=== PATIENT | female | born 1960 | race Caucasian/White ===

== ENCOUNTER → 2020-10-17 12:32 | Outpatient (BNVA) | payer OTHER, MEDICARE, SELFPAY | PROVIDERS: PCP Internal Medicine; Referring Provider Internal Medicine; Visit Provider Nurse Practitioner Family | DX: Z12.11 Encounter for screening for malignant neoplasm of colon (principal); Z79.899 Other long term (current) drug therapy | CPT/HCPCS: Q3014 ==

== ENCOUNTER 2021-01-07 11:05 | Day surgery (SDC) | payer OTHER, SELFPAY ==
[2020-12-06 10:09] VITALS: BMI 25.7
--- NOTE | 2021-01-06 08:31 | HO.ANESPROP2 ---
Documented by User: Kira Stephens 01/06/21 08:32 HPI - Anesthesia Eval Consult details Narrative: 60yo F for Colonoscopy PMFSH Active Problems Active Problems: All Active Problems (Updated 12/05/20 @ 16:08 by Karma Comer) Colon cancer screening (Acute) Past Medical History Medical History Anxiety Chronic right shoulder pain Depression GERD (gastroesophageal reflux disease) History of ETOH abuse Hypothyroidism Osteoarthritis Psoriasis Seborrheic dermatitis of scalp Skin cancer of forehead Smoker Family History Family History Father Hypercholesteremia Mother Breast cancer Surgical History Surgical History History of appendectomy Hx of arthroscopy of left knee Social History Social History (Updated 01/07/21 @ 11:43 by Veronica Elliott) Are you a primary infant childcare provider to a significant other at home: No Do you presently have visiting nurse or other home services: No Alcohol intake: former Smoking Status: Current every day smoker Tobacco Type: Cigarette Cigarettes Per Day: 6 Smoked in Last 30 Days: Yes Use of substances other than those prescribed or required for medical reasons: Yes Substance Use Type: Marijuana Substance Use Type Other:: ? h/o IVDA in the past. On suboxone Advance Directives: No Advance Directives Information Provided: No Advance Directives on File: No Meds Allergies Allergy/AdvReac Type Severity Reaction Status Date / Time No Known Allergies Allergy Verified 01/07/21 11:10 Home Medications Medication Instructions Recorded Confirmed Last Taken Type buprenorphine 8 mg-naloxone 2 mg 1.5 film SUBLINGUAL DAILY ea 10/17/20 12/05/20 Unknown History sublingual film etanercept 50 mg/mL (1 mL) 50 mg SUBCUT QWEEK 10/17/20 12/05/20 Unknown History subcutaneous syringe cholecalciferol (vitamin D3) 1 tab PO DAILY 12/05/20 12/05/20 Unknown History folic acid 1 mg PO DAILY 12/05/20 12/05/20 Unknown History vitamin B complex [B-100] 1 tab PO DAILY 12/05/20 12/05/20 Unknown History Exam Exam Date and Time: January 06, 2021 0831 Height,Weight and Vital Signs: Height 5 ft 5 in Weight 70.307 kg Assessment and Plan Assessment Anesthesia Assessment: Chart Reviewed Documented by User: Veronica Elliott 01/07/21 11:47 PMFSH Past Medical History Medical History Anxiety Chronic right shoulder pain Depression GERD (gastroesophageal reflux disease) History of ETOH abuse Hypothyroidism Osteoarthritis Psoriasis Seborrheic dermatitis of scalp Skin cancer of forehead Smoker Family History Family History Father Hypercholesteremia Mother Breast cancer Family history of problems with anesthesia: Yes (Mother has hard time waking up) Surgical History Surgical History History of appendectomy Hx of arthroscopy of left knee History of Problems with Anesthesia: No Social History Social History (Updated 01/07/21 @ 11:43 by Veronica Elliott) Are you a primary infant childcare provider to a significant other at home: No Do you presently have visiting nurse or other home services: No Alcohol intake: former Smoking Status: Current every day smoker Tobacco Type: Cigarette Cigarettes Per Day: 6 Smoked in Last 30 Days: Yes Use of substances other than those prescribed or required for medical reasons: Yes Substance Use Type: Marijuana Substance Use Type Other:: ? h/o IVDA in the past. On suboxone Advance Directives: No Advance Directives Information Provided: No Advance Directives on File: No Meds Allergies Allergy/AdvReac Type Severity Reaction Status Date / Time No Known Allergies Allergy Verified 01/07/21 11:10 Home Medications Medication Instructions Recorded Confirmed Last Taken Type buprenorphine 8 mg-naloxone 2 mg 1.5 film SUBLINGUAL DAILY ea 10/17/20 12/05/20 Unknown History sublingual film etanercept 50 mg/mL (1 mL) 50 mg SUBCUT QWEEK 10/17/20 12/05/20 Unknown History subcutaneous syringe cholecalciferol (vitamin D3) 1 tab PO DAILY 12/05/20 12/05/20 Unknown History folic acid 1 mg PO DAILY 12/05/20 12/05/20 Unknown History vitamin B complex [B-100] 1 tab PO DAILY 12/05/20 12/05/20 Unknown History Exam Height,Weight and Vital Signs: Vital Signs Temp Pulse Resp BP Pulse Ox 01/07/21 11:16 98.5 F 76 16 165/89 H 97 Airway Mallampati Class: II TM Dist: >3cm Neck ROM: Full Loose/Missing/Broken Teeth: Yes (Poor dentition-broken, ground down) Heart: RRR ? click vs split heart sound Lungs: CTAB Assessment and Plan Assessment Anesthesia Assessment: Anesthesia Plan Discussed and Chart Reviewed Final Anesthetic Review NPO: Yes ASA Class: II Final Preanesthetic Review: No Changes in Pt Med Stat, Meds/Allgs Chart Reviewed, Consent Obtained/Reviewed and Anes Risks/Benef Reviewed Patient Risk: Intermediate Procedure Risk: Low Assessment/Block/Sedation in SS: Assess/Block/Sedation-SS Anesthetic Plan Anesthetic Plan: MAC: Disposition: Standard PACU
--- NOTE | 2021-01-07 11:11 | MHC.SHP ---
Pre-Procedural Eval Section B Chief Complaint: Screening Relevant Family History (Specify if Yes): No Relevant Social History: Other (specify) Present Medications: see Short Stay Collaborative assessment Medical History: Significant History (Anxiety Chronic right shoulder pain Depression GERD (gastroesophageal reflux disease) History of ETOH abuse Hypothyroidism Osteoarthritis Psoriasis Seborrheic dermatitis of scalp Skin cancer of forehead Smoker) History of Previous Operations: Relevant previous surgery/procedure and date(s) (appendectomy) Allergies: Allergies Allergy/AdvReac Type Severity Reaction Status Date / Time No Known Allergies Allergy Verified 01/07/21 11:10 Review of Systems Sugical H&P ROS: Negative: Constitution, Cardiovascular, Respiratory, Neurological, Psychiatric, Hem-Onc, Allergic/Immunologic, Gastrointestinal, Genitourinary, Musculoskeletal, Integumentary, Endocrine and Eyes/Ears/Nose/Throat Exam Surgical H&P Exam: Normal: HEENT, Normal: Heart, Normal: Lungs, Normal: Extremities, Normal: Abdomen, Normal: Skin and Normal: Neurological Plan Diagnosis/Plan: Unchanged I have reviewed the history and physical and performed a pertinent physical examination on my patient. No changes have occurred unless specified.
[2021-01-07 11:16] VITALS: BP 165/89; PULSE 76; RESP 16; TEMP 36.9; O2SAT 97
--- NOTE | 2021-01-07 11:25 | PC.NURSE ---
PT HAS PSORIASIS ALL OVER BODY, MOST SIGNIFICANT ON LEGS AND SOME ON BUTTOCKS.
[2021-01-07] MEDS: Lactated Ringers 1,000 ML 100 ML IVCONT (11:35)
--- NOTE | 2021-01-07 12:08 | PM.OP ---
Brief Operative Note Date of Service: 01/07/21 Pre-op diagnosis: screening Post-op diagnosis: same Procedure: see op note Surgeon: Diallo Kwan MD Anesthesia: MAC Estimated blood loss (mL): 0 Condition: stable Disposition: PACU
--- NOTE | 2021-01-07 12:08 | W.PM.OPN ---
Operative Note Operative Note Date of Service: 01/07/21 Narrative: Operative Information Procedure Description: Colonoscopy COLONOSCOPY Instrument: Olympus variable stiffness pediatric scope 190L Colonoscopy Monitoring: Vital signs and clinical assessment, continuous EKG monitoring, Pulse oximetry, Carbon Dioxide monitoring and blood pressure monitoring were done throughout the procedure. Colon withdrawal time was 10 minutes. Procedure: The patient was placed in the left lateral decubitis position and pre-procedure medications were administered. After a digital rectal examination of the ano-rectum, the video colonoscope was inserted into the rectum and advanced through the colon to the cecum/TI. The colonoscope was slowly withdrawn in a retrograde panoramic fashion and the colon mucosa was carefully examined including a retroflexed view of the rectum. Findings and interventions are described below. Procedure Difficulty: easy Findings: Terminal Ileum-unable to see Cecum: unable to see due to prep Ascending Colon: normal Transverse Colon -normal Descending Colon:normal Sigmoid Colon: normal Rectum: Retroflexion with small internal hemorrhoids, grade I Anorectum - normal Colon preparation: [place] Bowel Preparation Scale Right colon; 0 Transverse colon: 1 Left colon; 1 (0 = Unprepared colon segment with mucosa not seen due to solid stool that cannot be cleared. 1 = Portion of mucosa of the colon segment seen, but other areas of the colon segment not well seen due to staining, residual stool and/or opaque liquid. 2 = Minor amount of residual staining, small fragments of stool and/or opaque liquid, but mucosa of colon segment seen well. 3 = Entire mucosa of colon segment seen well with no residual staining, small fragments of stool or opaque liquid) Impression and Post Procedure Diagnosis: internal hemorrhoids poor prep Plan: Repeat Colonoscopy in 2-3 months and review prep instructions with her to make sure prep is better next time Above findings were reviewed with the patient and relevant handouts were provided if indicated.
[2021-01-07 12:13] VITALS: BP 123/77; PULSE 73; RESP 20; TEMP 36.4; O2SAT 98
[2021-01-07 12:28] VITALS: BP 127/77; PULSE 73; RESP 20; O2SAT 98
--- NOTE | 2021-01-07 12:43 | PC.NURSE ---
1240 AWAKE ALERT ALFREDA PO DENIES DISCOMFORT MONITOR AND IVF DCD ASST OOB CH STEADY IV DCD DRESSED SELF AT BS CALL PAULINO IN REACH PLAN TO AMB TO [facility]
== END 2021-01-07 12:56 | disposition home or self-care (01) ==
PROVIDERS: PCP Internal Medicine; Visit Provider Internal Medicine Gastroenterology
PROC: 0DJD8ZZ Inspection of Lower Intestinal Tract, Via Natural or Artificial Opening Endoscopic (ICD-10-PCS; CPT 45378; principal; 2021-01-07 12:20)
DX: Z12.11 Encounter for screening for malignant neoplasm of colon (principal); K64.0 First degree hemorrhoids; K21.9 Gastro-esophageal reflux disease without esophagitis; F32.9 Major depressive disorder, single episode, unspecified; Z85.828 Personal history of other malignant neoplasm of skin; F17.210 Nicotine dependence, cigarettes, uncomplicated; F11.20 Opioid dependence, uncomplicated; Z79.899 Other long term (current) drug therapy
CPT/HCPCS: G0121

== ENCOUNTER → 2021-01-28 13:44 | Outpatient (BNVA) | payer OTHER, SELFPAY | PROVIDERS: PCP Internal Medicine; Visit Provider Nurse Practitioner Family | DX: Z13.89 Encounter for screening for other disorder (principal) | CPT/HCPCS: Q3014 ==

== ENCOUNTER 2021-02-12 10:52 | Outpatient (REF) | payer OTHER, SELFPAY ==
[2021-02-12 13:44] LABS: MANUAL DIFF FLAG NO
[2021-02-12 13:49] LABS: Basophils Percent Auto 0.5 % (0-2); Eosinophils Absolute Auto 0.2 X10*3/uL (0.0-0.4); Eosinophils Percent Auto 4.1 % (0-4); Hematocrit 40.6 % (37-47); Imm Gran Abs Auto 0.01 X10*3/uL (0.00-0.03); Imm Gran Pct Auto 0.2 % (0.0-0.4); Lymphocytes Absolute Auto 1.5 X10*3/uL (1.2-4.9); Lymphocytes Percent Auto 36.7 % (20-40); Mean Corpuscular Hemoglobin 28.7 pg (27.0-33.0); Mean Corpuscular Volume 89.6 fL (80-98); Mean Platelet Volume 8.9 fL (9.4-12.3); Monocytes Absolute Auto 0.3 X10*3/uL (0.1-1.2); Monocytes Percent Auto 7.5 % (2-11); Neutrophils Absolute Auto 2.1 X10*3/uL (2.0-8.3); Platelet Count 267 X10*3/uL (160-400); Red Blood Count 4.53 X10*6/uL (4.20-5.50); Red Cell Distribution Width 14.6 % (11.0-16.0); White Blood Count 4.1 X10*3/uL (4.8-10.8)
[2021-02-12 18:23] LABS: Ferritin 42 ng/mL (10-250); TSH reflex Free T4 1.78 uIU/mL (0.32-4.0)
[2021-02-12 18:29] LABS: Alanine Aminotransferase 49 U/L (0-31); Albumin Level 4.3 g/dL (3.5-5.0); Alkaline Phosphatase 101 U/L (39-117); Anion Gap 13 (12-20); Aspartate Amino Transferase 44 U/L (5-31); Bilirubin Total 0.5 mg/dL (0.0-1.0); Blood Urea Nitrogen 21 mg/dL (9-16); Calcium 9.3 mg/dL (8.4-10.2); Carbon Dioxide 27 mmol/L (22-29); Chloride 102 mmol/L (96-108); Estimated Glomerular Filt Rate > 60; Glucose Random 133 mg/dL (60-115); Potassium 4.8 mmol/L (3.3-5.1); Sodium 137 mmol/L (135-145); Total Protein 7.7 g/dL (6.5-8.0)
[2021-02-13 01:52] LABS: Ethylene Glycol NONE DETECTED (NONE DETECTED)
[2021-02-13 03:45] LABS: Vitamin B12 565 pg/mL (200-900)
[2021-02-15 13:06] LABS: Vitamin D 25-OH, D2 <4 ng/mL; Vitamin D 25-OH, D3 11 ng/mL; Vitamin D 25-OH, Total 11 ng/mL (30-100)
== END 2021-02-12 10:53 | disposition home or self-care (01) ==
LOC: HO.HMGCLDS 10:52
PROVIDERS: PCP Internal Medicine; Visit Provider Internal Medicine
DX: E03.9 Hypothyroidism, unspecified (principal); F10.20 Alcohol dependence, uncomplicated; F32.9 Major depressive disorder, single episode, unspecified; F41.9 Anxiety disorder, unspecified; J45.909 Unspecified asthma, uncomplicated; K59.01 Slow transit constipation; L40.9 Psoriasis, unspecified; D64.9 Anemia, unspecified
CPT/HCPCS: 36415; 80053; 82306; 82607; 82693; 82728; 84443; 85025

== ENCOUNTER 2021-04-16 09:44 | Day surgery (SDC) | payer OTHER, SELFPAY ==
--- NOTE | 2021-04-15 10:48 | P.CONAN_ITS ---
Documented by User: Kira Stephens 04/15/21 10:49 HPI - Anesthesia Eval Consult details Narrative: 60yo F for Colonoscopy Repeat colo d/t poor prep with [place] 01/2021 with [facility] PMFSH Active Problems Active Problems: All Active Problems (Updated 02/12/21 @ 10:50 by Reyna Zaman MD) Colon cancer screening (Acute) Alcoholism (Acute) Hypothyroidism (Acute) Anxiety and depression (Acute) Psoriasis (Acute) Asthma (Acute) Constipation by delayed colonic transit (Acute) Anemia (Acute) Past Medical History Medical History Anxiety Chronic right shoulder pain Depression GERD (gastroesophageal reflux disease) History of ETOH abuse Hypothyroidism Osteoarthritis Psoriasis Seborrheic dermatitis of scalp Skin cancer of forehead Smoker Family History Family History Father Hypercholesteremia Mother Breast cancer Family history of problems with anesthesia: Yes (Mother has hard time waking up) Surgical History Surgical History (Updated 04/11/21 @ 08:07 by Karma Comer) H/O colonoscopy History of appendectomy Hx of arthroscopy of left knee History of Problems with Anesthesia: No Social History Social History Household Members: None Are you a primary home care and home health aides teacher to a significant other at home: No Do you presently have visiting nurse or other home services: No Alcohol intake: former Cigarettes Per Day: 3 Substance Use Type: Marijuana Are you DNR?: No Advance Directives: No Advance Directives Information Provided: Yes Recently lost weight without trying: No Nutrition Risks: No Nutritional Risk Meds Allergies Allergy/AdvReac Type Severity Reaction Status Date / Time No Known Allergies Allergy Verified 02/12/21 10:28 Home Medications Medication Instructions Recorded Confirmed Last Taken Type buprenorphine 8 mg-naloxone 2 mg 1.5 film SUBLINGUAL DAILY ea 10/17/20 04/11/21 Unknown History sublingual film etanercept 50 mg/mL (1 mL) 50 mg SUBCUT QWEEK 10/17/20 04/11/21 Unknown History subcutaneous syringe cholecalciferol (vitamin D3) 1 tab PO DAILY 12/05/20 04/11/21 Unknown History folic acid 1 mg PO DAILY 12/05/20 04/11/21 Unknown History vitamin B complex [B-100] 1 tab PO DAILY 12/05/20 04/11/21 Unknown History Exam Exam Date and Time: April 15, 2021 1048 Assessment and Plan Assessment Anesthesia Assessment: Chart Reviewed Documented by User: Sheree Dwyer 04/16/21 11:02 PMF Past Medical History Medical History Anxiety Chronic right shoulder pain Depression GERD (gastroesophageal reflux disease) History of ETOH abuse Hypothyroidism Osteoarthritis Psoriasis Seborrheic dermatitis of scalp Skin cancer of forehead Smoker Family History Family History Father Hypercholesteremia Mother Breast cancer Surgical History Surgical History (Updated 04/11/21 @ 08:07 by Karma Comer) H/O colonoscopy History of appendectomy Hx of arthroscopy of left knee Social History Social History Household Members: None Are you a primary home care and home health aides teacher to a significant other at home: No Do you presently have visiting nurse or other home services: No Alcohol intake: former Cigarettes Per Day: 3 Substance Use Type: Marijuana Are you DNR?: No Advance Directives: No Advance Directives Information Provided: Yes Recently lost weight without trying: No Nutrition Risks: No Nutritional Risk Meds Allergies Allergy/AdvReac Type Severity Reaction Status Date / Time No Known Allergies Allergy Verified 02/12/21 10:28 Home Medications Medication Instructions Recorded Confirmed Last Taken Type buprenorphine 8 mg-naloxone 2 mg 1.5 film SUBLINGUAL DAILY ea 10/17/20 04/11/21 Unknown History sublingual film etanercept 50 mg/mL (1 mL) 50 mg SUBCUT QWEEK 10/17/20 04/11/21 Unknown History subcutaneous syringe cholecalciferol (vitamin D3) 1 tab PO DAILY 12/05/20 04/11/21 Unknown History folic acid 1 mg PO DAILY 12/05/20 04/11/21 Unknown History vitamin B complex [B-100] 1 tab PO DAILY 12/05/20 04/11/21 Unknown History Exam Airway Mallampati Class: II (Poor dentition, teeth worn down, nithing loose) TM Dist: >3cm Neck ROM: Full Heart: RrR Lungs: CtA Assessment and Plan Assessment Anesthesia Assessment: Anesthesia Plan Discussed and Chart Reviewed Final Anesthetic Review NPO: Yes (Sip water with meds) ASA Class: III Final Preanesthetic Review: No Changes in Pt Med Stat and Consent Obtained/Reviewed Patient Risk: Intermediate Procedure Risk: Intermediate Anesthetic Plan Anesthetic Plan: MAC: Disposition: Standard PACU
[2021-04-16 10:12] VITALS: BP 134/87; PULSE 82; RESP 16; TEMP 36.1; O2SAT 95; BMI 26.6
--- NOTE | 2021-04-16 10:58 | MHC.SHP ---
Pre-Procedural Eval Section B Chief Complaint: screening Relevant Family History (Specify if Yes): No Relevant Social History: Other (specify) (smokes THC) Present Medications: see Short Stay Collaborative assessment Medical History: Significant History (Anxiety Chronic right shoulder pain Depression GERD (gastroesophageal reflux disease) History of ETOH abuse Hypothyroidism Osteoarthritis Psoriasis Seborrheic dermatitis of scalp Skin cancer of forehead Smoker) History of Previous Operations: Relevant previous surgery/procedure and date(s) (H/O colonoscopy History of appendectomy Hx of arthroscopy of left knee) Allergies: Allergies Allergy/AdvReac Type Severity Reaction Status Date / Time No Known Allergies Allergy Verified 02/12/21 10:28 Review of Systems Sugical H&P ROS: Negative: Constitution, Cardiovascular, Respiratory, Neurological, Psychiatric, Hem-Onc, Allergic/Immunologic, Gastrointestinal, Genitourinary, Musculoskeletal, Integumentary, Endocrine and Eyes/Ears/Nose/Throat Exam Surgical H&P Exam: Normal: HEENT, Normal: Heart, Normal: Lungs, Normal: Abdomen, Normal: Skin and Normal: Neurological and Significant Findings: Extremities (dupuytrens contracture) Plan Diagnosis/Plan: Unchanged I have reviewed the history and physical and performed a pertinent physical examination on my patient. No changes have occurred unless specified.
[2021-04-16 11:37] VITALS: BP 98/63; PULSE 76; RESP 16; TEMP 36.4; O2SAT 98
--- NOTE | 2021-04-16 11:38 | P.BOP_ITS ---
Brief Operative Note Date of Service: 04/16/21 Pre-op diagnosis: colonoscopy screen Post-op diagnosis: same Procedure: see op note Surgeon: Diallo Kwan MD Anesthesia: MAC Was an Epidemiology Internship used for this Procedure?: No Estimated blood loss (mL): 0 Condition: stable Disposition: PACU
--- NOTE | 2021-04-16 11:39 | W.PM.OPN ---
Operative Note Operative Note Date of Service: 04/16/21 Narrative: Operative Information Procedure Description: Colonoscopy COLONOSCOPY Instrument: Olympus variable stiffness adult scope 190L Colonoscopy Monitoring: Vital signs and clinical assessment, continuous EKG monitoring, Pulse oximetry, Carbon Dioxide monitoring and blood pressure monitoring were done throughout the procedure. Colon withdrawal time was 20 minutes. Procedure: The patient was placed in the left lateral decubitis position and pre-procedure medications were administered. After a digital rectal examination of the ano-rectum, the video colonoscope was inserted into the rectum and advanced through the colon to the cecum/TI. The colonoscope was slowly withdrawn in a retrograde panoramic fashion and the colon mucosa was carefully examined including a retroflexed view of the rectum. Findings and interventions are described below. Procedure Difficulty: moderate, pressure applied to get to cecum, TI only superficially seen appeared normal Findings: Terminal Ileum-normal, not deeply intubated Cecum: erythema with scarring and atrophy, bx taken Ascending Colon: normal Transverse Colon -normal Descending Colon: one inflammed fold, bx taken Sigmoid Colon: normal Rectum: Retroflexion with small internal hemorrhoids, grade I Anorectum - normal Colon preparation: [place] Bowel Preparation Scale Right colon; 2 Transverse colon: 2 Left colon; 1 (0 = Unprepared colon segment with mucosa not seen due to solid stool that cannot be cleared. 1 = Portion of mucosa of the colon segment seen, but other areas of the colon segment not well seen due to staining, residual stool and/or opaque liquid. 2 = Minor amount of residual staining, small fragments of stool and/or opaque liquid, but mucosa of colon segment seen well. 3 = Entire mucosa of colon segment seen well with no residual staining, small fragments of stool or opaque liquid) Impression and Post Procedure Diagnosis: internal hemorrhoids non specific colitis Plan: High fiber diet leaflet Avoid straining at stool, epsom salts and sitz bath, anusol supps or cream as needed Repeat Colonoscopy in 1-2 years or earlier if clinically indicated, review prep for next time Above findings were reviewed with the patient and relevant handouts were provided if indicated.
[2021-04-16 11:53] VITALS: BP 117/79; PULSE 81; RESP 16; TEMP 36.4; O2SAT 96
== END 2021-04-16 12:22 | disposition home or self-care (01) ==
PROVIDERS: PCP Internal Medicine; Visit Provider Internal Medicine Gastroenterology
PROC: 0DJD8ZZ Inspection of Lower Intestinal Tract, Via Natural or Artificial Opening Endoscopic (ICD-10-PCS; CPT 45378; principal; 2021-04-16 11:10)
DX: Z12.11 Encounter for screening for malignant neoplasm of colon (principal); K52.9 Noninfective gastroenteritis and colitis, unspecified; K64.0 First degree hemorrhoids
CPT/HCPCS: 45380; 88305

== ENCOUNTER 2022-06-05 09:48 | Outpatient (REF) | payer OTHER, SELFPAY ==
--- NOTE | ~2022-06-05 | MM_ITS ---
EXAMINATION: MM SCREENING DIGITAL BREAST TOMOSYNTHESIS, BILATERAL CLINICAL INFORMATION: Screening. Asymptomatic. Family history breast cancer, mother age 76. The lifetime risk of breast cancer based on the Tyrer-Cuzick Model is 11%. COMPARISON: Mammography: 09/25/2019, 09/04/2017, 03/22/2014 TECHNIQUE: Digital breast tomosynthesis is performed in both the craniocaudal and mediolateral oblique views along with computer-aided detection (CAD). Synthesized 2D images are generated from the tomosynthesis. FINDINGS: There are scattered areas of fibroglandular density (ACR BI-RADS breast composition Category b). Breast tissue composition borders on predominantly fatty. Left breast shows no interval mass or architectural abnormality or developing density. Neither breast shows abnormal calcifications. The bilateral axilla and skin contours are unremarkable. Right synthesized CC view has question of some fine radiating lines posterior breast just medial to posterior nipple line. No correlate on MLO view. Patient will be recalled for additional imaging to exclude architectural changes. MM/MM tomosynthesis screening BI IMPRESSION: Right: -Question subtle architectural changes posterior breast medial to posterior nipple line limited to synthesized CC view view. Left: -No mammographic evidence of malignancy. ASSESSMENT: BI-RADS 0: Incomplete - Need Additional Imaging Evaluation RECOMMENDATION: 1. Additional views of the right breast (spot CC, rolled CC x2). 2. Targeted ultrasound if warranted after review of the additional views. 3. Radiology department staff will contact the patient for additional imaging. This patient's information was entered into a reminder system with a target due date for their next mammogram.
== END 2022-06-05 09:49 | disposition home or self-care (01) ==
LOC: HO.MAMMO 09:48
PROVIDERS: PCP Internal Medicine; Visit Provider Internal Medicine
DX: Z12.31 Encounter for screening mammogram for malignant neoplasm of breast (principal)
CPT/HCPCS: 77063; 77067

== ENCOUNTER 2022-06-11 09:21 | Outpatient (REF) | payer OTHER, SELFPAY ==
--- NOTE | ~2022-06-11 | MM_ITS ---
EXAMINATION: MM DIAGNOSTIC DIGITAL BREAST TOMOSYNTHESIS, RIGHT CLINICAL INFORMATION: Recall from screening for question of subtle architectural changes right breast on synthesized CC view. Family history breast cancer, mother. COMPARISON: Mammography: 06/05/2022, 09/25/2019, 09/04/2017. TECHNIQUE: Digital breast tomosynthesis is performed. 2D images are generated from the tomosynthesis. The following views are obtained: Rolled CC x2, spot CC. FINDINGS: There are scattered areas of fibroglandular density (ACR BI-RADS breast composition Category b). The additional views show no architectural abnormality. Background stromal markings are similar to prior studies. No developing density or interval mass. Results are discussed with the patient at time of visit. MM/MM tomosynthesis added views R IMPRESSION: Additional views show no architectural abnormality or changes from prior studies. ASSESSMENT: BI-RADS 1: Negative RECOMMENDATION: Routine annual mammography screening. This patient's information was entered into a reminder system with a target due date for their next mammogram.
== END 2022-06-11 09:22 | disposition home or self-care (01) ==
LOC: HO.MAMMO 09:21
PROVIDERS: PCP Internal Medicine; Visit Provider Internal Medicine
DX: R92.8 Other abnormal and inconclusive findings on diagnostic imaging of breast (principal)
CPT/HCPCS: 77061; 77065

== ENCOUNTER 2022-08-21 09:52 | Outpatient (REF) | payer OTHER, SELFPAY ==
[2022-08-21 11:25] LABS: MANUAL DIFF FLAG NO
[2022-08-21 11:46] LABS: Basophils Percent Auto 0.5 % (0-2); Eosinophils Absolute Auto 0.1 X10*3/uL (0.0-0.4); Eosinophils Percent Auto 2.5 % (0-4); Hematocrit 40.5 % (37.0-47.0); Hemoglobin 13.7 g/dl (12.0-16.0); Imm Gran Abs Auto 0.01 X10*3/uL (0.00-0.03); Imm Gran Pct Auto 0.2 % (0.0-0.4); Lymphocytes Absolute Auto 1.4 X10*3/uL (1.2-4.9); Lymphocytes Percent Auto 32.4 % (20-40); Mean Corpuscular HGB Conc 33.8 g/dl (31.0-35.0); Mean Corpuscular Volume 85.6 fL (80.0-98.0); Mean Platelet Volume 9.5 fL (9.4-12.3); Monocytes Absolute Auto 0.3 X10*3/uL (0.1-1.2); Monocytes Percent Auto 5.7 % (2-11); Neutrophils Absolute Auto 2.6 x10*3/uL (2.0-8.3); Neutrophils Percent Auto 58.7 % (45-73); Platelet Count 252 X10*3/uL (160-400); Red Blood Count 4.73 X10*6/uL (4.20-5.50); Red Cell Distribution Width 13.7 % (11.0-16.0); White Blood Count 4.4 X10*3/uL (4.8-10.8)
[2022-08-21 11:49] LABS: Estimated Average Glucose 303 mg/dL; Hemoglobin A1c % 12.2 %
[2022-08-21 11:52] LABS: Appearance Urine Cloudy; Color Urine Yellow; Glucose Urine UA >=1000 mg/dL (Negative); Leukocyte Esterase Urine Moderate (2+) (Negative); Nitrite Urine Negative (Negative); Specific Gravity - Urine >= 1.030 (1.005-1.025); UMIC TRIGGER UACC YES; Urine Blood Negative (Negative); Urine Ketones Negative (Negative); Urine Protein Trace mg/dL (Neg-Trace)
[2022-08-21 12:00] LABS: Bacteria Urine 1+ (None Seen); Hyaline Casts Urine 0-2 /LPF (0-2); RBC Urine 0-2 /HPF (0-2); UACC Culture Trigger YES; WBC Urine >50 /HPF (0-5)
[2022-08-21 12:25] LABS: Alanine Aminotransferase 23 U/L (0-31); Albumin Level 4.2 g/dL (3.5-5.0); Alkaline Phosphatase 89 U/L (39-117); Anion Gap 16 (12-20); Aspartate Amino Transferase 26 U/L (5-31); Bilirubin Total 0.5 mg/dL (0.0-1.0); Blood Urea Nitrogen 14 mg/dL (9-16); Calcium 9.2 mg/dL (8.4-10.2); Carbon Dioxide 23 mmol/L (22-29); Chloride 98 mmol/L (96-108); Estimated Glomerular Filt Rate > 60; Potassium 4.3 mmol/L (3.3-5.1); Sodium 133 mmol/L (135-145); Total Protein 7.4 g/dL (6.5-8.0)
[2022-08-21 13:49] LABS: Glucose Random 402 mg/dL (60-115)
== END 2022-08-21 09:53 | disposition home or self-care (01) ==
LOC: HO.HMGCLDS 09:52
PROVIDERS: PCP Internal Medicine; Visit Provider Internal Medicine
DX: F10.11 Alcohol abuse, in remission (principal); F32.9 Major depressive disorder, single episode, unspecified; F41.9 Anxiety disorder, unspecified; L40.9 Psoriasis, unspecified; N89.8 Other specified noninflammatory disorders of vagina; R35.89 Other polyuria; E03.9 Hypothyroidism, unspecified
CPT/HCPCS: 36415; 80053; 81001; 83036; 84443; 85025; 87086

== ENCOUNTER 2023-02-05 11:16 | Outpatient (REF) | payer OTHER, SELFPAY ==
[2023-02-05 14:13] LABS: Estimated Average Glucose 123 mg/dL; Hemoglobin A1c % 5.9 %
[2023-02-05 14:14] LABS: Alanine Aminotransferase 25 U/L (0-31); Albumin Level 4.5 g/dL (3.5-5.0); Alkaline Phosphatase 84 U/L (39-117); Anion Gap 12 (12-20); Aspartate Amino Transferase 25 U/L (5-31); Bilirubin Total 0.8 mg/dL (0.0-1.0); Blood Urea Nitrogen 14 mg/dL (9-16); Calcium 9.8 mg/dL (8.4-10.2); Carbon Dioxide 29 mmol/L (22-29); Chloride 101 mmol/L (96-108); Estimated Glomerular Filt Rate > 60; Glucose Random 158 mg/dL (60-115); Potassium 5.2 mmol/L (3.3-5.1); Sodium 137 mmol/L (135-145); Total Protein 7.7 g/dL (6.5-8.0)
[2023-02-05 14:33] LABS: TSH reflex Free T4 3.24 uIU/mL (0.32-4.0)
== END 2023-02-05 11:17 | disposition home or self-care (01) ==
LOC: HO.HMGCLDS 11:16
PROVIDERS: PCP Internal Medicine; Visit Provider Internal Medicine
DX: E11.9 Type 2 diabetes mellitus without complications (principal); E03.9 Hypothyroidism, unspecified; F41.9 Anxiety disorder, unspecified; F32.9 Major depressive disorder, single episode, unspecified; D64.9 Anemia, unspecified; L40.9 Psoriasis, unspecified
CPT/HCPCS: 36415; 80053; 83036; 84443

== ENCOUNTER 2023-07-09 13:49 | Outpatient (AMB) | payer OTHER, SELFPAY ==
[2023-07-09 13:52] VITALS: BP 148/90; PULSE 93; O2SAT 96; BMI 26.8
--- NOTE | 2023-07-09 13:52 | MHC.PC.OV ---
Vital Signs 07/09/23 13:52 Height 5 ft 5 in Weight 161 lb 2 oz BMI 26.8 BP 148/90 H Blood Pressure Location Rt brachial Position Sitting Pulse 93 Pulse Source Pulse Oximeter Pulse Oximetry (%) 96 Oxygen Delivery Method Room Air Intake Visit Reasons: 3M Allergies No Known Allergies Allergy (Verified 07/09/23 13:52) Medication List - Last Reconciled 07/09/23 by Reyna Zaman MD amlodipine 5 mg PO DAILY blood sugar diagnostic (FreeStyle Lite Strips) B.i.d. blood-glucose meter (FreeStyle Lite Meter kit) B.i.d. buprenorphine-naloxone 8-2 mg (Suboxone) 1.5 film sublingual DAILY cholecalciferol (vitamin D3) 50 mcg PO DAILY 90 days etanercept (Enbrel SureClick) mg subcut glipizide-metformin 5-500 mg 1 tab PO ONCE 90 days lancets (BD Ultra-Fine II Lancets) 2 times a day levothyroxine 175 mcg PO DAILY 90 days sertraline 200 mg (2 x 100 mg) PO DAILY Tobacco use date assessed: 07/09/23 Dental Screening Dental Screen Date: 07/09/23 Did you have a dental visit in the last 12 months?: No Did you have a dental problem in the last 6 months where you did not have access to dental care?: No Was dental information given to patient?: No HPI 3M HPI Details Patient is a 63-year-old female came in today for her follow-up appointment She is under stress these days as her periods 1st her father and then her mother Due to stress her Jacobs says is flaring up even though she is on Embral I have sent prednisone 10 mg 7 tablets 1 daily with food She was supposed to have labs done before this visit but patient misunderstood me last visit and did not do it, she will do it today Diabetes mellitus: She is taking glipizide-metformin 5-500 mg once a day her A1c was well controlled in February Patient is aware that with prednisone her sugars will go up she is monitoring it at home and if needed she will take extra tablet of metformin glipizide Hypertension: Blood pressure is elevated it was 138 systolic last time I am increasing amlodipine to 10 mg Depression and anxiety: These days patient is feeling more depressed because of grieving. She is on sertraline 200 mg daily I have offered her counseling appointment which she has declined at this time. Patient is also on levothyroxine 175 mcg daily. Patient is on Suboxone as well and is managed by Dr. Abel Boateng, who would like to have patient's labs, we will fax it over once the report is available Follow-up 3 months PFS Medical History Alcoholism Anxiety Asthma Chronic right shoulder pain Depression GERD (gastroesophageal reflux disease) History of ETOH abuse Hypothyroidism Osteoarthritis Psoriasis Seborrheic dermatitis of scalp Skin cancer of forehead Smoker Surgical History H/O colonoscopy History of appendectomy Hx of arthroscopy of left knee Family History Father Hypercholesteremia Mother Breast cancer Other Mental health disorder Substance use disorder Social History Household Members: None Housing: Apartment Are you a primary rn progressive care unit to a significant other at home: No Do you presently have visiting nurse or other home services: No Alcohol intake: former Patient Tobacco Use Status: Current everyday Tobacco user Tobacco use type: Cigarette Cigarettes Per Day: 2 Years Smoked: 40 years e-Cigarette/Vaping Use: Never Used Second Hand Smoke Exposure: No Substance Use Type: Marijuana service: No Current occupational status: retired Cognitive needs: No Hearing needs: No Vision needs: No Questionnaire PHQ-9 Over the last 2 weeks, how often have you been bothered by any of the following problems? 1. Little interest or pleasure in doing things: several days 2. Feeling down, depressed, or hopeless: several days 3. Trouble falling or staying asleep, or sleeping too much: more than half the days 4. Feeling tired or having little energy: more than half the days 5. Poor appetite or overeating: more than half the days 6. Feeling bad about yourself - or that you are a failure or have let yourself or your family down: more than half the days 7. Trouble concentrating on things, such as reading the newspaper or watching television: more than half the days 8. Moving or speaking so slowly that other people could have noticed. Or the opposite - being so fidgety or restless that you have been moving around a lot more than usual: more than half the days 9. Thoughts that you would be better off or of hurting yourself in some way: several days Total score: 15 Depression Screening Interpretation: Positive 58082 - PHQ-9 Billing: Yes Source: Developed by Drs. Mickey Miranda, Laury Meier, Chente Hoyos and colleagues, with an educational kasey from [employer]. Thrive Questionnaire Date Thrive assessed: 07/09/23 I am a: Patient What is your living situation today?: I have a steady place to live Within the past 12 months, did the food you bought not last and you didn't have the money to get more?: Never true Within the past 12 months, did you worry whether your food would run out before you got money to buy more?: Never true Do you have trouble paying for medicines?: No Do you have trouble getting transportation to medical appointments?: Yes Do you have trouble paying your heating and electricity bill?: No Do you have trouble taking care of your child, family member or friend?: No Do you have trouble with day-to-day activities such as bathing, preparing meals, shopping, managing finances, etc.?: Yes Are you currently unemployed and looking for a job?: No Are you interested in more education?: No Please select the resources that you would like help with: Transportation AUDIT C Alcohol Use Questionnaire (AUDIT-C) 1. How often do you have a drink containing alcohol?: Never 3. How often do you have six or more drinks on one occasion?: Never Total Score: 0 Score Reviewed/Action Taken: Yes JAMES-7 AMB Questionnaire JAMES-7 Date JAMES - 7 assessed: 07/09/23 Feeling nervous, anxious, or on edge: 1 = Several days Not being able to stop or control worryin = Several days Worrying too much about different things: 1 = Several days Trouble relaxin = Several days Being so restless that it is hard to sit still: 1 = Several days Becoming easily annoyed or irritable: 1 = Several days Feeling afraid as if something awful might happen: 1 = Several days Total JAMES-7 score (0-4 normal; 5-9 mild; 10-14 moderate; 15-21 severe): 7 Source: Developed by Drs. Mickey Miranda, Laury Meier, Chente Hoyos and colleagues, with an educational kasey from [employer]. JAMES-7 Assessment Billing JAMES-7 Assessment Tool: JAMES-7 Assessment 22430 Review of Systems Const Denies chills and Denies fever(s) ENT Denies epistaxis and Denies nasal discharge Card Denies chest pain Resp Denies chest congestion, Denies cough and Denies hemoptysis GI Denies diarrhea and Denies nausea Neuro Reports no additional complaints Psych Reports no additional complaints Endo Reports no additional complaints Physical exam (Primary Care) Vital Signs: Last Vital Signs Pulse 93 07/09/23 13:52 BP 148/90 H 07/09/23 13:52 Pulse Ox 96 07/09/23 13:52 Oxygen Delivery Method Room Air 07/09/23 13:52 BMI result Body Mass Index 26.8 Tobacco/Smoking Status: Tobacco use Status Tobacco use date assessed 07/09/23 07/09/23 13:54 Patient Tobacco Use Status Current everyday Tobacco 07/09/23 13:54 Tobacco use type Cigarette 07/09/23 13:54 e-Cigarette/Vaping Use Never Used 07/09/23 13:54 PHQ-9: PHQ-9 Score PHQ-9: Total score 15 07/09/23 14:10 Depression Screening Interpretation: Positive Thrive Assessment: Date of Thrive Assessment Date Thrive assessed 07/09/23 07/09/23 14:10 Const General: cooperative, comfortable and no acute distress Orientation/consciousness: patient oriented x3 HENMT Head: Yes normocephalic Eyes General: appearance normal, both eyes and all related structures Neck Neck: Yes supple Resp Effort & Inspection: normal respiratory effort, no cough and no stridor Cardio Rhythm: regular rhythm Heart sounds: S1 normal heart sound present and S2 normal heart sound present Skin Other: Psoriatic rash on legs flared up General skin exam: turgor normal Neuro General: patient oriented x3, tone normal and moves all extremities Extrem Right lower extremity: no edema Left lower extremity: no edema Assessment and Plan Assessment & Plan (1) Hypothyroidism: Code(s): E03.9 - Hypothyroidism, unspecified (2) Anxiety and depression: Code(s): F41.9 - Anxiety disorder, unspecified; F32.9 - Major depressive disorder, single episode, unspecified (3) Anemia: Code(s): D64.9 - Anemia, unspecified (4) Psoriasis: Code(s): L40.9 - Psoriasis, unspecified (5) Diabetes mellitus type 2, controlled: Code(s): E11.9 - Type 2 diabetes mellitus without complications Qualifiers: Diabetes mellitus complication status: without complication Diabetes mellitus assisted insulin use: without intermodal customer service use Qualified Code(s): E11.9 - Type 2 diabetes mellitus without complications (6) Vitamin D deficiency: Code(s): E55.9 - Vitamin D deficiency, unspecified (7) Constipation by delayed colonic transit: Code(s): K59.01 - Slow transit constipation (8) History of alcohol abuse: Code(s): F10.11 - Alcohol abuse, in remission (9) Uncontrolled hypertension: Code(s): I10 - Essential (primary) hypertension (10) Bereavement counseling: Code(s): Z71.89 - Other specified counseling (11) Grieving: Code(s): F43.21 - Adjustment disorder with depressed mood (12) Depression, major, recurrent, moderate: Code(s): F33.1 - Major depressive disorder, recurrent, moderate Plan Patient is a 63-year-old female came in today for her follow-up appointment She is under stress these days as her periods 1st her father and then her mother Due to stress her Jacobs says is flaring up even though she is on Embral I have sent prednisone 10 mg 7 tablets 1 daily with food She was supposed to have labs done before this visit but patient misunderstood me last visit and did not do it, she will do it today Diabetes mellitus: She is taking glipizide-metformin 5-500 mg once a day her A1c was well controlled in February Patient is aware that with prednisone her sugars will go up she is monitoring it at home and if needed she will take extra tablet of metformin glipizide Hypertension: Blood pressure is elevated it was 138 systolic last time I am increasing amlodipine to 10 mg Depression and anxiety: These days patient is feeling more depressed because of grieving. She is on sertraline 200 mg daily I have offered her counseling appointment which she has declined at this time. Patient is also on levothyroxine 175 mcg daily. Constipation is stable Patient is on Suboxone as well and is managed by Dr. Abel Boateng, who would like to have patient's labs, we will fax it over once the report is available Follow-up 3 months Orders: Orders Hemoglobin A1c 3 Months D64.9 - Anemia, unspecified, E03.9 - Hypothyroidism, unspecified, E11.9 - Type 2 diabetes mellitus without complications, F32.9 - Major depressive disorder, single episode, unspecified, F41.9 - Anxiety disorder, unspecified, I10 - Essential (primary) hypertension Complete Blood Count Auto Diff 3 Months D64.9 - Anemia, unspecified, E03.9 - Hypothyroidism, unspecified, E11.9 - Type 2 diabetes mellitus without complications, F32.9 - Major depressive disorder, single episode, unspecified, F41.9 - Anxiety disorder, unspecified, I10 - Essential (primary) hypertension Comprehensive Met. Panel Today D64.9 - Anemia, unspecified, E03.9 - Hypothyroidism, unspecified, E11.9 - Type 2 diabetes mellitus without complications, F32.9 - Major depressive disorder, single episode, unspecified, F41.9 - Anxiety disorder, unspecified, I10 - Essential (primary) hypertension Microalbumin, Random (w Creat) 3 Months D64.9 - Anemia, unspecified, E03.9 - Hypothyroidism, unspecified, E11.9 - Type 2 diabetes mellitus without complications, F32.9 - Major depressive disorder, single episode, unspecified, F41.9 - Anxiety disorder, unspecified, I10 - Essential (primary) hypertension Medications: New prednisone 10 mg PO DAILY 7 tabs 0RF 7 days Changed From amlodipine 5 mg PO DAILY To amlodipine 10 mg PO DAILY 90 tabs 0RF Coding Level of Care Code Est Pt Level 4 (32058) Diagnoses Hypothyroidism E03.9 Anxiety and depression F41.9; F32.9 Anemia D64.9 Psoriasis L40.9 Diabetes mellitus type 2, controlled E11.9 Diabetes mellitus complication status: without complication Diabetes mellitus assisted insulin use: without intermodal customer service use Vitamin D deficiency E55.9 Constipation by delayed colonic transit K59.01 History of alcohol abuse F10.11 Uncontrolled hypertension I10 Bereavement counseling Z71.89 Grieving F43.21 Depression, major, recurrent, moderate F33.1 Additional Codes JAMES-7 Assessment Billing - JAMES-7 Assessment Tool: JAMES-7 Assessment 12230 ([id number])
== END 2023-07-09 14:24 | disposition home or self-care (01) ==
PROVIDERS: Visit Provider Internal Medicine
DX: E03.9 Hypothyroidism, unspecified (principal); F41.9 Anxiety disorder, unspecified; F33.1 Major depressive disorder, recurrent, moderate; E11.9 Type 2 diabetes mellitus without complications; E55.9 Vitamin D deficiency, unspecified; D64.9 Anemia, unspecified; L40.9 Psoriasis, unspecified; K59.01 Slow transit constipation; F10.11 Alcohol abuse, in remission; I10 Essential (primary) hypertension; F43.21 Adjustment disorder with depressed mood
CPT/HCPCS: 99214

== ENCOUNTER 2023-07-09 14:11 | Outpatient (REF) | payer OTHER, SELFPAY ==
[2023-07-09 16:07] LABS: Basophils Percent Auto 0.5 % (0-2); Eosinophils Absolute Auto 0.1 X10*3/uL (0.0-0.4); Eosinophils Percent Auto 1.9 % (0-4); Hematocrit 45.3 % (37.0-47.0); Hemoglobin 15.1 g/dl (12.0-16.0); Imm Gran Abs Auto 0.01 X10*3/uL (0.00-0.03); Imm Gran Pct Auto 0.3 % (0.0-0.4); Lymphocytes Percent Auto 27.3 % (20-40); MANUAL DIFF FLAG NO; Mean Corpuscular HGB Conc 33.3 g/dl (31.0-35.0); Mean Platelet Volume 9.5 fL (9.4-12.3); Monocytes Absolute Auto 0.3 X10*3/uL (0.1-1.2); Monocytes Percent Auto 6.7 % (2-11); Neutrophils Absolute Auto 2.4 x10*3/uL (2.0-8.3); Neutrophils Percent Auto 63.3 % (45-73); Platelet Count 226 X10*3/uL (160-400); Red Blood Count 4.87 X10*6/uL (4.20-5.50); Red Cell Distribution Width 14.3 % (11.0-16.0); White Blood Count 3.7 X10*3/uL (4.8-10.8)
[2023-07-09 16:34] LABS: Estimated Average Glucose 100 mg/dL; Hemoglobin A1c % 5.1 % (<6.0)
[2023-07-09 17:01] LABS: Alanine Aminotransferase 31 U/L (0-31); Albumin Level 4.4 g/dL (3.5-5.0); Alkaline Phosphatase 82 U/L (39-117); Anion Gap 19 (12-20); Aspartate Amino Transferase 47 U/L (5-31); Bilirubin Total 0.5 mg/dL (0.0-1.0); Blood Urea Nitrogen 10 mg/dL (9-16); Calcium 10.3 mg/dL (8.4-10.2); Carbon Dioxide 20 mmol/L (22-29); Chloride 100 mmol/L (96-108); Estimated Glomerular Filt Rate > 60; Glucose Random 253 mg/dL (60-115); Potassium 4.1 mmol/L (3.3-5.1); Sodium 135 mmol/L (135-145)
[2023-07-09 17:10] LABS: TSH reflex Free T4 7.68 uIU/mL (0.32-4.0)
[2023-07-09 17:40] LABS: Free T4 (Free Thyroxine) 1.08 ng/dL (0.71-1.85)
== END 2023-07-09 14:12 | disposition home or self-care (01) ==
LOC: HO.HMGCLDS 14:11
PROVIDERS: PCP Internal Medicine; Visit Provider Internal Medicine
DX: E03.9 Hypothyroidism, unspecified (principal); E11.9 Type 2 diabetes mellitus without complications
CPT/HCPCS: 36415; 80053; 83036; 84439; 84443; 85025

== ENCOUNTER 2023-12-24 08:42 | Outpatient (AMB) | payer OTHER, SELFPAY ==
--- NOTE | 2023-12-24 08:46 | A.OFFPC_ITS ---
Vital Signs 12/24/23 08:47 Height 5 ft 5 in Weight 148 lb 6 oz BMI 24.7 BP 142/66 H Blood Pressure Location Rt brachial Position Sitting Intake Visit Reasons: [facility] 12/20 Allergies No Known Allergies Allergy (Verified 12/24/23 08:49) Medication List - Last Reconciled 12/24/23 by Reyna Zaman MD alprazolam 0.25 mg PO TID PRN 30 days apixaban (Eliquis) 5 mg PO BID atorvastatin 40 mg PO DAILY blood sugar diagnostic (FreeStyle Lite Strips) B.i.d. blood-glucose meter (FreeStyle Lite Meter kit) B.i.d. buprenorphine-naloxone 8-2 mg (Suboxone) 1.5 film sublingual DAILY cholecalciferol (vitamin D3) 50 mcg PO DAILY 90 days etanercept (Enbrel SureClick) mg subcut lancets (BD Ultra-Fine II Lancets) 2 times a day levothyroxine 175 mcg PO DAILY 90 days mirtazapine 15 mg PO BEDTIME pantoprazole 40 mg PO DAILY sertraline 200 mg (2 x 100 mg) PO DAILY Tobacco use date assessed: 12/24/23 Dental Screening Dental Screen Date: 12/24/23 Did you have a dental visit in the last 12 months?: No Did you have a dental problem in the last 6 months where you did not have access to dental care?: No Was dental information given to patient?: Patient has dentist HPI [facility] 12/20 HPI Details Patient is 63-year-old female came in today for hospital discharge follow-up from [facility] she was transferred there after being in [facility] for several days as a rehab facility Discharge date 12/20/2023 Discharge diagnosis of COPD exacerbation secondary to pneumonia, COVID-19 infection Acute hypoxic respiratory failure, NSTEMI, CVA, anxiety, opioid use disorder, tobacco abuse, hypothyroidism, GERD, constipation Patient required high flow oxygen and was placed on BiPAP and was admitted to ICU, in ICU medical staff had difficulty titrating down oxygen, she was treated with steroids and Bactrim. Patient started developing ICU delirium and briefly required Precedex drip. NSTEMI was managed with heparin drip there was a concern of thromboembolic phenomena with CT scan showing multiple small splenic and renal infarct. MRI of brain showed acute small occipital infarct Echocardiogram showed aneurysmal apex. Ejection fraction was 50-55%, no evidence of LV thrombus. Patient slowly improved and her prednisone drip was tapered She was discharged with oral prednisone and oxygen Patient need a repeat CT scan as an outpatient Cardiology felt that patient have stressed induced cardio myopathy, and that does not need any further inpatient workup however patient should see Cardiology as outpatient and have repeat echocardiogram She is to continue Eliquis, aspirin and Lipitor For CVA she was consulted by Neurology She also had hyperglycemia most likely secondary to steroid but her hemoglobin A1c was 5.5 Patient was evaluated by Psychiatry for anxiety disorder and was recommended to take mirtazapine 7.5 mg at bedtime and sertraline, in-hospital she was also given lorazepam as a short-term treatment For opioid use disorder, patient is to continue Suboxone For smoking she was placed on transdermal nicotine For her chronic back pain she was given lidocaine patches And for GERD omeprazole and Tums Patient was eventually discharged home Her discharge medications Sertraline 200 mg daily Pantoprazole 40 mg daily Mirtazapine 7.5 mg daily Lidocaine patch Levothyroxine 150 mcg daily Senokot and lactulose for constipation DuoNeb nebulizer treatments as needed Symbicort 2 puffs 2 times a day Alprazolam 0.25 mg t.i.d. for panic disorder Eliquis twice a day 5 mg Suboxone, and buprenorphine naloxone 1 mg under the tongue as indicated Atorvastatin 40 mg daily Patient is stable at this time, she is here with her daughter Have oxygen cannula in her nose She is now seeing Dr. Forbes as patient care specialist Need a referral to Cardiology, Neurology, and psychiatrist Meanwhile I have Sent alprazolam for 3 months Patient has tele nurse daily who is monitoring vital signs, She will be starting occupational therapy at home [facility] Return in 3 months [facility] Medical History Asthma Alcoholism Smoker Skin cancer of forehead Chronic right shoulder pain GERD (gastroesophageal reflux disease) Osteoarthritis Hypothyroidism Seborrheic dermatitis of scalp Psoriasis Anxiety Depression History of ETOH abuse Surgical History H/O colonoscopy Hx of arthroscopy of left knee History of appendectomy Family History Father Hypercholesteremia Mother Breast cancer Other Mental health disorder Substance use disorder Social History Household Members: None Housing: Apartment Are you a primary child care supervisor to a significant other at home: No Do you presently have visiting nurse or other home services: No Alcohol intake: former Patient Tobacco Use Status: Current everyday Tobacco user Tobacco use type: Cigarette Cigarettes Per Day: 2 Years Smoked: 40 years e-Cigarette/Vaping Use: Never Used Second Hand Smoke Exposure: No Substance Use Type: Marijuana service: No Current occupational status: retired Cognitive needs: No Hearing needs: No Vision needs: No Questionnaire Thrive Questionnaire Date Thrive assessed: 07/09/23 AUDIT C Alcohol Use Questionnaire (AUDIT-C) 1. How often do you have a drink containing alcohol?: Never 3. How often do you have six or more drinks on one occasion?: Never Total Score: 0 Score Reviewed/Action Taken: Yes JAMES-7 AMB Questionnaire JAMES-7 Date JAMES - 7 assessed: 07/09/23 Source: Developed by Drs. Mickey Miranda, Laury Meier, Chente Hoyos and colleagues, with an educational kasey from [employer]. Review of Systems Const Denies chills and Denies fever(s) ENT Denies epistaxis and Denies nasal discharge Card Denies chest pain Resp Denies chest congestion, Denies cough and Denies hemoptysis GI Denies diarrhea and Denies nausea Skin/Breast Denies rash Neuro Reports no additional complaints Psych Reports no additional complaints Endo Reports no additional complaints Physical exam (Primary Care) Vital Signs: Last Vital Signs BP 142/66 H 12/24/23 08:47 BMI result Body Mass Index 24.7 Tobacco/Smoking Status: Tobacco use Status Tobacco use date assessed 12/24/23 12/24/23 08:53 Patient Tobacco Use Status Current everyday Tobacco 12/24/23 08:53 Tobacco use type Cigarette 12/24/23 08:53 e-Cigarette/Vaping Use Never Used 12/24/23 08:53 Thrive Assessment: Date of Thrive Assessment Date Thrive assessed 07/09/23 12/24/23 08:53 Const General: cooperative, comfortable and no acute distress Orientation/consciousness: patient oriented x3 HENMT Head: Yes normocephalic Eyes General: appearance normal, both eyes and all related structures Neck Neck: Yes supple Resp Other: Nasal cannula in place Effort & Inspection: normal respiratory effort, no cough and no stridor Cardio Rhythm: regular rhythm Heart sounds: S1 normal heart sound present and S2 normal heart sound present Skin General skin exam: turgor normal Neuro General: patient oriented x3, tone normal and moves all extremities Extrem Right lower extremity: no edema Left lower extremity: no edema Assessment and Plan Assessment & Plan (1) NSTEMI (non-ST elevated myocardial infarction): Code(s): I21.4 - Non-ST elevation (NSTEMI) myocardial infarction (2) Cardiomyopathy: Code(s): I42.9 - Cardiomyopathy, unspecified Qualifiers: Cardiomyopathy type: unspecified Qualified Code(s): I42.9 - Cardiomyopathy, unspecified (3) Stroke: Code(s): I63.9 - Cerebral infarction, unspecified Qualifiers: CVA mechanism: unspecified Qualified Code(s): I63.9 - Cerebral infarction, unspecified (4) Respiratory failure: Code(s): J96.90 - Respiratory failure, unspecified, unspecified whether with hypoxia or hypercapnia (5) Oxygen dependent: Code(s): Z99.81 - Dependence on supplemental oxygen (6) COPD (chronic obstructive pulmonary disease): Code(s): J44.9 - Chronic obstructive pulmonary disease, unspecified Qualifiers: COPD type: emphysema Emphysema type: panlobular Qualified Code(s): J43.1 - Panlobular emphysema (7) Diabetes mellitus type 2, controlled: Code(s): E11.9 - Type 2 diabetes mellitus without complications Qualifiers: Diabetes mellitus correction insulin use: without correction use Diabetes mellitus complication status: without complication Qualified Code(s): E11.9 - Type 2 diabetes mellitus without complications (8) Hypothyroidism: Code(s): E03.9 - Hypothyroidism, unspecified Qualifiers: Hypothyroidism type: unspecified Qualified Code(s): E03.9 - Hypothyroidism, unspecified (9) Constipation by delayed colonic transit: Code(s): K59.01 - Slow transit constipation (10) History of opioid abuse: Code(s): F11.11 - Opioid abuse, in remission (11) Depression, major, recurrent, moderate: Code(s): F33.1 - Major depressive disorder, recurrent, moderate (12) Generalized anxiety disorder with panic attacks: Code(s): F41.1 - Generalized anxiety disorder; F41.0 - Panic disorder [episodic paroxysmal anxiety] Plan Patient is 63-year-old female came in today for hospital discharge follow-up from [facility] she was transferred there after being in [facility] for several days as a rehab facility Discharge date 12/20/2023 Discharge diagnosis of COPD exacerbation secondary to pneumonia, COVID-19 infection Acute hypoxic respiratory failure, NSTEMI, CVA, anxiety, opioid use disorder, tobacco abuse, hypothyroidism, GERD, constipation Patient required high flow oxygen and was placed on BiPAP and was admitted to ICU, in ICU medical staff had difficulty titrating down oxygen, she was treated with steroids and Bactrim. Patient started developing ICU delirium and briefly required Precedex drip. NSTEMI was managed with heparin drip there was a concern of thromboembolic pheno campuzano with CT scan showing multiple small splenic and renal infarct. MRI of brain showed acute small occipital infarct Echocardiogram showed aneurysmal apex. Ejection fraction was 50-55%, no evide nce of LV thrombus. Patient slowly improved and her prednisone drip was tapered She was discharged with oral prednisone and oxygen Patient need a repeat CT scan as an outpatient Cardiology felt that patient have stressed induced cardio myopathy, and that does not need any further inpatient workup however patient should see Cardiology as outpatient and have repeat echocardiogram She is to continue Eliquis, aspirin and Lipitor For CVA she was consulted by Neurology She also had hyperglycemia most likely secondary to steroid but her hemoglobin A1c was 5.5 Patient was evaluated by Psychiatry for anxiety disorder and was recommended to take mirtazapine 7.5 mg at bedtime and sertraline, in-hospital she was also given lorazepam as a short-term treatment For opioid use disorder, patient is to continue Suboxone For smoking she was placed on transdermal nicotine For her chronic back pain she was given lidocaine patches And for GERD omeprazole and Tums Patient was eventually discharged home Her discharge medications Sertraline 200 mg daily Pantoprazole 40 mg daily Mirtazapine 7.5 mg daily Lidocaine patch Levothyroxine 150 mcg daily Senokot and lactulose for constipation DuoNeb nebulizer treatments as needed Symbicort 2 puffs 2 times a day Alprazolam 0.25 mg t.i.d. for panic disorder Eliquis twice a day 5 mg Suboxone, and buprenorphine naloxone 1 mg under the tongue as indicated Atorvastatin 40 mg daily Patient is stable at this time, she is here with her daughter Have oxygen cannula in her nose She is now seeing Dr. Forbes as patient care specialist Need a referral to Cardiology, Neurology, and psychiatrist Meanwhile I have Sent alprazolam for 3 months Patient has tele nurse daily who is monitoring vital signs, She will be starting occupational therapy at home Through [facility] Going [facility] Return in 3 months Orders: Referrals Cardiology Referral I21.4 - Non-ST elevation (NSTEMI) myocardial infarction, I42.9 - Cardiomyopathy, unspecified Neurology Referral I63.9 - Cerebral infarction, unspecified Medications: New alprazolam 0.25 mg PO TID 30 days PRN 90 tabs 0RF anxiety Coding Level of Care Code Est Pt Level 5 (20187) Diagnoses NSTEMI (non-ST elevated myocardial infarction) I21.4 Cardiomyopathy, unspecified type I42.9 Cardiomyopathy type: unspecified Cerebrovascular accident (CVA), unspecified mechanism I63.9 CVA mechanism: unspecified Respiratory failure J96.90 Oxygen dependent Z99.81 Panlobular emphysema J43.1 COPD type: emphysema Emphysema type: panlobular Controlled type 2 diabetes mellitus without complication, without long-term current use of insulin E11.9 Diabetes mellitus terminal manager insulin use: without correction use Diabetes mellitus complication status: without complication Hypothyroidism, unspecified type E03.9 Hypothyroidism type: unspecified Constipation by delayed colonic transit K59.01 History of opioid abuse F11.11 Depression, major, recurrent, moderate F33.1 Generalized anxiety disorder with panic attacks F41.1; F41.0 Time Spent (min) 52 Comment 5 minute pre visit, 30 with patient, 10 coordination of care, 7 minute charting
[2023-12-24 08:47] VITALS: BP 142/66; BMI 24.7
== END 2023-12-24 09:43 | disposition home or self-care (01) ==
LOC: HO.HMGC 08:42
PROVIDERS: PCP Internal Medicine; Visit Provider Internal Medicine
DX: I42.9 Cardiomyopathy, unspecified (principal); J96.90 Respiratory failure, unspecified, unspecified whether with hypoxia or hypercapnia; J43.1 Panlobular emphysema; E11.9 Type 2 diabetes mellitus without complications; I21.4 Non-ST elevation (NSTEMI) myocardial infarction; F11.11 Opioid abuse, in remission; F33.1 Major depressive disorder, recurrent, moderate; Z86.73 Personal history of transient ischemic attack (TIA), and cerebral infarction without residual deficits; Z99.81 Dependence on supplemental oxygen; E03.9 Hypothyroidism, unspecified; K59.01 Slow transit constipation; F41.1 Generalized anxiety disorder
CPT/HCPCS: 99215

== ENCOUNTER 2024-01-12 12:52 | Outpatient (AMB) | payer OTHER, SELFPAY ==
--- NOTE | 2024-01-12 12:57 | A.OFFVIS_ITS ---
Intake Vital Signs 01/12/24 12:59 Height 5 ft 5 in Weight 149 lb 14.629 oz BMI 24.9 BP 108/68 Blood Pressure Location Lt brachial Position Sitting Pulse 85 Intake Visit Reasons: [employer]ECUTIVE/ [facility] disch fu/nstemi Intake Note: NPV w/ EKG Riveter Required: No Accompanied by: Self / Same As Patient Allergies No Known Allergies Allergy (Verified 01/12/24 12:59) Medication List - Last Reconciled 01/12/24 by Oj Hanson MD alprazolam 0.25 mg PO TID PRN 30 days apixaban (Eliquis) 5 mg PO BID blood sugar diagnostic (FreeStyle Lite Strips) B.i.d. blood-glucose meter (FreeStyle Lite Meter kit) B.i.d. buprenorphine-naloxone 8-2 mg (Suboxone) 1.5 film sublingual DAILY etanercept (Enbrel SureClick) mg subcut lancets (BD Ultra-Fine II Lancets) 2 times a day levothyroxine 175 mcg PO DAILY 90 days mirtazapine 15 mg PO BEDTIME sertraline 200 mg (2 x 100 mg) PO DAILY HPI HPI Comments History of Present Illness Details Antionette is here for consultation regarding non ST-elevation myocardial infarction. It appears that she was admitted in October [address] [facility]. At that time, she was having COVID as well as respiratory failure. She was admitted to the ICU and had several issues. Based on troponins as well as abnormal EKG, diagnosis of NSTEMI. Echocardiogram then had shown an aneurysmal apex and low normal LVEF. It seems she also had a quuol-ua-fgvy shunt. In that context, she also had a stroke and systemic emboli causing renal/splenic infarcts. She was started on Eliquis. Eventually, it seems she went to rehab and then discharged. Patient states she does not really have any history of cardiac issues including coronary disease myocardial infarction. She is on supplemental oxygen at this time. Denies any clear-cut chest pains. Breathing is okay as well. [facility] Medical History Splenic infarct Renal infarct Asthma Alcoholism Smoker Skin cancer of forehead Chronic right shoulder pain GERD (gastroesophageal reflux disease) Osteoarthritis Hypothyroidism Seborrheic dermatitis of scalp Psoriasis Anxiety Depression History of ETOH abuse Surgical History H/O colonoscopy Hx of arthroscopy of left knee History of appendectomy Family History Father Hypercholesteremia Mother Breast cancer Other Mental health disorder Substance use disorder Social History Household Members: None Housing: Apartment Are you a primary care support representative to a significant other at home: No Do you presently have visiting nurse or other home services: No Alcohol intake: former Patient Tobacco Use Status: Current everyday Tobacco user Tobacco use type: Cigarette Cigarettes Per Day: 2 Years Smoked: 40 years e-Cigarette/Vaping Use: Never Used Second Hand Smoke Exposure: No Substance Use Type: Marijuana service: No Current occupational status: retired Cognitive needs: No Hearing needs: No Vision needs: No Review of Systems Const Denies chills, Denies daytime sleepiness, Denies fatigue, Denies fever(s), Denies frequent falls, Denies night sweats, Denies snoring, Denies weakness, Denies weight gain and Denies weight loss Eyes Denies loss of vision ENT Denies dizziness and Denies hearing loss Card Denies chest pain, Denies chest pain with activity, Denies syncope, Denies rapid heart rate, Denies edema, Denies claudication, Denies leg edema, Denies lightheadedness, Denies palpitations, Denies dyspnea, Denies dyspnea on exertion and Denies orthopnea Resp Denies cough, Denies excessive phlegm production, Denies dyspnea, Denies dyspnea on exertion, Denies snoring and Denies wheezing GI Denies abdominal pain, Denies hematochezia, Denies change in bowel habits, Denies change in stool character, Denies heartburn, Denies nausea and Denies vomiting Denies hematuria, Denies urinary frequency and Denies dysuria Musc Denies arthralgias, Denies muscle weakness, Denies numbness and Denies tingling Skin/Breast Denies nail changes and Denies rash Neuro Denies Abnormal speech present, Denies dizziness, Denies syncope, Denies frequent falls, Denies loss of vision, Denies memory loss, Denies numbness, Denies tingling and Denies weakness Psych Denies depression and Denies memory loss Endo Denies fatigue and Denies palpitations Aller/Immun Denies wheezing Physical Exam Vital Signs: Last Vital Signs Pulse 85 01/12/24 12:59 BP 108/68 01/12/24 12:59 BMI result Body Mass Index 24.9 Const General: comfortable and no acute distress Orientation/consciousness: patient oriented x3 HEENT Other: Unremarkable Head: Yes normal to inspection Neck Neck: Yes normal visual inspection Chest Chest palpation & inspection: normal inspection of the chest Resp Auscultation: clear to auscultation bilaterally Cardio Palpation: normal PMI Heart sounds: S1 normal heart sound present, S2 normal heart sound present, no gallops, no murmurs and no rubs GI Palpation (GI): Soft to palpation Back/Spine/Pelvis Other: unremarkable Skin General skin exam: no rashes or lesions noted Neuro General: patient oriented x3 Speech: No Abnormal speech present Extrem General: Yes normal to inspection Psych Mental Status: mental status grossly normal Office Procedures EKG Details: EKG with sinus rhythm at 85/Min; no significant ST-T changes; normal NC and corrected QT; PVC. [id number], Complete Assessment & Plan Assessment & Plan (1) NSTEMI (non-ST elevated myocardial infarction): Code(s): I21.4 - Non-ST elevation (NSTEMI) myocardial infarction (2) Stroke: Code(s): I63.9 - Cerebral infarction, unspecified Qualifiers: CVA mechanism: unspecified Qualified Code(s): I63.9 - Cerebral infarction, unspecified (3) Cardiomyopathy: Code(s): I42.9 - Cardiomyopathy, unspecified Qualifiers: Cardiomyopathy type: unspecified Qualified Code(s): I42.9 - Cardiomyopathy, unspecified (4) Renal infarct: Code(s): N28.0 - Ischemia and infarction of kidney (5) Splenic infarct: Code(s): D73.5 - Infarction of spleen Plan Per discharge summary, echocardiogram had shown low normal LVEF and akinetic/aneurysmal apex. No thrombus. [id number]-[id number] shunting on bubble study. NSTEMI itself was suspected to be secondary to respiratory failure. Unclear if she has any coronary disease or not. We can start with a repeat echocardiogram and also include a bubble study. If any clear persisting wall motion abnormalities, may need diagnostic catheterization-hoping she can cooperate and lie down comfortably especially as she is on supplemental oxygen. Her meds will eventually need to be optimized. She is on Eliquis for stroke as well as systemic embolism and etjid-ht-[id number] shunting seen on the echocardiogram. Not clear if she had some venous disease that led to systemic emboli through intracardiac shunting. Any case reasonable to stay on Eliquis long-term. There is no mention of atrial fibrillation anyway. From stroke standpoint, it seems she has had a carotid ultrasound that showed no significant carotid disease. CT had shown acute infarct in the right occipital lobe. Follow-up after the echocardiogram to decide on further plan. Orders: Orders CA echo transthoracic complete Today D73.5 - Infarction of spleen, I21.4 - Non- ST elevation (NSTEMI) myocardial infarction, I42.9 - Cardiomyopathy, unspecified, I63.9 - Cerebral infarction, unspecified, N28.0 - Ischemia and infarction of kidney Coding Level of Care Code New Pt Level 4 (75670) Diagnoses NSTEMI (non-ST elevated myocardial infarction) I21.4 Cerebrovascular accident (CVA), unspecified mechanism I63.9 CVA mechanism: unspecified Cardiomyopathy, unspecified type I42.9 Cardiomyopathy type: unspecified Renal infarct N28.0 Splenic infarct D73.5 CPT Codes EKG - CPT: 43195-[id number], Complete ([id number])
[2024-01-12 12:59] VITALS: BP 108/68; PULSE 85; BMI 24.9
== END 2024-01-12 13:33 | disposition home or self-care (01) ==
PROVIDERS: PCP Internal Medicine; Visit Provider Internal Medicine
DX: I21.4 Non-ST elevation (NSTEMI) myocardial infarction (principal); I63.9 Cerebral infarction, unspecified; I42.9 Cardiomyopathy, unspecified; N28.0 Ischemia and infarction of kidney; D73.5 Infarction of spleen
CPT/HCPCS: 93010; 99204

== ENCOUNTER → 2024-01-12 12:52 | Outpatient (BNVA) | payer OTHER, SELFPAY | PROVIDERS: PCP Internal Medicine; Visit Provider Internal Medicine | DX: I25.2 Old myocardial infarction (principal); I42.9 Cardiomyopathy, unspecified; N28.0 Ischemia and infarction of kidney; D73.5 Infarction of spleen; Z86.73 Personal history of transient ischemic attack (TIA), and cerebral infarction without residual deficits | CPT/HCPCS: 93005; 99202 ==

== ENCOUNTER 2024-03-03 10:34 | Outpatient (REF) | payer OTHER, SELFPAY | END 2024-03-03 10:35 | disposition home or self-care (01) | LOC: HO.MAMMO 10:34 | PROVIDERS: PCP Internal Medicine; Visit Provider Internal Medicine | DX: Z12.31 Encounter for screening mammogram for malignant neoplasm of breast (principal) | CPT/HCPCS: 77063; 77067 ==

== ENCOUNTER → 2024-03-03 10:45 | Outpatient (BNV) | payer OTHER, SELFPAY | PROVIDERS: PCP Internal Medicine; Visit Provider Radiology Diagnostic Radiology | DX: Z12.31 Encounter for screening mammogram for malignant neoplasm of breast (principal) | CPT/HCPCS: 77063; 77067 ==

== ENCOUNTER → 2024-03-09 07:49 | Outpatient (REF) | payer OTHER, SELFPAY ==
--- NOTE | 2024-03-09 07:54 | CA_ITS ---
Transthoracic Echocardiogram Patient (Last, First, Middle): Antionette Crow, Gender: Female Date of : 1960 Age: 63 Procedure Date: 03/09/2024 Procedure Type: Transthoracic Echocardiogram Location: OP Height: 162.56 cm Weight: 68.04 kg BSA: 1.73 m2 Heart Rate: bpm BP: 130 / 78 mmHg J2Ee Application Developer: TO Referring MD: Oj Hanson MD Symptoms: I42.9 - Cardiomyopathy, unspecified Study Quality: Fair/Contrast Conclusions: - The left ventricular systolic function is normal. The calculated ejection fraction is 64% by biplane method. - No obvious valvular pathology seen on this study. - There is no evidence of interatrial shunt by agitated saline. - There is mild dilatation of the sinuses of Valsalva measuring 4.18 cm and mild dilatation of the ascending aorta measuring 3.80 cm. Findings Procedure Information Contrast agent, definity, is being given per protocol without apparent complications. Left Ventricle Normal left ventricular cavity size. There is normal left ventricular wall thickness. The left ventricular systolic function is normal. The calculated ejection fraction is 64% by biplane method. There is no evidence of regional wall motion abnormalities. Diastolic function is normal for age. Right Ventricle Normal right ventricular cavity size and systolic function. Atria The left atrium is mildly dilated. There is no evidence of interatrial shunt by agitated saline. The right atrium is normal in size. (rest and valsalva). Aortic Valve There is a normal trileaflet aortic valve. There is no aortic valve stenosis. There is no aortic valve regurgitation. Mitral Valve The mitral valve appears normal. There is trace mitral valve regurgitation. There is no mitral valve stenosis. Pulmonic Valve The pulmonic valve is likely normal. Tricuspid Valve There is trace tricuspid valve regurgitation. There is no evidence of pulmonary hypertension. Great Vessels There is mild dilatation of the sinuses of Valsalva measuring 4.18 cm and mild dilatation of the ascending aorta measuring 3.80 cm. Venous The inferior vena cava is normal in size and collapses greater than 50% with inspiration. Pericardium/Pleural There is no evidence of pericardial effusion. Prior Study Comparison No prior study available for comparison. Recommendations, Care & Conclusions No obvious valvular pathology seen on this study. Measurements 2D Linear Measurements IVSd: 1.00 0.6-0.9/0.6-1.0 cm LVIDd: 4.61 3.9-5.3/4.2-5.9 cm LVIDd Index: 2.66 2.4-3.2/2.2-3.1 cm/m2 LVIDs: 3.05 2.0-3.6 cm LVPWd: 0.78 0.7-1.1 cm LA Diam: 3.60 2.7-3.8/3.0-4.0 cm LAIDs Index: 2.08 1.5-2.3 cm/m2 LV Mass: 169.59 67-162/88-224 g LV Mass Index: 98.03 43-95/49-115 g/m2 LVOT Diam: 2.00 3.0+(-)1.3 cm 2D Systolic Function EF 4C: 62.90 >55% EF 2C: 66.10 >55% EF BiP: 63.90 >55% Mitral Valve MV Pk E: 0.90 MV PK A: 0.70 MV Decel Time: 151.00 E/A: 1.30 E'Lateral: 9.68 E'Medial: 7.07 E/E' Med: 12.70 E/E' Lat: 9.20 PHT: 44.00 MVA PHT: 5.00 Decel [place]: 5.95 Aortic Valve AoV Pk Bert: 1.29 AoV Mn Bert: 0.88 AoV VTI: 0.27 AoV Pk Grad: 7.00 Aov Mn Grad: 4.00 JOAQUIM Cont.VTI: 2.47 LVOT LVOT Pk Bert: 0.93 LVOT Mn Bert: 0.70 LVOT VTI: 0.21 LVOT Pk Grad: 3.00 LVOT Mn Grad: 2.00 LVOT Diam: 2.00 LVOT Area: 3.14 Diastolic Function MV Pk E: 0.90 MV Pk A: 0.70 E/A: 1.30 E'Medial: 7.07 E/E' Med: 12.70 E' Laterial: 9.68 E/E' Lat: 9.20 Right Ventricle TAPSE (mm): 21.40 TVS' Bert: 10.00 Tricuspid Valve TR Pk Bert: 2.24 TR Pk Grad: 20.00 RA Press: 3.00 RVSP: 23.00 Great Vessels Aorta Sinus of Valsalva: 4.18 2.0-3.5 cm Ao Asc: 3.80 2.1-3.4 cm Updated in Other Vendor System with Status of Final Oj Hanson MD electronically signed on 03/11/2024 12:01:10 PM with status of Final
== END ==
LOC: HO.CARD 07:49
PROVIDERS: PCP Internal Medicine; Visit Provider Internal Medicine
DX: I42.9 Cardiomyopathy, unspecified (principal); I21.4 Non-ST elevation (NSTEMI) myocardial infarction; N28.0 Ischemia and infarction of kidney
CPT/HCPCS: 93306; Q9957

== ENCOUNTER → 2024-03-09 07:54 | Outpatient (BNV) | payer OTHER, SELFPAY | PROVIDERS: PCP Internal Medicine; Visit Provider Internal Medicine | DX: I71.21 Aneurysm of the ascending aorta, without rupture (principal) | CPT/HCPCS: 93306 ==

== ENCOUNTER 2024-03-29 13:42 | Outpatient (AMB) | payer OTHER, SELFPAY ==
[2024-03-29 14:15] VITALS: BP 120/62; PULSE 75; BMI 25.4
--- NOTE | 2024-03-29 14:15 | A.OFFVIS_ITS ---
Vital Signs 03/29/24 14:15 Height 5 ft 5 in Weight 152 lb 8.958 oz BMI 25.4 BP 120/62 Blood Pressure Location Lt brachial Position Sitting Pulse 75 Pulse Source Pulse Oximeter Intake Visit Reasons: fu Consulting Psychologist Required: No Accompanied by: Self / Same As Patient Allergies No Known Allergies Allergy (Verified 01/12/24 12:59) Medication List - Last Reconciled 03/29/24 by Oj Hanson MD alprazolam 0.25 mg PO TID PRN 30 days amlodipine 10 mg PO DAILY apixaban (Eliquis) 5 mg PO BID 30 days blood sugar diagnostic (FreeStyle Lite Strips) B.i.d. blood-glucose meter (FreeStyle Lite Meter kit) B.i.d. buprenorphine-naloxone 8-2 mg (Suboxone) 1.5 film sublingual DAILY etanercept (Enbrel SureClick) mg subcut glipizide-metformin 5-500 mg 1 tab PO ONCE 90 days lancets (BD Ultra-Fine II Lancets) 2 times a day levothyroxine 175 mcg PO DAILY 90 days mirtazapine 15 mg PO BEDTIME sertraline 200 mg (2 x 100 mg) PO DAILY HPI Comments Details: Antionette returns for follow-up. Recently seen in consultation regarding NSTEMI. It appears that she was admitted in October 2023 to [facility]. At that time, she was having COVID as well as respiratory failure. She was admitted to the ICU and had several issues. Based on troponins as well as abnormal EKG, diagnosis of NSTEMI. Echocardiogram then had shown an aneurysmal apex and low normal LVEF. It seems she also had a [id number] shunt. In that context, she also had a stroke and systemic emboli causing renal/splenic infarcts. She was started on Eliquis. Eventually, it seems she went to rehab and then discharged. Patient states she does not really have any history of cardiac issues including coronary disease or myocardial infarction. Denies any clear-cut chest pains. Breathing is okay as well. No new concerns otherwise. [facility] Medical History Splenic infarct Renal infarct Asthma Alcoholism Smoker Skin cancer of forehead Chronic right shoulder pain GERD (gastroesophageal reflux disease) Osteoarthritis Hypothyroidism Seborrheic dermatitis of scalp Psoriasis Anxiety Depression History of ETOH abuse Surgical History H/O colonoscopy Hx of arthroscopy of left knee History of appendectomy Family History Father Hypercholesteremia Mother Breast cancer Other Mental health disorder Substance use disorder Social History Household Members: None Housing: Apartment Are you a primary rn complex care to a significant other at home: No Do you presently have visiting nurse or other home services: No Alcohol intake: former Patient Tobacco Use Status: Current everyday Tobacco user Tobacco use type: Cigarette Cigarettes Per Day: 2 Years Smoked: 40 years e-Cigarette/Vaping Use: Never Used Second Hand Smoke Exposure: No Substance Use Type: Marijuana service: No Current occupational status: retired Cognitive needs: No Hearing needs: No Vision needs: No Review of Systems Const Denies chills, Denies fatigue, Denies fever(s), Denies frequent falls, Denies weakness, Denies weight gain and Denies weight loss ENT Denies dizziness Card Denies chest pain, Denies leg edema, Denies lightheadedness, Denies palpitations, Denies dyspnea and Denies dyspnea on exertion Resp Denies cough, Denies dyspnea and Denies dyspnea on exertion GI Denies hematochezia Musc Denies abnormal gait, Denies muscle weakness, Denies numbness, Denies radiating pain into limb and Denies tingling Neuro Denies abnormal gait, Denies dizziness, Denies frequent falls, Denies numbness, Denies tingling and Denies weakness Endo Denies fatigue and Denies palpitations Physical Exam Vital Signs: Last Vital Signs Pulse 75 03/29/24 14:15 BP 120/62 03/29/24 14:15 BMI result Body Mass Index 25.4 Const General: comfortable and no acute distress Orientation/consciousness: patient oriented x3 HEENT Other: Unremarkable Head: Yes normal to inspection Neck Neck: Yes normal visual inspection Chest Chest palpation & inspection: normal inspection of the chest Resp Auscultation: clear to auscultation bilaterally Cardio Palpation: normal PMI Heart sounds: S1 normal heart sound present, S2 normal heart sound present, no gallops, no murmurs and no rubs GI Palpation (GI): Soft to palpation Back/Spine/Pelvis Other: unremarkable Skin General skin exam: no rashes or lesions noted Neuro General: patient oriented x3 Extrem General: Yes normal to inspection Psych Mental Status: mental status grossly normal Assessment & Plan Assessment & Plan (1) NSTEMI (non-ST elevated myocardial infarction): Code(s): I21.4 - Non-ST elevation (NSTEMI) myocardial infarction Category: Medical (2) Stroke: Code(s): I63.9 - Cerebral infarction, unspecified Category: Medical Qualifiers: CVA mechanism: unspecified Qualified Code(s): I63.9 - Cerebral infarction, unspecified (3) Cardiomyopathy: Code(s): I42.9 - Cardiomyopathy, unspecified Category: Medical Qualifiers: Cardiomyopathy type: unspecified Qualified Code(s): I42.9 - Cardiomyopathy, unspecified (4) Renal infarct: Code(s): N28.0 - Ischemia and infarction of kidney Category: Medical (5) Splenic infarct: Code(s): D73.5 - Infarction of spleen Category: Medical Plan Per discharge summary, echocardiogram had shown low normal LVEF and akinetic/aneurysmal apex. No thrombus. [id number] shunting on bubble study. NSTEMI itself was suspected to be secondary to respiratory failure. Unclear if she has any coronary disease or not. However, in the repeat echocardiogram, LVEF has normalized at 64%. No wall motion abnormalities. Hence could could just all be stress-induced cardiomyopathy as LV function is fully recovered. With regard to the systemic embolic phenomenon, reasonable to just continue Eliquis long-term. There is no mention of atrial fibrillation during the time of hospitalization. From stroke standpoint, it seems she has had a carotid ultr asound that showed no significant carotid disease. CT had shown acute infarct in the right occipital lobe. We will plan on seeing her back in about 6 months' time. Potentially ischemic workup with stress testing in the future, but she has got no anginal symptoms and her LVEF is also completely normalized. Hence may also be reasonable to just continue optimal medical therapy. Coding Level of Care Code Est Pt Level 4 (10807) Diagnoses NSTEMI (non-ST elevated myocardial infarction) I21.4 Cerebrovascular accident (CVA), unspecified mechanism I63.9 CVA mechanism: unspecified Cardiomyopathy, unspecified type I42.9 Cardiomyopathy type: unspecified Renal infarct N28.0 Splenic infarct D73.5
== END 2024-03-29 14:53 | disposition home or self-care (01) ==
LOC: HO.HCS 13:42
PROVIDERS: PCP Internal Medicine; Visit Provider Internal Medicine
DX: I21.4 Non-ST elevation (NSTEMI) myocardial infarction (principal); I63.9 Cerebral infarction, unspecified; I42.9 Cardiomyopathy, unspecified; N28.0 Ischemia and infarction of kidney; D73.5 Infarction of spleen
CPT/HCPCS: 99214

== ENCOUNTER → 2024-03-29 13:42 | Outpatient (BNVA) | payer OTHER, SELFPAY | PROVIDERS: PCP Internal Medicine; Visit Provider Internal Medicine | DX: I21.4 Non-ST elevation (NSTEMI) myocardial infarction (principal); I63.9 Cerebral infarction, unspecified; I42.9 Cardiomyopathy, unspecified; N28.0 Ischemia and infarction of kidney; D73.5 Infarction of spleen | CPT/HCPCS: 99212 ==

== ENCOUNTER 2024-04-10 07:53 | Outpatient (AMB) | payer OTHER, SELFPAY ==
--- NOTE | 2024-04-10 08:06 | A.OFFVIS_ITS ---
Vital Signs 04/10/24 08:07 Height 5 ft 5 in BP 132/60 Blood Pressure Location Rt brachial Position Sitting Respiration 16 Pulse 88 Pulse Source Palpation Intake Visit Reasons: INP: Cerebral Infarction - LVM w/add Intake Note: Pt presents to the office for new pt evaluation s/p cerebral infarction. Vp Project Required: No Allergies No Known Allergies Allergy (Verified 04/10/24 08:06) Medication List - Last Reconciled 04/10/24 by Kendal German MD alprazolam 0.25 mg PO TID PRN 30 days amlodipine 10 mg PO DAILY apixaban (Eliquis) 5 mg PO BID 30 days blood sugar diagnostic (FreeStyle Lite Strips) B.i.d. blood-glucose meter (FreeStyle Lite Meter kit) B.i.d. buprenorphine-naloxone 8-2 mg (Suboxone) 1.5 film sublingual DAILY buspirone 5 mg PO TID etanercept (Enbrel SureClick) mg subcut glipizide-metformin 5-500 mg 1 tab PO ONCE 90 days lancets (BD Ultra-Fine II Lancets) 2 times a day levothyroxine 175 mcg PO DAILY 90 days sertraline 200 mg (2 x 100 mg) PO DAILY HPI Comments Details: 63y/o Right Handed female with h/o HTN ,diabetes, hypothyroidism, depression , recovering alcoholic comes for neurological evaluation. 6 mths ago ( Sep 2023) she had COVID and 3 weeks later went into respiratory failure and was admitted in ICU , also had NSTEMI and thromoboembolic complications which included SPlenic infarction, Pneumonia and Right occipital stroke during hospitalization . SHe also had ICU delirium. she is unable to describe her symptoms but says she could not move. SHe was in [facility] for 1month and currently at home on Eliquis. Currently she reports some residual vision issues she has left visual field defect , blurry vision and feels like she has an aura. she denies blurry vision. [facility] Medical History (Updated 04/10/24 @ 08:41 by Kendal German MD) Dupuytren's contracture of both hands Cerebrovascular accident (CVA) Splenic infarct Renal infarct Asthma Alcoholism Smoker Skin cancer of forehead Chronic right shoulder pain GERD (gastroesophageal reflux disease) Osteoarthritis Hypothyroidism Seborrheic dermatitis of scalp Psoriasis Anxiety Depression History of ETOH abuse Surgical History H/O colonoscopy Hx of arthroscopy of left knee History of appendectomy Family History (Updated 04/10/24 @ 08:35 by Kendal German MD) Father Hypercholesteremia Mother Breast cancer Brother No problems noted. Other Mental health disorder Substance use disorder Social History Household Members: None Housing: Apartment Are you a primary family day care worker to a significant other at home: No Do you presently have visiting nurse or other home services: No Alcohol intake: former Patient Tobacco Use Status: Current everyday Tobacco user Tobacco use type: Cigarette Cigarettes Per Day: 2 Years Smoked: 40 years e-Cigarette/Vaping Use: Never Used Second Hand Smoke Exposure: No Substance Use Type: Marijuana service: No Current occupational status: retired Cognitive needs: No Hearing needs: No Vision needs: No Physical Exam Vital Signs: Last Vital Signs Pulse 88 04/10/24 08:07 Resp 16 04/10/24 08:07 BP 132/60 04/10/24 08:07 Const General: cooperative, healthy appearing and comfortable Nutritional Appearance: average body habitus Orientation/consciousness: patient oriented x3 Eyes Pupils: Equal, round and reactive pupils present Neuro Other: Fei Dupytrens contracture R>L Visual field testing - left homonymous hemianopia General: patient oriented x3, gait normal, tone normal, moves all extremities and no focal motor deficits Cranial nerves: Yes Facial sensation intact/muscles of mastication intact, Yes Equal, round and reactive pupils present, Yes Bilaterally intact EOM present, Yes Nystagmus not present, Yes Normal facial strength present, Yes Midline tongue present and Yes Symmetric palate elevation present Cognition (Neuro): normal cognition Gait exam (Neuro): Antalgic gait present Motor exam (neuro): 5/5 motor strength present throughout Deep tendon reflexes (DTR's): Right triceps reflex intensity grade: 2+, Left triceps reflex intensity grade: 2+, Rt Biceps (C5, C6): 2+, Left biceps reflex intensity grade: 2+, Right brachioradialis reflex intensity grade: 2+, Left brachioradialis reflex intensity grade: 2+, Right patellar reflex intensity grade: 1+ and Left patellar reflex intensity grade: 0 Coordination: [id number] test normal Assessment & Plan Assessment & Plan (1) Cerebrovascular accident (CVA): Comment: Right occipital Stroke Code(s): I63.9 - Cerebral infarction, unspecified Category: Medical (2) Dupuytren's contracture of both hands: Code(s): M72.0 - Palmar fascial fibromatosis [Dupuytren] Category: Medical Plan REviewed CT SHe has some residual visual field defects I will refer her to Ophthalmology for visual field testing Refer to Hand surgery for fei Dupytrens contracture. 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
[2024-04-10 08:07] VITALS: BP 132/60; PULSE 88; RESP 16
== END 2024-04-10 09:28 | disposition home or self-care (01) ==
PROVIDERS: PCP Internal Medicine; Visit Provider Psychiatry & Neurology Neurology
DX: I69.398 Other sequelae of cerebral infarction (principal); M72.0 Palmar fascial fibromatosis [Dupuytren]
CPT/HCPCS: 99204

== ENCOUNTER → 2024-04-10 07:53 | Outpatient (BNVA) | payer OTHER, SELFPAY | PROVIDERS: PCP Internal Medicine; Visit Provider Psychiatry & Neurology Neurology | DX: I69.398 Other sequelae of cerebral infarction (principal); M72.0 Palmar fascial fibromatosis [Dupuytren] | CPT/HCPCS: 99202 ==

== ENCOUNTER 2024-07-07 09:27 | Outpatient (AMB) | payer OTHER, SELFPAY ==
--- NOTE | 2024-07-07 09:29 | A.OFFPC_ITS ---
Vital Signs 07/07/24 09:30 Height 5 ft 5 in Weight 164 lb 4 oz BMI 27.3 BP 124/82 Blood Pressure Location Rt brachial Position Sitting Pulse 97 Pulse Source Pulse Oximeter Pulse Oximetry (%) 96 Oxygen Delivery Method Room Air Intake Visit Reasons: 6M f/u Allergies No Known Allergies Allergy (Verified 04/10/24 08:06) Medication List - Last Reconciled 07/07/24 by Reyna Zaman MD alprazolam 0.25 mg PO TID PRN 30 days amlodipine 10 mg PO DAILY apixaban (Eliquis) 5 mg PO BID 30 days blood sugar diagnostic (FreeStyle Lite Strips) B.i.d. blood-glucose meter (FreeStyle Lite Meter kit) B.i.d. buprenorphine-naloxone 8-2 mg (Suboxone) 1.5 film sublingual DAILY buspirone 5 mg PO TID etanercept (Enbrel SureClick) mg subcut glipizide-metformin 5-500 mg 1 tab PO ONCE 90 days lancets (BD Ultra-Fine II Lancets) 2 times a day levothyroxine 175 mcg PO DAILY 90 days sertraline 200 mg (2 x 100 mg) PO DAILY Tobacco use date assessed: 12/24/23 Dental Screening Dental Screen Date: 12/24/23 HPI 6M f/u HPI Details Patient is 64-year-old female came in today for her follow-up appointment Last time seen was December of this year Due for labs Patient is diabetic Other providers patient is seeing is Cardiology Last visit was March this year Dr. Hanson Patient have cardiomyopathy, and history of NSTEMI Her last echo showed normal LV ejection fraction and aneurysmal apex without any thrombus Right to left shunting on bubble study Patient was diagnosed with stress-induced cardiomyopathy with intact LV function Due to systemic embolic phenomena she is to continue Eliquis longterm. Carotid ultrasound showed no significant carotid disease CT head 1 patient had stroke showed infarction in the right occipital lobe. Eye exam was May this year She has already seen Dr. German for Neurology consultation after having stroke Blood pressure is stable with amlodipine 10 mg Patient is Suboxone dependent due to history of opioid abuse in the past Anxiety is stable with buspirone 5 mg up to 3 times a day and sertraline 200 mg daily She is on glipizide metformin combo 5 500 mg once a day for diabetes and is due for hemoglobin A1c Continue levothyroxine 175 mg Psoriasis : need new ref to derm, placed for [place] derm She gained 6 lb over last 10 days and her ankles are slightly swollen Patient have long history of alcohol use but has stopped a while ago She does not have any fluid shift or pain on abdominal exam I am sending Lasix 20 mg tablets to be taken once a day for a week Patient is to continue monitoring her weight Follow-up 3 months [facility] Medical History Dupuytren's contracture of both hands Cerebrovascular accident (CVA) Splenic infarct Renal infarct Asthma Alcoholism Smoker Skin cancer of forehead Chronic right shoulder pain GERD (gastroesophageal reflux disease) Osteoarthritis Hypothyroidism Seborrheic dermatitis of scalp Psoriasis Anxiety Depression History of ETOH abuse Surgical History H/O colonoscopy Hx of arthroscopy of left knee History of appendectomy Family History Father Hypercholesteremia Mother Breast cancer Brother No problems noted. Other Mental health disorder Substance use disorder Social History Household Members: None Housing: Apartment Are you a primary career technical education instructor to a significant other at home: No Do you presently have visiting nurse or other home services: No Alcohol intake: former Patient Tobacco Use Status: Current everyday Tobacco user Tobacco use type: Cigarette Cigarettes Per Day: 2 Years Smoked: 40 years e-Cigarette/Vaping Use: Never Used Second Hand Smoke Exposure: No Substance Use Type: Marijuana service: No Current occupational status: retired Cognitive needs: No Hearing needs: No Vision needs: No Questionnaire Thrive Questionnaire Date Thrive assessed: 07/07/24 I am a: Patient What is your living situation today?: I have a steady place to live Within the past 12 months, did the food you bought not last and you didn't have the money to get more?: Never true Within the past 12 months, did you worry whether your food would run out before you got money to buy more?: Never true Do you have trouble paying for medicines?: No Do you have trouble getting transportation to medical appointments?: No Do you have trouble paying your heating and electricity bill?: No Do you have trouble taking care of your child, family member or friend?: No Do you have trouble with day-to-day activities such as bathing, preparing meals, shopping, managing finances, etc.?: No Are you currently unemployed and looking for a job?: No Are you interested in more education?: No Please select the resources that you would like help with: None Currently or been in a relationship where the following occur: No concerns reported THRIVE Score: 0 AUDIT C Alcohol Use Questionnaire (AUDIT-C) 1. How often do you have a drink containing alcohol?: Never 3. How often do you have six or more drinks on one occasion?: Never Total Score: 0 Score Reviewed/Action Taken: Yes JAMES-7 AMB Questionnaire JAMES-7 Date JAMES - 7 assessed: 07/07/24 Feeling nervous, anxious, or on edge: 0 = Not at all Not being able to stop or control worryin = Not at all Worrying too much about different things: 0 = Not at all Trouble relaxin = Not at all Being so restless that it is hard to sit still: 0 = Not at all Becoming easily annoyed or irritable: 0 = Not at all Feeling afraid as if something awful might happen: 0 = Not at all Total JAMES-7 score (0-4 normal; 5-9 mild; 10-14 moderate; 15-21 severe): 0 Source: Developed by Drs. Mickey Miranda, Laury Meier, Chente Hoyos and colleagues, with an educational kasey from [employer]. JAMES-7 Assessment Billing JAMES-7 Assessment Tool: JAMES-7 Assessment 42966 Review of Systems Const Denies chills and Denies fever(s) ENT Denies epistaxis and Denies nasal discharge Card Denies chest pain Resp Denies chest congestion, Denies cough and Denies hemoptysis GI Denies diarrhea and Denies nausea Neuro Reports no additional complaints Psych Reports no additional complaints Endo Reports no additional complaints Physical exam (Primary Care) Vital Signs: Last Vital Signs Pulse 97 07/07/24 09:30 BP 124/82 07/07/24 09:30 Pulse Ox 96 07/07/24 09:30 Oxygen Delivery Method Room Air 07/07/24 09:30 BMI result Body Mass Index 27.3 Tobacco/Smoking Status: Tobacco use Status Tobacco use date assessed 12/24/23 07/07/24 09:32 Patient Tobacco Use Status Current everyday Tobacco 07/07/24 09:32 Tobacco use type Cigarette 07/07/24 09:32 e-Cigarette/Vaping Use Never Used 07/07/24 09:32 Thrive Assessment: Date of Thrive Assessment Date Thrive assessed 07/07/24 07/07/24 09:32 Currently or been in a relationship where the following occur: No concerns reported Const General: cooperative, comfortable and no acute distress Orientation/consciousness: patient oriented x3 HENMT Head: Yes normocephalic Eyes General: appearance normal, both eyes and all related structures Neck Neck: Yes supple Resp Effort & Inspection: normal respiratory effort, no cough and no stridor Cardio Rhythm: regular rhythm Heart sounds: S1 normal heart sound present and S2 normal heart sound present GI Other: Soft nontender no fluid shift Skin General skin exam: turgor normal Neuro General: patient oriented x3, tone normal and moves all extremities Assessment and Plan Assessment & Plan (1) Diabetes mellitus type 2 with complications: Code(s): E11.8 - Type 2 diabetes mellitus with unspecified complications (2) Generalized anxiety disorder with panic attacks: Code(s): F41.1 - Generalized anxiety disorder; F41.0 - Panic disorder [episodic p aroxysmal anxiety] (3) COPD (chronic obstructive pulmonary disease): Code(s): J44.9 - Chronic obstructive pulmonary disease, unspecified Qualifiers: COPD type: emphysema Emphysema type: panlobular Qualified Code(s): J4 3.1 - Panlobular emphysema (4) Oxygen dependent: Code(s): Z99.81 - Dependence on supplemental oxygen (5) Cardiomyopathy: Code(s): I42.9 - Cardiomyopathy, unspecified Qualifiers: Cardiomyopathy type: unspecified Qualified Code(s): I42.9 - Cardiomyopathy, unspecified (6) Depression, major, recurrent, moderate: Code(s): F33.1 - Major depressive disorder, recurrent, moderate (7) Hypothyroidism: Code(s): E03.9 - Hypothyroidism, unspecified Qualifiers: Hypothyroidism type: unspecified Qualified Code(s): E03.9 - Hypothyroidism, unspecified (8) History of opioid abuse: Code(s): F11.11 - Opioid abuse, in remission (9) Psoriasis: Code(s): L40.9 - Psoriasis, unspecified (10) History of stroke: Comment: Left occipital Code(s): Z86.73 - Personal history of transient ischemic attack (TIA), and cerebral infarction without residual deficits Plan Patient is 64-year-old female came in today for her follow-up appointment Last time seen was December of this year Due for labs Patient is diabetic Other providers patient is seeing is Cardiology Last visit was March year Dr. 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 Carotid ultrasound showed no significant carotid disease CT head 1 patient had stroke showed infarction in the right occipital lobe. Eye exam was May this year She has already seen Dr. German for Neurology consultation after having stroke Blood pressure is stable with amlodipine 10 mg Patient is Suboxone dependent due to history of opioid abuse in the past Anxiety and depression managed by psych med prescriber, and is stable with buspirone 5 mg up to 3 times a day and sertraline 200 mg daily She is on glipizide metformin combo 5 500 mg once a day for diabetes and is due for hemoglobin A1c Continue levothyroxine 175 mg Psoriasis : need new ref to derm, placed for [place] derm She gained 6 lb over last 10 days and her ankles are slightly swollen Patient have long history of alcohol use but has stopped a while ago She does not have any fluid shift or pain on abdominal exam I am sending Lasix 20 mg tablets to be taken once a day for a week Patient is to continue monitoring her weight Follow-up 3 months 45 minute spent in care of this patient Orders: Orders Hemoglobin A1c Today D64.9 - Anemia, unspecified, E03.9 - Hypothyroidism, unspecified, E11.8 - Type 2 diabetes mellitus with unspecified complications, F11.11 - Opioid abuse, in remission, F33.1 - Major depressive disorder, recurrent, moderate, F41.0 - Panic disorder [episodic paroxysmal anxiety], F41.1 - Generalized anxiety disorder, I42.9 - Cardiomyopathy, unspecified, I63.9 - Cerebral infarction, unspecified, J43.1 - Panlobular emphysema, Z99.81 - Dependence on supplemental oxygen LDL Cholesterol Direct Today D64.9 - Anemia, unspecified, E03.9 - Hypothyroidism, unspecified, E11.8 - Type 2 diabetes mellitus with unspecified complications, F11.11 - Opioid abuse, in remission, F33.1 - Major depressive disorder, recurrent, moderate, F41.0 - Panic disorder [episodic paroxysmal anxiety], F41.1 - Generalized anxiety disorder, I42.9 - Cardiomyopathy, unspecified, I63.9 - Cerebral infarction, unspecified, J43.1 - Panlobular e mphysema, Z99.81 - Dependence on supplemental oxygen TSH reflex Free T4 Today D64.9 - Anemia, unspecified, E03.9 - Hypothyroidism, unspecified, E11.8 - Type 2 diabetes mellitus with unspecified complications, F11.11 - Opioid abuse, in remission, F33.1 - Major depressive disorder, recurrent, moderate, F41.0 - Panic disorder [episodic paroxysmal anxiety], F41.1 - Generalized anxiety disorder, I42.9 - Cardiomyopathy, unspecified, I63.9 - Cerebral infarction, unspecified, J43.1 - Panlobular emphysema, Z99.81 - Dependence on supplemental oxygen Vitamin B12 Today D64.9 - Anemia, unspecified, E03.9 - Hypothyroidism, unspecified, E11.8 - Type 2 diabetes mellitus with unspecified complications, F11.11 - Opioid abuse, in remission, F33.1 - Major depressive disorder, recurrent, moderate, F41.0 - Panic disorder [episodic paroxysmal anxiety], F41.1 - Generalized anxiety disorder, I42.9 - Cardiomyopathy, unspecified, I63.9 - Cerebral infarction, unspecified, J43.1 - Panlobular emphysema, Z99.81 - Dependence on supplemental oxygen Complete Blood Count Auto Diff Today D64.9 - Anemia, unspecified, E03.9 - Hypothyroidism, unspecified, E11.8 - Type 2 diabetes mellitus with unspecified complications, F11.11 - Opioid abuse, in remission, F33.1 - Major depressive disorder, recurrent, moderate, F41.0 - Panic disorder [episodic paroxysmal anxiety], F41.1 - Generalized anxiety disorder, I42.9 - Cardiomyopathy, unspecified, I63.9 - Cerebral infarction, unspecified, J43.1 - Panlobular emphysema, Z99.81 - Dependence on supplemental oxygen Comprehensive Met. Panel Today D64.9 - Anemia, unspecified, E03.9 - Hypothyroidism, unspecified, E11.8 - Type 2 diabetes mellitus with unspecified complications, F11.11 - Opioid abuse, in remission, F33.1 - Major depressive disorder, recurrent, moderate, F41.0 - Panic disorder [episodic paroxysmal anxiety], F41.1 - Generalized anxiety disorder, I42.9 - Cardiomyopathy, unspecified, I63.9 - Cerebral infarction, unspecified, J43.1 - Panlobular emphysema, Z99.81 - Dependence on supplemental oxygen Vitamin D 25-OH (D2 and D3) Today D64.9 - Anemia, unspecified, E03.9 - Hypothyroidism, unspecified, E11.8 - Type 2 diabetes mellitus with unspecified complications, F11.11 - Opioid abuse, in remission, F33.1 - Major depressive di sorder, recurrent, moderate, F41.0 - Panic disorder [episodic paroxysmal anxiety], F41.1 - Generalized anxiety disorder, I42.9 - Cardiomyopathy, unspecified, I63.9 - Cerebral infarction, unspecified, J43.1 - Panlobular emphysema, Z99.81 - Dependence on supplemental oxygen Referrals Dermatology Referral L40.9 - Psoriasis, unspecified Medications: New furosemide (Lasix) 20 mg PO DAILY 7 tabs 0RF Ankle swelling Refilled levothyroxine 175 mcg PO DAILY 90 days 90 tabs 1RF Coding Level of Care Code Est Pt Level 5 (39167) Complex EM visit Add On G2211 Diagnoses Diabetes mellitus type 2 with complications E11.8 Generalized anxiety disorder with panic attacks F41.1; F41.0 Panlobular emphysema J43.1 COPD type: emphysema Emphysema type: panlobular Oxygen dependent Z99.81 Cardiomyopathy, unspecified type I42.9 Cardiomyopathy type: unspecified Depression, major, recurrent, moderate F33.1 Hypothyroidism, unspecified type E03.9 Hypothyroidism type: unspecified History of opioid abuse F11.11 Psoriasis L40.9 History of stroke Z86.73 Additional Codes JAMES-7 Assessment Billing - JAMES-7 Assessment Tool: JAMES-7 Assessment [id number] ([id number])
[2024-07-07 09:30] VITALS: BP 124/82; PULSE 97; O2SAT 96; BMI 27.3
== END 2024-07-07 09:52 | disposition home or self-care (01) ==
PROVIDERS: PCP Internal Medicine; Visit Provider Internal Medicine
DX: E11.8 Type 2 diabetes mellitus with unspecified complications (principal); J43.1 Panlobular emphysema; I42.9 Cardiomyopathy, unspecified; F33.1 Major depressive disorder, recurrent, moderate; F11.11 Opioid abuse, in remission; F41.1 Generalized anxiety disorder; F41.0 Panic disorder [episodic paroxysmal anxiety]; Z99.81 Dependence on supplemental oxygen; E03.9 Hypothyroidism, unspecified; L40.9 Psoriasis, unspecified; Z86.73 Personal history of transient ischemic attack (TIA), and cerebral infarction without residual deficits
CPT/HCPCS: 99215; G2211

== ENCOUNTER 2024-07-07 09:55 | Outpatient (REF) | payer OTHER, SELFPAY ==
[2024-07-07 13:31] LABS: MANUAL DIFF FLAG NO
[2024-07-07 13:34] LABS: Basophils Percent Auto 0.7 % (0-2); Eosinophils Absolute Auto 0.1 X10*3/uL (0.0-0.4); Eosinophils Percent Auto 2.2 % (0-4); Hematocrit 42.5 % (37.0-47.0); Lymphocytes Absolute Auto 1.1 X10*3/uL (1.2-4.9); Lymphocytes Percent Auto 23.9 % (20-40); Mean Corpuscular HGB Conc 32.9 g/dl (31.0-35.0); Mean Corpuscular Hemoglobin 29.4 pg (27.0-33.0); Mean Corpuscular Volume 89.3 fL (80.0-98.0); Monocytes Absolute Auto 0.5 X10*3/uL (0.1-1.2); Monocytes Percent Auto 10.4 % (2-11); Neutrophils Absolute Auto 2.9 x10*3/uL (2.0-8.3); Neutrophils Percent Auto 62.8 % (45-73); Platelet Count 274 X10*3/uL (160-400); Red Blood Count 4.76 X10*6/uL (4.20-5.50); Red Cell Distribution Width 14.3 % (11.0-16.0); White Blood Count 4.6 X10*3/uL (4.8-10.8)
[2024-07-07 14:02] LABS: Estimated Average Glucose 114 mg/dL; Hemoglobin A1c % 5.6 % (<6.0)
[2024-07-07 14:24] LABS: Vitamin B12 833 pg/mL (200-900)
[2024-07-07 14:30] LABS: Alanine Aminotransferase 41 U/L (0-31); Albumin Level 4.2 g/dL (3.5-5.0); Alkaline Phosphatase 93 U/L (39-117); Anion Gap 10 (12-20); Aspartate Amino Transferase 44 U/L (5-31); Bilirubin Total 0.4 mg/dL (0.0-1.0); Blood Urea Nitrogen 12 mg/dL (9-16); Calcium 10.1 mg/dL (8.4-10.2); Carbon Dioxide 26 mmol/L (22-29); Chloride 104 mmol/L (96-108); Estimated Glomerular Filt Rate > 60; Glucose Random 161 mg/dL (60-115); Potassium 4.2 mmol/L (3.3-5.1); Sodium 136 mmol/L (135-145); Total Protein 7.8 g/dL (6.5-8.0)
[2024-07-07 14:47] LABS: TSH reflex Free T4 2.74 uIU/mL (0.32-4.0)
[2024-07-09 13:33] LABS: LDL Cholesterol Direct 168 mg/dL (<100)
[2024-07-14 14:58] LABS: Vitamin D 25-OH, D2 <4 ng/mL; Vitamin D 25-OH, D3 31 ng/mL; Vitamin D 25-OH, Total 31 ng/mL (30-100)
== END 2024-07-07 09:56 | disposition home or self-care (01) ==
LOC: HO.HMGCLDS 09:55
PROVIDERS: PCP Internal Medicine; Visit Provider Internal Medicine
DX: E11.8 Type 2 diabetes mellitus with unspecified complications (principal); I63.9 Cerebral infarction, unspecified; F41.1 Generalized anxiety disorder; F41.0 Panic disorder [episodic paroxysmal anxiety]; J43.1 Panlobular emphysema; Z99.81 Dependence on supplemental oxygen; I42.9 Cardiomyopathy, unspecified; F33.1 Major depressive disorder, recurrent, moderate; E03.9 Hypothyroidism, unspecified; D64.9 Anemia, unspecified; F11.11 Opioid abuse, in remission
CPT/HCPCS: 36415; 80053; 82306; 82607; 83036; 83721; 84443; 85025

== ENCOUNTER 2024-07-11 09:58 | Outpatient (AMB) | payer OTHER, SELFPAY ==
[2024-07-11 10:07] VITALS: BMI 27.3
--- NOTE | 2024-07-11 10:07 | A.OFFVIS_ITS ---
Vital Signs 07/11/24 10:07 Height 5 ft 5 in Weight 164 lb 4 oz BMI 27.3 Intake Visit Reasons: N/P bilateral dupuytrens contracture Intake Note: Antionette is a 64 yo right hand dominant female who presents today as a new patient to evaluate bilateral dupuytrens contracture that began approximately 2 ago. Patient denies numbness and tingling. Reports RIGHT 2nd, 3rd, 4th, and 5th fingers are locking as well as LEFT 3rd, 4th, and 5th fingers. Patient denies pain. Patient has done PT/OT as well as a hand brace for the RIGHT. She has not tried steroid injections. Denies any prior injuries or surgeries to the hands. Allergies No Known Allergies Allergy (Verified 07/11/24 10:07) HPI HPI N/P bilateral dupuytrens contracture: Details: Antionette is a 64 year old right hand dominant woman who presents with complaints of bilateral hand contractures, R>L. She is seen today with her daughter. She complains of bilateral hand contractures, R>L. She says this is present in all her fingers bilaterally, but not her thumbs. She says this has been present for ~2 years now. She says she has been told this is either her RA or Dupuytrens contractures, so she is unsure what this may be. She denies any pain. She denies any numbness, tingling, falls, or known injury. She reports a Hx of OT & bracing for her right hand, with some relief. She denies any prior treatment for her left hand. She has severe RA and is on Embrel. She sees a Fashion Coordinator at an outside clinic. She has several comorbidities including: DM, COPD, Oxygen dependance, Cardiomyopathy, depression, Hx of CVA, opioid abuse, & ETOH abuse. She is on Eliquis. [facility] Medical History Dupuytren's contracture of both hands Cerebrovascular accident (CVA) Splenic infarct Renal infarct Asthma Alcoholism Smoker Skin cancer of forehead Chronic right shoulder pain GERD (gastroesophageal reflux disease) Osteoarthritis Hypothyroidism Seborrheic dermatitis of scalp Psoriasis Anxiety Depression History of ETOH abuse Surgical History H/O colonoscopy Hx of arthroscopy of left knee History of appendectomy Family History Father Hypercholesteremia Mother Breast cancer Brother No problems noted. Other Mental health disorder Substance use disorder Social History (Updated 07/11/24 @ 10:10 by RADHA Santiago) Household Members: None Housing: Apartment Are you a primary vp care management to a significant other at home: No Do you presently have visiting nurse or other home services: No Alcohol intake: former Patient Tobacco Use Status: Current everyday Tobacco user Tobacco use type: Cigarette Cigarettes Per Day: 2 Years Smoked: 40 years e-Cigarette/Vaping Use: Never Used Second Hand Smoke Exposure: No Substance Use Type: Marijuana service: No Current occupational status: retired Current occupation: rt handed Cognitive needs: No Hearing needs: No Vision needs: No Review of Systems Const All systems reviewed & are unremarkable except as noted in HPI and below Physical Exam Vital Signs: BMI result Body Mass Index 27.3 Const General: cooperative, healthy appearing and no acute distress Orientation/consciousness: patient oriented x3 HEENT Head: Yes normocephalic and Yes atraumatic Eyes EOM: EOMs intact bilaterally Resp Effort & Inspection: normal respiratory effort and able to speak in complete sentences Cardio Jugular venous distension: no JVD Skin General skin exam: turgor normal Rashes: no rashes Neuro General: patient oriented x3 Extrem Other: Evaluation of Right Upper Extremity: The patient is alert, oriented, and in no acute distress Neuro: Median, Ulnar, Radial nerves motor and sensory intact and sensation is normal to the tips of all digits bilaterally Vascular: Cap refill brisk ROM: She can bring her fingers closed to a fist, bilaterally She has flexion contractures in her right hand: Index: 45 degrees PIP Middle: 45 degrees PIP, 30 degrees DIP Rin degrees PIP, 20 degrees DIP Small: 85 degrees PIP, 0 degrees DIP There is a possible slight Dupuytrens cord extending from the palm towards the small and ring fingers. However, I do not appreciate any flexion contractures at the MCP joints from these early cord-like structures. I Do not think that they extend to the PIP joints, and it does not appear that Dupuytren's is causing these PIP joint flexion contractures. Also of importance is the ulnar subluxation of the extensor tendons over the dorsal aspect of the 4th and 5th MCP joints. This is limiting the active extension of the small and ring fingers at the MCP joints to perhaps 45 degrees. The ring finger can then be passively brought out to about only 10 degrees from full extension with visible correction of the EDC tendon partially, though it is not fully centralized. She is then able to hold it in this extended position against resistance. The small finger EDC tendon is subluxated ulnarly and does not appear to come more dorsally even with passive extension. This all appears to be due to incompetence of the radial sagittal bands for both the small and ring fingers on the right. Skin: No lacerations or abrasions. General: No swelling or Ecchymosis. No Erythema or evidence of infection. Psych Appearance: grossly normal Affect: normal affect Attitude: cooperative Assessment & Plan Assessment & Plan (1) Flexion contracture of joint of right hand: Comment: IF, MF, RF, SF Code(s): M24.541 - Contracture, right hand Category: Medical (2) Nontraumatic rupture of sagittal band of extensor tendon of right upper extremity: Code(s): M66.241 - Spontaneous rupture of extensor tendons, right hand Category: Medical (3) Diabetes mellitus type 2, controlled: Code(s): E11.9 - Type 2 diabetes mellitus without complications Category: Medical Qualifiers: Diabetes mellitus complication status: without complication Diabetes mellitus prison insulin use: without long term acute care registered nurse use Qualified Code(s): E11.9 - Type 2 diabetes mellitus without complications (4) Dupuytren's disease of palm of right hand: Code(s): M72.0 - Palmar fascial fibromatosis [Dupuytren] Category: Medical Plan Assessment & Plan: 1. Right hand PIP joint flexion contractures Index finger: ~45 degrees PIP Middle finger: ~45 degrees PIP/~30 degrees DIP Ring finger: ~45 degrees PIP/~20 degrees DIP Small finger: ~85 degrees PIP This could be secondary to her RA . It sounds like she also had some prolonged illnesses where she was bed ridden. 2. Right ring and small finger radial sagittal band ruptures Causing ulnar subluxation of the extensor tendons. Unable to centralized even passively. 3. Mild Dupuytrens disease in the palm With a cord extending from the palm towards the ring & small fingers No evidence of MCP joint contractures, and the cord does not extend past the palm. I Do not think that Dupuytren's disease is causing these PIP flexion contractures. I educated her and her daughter about these conditions I discussed operative and non-operative treatment options I am not recommending surgery at this time, particularly with her extensive comorbidities We might consider extensor tendon realignment with reconstruction of the radial sagittal bands, however in addition to her significant medical comorbidities this would likely result in additional stiffness to the hand due to immobilization needed to heal the reconstructions. It is all something to consider. I recommend activity modification, and she is in agreement I discussed activity modification, she is to work on ROM exercises at home 20x daily, with a focus on finger extension She should limit or avoid any heavy gripping activities, such as opening jars. I encouraged the use of assistive devices She will follow up in 3 months to see how she is doing, with X-rays of bilateral hands Please note that greater than 30 minutes was spent with this patient going over the history, evaluating the patient and radiographs, formulating possible treatment options, discussing them with the patient, and documenting the visit. Scribed for Deanna Em MD by Temo Florentino, medical voucher clerk, on 07/11/24 at 10:30 AM, EST. Coding Level of Care Code New Pt Level 4 (04332) Diagnoses Flexion contracture of joint of right hand M24.541 Nontraumatic rupture of sagittal band of extensor tendon of right upper extremity M66.241 Controlled type 2 diabetes mellitus without complication, without long-term current use of insulin E11.9 Diabetes mellitus complication status: without complication Diabetes mellitus long term acute care registered nurse insulin use: without long term acute care registered nurse use Dupuytren's disease of palm of right hand M72.0
== END 2024-07-11 10:56 | disposition home or self-care (01) ==
PROVIDERS: PCP Internal Medicine; Visit Provider Orthopaedic Surgery
DX: M24.541 Contracture, right hand (principal); M66.241 Spontaneous rupture of extensor tendons, right hand; E11.9 Type 2 diabetes mellitus without complications
CPT/HCPCS: 99204

== ENCOUNTER → 2024-07-11 09:58 | Outpatient (BNVA) | payer OTHER, SELFPAY | PROVIDERS: PCP Internal Medicine; Visit Provider Orthopaedic Surgery | DX: M72.0 Palmar fascial fibromatosis [Dupuytren] (principal); M66.241 Spontaneous rupture of extensor tendons, right hand; E11.9 Type 2 diabetes mellitus without complications | CPT/HCPCS: 99202 ==

== ENCOUNTER 2024-10-10 09:46 | Outpatient (AMB) | payer OTHER, SELFPAY ==
[2024-10-10 09:48] VITALS: BP 128/78; PULSE 91; O2SAT 97; BMI 27.3
--- NOTE | 2024-10-10 09:48 | A.OFFPC_ITS ---
Vital Signs 10/10/24 09:48 Height 5 ft 5 in Weight 164 lb 2 oz BMI 27.3 BP 128/78 Blood Pressure Location Rt brachial Position Sitting Pulse 91 Pulse Source Pulse Oximeter Pulse Oximetry (%) 97 Oxygen Delivery Method Room Air Intake Visit Reasons: 3 month Allergies No Known Allergies Allergy (Verified 10/10/24 09:49) Medication List - Last Reconciled 10/10/24 by Reyna Zaman MD alprazolam 0.25 mg PO TID PRN 30 days amlodipine 10 mg PO DAILY apixaban (Eliquis) 5 mg PO BID blood sugar diagnostic (FreeStyle Lite Strips) B.i.d. blood-glucose meter (FreeStyle Lite Meter kit) B.i.d. buprenorphine-naloxone 8-2 mg (Suboxone) 1.5 film sublingual DAILY buspirone 5 mg PO TID etanercept (Enbrel SureClick) mg subcut furosemide (Lasix) 20 mg PO DAILY glipizide-metformin 5-500 mg 1 tab PO ONCE 90 days lancets (BD Ultra-Fine II Lancets) 2 times a day levothyroxine 175 mcg PO DAILY 90 days sertraline 200 mg (2 x 100 mg) PO DAILY Tobacco use date assessed: 10/10/24 Dental Screening Dental Screen Date: 10/10/24 Did you have a dental visit in the last 12 months?: Yes Did you have a dental problem in the last 6 months where you did not have access to dental care?: No Was dental information given to patient?: Patient has dentist HPI 3 month HPI Details Chief Complaint Patient reports poor control of blood glucose levels. Assessment and Plan 64-year-old female with a history of Typ e 2 Diabetes Mellitus, hypertension, psoriatic arthritis, and prior right occipital stroke, presenting with poor glycemic control. Her most recent fasting blood glucose was recorded at 146 mg/dL, a marked increase from her previous Hemoglobin A1c of 5.6%. The patient is stable on her current antihypertensive regimen. She confirms an active prescription only for metformin despite persisting elevated blood glucose readings. She reports a yeast infection and states leg swelling that previously required diuretic therapy. The patient's visual disturbances are attributable to residual deficits from her prior stroke. No acute pulmonary issues or symptoms of respiratory distress have been noted, though she reports difficulty with a rescue inhaler prescription. Additionally, patient denies current alcohol and tobacco use, though acknowledges significant past usage. 2. Psoriatic Arthritis The current management with medication for psoriatic arthritis was discussed. 3. Yeast Infection Antifungal medication will be prescribed to address the yeast infection. The patient was advised on the importance of completing the medication course and monitoring symptom resolution. 6. Right Occipital Stroke With Visual Pr ocessing Deficits Patient continues to experience visual disturbances at night. No new interventions are warranted currently, but monitoring and follow-up with ophthalmology and neurology are recommended for any changes in symptoms. Problem List - Type 2 Diabetes Mellitus with Poor Gly cemic Control compared to before, hemoglobin A1c is 6.8% today - Hypertension - Psoriatic Arthritis - Right Occipital Stroke with Visual Pro cessing Deficits - Yeast Infection - Obesity - Anxiety Disorder Patient is to continue medications Follow-up 3 months PFS Medical History Dupuytren's contracture of both hands Cerebrovascular accident (CVA) Splenic infarct Renal infarct Asthma Alcoholism Smoker Skin cancer of forehead Chronic right shoulder pain GERD (gastroesophageal reflux disease) Osteoarthritis Hypothyroidism Seborrheic dermatitis of scalp Psoriasis Anxiety Depression History of ETOH abuse Surgical History H/O colonoscopy Hx of arthroscopy of left knee History of appendectomy Family History Father Hypercholesteremia Mother Breast cancer Brother No problems noted. Other Mental health disorder Substance use disorder Social History Household Members: None Housing: Apartment Are you a primary home care giver to a significant other at home: No Do you presently have visiting nurse or other home services: No Alcohol intake: former Patient Tobacco Use Status: Current everyday Tobacco user Tobacco use type: Cigarette Cigarettes Per Day: 2 Years Smoked: 40 years e-Cigarette/Vaping Use: Never Used Second Hand Smoke Exposure: No Substance Use Type: Marijuana service: No Current occupational status: retired Current occupation: rt handed Cognitive needs: No Hearing needs: No Vision needs: No Questionnaire Thrive Questionnaire Date Thrive assessed: 10/10/24 I am a: Patient What is your living situation today?: I have a steady place to live Within the past 12 months, did the food you bought not last and you didn't have the money to get more?: I choose not to answer this question Within the past 12 months, did you worry whether your food would run out before you got money to buy more?: I choose not to answer this question Do you have trouble paying for medicines?: No Do you have trouble getting transportation to medical appointments?: No Do you have trouble paying your heating and electricity bill?: No Do you have trouble taking care of your child, family member or friend?: No Do you have trouble with day-to-day activities such as bathing, preparing meals, shopping, managing finances, etc.?: No Are you currently unemployed and looking for a job?: No Are you interested in more education?: No Please select the resources that you would like help with: None Currently or been in a relationship where the following occur: No concerns reported THRIVE Score: 0 AUDIT C Alcohol Use Questionnaire (AUDIT-C) 1. How often do you have a drink containing alcohol?: Never 3. How often do you have six or more drinks on one occasion?: Never Total Score: 0 Score Reviewed/Action Taken: Yes JAMES-7 AMB Questionnaire JAMES-7 Date JAMES - 7 assessed: 07/07/24 Source: Developed by Drs. Mickey Miranda, Laury Meier, Chente Hoyos and colleagues, with an educational kasey from [employer]. Review of Systems Const Denies chills and Denies fever(s) ENT Denies epistaxis and Denies nasal discharge Card Denies chest pain Resp Denies chest congestion, Denies cough and Denies hemoptysis GI Denies diarrhea and Denies nausea Skin/Breast Denies rash Neuro Reports no additional complaints Psych Reports no additional complaints Endo Reports no additional complaints Physical exam (Primary Care) Vital Signs: Last Vital Signs Pulse 91 10/10/24 09:48 BP 128/78 10/10/24 09:48 Pulse Ox 97 10/10/24 09:48 Oxygen Delivery Method Room Air 10/10/24 09:48 BMI result Body Mass Index 27.3 Tobacco/Smoking Status: Tobacco use Status Tobacco use date assessed 10/10/24 10/10/24 09:53 Patient Tobacco Use Status Current everyday Tobacco 10/10/24 09:53 Tobacco use type Cigarette 10/10/24 09:53 e-Cigarette/Vaping Use Never Used 10/10/24 09:53 Thrive Assessment: Date of Thrive Assessment Date Thrive assessed 10/10/24 10/10/24 09:53 Currently or been in a relationship where the following occur: No concerns reported Const General: cooperative, comfortable and no acute distress Orientation/consciousness: patient oriented x3 HENMT Head: Yes normocephalic Eyes General: appearance normal, both eyes and all related structures Neck Neck: Yes supple Resp Effort & Inspection: normal respiratory effort, no cough and no stridor Cardio Rhythm: regular rhythm Heart sounds: S1 normal heart sound present and S2 normal heart sound present Skin General skin exam: turgor normal Neuro General: patient oriented x3, tone normal and moves all extremities Extrem Right lower extremity: no edema Left lower extremity: no edema Results AMB Hemoglobin A1c AMB Hemoglobin A1c 6.8 % Last Edit by Jorge Bejarano CMA on 10/10/24 10: 28 Results Reviewed Results Reviewed: Laboratory Last Values Hgb A1c (Clinic) 6.8 % (4.0-6.0) H 10/10/24 10:27 Coding Level of Care Code Est Pt Level 4 (59477) Complex EM visit Add On G2211 Diagnoses Controlled type 2 diabetes mellitus without complication, without long-term current use of insulin E11.9 Diabetes mellitus complication status: without complication Diabetes mellitus predatory animal exterminator insulin use: without predatory animal exterminator use Hypothyroidism, unspecified type E03.9 Hypothyroidism type: unspecified Psoriasis L40.9 Depression, major, recurrent, moderate F33.1 Panlobular emphysema J43.1 COPD type: emphysema Emphysema type: panlobular Generalized anxiety disorder with panic attacks F41.1; F41.0 History of stroke Z86.73 Assessment & Plan Assessment & Plan (1) Diabetes mellitus type 2, controlled: Code(s): E11.9 - Type 2 diabetes mellitus without complications Category: Medical Qualifiers: Diabetes mellitus complication status: without complication Diabetes mellitus predatory animal exterminator insulin use: without predatory animal exterminator use Qualified Code(s): E11.9 - Type 2 diabetes mellitus without complications (2) Hypothyroidism: Code(s): E03.9 - Hypothyroidism, unspecified Category: Medical Qualifiers: Hypothyroidism type: unspecified Qualified Code(s): E03.9 - Hypothyroidism, unspecified (3) Psoriasis: Code(s): L40.9 - Psoriasis, unspecified Category: Medical (4) Depression, major, recurrent, moderate: Code(s): F33.1 - Major depressive disorder, recurrent, moderate Category: Medical (5) COPD (chronic obstructive pulmonary disease): Code(s): J44.9 - Chronic obstructive pulmonary disease, unspecified Category: Medical Qualifiers: COPD type: emphysema Emphysema type: panlobular Qualified Code(s): J43.1 - Panlobular emphysema (6) Generalized anxiety disorder with panic attacks: Code(s): F41.1 - Generalized anxiety disorder; F41.0 - Panic disorder [episodic paroxysmal anxiety] Category: Medical (7) History of stroke: Comment: Left occipital Code(s): Z86.73 - Personal history of transient ischemic attack (TIA), and cerebral infarction without residual deficits Category: Medical Plan Chief Complaint Patient reports poor control of blood glucose levels. Assessment and Plan 64-year-old female with a history of Type 2 Diabetes Mellitus, hypertension, psoriatic arthritis, and prior right occipital stroke, presenting with poor glycemic control. Her most recent fasting blood glucose was recorded at 146 mg/dL, a marked increase from her previous Hemoglobin A1c of 5.6%. The patient is stable on her current antihypertensive regimen. She confirms an active prescription only for metformin despite persisting elevated blood glucose readings. She reports a yeast infection and states leg swelling that previously required diuretic therapy. The patient's visual disturbances are attributable to residual deficits from her prior stroke. No acute pulmonary issues or symptoms of respiratory distress have been noted, though she reports difficulty with a rescue inhaler prescription. Additionally, patient denies current alcohol and tobacco use, though acknowledges significant past usage. 2. Psoriatic Arthritis The current management with medication for psoriatic arthritis was discussed. 3. Yeast Infection Antifungal medication will be prescribed to address the yeast infection. The patient was advised on the importance of completing the medication course and monitoring symptom resolution. 6. Right Occipital Stroke With Visual Processing Deficits Patient continues to experience visual disturbances at night. No new interventions are warranted currently, but monitoring and follow-up with ophthalmology and neurology are recommended for any changes in symptoms. Problem List - Type 2 Diabetes Mellitus with Poor Glycemic Control compared to before, hemoglobin A1c is 6.8% today - Hypertension - Psoriatic Arthritis - Right Occipital Stroke with Visual Processing Deficits - Yeast Infection - Obesity - Anxiety Disorder Patient is to continue medications Follow-up 3 months Orders: Orders Hemoglobin A1c Today E03.9 - Hypothyroidism, unspecified, E11.9 - Type 2 diabetes mellitus without complications, F33.1 - Major depressive disorder, recurrent, moderate, F41.0 - Panic disorder [episodic paroxysmal anxiety], F41.1 - Generalized anxiety disorder, I42.9 - Cardiomyopathy, unspecified, J43.1 - Panlobular emphysema, L40.9 - Psoriasis, unspecified, Z86.73 - Personal history of transient ischemic attack (TIA), and cerebral infarction without residual deficits, Z99.81 - Dependence on supplemental oxygen AMB Hemoglobin A1c Today Z13.9 - Encounter for screening, unspecified Complete Blood Count Auto Diff Today E03.9 - Hypothyroidism, unspecified, E11.9 - Type 2 diabetes mellitus without complications, F33.1 - Major depressive disorder, recurrent, moderate, F41.0 - Panic disorder [episodic paroxysmal anxiety], F41.1 - Generalized anxiety disorder, I42.9 - Cardiomyopathy, unspecified, J43.1 - Panlobular emphysema, L40.9 - Psoriasis, unspecified, Z86.73 - Personal history of transient ischemic attack (TIA), and cerebral infarction without residual deficits, Z99.81 - Dependence on supplemental oxygen Comprehensive Met. Panel Today E03.9 - Hypothyroidism, unspecified, E11.9 - Type 2 diabetes mellitus without complications, F33.1 - Major depressive disorder, recurrent, moderate, F41.0 - Panic disorder [episodic paroxysmal anxiety], F41.1 - Generalized anxiety disorder, I42.9 - Cardiomyopathy, unspecified, J43.1 - Panlobular emphysema, L40.9 - Psoriasis, unspecified, Z86.73 - Personal history of transient ischemic attack (TIA), and cerebral infarction without residual deficits, Z99.81 - Dependence on supplemental oxygen LDL Cholesterol Direct Today E03.9 - Hypothyroidism, unspecified, E11.9 - Type 2 diabetes mellitus without complications, F33.1 - Major depressive disorder, recurrent, moderate, F41.0 - Panic disorder [episodic paroxysmal anxiety], F41.1 - Generalized anxiety disorder, I42.9 - Cardiomyopathy, unspecified, J43.1 - Panlobular emphysema, L40.9 - Psoriasis, unspecified, Z86.73 - Personal history of transient ischemic attack (TIA), and cerebral infarction without residual deficits, Z99.81 - Dependence on supplemental oxygen TSH reflex Free T4 Today E03.9 - Hypothyroidism, unspecified, E11.9 - Type 2 diabetes mellitus without complications, F33.1 - Major depressive disorder, recurrent, moderate, F41.0 - Panic disorder [episodic paroxysmal anxiety], F41.1 - Generalized anxiety disorder, I42.9 - Cardiomyopathy, unspecified, J43.1 - Panlobular emphysema, L40.9 - Psoriasis, unspecified, Z86.73 - Personal history of transient ischemic attack (TIA), and cerebral infarction without residual deficits, Z99.81 - Dependence on supplemental oxygen Microalbumin, Random (w Creat) Today E03.9 - Hypothyroidism, unspecified, E11.9 - Type 2 diabetes mellitus without complications, F33.1 - Major depressive disorder, recurrent, moderate, F41.0 - Panic disorder [episodic paroxysmal anxiety], F41.1 - Generalized anxiety disorder, I42.9 - Cardiomyopathy, unspecified, J43.1 - Panlobular emphysema, L40.9 - Psoriasis, unspecified, Z86.73 - Personal history of transient ischemic attack (TIA), and cerebral infarction without residual deficits, Z99.81 - Dependence on supplemental oxygen Medications: New albuterol sulfate 90 mcg/actuation 1 inh inhalation QID PRN 8.5 grams 2RF shortness of breath or wheezing nystatin 1 appl topical DAILY 30 grams 1RF 30 days
== END 2024-10-10 10:10 | disposition home or self-care (01) ==
PROVIDERS: PCP Internal Medicine; Visit Provider Internal Medicine
DX: E11.9 Type 2 diabetes mellitus without complications (principal); F33.1 Major depressive disorder, recurrent, moderate; J43.1 Panlobular emphysema; E03.9 Hypothyroidism, unspecified; L40.9 Psoriasis, unspecified; F41.1 Generalized anxiety disorder; F41.0 Panic disorder [episodic paroxysmal anxiety]; Z86.73 Personal history of transient ischemic attack (TIA), and cerebral infarction without residual deficits

== ENCOUNTER → 2024-10-10 09:46 | Outpatient (BNVA) | payer OTHER, SELFPAY | PROVIDERS: PCP Internal Medicine; Visit Provider Internal Medicine | DX: E11.9 Type 2 diabetes mellitus without complications (principal); E03.9 Hypothyroidism, unspecified; L40.9 Psoriasis, unspecified; F33.1 Major depressive disorder, recurrent, moderate; J43.1 Panlobular emphysema | CPT/HCPCS: 83036; 99212 ==

== ENCOUNTER 2024-12-28 10:06 | Outpatient (AMB) | payer OTHER, SELFPAY ==
[2024-12-28 10:14] VITALS: BP 114/72; PULSE 76; BMI 27.7
--- NOTE | 2024-12-28 10:14 | MHC.OFFVIS ---
Vital Signs 12/28/24 10:14 Height 5 ft 5 in Weight 166 lb 10.711 oz BMI 27.7 BP 114/72 Blood Pressure Location Lt brachial Position Sitting Pulse 76 Pulse Source Pulse Oximeter Intake Visit Reasons: f/u Pantograph Setter Required: No Allergies No Known Allergies Allergy (Verified 12/28/24 10:17) Medication List - Last Reconciled 12/28/24 by Yasmine Smith, DOCUMENT MANAGEMENT CONSULTANT-C albuterol sulfate 90 mcg/actuation 1 inh inhalation QID PRN alprazolam 0.25 mg PO TID PRN 30 days amlodipine 10 mg PO DAILY apixaban (Eliquis) 5 mg PO BID blood sugar diagnostic (FreeStyle Lite Strips) B.i.d. blood-glucose meter (FreeStyle Lite Meter kit) B.i.d. buprenorphine-naloxone 8-2 mg (Suboxone) 1.5 film sublingual DAILY buspirone 10 mg PO TID etanercept (Enbrel SureClick) mg subcut glipizide-metformin 5-500 mg 1 tab PO ONCE 90 days lancets (BD Ultra-Fine II Lancets) 2 times a day levothyroxine 175 mcg PO DAILY 90 days nystatin 1 appl topical DAILY 30 days sertraline 200 mg (2 x 100 mg) PO DAILY HPI HPI f/u: Details: Antionette is a 64-year-old male with past medical history diabetes, hypertension, hyperlipidemia, CVA, secondary NSTEMI, who presents for follow-up. Her last prior visit was 03/29/2024 Today she reports she has been doing well since her last visit in March. She denies having any chest discomfort at rest or with activity. No shortness of breath, PND, orthopnea or edema. No palpitations, lightheadedness, presyncope, syncope. She tries to remain physically active but does no routine exercise. She reports compliance with her meds. [facility] Medical History Dupuytren's contracture of both hands Cerebrovascular accident (CVA) Splenic infarct Renal infarct Asthma Alcoholism Smoker Skin cancer of forehead Chronic right shoulder pain GERD (gastroesophageal reflux disease) Osteoarthritis Hypothyroidism Seborrheic dermatitis of scalp Psoriasis Anxiety Depression History of ETOH abuse Surgical History H/O colonoscopy Hx of arthroscopy of left knee History of appendectomy Family History Father Hypercholesteremia Mother Breast cancer Brother No problems noted. Other Mental health disorder Substance use disorder Social History Household Members: None Housing: Apartment Are you a primary critical care technician to a significant other at home: No Do you presently have visiting nurse or other home services: No Alcohol intake: former Patient Tobacco Use Status: Current everyday Tobacco user Tobacco use type: Cigarette Cigarettes Per Day: 2 Years Smoked: 40 years e-Cigarette/Vaping Use: Never Used Second Hand Smoke Exposure: No Substance Use Type: Marijuana service: No Current occupational status: retired Current occupation: rt handed Cognitive needs: No Hearing needs: No Vision needs: No Review of Systems Const All systems reviewed & are unremarkable except as noted in HPI and below ENT Denies dizziness Card Denies chest pain, Denies chest pain at rest, Denies chest pain with activity, Denies rapid heart rate, Denies pedal edema, Denies edema, Denies leg edema, Denies lightheadedness, Denies palpitations, Denies dyspnea, Denies dyspnea on exertion and Denies orthopnea Resp Denies cough, Denies dyspnea and Denies dyspnea on exertion GI Denies hematochezia and Denies change in stool character Musc Denies abnormal gait, Denies limited range of motion, Denies muscle cramps, Denies muscle weakness, Denies numbness, Denies radiating pain into limb, Denies stiffness and Denies tingling Neuro Denies abnormal gait, Denies dizziness, Denies numbness and Denies tingling Endo Denies palpitations Physical Exam Vital Signs: Last Vital Signs Pulse 76 12/28/24 10:14 BP 114/72 12/28/24 10:14 BMI result Body Mass Index 27.7 Const General: cooperative, healthy appearing, comfortable and no acute distress Orientation/consciousness: patient oriented x3 Neck Neck: Yes normal visual inspection and Yes no JVD Resp Effort & Inspection: normal respiratory effort Auscultation: clear to auscultation bilaterally, no crackles, no rales, no rhonchi and no wheezes Cardio Rate: regular rate Rhythm: regular rhythm Heart sounds: S1 normal heart sound present, S2 normal heart sound present, no murmurs and no rubs Skin Other: psoriasis patches on lower legs Neuro General: patient oriented x3 Extrem General: Yes normal to inspection Psych Appearance: grossly normal Mental Status: mental status grossly normal Speech and movement: Normal speech and movement present Assessment & Plan Assessment & Plan (1) NSTEMI (non-ST elevated myocardial infarction): Code(s): I21.4 - Non-ST elevation (NSTEMI) myocardial infarction Category: Medical Plan: History of NSTEMI 10/2023 in the setting of COVID, respiratory failure. At that time echocardiogram had shown aneurysmal apex and low normal EF. She also had stroke and systemic emboli causing renal and splenic infarcts and was put on Eliquis. No finding of AFib. An echocardiogram done 03/09/2024 showed EF 64%, no regional wall motion abnormalities, no valve issues, no evidence of intra-atrial shunt. On last visit she had no anginal symptoms and stress testing was not performed. Today she reports no concerning symptoms. She admits to being mostly sedentary. She is able to climb stairs without concerning symptoms. Signs and symptoms of angina reviewed with her. Continue with risk factor modification. Blood pressure is well controlled at 114/72. Continue amlodipine. She is not on aspirin as she is on Eliquis. Labs from 07/07/2024 showed LDL 168. Recommend use of statin therapy. [place] LDL goal less than 130, ideally less than 100. She tells me she has upcoming labs do and PCP visit in 2 weeks. Will hold off on ordering statin at this time. This can be done by PCP. Cardiology follow-up 1 year, sooner if needed. (2) COPD (chronic obstructive pulmonary disease): Code(s): J44.9 - Chronic obstructive pulmonary disease, unspecified Category: Medical Qualifiers: COPD type: emphysema Emphysema type: panlobular Qualified Code(s): J43.1 - Panlobular emphysema Plan: Stable. Says she quit smoking at the time of the [place] and CVA. (3) History of stroke: Comment: Left occipital Code(s): Z86.73 - Personal history of transient ischemic attack (TIA), and cerebral infarction without residual deficits Category: Medical Plan: As above. (4) Hyperlipidemia: Code(s): E78.5 - Hyperlipidemia, unspecified Category: Medical Plan: As above Plan Time spent on chart review, documentation, interview and assessment Coding Level of Care Code Est Pt Level 4 (29728) Complex EM visit Add On G2211 Diagnoses NSTEMI (non-ST elevated myocardial infarction) I21.4 Panlobular emphysema J43.1 COPD type: emphysema Emphysema type: panlobular History of stroke Z86.73 Hyperlipidemia E78.5 Time Spent (min) 30
--- OUTSIDE RECORDS SUMMARY | 2024-12-28 11:01 | XMS_ITS ---
Author Organization [facility] Address [address] [place] [address] [address] [place] [address] Care Team Providers Care Writing Manager Name Role Phone AustynReyna Primary Care Provider FAVIOLA Silva Unavailable [phone] Allergies No Known Allergies REASON FOR VISIT 1 month follow up UTOX Medications Medication SIG (Take, Route, Frequency, Duration) Notes Start Date End Date Status glipiZIDE-metFORMIN HCl 5-500 MG 1 tablet with a meal Orally Once a day Active Multivitamin - 1 tablet Orally Once a day Active Eliquis 5 MG 1 tablet Orally Twic e a day Active Symbicort 80-4.5 MCG/ACT 1 puff as neede d Inhalation every 4 hrs Active ALPRAZolam 0.25 MG 1 tablet Orally Twic e a day Active Suboxone 8-2 MG 1 film under the ton garcia QAM AND 1/2 FILM QPM and allow to dissolve Dispense when due [id number] Sublingual daily for 28 days 10/23/2024 Active Zoloft 100 MG 1 tablet Orally twic e a day Active Levothyroxine Sodium 175 MCG 1 tablet in the morning on an empty stomach Orally Once a day Active busPIRone HCl 5 MG 1 tablet Orally Thre e times a day Active amLODIPine Besylate 10 MG TAKE 1 TABLET BY MOUTH EVERY DAY for 30 Active Vitamin D3 50 MCG (1999 UT) 1 capsule Or ally Once a day Active Enbrel 50 MG/ML 1 ml Subcutaneous Weekly Active Social History Tobacco Use: Social History Observation Description Date Details (start date - stop date) Current Smoker NA - NA Tobacco Use/Smoking Question Answer Notes Are you a current smoker Vital Signs Temperature 97.6 degrees Fahrenheit 10/23/20 24 Oximetry 90 % 10/23/2024 Heart Rate 82 /min 10/23/2024 Blood pressure systolic 126 mm Hg 10/23/20 Blood pressure diastolic 74 mm Hg 024 Weight 165.5 lbs 10/23/2024 BMI 28.4 kg/m2 10/23/2024 Height 64 in 10/23/2024 Encounters Encounter Location Date Provider Diagnosis [facility] [address] [facility] [address] [place] [address] 10/23/2024 FAVIOLA ZULUAGA Opioid dependence, uncomplicated F11.20 and Drug abuse counseling and surveillance of drug abuser Z71.51 Assessments Encounter Date Diagnosis (ICD Code) Assessment Notes Treatment Notes Treatment Clinical Notes Section Notes 10/23/2024 Opioid dependence, uncomplicated (ICD-10 - F11.20) Patient is here today for follow-up on opioid use disorder. Plan is as follows Patient requests for ongoing treatment with Suboxone for opioid dependence and med compliance requirement today satisfying the federation of state Board recommendation and guidelines for judicious, supervised Suboxone dispensing. Patient agrees to a personal interview for renewal or further treatment As planned at next scheduled visit or sooner if conditions change. Medication contract agreement and compliance reinforced. All risks and benefits associated with Suboxone utilization, safe use and storage was discussed in detail and patient voluntarily accepts all obligations. Toxicology and prescription monitoring program is followed. As such controlled substance use required judicious monitoring to excess patient's compliance with the mutually agreed upon controlled substance use agreement which has been signed by the patient at the initiation of the controlled substance prescribing. Therefore following state, Federal, CMS guidelines for controlled substance testing policies. Patient has been assessed based on psychometric risks to, prescription monitoring program, toxicology tests results monitoring and compliance and this patient therefore will be tested on site guidelines. Urine toxicology screen reviewed and it is positive for buprenorphine, benzo which is prescription and marijuanna. Abstinence advised. Liver function tests were reviewed and were within normal limits ORT for narcotic abuse done and she is moderate risk Wrappers were counted and are appropriate. Prescription monitoring program reviewed Controlled substance contract signed No signs of diversion or aberrant behavior Continue current regimen Counseling. Patient goes for counseling Hypertension. Blood pressure well controlled on current regimen. 10/23/2024 Drug abuse counseling and surveillance of drug abuser (ICD-10 - Z71.51) Patient is here today for follow-up on opioid use disorder. Plan is as follows Patient requests for ongoing treatment with Suboxone for opioid dependence and med compliance requirement today satisfying the federation of state Board recommendation and guidelines for judicious, supervised Suboxone dispensing. Patient agrees to a personal interview for renewal or further treatment As planned at next scheduled visit or sooner if conditions change. Medication contract agreement and compliance reinforced. All risks and benefits associated with Suboxone utilization, safe use and storage was discussed in detail and patient voluntarily accepts all obligations. Toxicology and prescription monitoring program is followed. As such controlled substance use required judicious monitoring to excess patient's compliance with the mutually agreed upon controlled substance use agreement which has been signed by the patient at the initiation of the controlled substance prescribing. Therefore following state, Federal, CMS guidelines for controlled substance testing policies. Patient has been assessed based on psychometric risks to, prescription monitoring program, toxicology tests results monitoring and compliance and this patient therefore will be tested on site guidelines. Urine toxicology screen reviewed and it is positive for buprenorphine, benzo which is prescription and marijuanna. Abstinence advised. Liver function tests were reviewed and were within normal limits ORT for narcotic abuse done and she is moderate risk Wrappers were counted and are appropriate. Prescription monitoring program reviewed Controlled substance contract signed No signs of diversion or aberrant behavior Continue current regimen Counseling. Patient goes for counseling Hypertension. Blood pressure well controlled on current regimen. Plan Of Treatment Medication Medication Name Sig Start Date Stop Date Notes Suboxone 8-2 MG 1 film under the ton garcia QAM AND 1/2 FILM QPM and allow to dissolve Dispense when due [id number] Sublingual daily for 28 days 10/23/2024 Next Appt Details Follow Up: 4 Weeks, Reason: Provider Name:FAVIOLA ZULUAGA , 01/18/2025 10:45:00 AM, [address], [address], Procedure Notes * Category Sub-Category Detail Notes Urine Toxicology Urine Toxicology Cocaine: Negative Morphine: Negative Marijuanna: Positive Benzodiazepines: Positive Oxycodone: Negative Amphetamine: Negative Barbiturates: Negative Buprenorphine: Positive Methadone: Negative MDMA: Negative Proproxyphene: Negative Phencyclidine: Negative Tricyclic Antidepressant: Negative Fentanyl: Negative Alcohol: Negative MET: Negative Progress Notes * SHAKEEL CHONG:1960 (64 yo F)Acc No.[id number]:10/23/2024 Patient:ANTIONETTE ALEXANDER Provider:?FAVIOLA ZULUAGA MD :1960???Age:64 Y???Sex:Female D ate:10/23/2024 Address:[address] [place], [place] [id number] Pcp:Reyna Zaman Subjective: * Chief Complaints: * ???1 month follow up UTOX* * * HPI: ???Addiction/Drug Abuse:? Antionette is a 64-year-old lady with history of rheumatoid arthritis, psoriasis, depression, pancreatitis, AUD here today for her monthly suboxone MAT. She consumes edibles. She is still currently on Suboxone 8/2 mg 1.5 films daily. She has stopped smoking at this point. She denies any other active issues or concerns. * ROS:?General/Constitutional:?Overall health?Good.?Change in appetite?denies.?Chills?denies.?Fever?denies.?Night sweats?denies.?Sleep disturbance?denies.?Weight gain?denies.?Weight loss?denies.?Neurologic:?Difficulty speaking?denies.?Dizziness?denies.?Gait abnormality?denies.?Headache?denies.?Loss of strength?denies.?Memory loss?denies.?Seizures?denies.?Tingling/Numbness?denies .?Ophthalmologic:?Blurred vision?denies.?Discharge?denies.?Dry eye?denies.?Red eye?denies.?ENT:?Change in Voice?Denies.?Cold Symptoms?Denies.?Cough?Denies.?Dizziness?Denies.?Nasal Congestion?Denies.?Otalgia?Denies.?postnasal drip?Denies.?Blocked ear?denies.?Nosebleed?denies.?Snoring?denies.?Cardiovascular:?Diaphoresis?Denies.?Pedal Edema?Denies.?PND (Paroxsymal nocturnal dyspnea)?Denies.?Chest pain?denies.?Difficulty laying flat?denies.?Dyspnea on exertion?denies.?Heart murmur?denies.?Orthopnea?denies.?Respiratory:?Snoring?denies.?Asthma?denies.?Cough?denies.?Shortness of breath with exertion?denies.?Sputum production?denies.?Wheezing?denies.?Gastrointestinal:?Change in bowel habits?denies.?Constipation?denies.?Decreased appetite?denies.?Diarrhea?denies.?Heartburn?denies.?Nausea?denies.?Vomiting?scott es.?Musculoskeletal:?tingling/numbness?Denies.?myalgias?Denies.?Joint Swelling?Denies.?extremeties?normal.?Arthritis?denies.?Back problems?denies.?Carpal tunnel?denies.?Joint stiffness?denies.?Muscle aches?denies.?Endocrine:?Bowel Changes?Denies.?Breast Discharge?Denies.?poor libido?Denies.?Cold intolerance?denies.?Excessive sweating?denies.?Excessive thirst?denies.?Frequent urination?denies.?Thyroid problems?denies.?Skin:?Bruising?Denies.?Eczema?denies.?Hair changes?denies.?Rash?denies.?Skin lesion(s)?denies.?Psychiatric:?Anxiety?denies.?Depressed mood?denies.?Difficulty sleeping?denies.?Nervous breakdown?denies.?Substance abuse?denies.?Urology:?abnormal menstrual bleeding?denies.?blood in urine?denies.?burning on urination?denies.?difficulty urinating?denies.?discharge?denies.?dysuria?denies.? * Medical History:? * Surgical History:? * Hospitalization/Major Diagno stic Procedure:? * Family History:?Father: dece ased 94 yrs, diagnosed with Heart Disease.?Mother: 89 yrs, diagnosed with Cancer.? Brother was alcoholic and committed suicide. * Social History:?Tobacco Use:?Tobacco Use/Smoking?Are you a?current smoker ???Drugs/Alcohol:?Caffeine?Intake:?1-2 cups per day ?Do you smoke marijuana?: Admits. ?Do you drink alcohol?: no?.?Miscellaneous:?Marital status: . 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 * Medications:?TakingbusPIRone HCl 5 MG Tablet 1 tablet Orally Three times a day Symbicort 80-4.5 MCG/ACT Aerosol 1 puff as needed Inhalation every 4 hrs ALPRAZolam 0.25 MG Tablet 1 tablet Orally Twice a day Eliquis 5 MG Tablet 1 tablet Orally Twice a day glipiZIDE-metFORMIN HCl 5-500 MG Tablet 1 tablet with a meal Orally Once a day Multivitamin - Tablet 1 tablet Orally Once a day Vitamin D3 50 MCG (2000 UT) Capsule 1 capsule Orally Once a day Enbrel 50 MG/ML Solution Prefilled Syringe 1 ml Subcutaneous Weekly Zoloft 100 MG Tablet 1 tablet Orally twice a day Levothyroxine Sodium 175 MCG Tablet 1 tablet in the morning on an empty stomach Orally Once a day Suboxone 8-2 MG Film 1 film under the tongue QAM AND 1/2 FILM QPM and allow to dissolve Dispense when due [id number] Sublingual daily amLODIPine Besylate 10 MG Tablet TAKE 1 TABLET BY MOUTH EVERY DAY Medication List reviewed and reconciled with the patientTaking busPIRone HCl 5 MG Tablet 1 tablet Orally Three times a day Taking Symbicort 80-4.5 MCG/ACT Aerosol 1 puff as needed Inhalation every 4 hrs Taking ALPRAZolam 0.25 MG Tablet 1 tablet Orally Twice a day Taking Eliquis 5 MG Tablet 1 tablet Orally Twice a day Taking glipiZIDE-metFORMIN HCl 5-500 MG Tablet 1 tablet with a meal Orally Once a day Taking Multivitamin - Tablet 1 tablet Orally Once a day Taking Vitamin D3 50 MCG (1999 UT) Capsule 1 capsule Orally Once a day Taking Enbrel 50 MG/ML Solution Prefilled Syringe 1 ml Subcutaneous Weekly Taking Zoloft 100 MG Tablet 1 tablet Orally twice a day Taking Levothyroxine Sodium 175 MCG Tablet 1 tablet in the morning on an empty stomach Orally Once a day Taking Suboxone 8-2 MG Film 1 film under the tongue QAM AND 1/2 FILM QPM and allow to dissolve Dispense when due [id number] Sublingual daily Taking amLODIPine Besylate 10 MG Tablet TAKE 1 TABLET BY MOUTH EVERY DAY Medication List reviewed and reconciled with the patient * Allergies:?N.K.D.A.no[Allerg ies Verified] Objective: * Vitals:?Temp:97.6F, Oxygen s at %:90%, HR:82/min, BP:126/74mm Hg, Wt:165.5lbs, BMI:28.4Index, Ht: 64 in. * Examination: ???General Examination: ?Psychiatry?Normal.?GENERAL APPEARANCE:?Well developed, well nourished, in no acute distress.?MUSCULOSKELETAL:?Normal.?HEAD:?Normocephalic, atraumatic.?EYES:?Pupils equal, round, reactive to light and accommodation, sclera non-icteric.?EARS:?Normal.?ORAL CAVITY:?Normal.?THROAT:?Clear.?OROPHARYNX?Normal.?SINUSES?Normal.?NECK/THYROID:?Neck supple, full range of motion, no cervical lymphadenopathy.?SKIN:?Warm and dry, no suspicious lesions.?HEART:?S1, S2 normal regular rate and rhythm no murmurs, rubs, gallops .?LUNGS:?clear anteriorly and posteriorly no wheezes, rales, rhonchi good air movement .?BREASTS:?__.?ABDOMEN:?Soft, nontender, nondistended, bowel sounds present, normal.?EXTREMITIES:?Normal.?PERIPHERAL PULSES:?Normal.?NEUROLOGIC:?Nonfocal,? 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 .? Assessment: * Assessment: 1.?Opioid dependence, uncomp licated - F11.20 (Primary)???2.?Drug abuse counseling and surveillance of drug abuser - Z71.51??? Patient is here today for fo llow-up on opioid use disorder. Plan is as follows Patient requests for ongoing treatment with Suboxone for opioid dependence and med compliance requirement today satisfying the federation of state Board recommendation and guidelines for judicious, supervised Suboxone dispensing. Patient agrees to a personal interview for renewal or further treatment As planned at next scheduled visit or sooner if conditions change. Medication contract agreement and compliance reinforced. All risks and benefits associated with Suboxone utilization, safe use and storage was discussed in detail and patient voluntarily accepts all obligations. Toxicology and prescription monitoring program is followed. As such controlled substance use required judicious monitoring to excess patient's compliance with the mutually agreed upon controlled substance use agreement which has been signed by the patient at the initiation of the controlled substance prescribing. Therefore following state, Federal, [facility] guidelines for controlled substance testing policies. Patient has been assessed based on psychometric risks to, prescription monitoring program, toxicology tests results monitoring and compliance and this patient therefore will be tested on site guidelines. Urine toxicology screen reviewed and it is positive for buprenorphine, benzo which is prescription and marijuanna. Abstinence advised.? Liver function tests were reviewed and were within normal limits ORT for narcotic abuse done and she is moderate risk Wrappers were counted and are appropriate. Prescription monitoring program reviewed Controlled substance contract signed No signs of diversion or aberrant behavior Continue current regimen Counseling. Patient goes for counseling Hypertension. Blood pressure well controlled on current regimen. Plan: * Treatment: * Procedures:?Urine Toxicology:?Urine Toxicology ?Cocaine?Negative ?Morphine?Negative ?Marijuanna?Positive ?Benzodiazepines?Positive ?Oxycodone?Negative ?Amphetamine?Negative ?Barbiturates?Negative ?Buprenorphine?Positive ?Methadone?Negative ?MDMA?Negative ?Proproxyphene?Negative ?Phencyclidine?Negative ?Tricyclic Antidepressant?Negative ?Fentanyl?Negative ?Alcohol?Negative ?MET?Negative? * Procedure Codes:?75348 DRUG TEST PRSMV DIR OPT OBS, Modifiers: QW 3074F SYST BP LT 130 MM [id number] DIAST BP < 80 MM HG * Follow Up:?4 Weeks * * Sign off status: Completed true * Provider:?FAVIOLA ZULUAGA MD Date:?10/23 Generated for Leslee spear/Roberto/eTransmitting on:?12/28/2024 11:01 AM EST History and Physical Notes * HPI (History of Present Illness) Category Sub-Category Detail Notes Category Not es Addiction/Drug Abuse Antionette velasco s a 64-year-old lady with history of rheumatoid arthritis, psoriasis, depression, pancreatitis, AUD here today for her monthly suboxone MAT. She consumes edibles. She is still currently on Suboxone 8/2 mg 1.5 films daily. She has stopped smoking at this point. She denies any other active issues or concerns. Examination Category Sub-Category Detail Notes Category Not es General Examination GENERAL APPEARANCE: Well dev eloped, well nourished, in no acute distress HEAD: Normocephalic, atrau matic EYES: Pupils equal, round, reactive to light and accommodation, sclera non-icteric EARS: Normal THROAT: Clear NECK/THYROID: Neck supple, full ra nge of motion, no cervical lymphadenopathy HEART: S1, S2 normal regula r rate and rhythm no murmurs, rubs, gallops LUNGS: clear anteriorly and posteriorly no wheezes, rales, rhonchi good air movement ABDOMEN: Soft, nontender, non distended, bowel sounds present, normal NEUROLOGIC: Nonfocal, appropriat e motor strength normal upper and lower extremities, sensory exam intact SKIN: Warm and dry, no jensen picious lesions EXTREMITIES: Normal PERIPHERAL PULSES: Normal BREASTS: __ MUSCULOSKELETAL: Normal MALE GENITOURINARY: __ FEMALE GENITOURINARY: __ ORAL CAVITY: Normal PODIATRIC: Normal Psychiatry Normal OROPHARYNX Normal SINUSES Normal 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
--- OUTSIDE RECORDS SUMMARY | 2024-12-28 11:01 | XMS_ITS | Clinical Summary ---
Author Organization [facility] Address [address] [place] [address] Care Team Providers Care Dope And Fabric Worker Name Role Phone Reyna Zaman MD Primary Care Provider [phone] Surgical History Surgery Date Site/Laterality Comments TUBAL LIGATION PROCEDURE: HISTORICAL TUBAL LIGATION APPENDECTOMY PROCEDURE: HISTORICAL APPENDECTOMY KNEE SURGERY 2011 Left PROCEDURE: HISTORICAL KNEE SURGERY; COMMENT: torn meniscus, Dr. Mast Medical History Medical History Date Comments Depression 02/24/2019 DX:Depression Anxiety 02/24/2019 DX:Anxiety Respiratory failure ([facility]) 06/24/2009 DX :Respiratory failure ([facility]); COMMENT: 01/2019 Oxygen dependent 06/24/2009 DX:Oxygen depen dent Alcohol abuse 06/24/2009 DX:Alcohol abuse Chronic pancreatitis ([facility]) 06/24/2009 D X:Chronic pancreatitis ([facility]) Psoriasis 02/24/2019 DX:Psoriasis Hypothyroidism 02/24/2019 DX:Hypothyroidis m Prediabetes 02/24/2019 DX:Prediabetes Rheumatoid arthritis, adult ([facility]) 02/24/2019 DX:Rheumatoid arthritis, adult ([facility]) Vitamin D deficiency 02/24/2019 DX:Vitamin D deficiency GERD (gastroesophageal reflux disease) 02/24/2019 DX:GERD (gastroesophageal reflux disease) Thoracic aortic aneurysm ([facility]) 02/24/2019 DX:Thoracic aortic aneurysm ([facility]); COMMENT: 01/2019 4 cm History of substance abuse (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) 02/24/2019 DX:COPD (chronic obstructive pulmonary disease) ([facility]) History of pneumonia 02/24/2019 DX:History of pneumonia; COMMENT: Bilateral; resolved 01/2019 History of skin cancer of unknown type 02/24/2019 DX:History of skin cancer of unknown type; COMMENT: Dermatology follows yearly Family History Medical History Relation Name Comments Breast cancer Mother Relation Name Status Comments Father Alive Mother Alive Social History Tobacco Use Types Packs/Day Years Used Date Smoking Tobacco: Former Cigarettes 0.5 35.2 0 11/08/1983 - 01/06/2019 Smokeless Tobacco: Never Quit: 01/06/2019 Alcohol Use Standard Drinks/Week Comments Not Currently 0 (1 standard drink = 0.6 oz pur e alcohol) Comments Unknown Sex and Gender Information Value Date Recorded Sex Assigned at Not on file Legal Sex Female 3:28 AM EST Gender Identity Not on file Sexual Orientation Not on file Obstetrics History Last Filed Vital Signs Vital Sign Reading Time Taken Comments Blood Pressure 104/58 02/16/2024 4:06 PM EDT Sit ting L Arm Pulse 89 02/16/2024 4:06 PM EDT Temperature - - Respiratory Rate - - Oxygen Saturation - - Inhaled Oxygen Concentration - - Weight 68 kg (150 lb) 02/16/2024 4:06 PM EDT Height 160 cm (5' 3 ) 02/16/2024 4:06 PM EDT Body Mass Index 26.57 02/16/2024 4:06 PM EDT Plan of Treatment Health Maintenance Due Date Last Done Comments Breast Cancer Screening 1960 Hepatitis A Vaccines (1 of 2 - Risk 2-dose series) 1980 Pneumococcal Vaccine: 50+ Ye ars (1 of 2 - PCV) 1980 Pneumococcal Vaccine: Pediat rics (0 to 5 Years) and At-Risk Patients (6 to 64 Years) (1 of 2 - PCV) 1980 Cervical Cancer Screening: P ap Smear 1982 Zoster Vaccines (1 of 2) 2011 DTaP,Tdap,and Td Vaccines (2 - Td or Tdap) 11/08/2019 11/08/2009 RSV Immunization Patients 60 + Years Old (1 - Risk 60-74 years 1-dose series) 2021 Colorectal Cancer Screening: Colonoscopy 12/07/2023 Depression Screening 12/07/2023 HIV Screening 12/07/2023 Hepatitis C Screening 12/07/2023 Social Influencers of Health Screening 12/07/2023 COVID-19 Vaccine (1 - 2023-2 5 season) 2024 Influenza Vaccine (#1) 2024 HIB Vaccines Aged Out No longer eligi ble based on patient's age to complete this topic HPV Vaccines Aged Out No longer eligi ble based on patient's age to complete this topic Hepatitis B Vaccines Aged Out No long er eligible based on patient's age to complete this topic IPV Vaccines Aged Out No longer eligi ble based on patient's age to complete this topic MMR Vaccines Aged Out No longer eligi ble based on patient's age to complete this topic Meningococcal ACWY Vaccine Aged Out N o longer eligible based on patient's age to complete this topic Meningococcal B Vacine Aged Out No lo nger eligible based on patient's age to complete this topic RSV Immunization Patients Un dedrick 20 months Aged Out No longer eligible b ased on patient's age to complete this topic Varicella Vaccines Aged Out No longer eligible based on patient's age to complete this topic Advance Directives Documents on File Type Date Recorded Patient Assistant Paralegal Expl anation Health Care Decision (hx) 10/29/2023 JOEY DIEHL DIRECTIVE Care Teams D[employer] And [employer] Worker Relationship Specialty Start Date End Date Reyna Zaman MD [address] [place] [id number] PCP - General Internal Medicine 02/10/19
--- OUTSIDE RECORDS SUMMARY | 2024-12-28 11:01 | XMS_ITS ---
Author Organization [facility] Address [address] [place] [address] [address] [place] [address] Care Team Providers Care Wrecking Car Driver Name Role Phone AustynReyna Primary Care Provider FAVIOLA Silva Unavailable [phone] Allergies No Known Allergies REASON FOR VISIT 1 month follow up UTOX Medications Medication SIG (Take, Route, Frequency, Duration) Notes Start Date End Date Status Multivitamin - 1 tablet Orally Once a day Active Vitamin D3 50 MCG (1999) 1 capsule Or ally Once a day Active Enbrel 50 MG/ML 1 ml Subcutaneous Weekly Active Eliquis 5 MG 1 tablet Orally Twic e a day Active glipiZIDE-metFORMIN HCl 5-500 MG 1 tablet with a meal Orally Once a day Active Suboxone 8-2 MG 1 film under the ton garcia QAM AND 1/2 FILM QPM and allow to dissolve Dispense when due [id number] Sublingual daily for 28 days 11/24/2024 Active amLODIPine Besylate 10 MG TAKE 1 TABLET BY MOUTH EVERY DAY for 30 Active busPIRone HCl 5 MG 1 tablet Orally Thre e times a day Active Symbicort 80-4.5 MCG/ACT 1 puff as neede d Inhalation every 4 hrs Active ALPRAZolam 0.25 MG 1 tablet Orally Twic e a day Active Levothyroxine Sodium 175 MCG 1 tablet in the morning on an empty stomach Orally Once a day Active Zoloft 100 MG 1 tablet Orally twic e a day Active Social History Tobacco Use: Social History Observation Description Date Details (start date - stop date) Current Smoker NA - NA Tobacco Use/Smoking Question Answer Notes Are you a current smoker Vital Signs Temperature 97.2 degrees Fahrenheit 11/24/19 25 Oximetry 97 % 11/24/2024 Heart Rate 74 /min 11/24/2024 Blood pressure systolic 130 mm Hg 11/24/19 25 Blood pressure diastolic 86 mm Hg 025 Weight 165.2 lbs 11/24/2024 BMI 28.35 kg/m2 11/24/2024 Height 64 in 11/24/2024 Encounters Encounter Location Date Provider Diagnosis [facility] [address] [facility] [address] [place] [address] 11/24/2024 FAVIOLA ZULUAGA Opioid dependence, uncomplicated F11.20 and Drug abuse counseling and surveillance of drug abuser Z71.51 Assessments Encounter Date Diagnosis (ICD Code) Assessment Notes Treatment Notes Treatment Clinical Notes Section Notes 11/24/2024 Opioid dependence, uncomplicated (ICD-10 - F11.20) Patient [...] Blood pressure well controlled on current regimen. 11/24/2024 Drug abuse counseling and surveillance of drug [...] and allow to dissolve Dispense when due [id number] Sublingual daily for 28 days 11/24/2024 Next Appt Details Follow Up: 4 Weeks, Reason: Provider Name:FAVIOLA ZULUAGA , 01/18/2025 10:45:00 AM, [address], [address], Procedure Notes * Category Sub-Category Detail Notes Urine Toxicology Urine Toxicology Cocaine: Negative Morphine: Negative Marijuanna: Negative Benzodiazepines: Positive Oxycodone: Negative Amphetamine: Negative Barbiturates: Negative Buprenorphine: Positive Methadone: Negative MDMA: Negative Proproxyphene: Negative Phencyclidine: Negative Tricyclic Antidepressant: Negative Fentanyl: Negative Alcohol: Negative MET: Negative Progress Notes * SHAKEEL CHONG:1960 (64 yo F)Acc No.[id number]:11/24/2024 Patient:ANTIONETTE ALEXANDER Provider:?FAVIOLA ZULUAGA MD :1960???Age:64 Y???Sex:Female D ate:11/24/2024 Address:[address] [place], [place] [id number] Pcp:Reyna Zaman Subjective: * Chief Complaints: * [...] alcohol?: no?.?Miscellaneous:?Marital status: . 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 * Medications:?TakingbusPIRone HCl 5 MG Tablet 1 [...] an empty stomach Orally Once a day amLODIPine Besylate 10 MG Tablet TAKE 1 TABLET BY MOUTH EVERY DAY Suboxone 8-2 MG Film 1 film under the tongue QAM AND 1/2 FILM QPM and allow to dissolve Dispense when due [id number] Sublingual daily Medication List reviewed and reconciled with the [...] empty stomach Orally Once a day Taking amLODIPine Besylate 10 MG Tablet TAKE 1 TABLET BY MOUTH EVERY DAY Taking Suboxone 8-2 MG Film 1 film under the tongue QAM AND 1/2 FILM QPM and allow to dissolve Dispense when due [id number] Sublingual daily Medication List reviewed and reconciled with the patient * Allergies:?N.K.D.A.no[Allerg ies Verified] Objective: * Vitals:?Temp:97.2F, Oxygen s at %:97%, HR:74/min, BP:130/86mm Hg, Wt:165.2lbs, BMI:28.35Index, Ht: 64 in. 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 .? Assessment: * Assessment: 1.?Opioid dependence, uncomp [...] controlled substance prescribing. Therefore following state, Federal, [facility] guidelines for controlled substance testing policies. Patient [...] Treatment: * Procedures:?Urine Toxicology:?Urine Toxicology ?Cocaine?Negative ?Morphine?Negative ?Marijuanna?Negative ?Benzodiazepines?Positive ?Oxycodone?Negative ?Amphetamine?Negative ?Barbiturates?Negative ?Buprenorphine?Positive ?Methadone?Negative ?MDMA?Negative ?Proproxyphene?Negative ?Phencyclidine?Negative ?Tricyclic Antidepressant?Negative ?Fentanyl?Negative ?Alcohol?Negative ?MET?Negative? * Procedure Codes:?3079F DIAST BP 80-89 MM [id number] SYST BP GE 130 - 139MM [id number] DRUG TEST PRSMV DIR OPT OBS, Modifiers: QW * Follow Up:?4 Weeks * * Sign off status: Completed true * Provider:?FAVIOLA ZULUAGA MD Date:?11/24 Generated for Leslee spear/Roberto/eTransmitting on:?12/28/2024 11:00 AM EST History and Physical Notes * [...] Normal Psychiatry Normal OROPHARYNX Normal SINUSES Normal Web Designer Developer
--- OUTSIDE RECORDS SUMMARY | 2024-12-28 11:01 | XMS_ITS ---
Author Organization [facility] Address [address] [place] [address] [address] [place] [address] Care Team Providers Care Table Hand Name Role Phone AustynReyna Primary Care Provider FAVIOLA Silva Unavailable [phone] Allergies No Known Allergies REASON FOR VISIT 1 month follow up UTOX Medications Medication SIG (Take, Route, Frequency, Duration) Notes Start Date End Date Status Enbrel 50 MG/ML 1 ml Subcutaneous Weekly Active Levothyroxine Sodium 175 MCG 1 tablet in the morning on an empty stomach Orally Once a day Active Zoloft 100 MG 1 tablet Orally twic e a day Active amLODIPine Besylate 10 MG TAKE 1 TABLET BY MOUTH EVERY DAY for 30 Active Suboxone 8-2 MG 1 film under the ton garcia QAM AND 1/2 FILM QPM and allow to dissolve Dispense when due [id number] Sublingual daily for 28 days 12/22/2024 Active Multivitamin - 1 tablet Orally Once a day Active Vitamin D3 50 MCG (1999 UT) 1 capsule Or ally Once a day Active ALPRAZolam 0.25 MG 1 tablet Orally Twic e a day Active glipiZIDE-metFORMIN HCl 5-500 MG 1 tablet with a meal Orally Once a day Active Eliquis 5 MG 1 tablet Orally Twic e a day Active busPIRone HCl 5 MG 1 tablet Orally Thre e times a day Active Symbicort 80-4.5 MCG/ACT 1 puff as neede d Inhalation every 4 hrs Active Social History Tobacco Use: Social History Observation Description Date Details (start date - stop date) Current Smoker NA - NA Tobacco Use/Smoking Question Answer Notes Are you a current smoker Vital Signs Temperature 97.3 degrees Fahrenheit 12/22/19 25 Oximetry 94 % 12/22/2024 Heart Rate 90 /min 12/22/2024 Blood pressure systolic 120 mm Hg 12/22/19 25 Blood pressure diastolic 78 mm Hg 025 Weight 167.0 lbs 12/22/2024 BMI 28.66 kg/m2 12/22/2024 Height 64 in 12/22/2024 Encounters Encounter Location Date Provider Diagnosis [facility] [address] [facility] [address] [place] [address] 12/22/2024 FAVIOLA ZULUAGA Opioid dependence, uncomplicated F11.20 and Drug abuse counseling and surveillance of drug abuser Z71.51 Assessments Encounter Date Diagnosis (ICD Code) Assessment Notes Treatment Notes Treatment Clinical Notes Section Notes 12/22/2024 Opioid dependence, uncomplicated (ICD-10 - F11.20) Patient [...] Blood pressure well controlled on current regimen. 12/22/2024 Drug abuse counseling and surveillance of drug [...] and allow to dissolve Dispense when due [id number] Sublingual daily for 28 days 12/22/2024 Next Appt Details Follow Up: 4 Weeks, Reason: Provider Name:FAVIOLA ZULUAGA , 01/18/2025 10:45:00 AM, [address], [address], Procedure Notes * Category Sub-Category Detail Notes Urine Toxicology Urine Toxicology Cocaine: Negative Morphine: Negative Marijuanna: Positive Benzodiazepines: Positive Oxycodone: Negative Amphetamine: Negative Barbiturates: Negative Buprenorphine: Positive Methadone: Negative MDMA: Negative Proproxyphene: Negative Phencyclidine: Negative Tricyclic Antidepressant: Negative Fentanyl: Negative Alcohol: Negative MET: Negative Progress Notes * SHAKEEL CHONG:1960 (64 yo F)Acc No.[id number]:12/22/2024 Patient:ANTIONETTE ALEXANDER Provider:?FAVIOLA ZULUAGA MD :1960???Age:64 Y???Sex:Female D ate:12/22/2024 Address:[address] [place], [place] [id number] Pcp:Reyna Zaman Subjective: * Chief Complaints: * [...] alcohol?: no?.?Miscellaneous:?Marital status: . 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 * Medications:?TakingSuboxone 8-2 MG Film 1 film under the tongue QAM AND 1/2 FILM QPM and allow to dissolve Dispense when due [id number] Sublingual daily busPIRone HCl 5 MG Tablet 1 tablet [...] List reviewed and reconciled with the patientTaking Suboxone 8-2 MG Film 1 film under the tongue QAM AND 1/2 FILM QPM and allow to dissolve Dispense when due [id number] Sublingual daily Taking busPIRone HCl 5 MG Tablet 1 tablet [...] a day Taking Vitamin D3 50 MCG (2000 UT) Capsule [...] patient * Allergies:?N.K.D.A.no[Allerg ies Verified] Objective: * Vitals:?Temp:97.3F, Oxygen s at %:94%, HR:90/min, BP:120/78mm Hg, Wt:167.0lbs, BMI:28.66Index, Ht: 64 in. 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 .? Assessment: * Assessment: 1.?Opioid dependence, uncomp [...] ?Tricyclic Antidepressant?Negative ?Fentanyl?Negative ?Alcohol?Negative ?MET?Negative? * Procedure Codes:?3078F DIAST BP < 80 MM [id number] SYST BP LT 130 MM [id number] DRUG TEST PRSMV DIR OPT OBS, Modifiers: QW * Follow Up:?4 Weeks * * Sign off status: Completed true * Provider:?FAVIOLA ZULUAGA MD Date:?12/22 Generated for Leslee spear/Roberto/eTransmceci on:?12/28/2024 11:01 AM EST History and Physical [...] Normal Psychiatry Normal OROPHARYNX Normal SINUSES Normal Truck Driver Salesperson
--- OUTSIDE RECORDS SUMMARY | 2024-12-28 11:01 | XMS_ITS | Clinical Summary ---
Author Organization [facility] Address [address] [place] [place] [address] Care Team Providers Care Quality Assurance Supervisor Chassis Name Role Phone Reyna Zaman MD Primary Care Provider [phone] Allergies No known active allergies Medications Medication Sig Dispensed Refills Start Date End Date Status acamprosate (CAMPRAL) 333 MG tablet Take 666 mg by mouth. 0 Active budesonide-formoterol (SYMBICORT) 160-4.5 MCG/ACT inhaler Inhale 2 puffs into the lungs. 0 Active folic acid (FOLVITE) tablet 1 mg Take 1 mg by mouth. 0 Active Levothyroxine Sodium 150 MCG CAPS Take by mouth. 0 Active sertraline (ZOLOFT) 50 MG tablet Take by mouth. 0 06/24/2009 Active Thiamine HCl (B-1) 100 MG TABS Take by mouth. 0 Active SUBOXONE sublingual film take 1 and 1/2 FILM under the tongue once daily 0 06/06/2019 Active D 1000 1000 units capsule 0 06/02/2019 Active levothyroxine (SYNTHROID, LEVOXYL) tablet 150 mcg Take 150 mcg by mouth every morning. on empty stomach 0 04/06/2019 Active sertraline (ZOLOFT) 100 MG tablet Take 200 mg by mouth daily. 0 05/15/2019 Active Active Problems Problem Noted Date Diagnosed Date Arthritis of knee, left 06/14/2019 History of narcotic addiction 06/14/2019 Family History Medical History Relation Name Comments Hypertension Father Cancer Mother Clotting disorder Mother Rheumatologic disease Mother Relation Name Status Comments Father Mother Social History Tobacco Use Types Packs/Day Years Used Date Smoking Tobacco: Never Assessed Sex and Gender Information Value Date Recorded Sex Assigned at Not on file Gender Identity Not on file Sexual Orientation Not on file Last Filed Vital Signs Vital Sign Reading Time Taken Comments Blood Pressure - - Pulse - - Temperature - - Respiratory Rate - - Oxygen Saturation - - Inhaled Oxygen Concentration - - Weight 68 kg (150 lb) 06/14/2019 2:48 PM EDT Height 165.1 cm (5' 5 ) 06/14/2019 2:48 PM EDT Body Mass Index 24.96 06/14/2019 2:48 PM EDT Plan of Treatment Health Maintenance Due Date Last Done Comments Hepatitis C Screening 1960 COVID-19 Vaccine (#1) 1960 Pneumococcal Vaccine (1 of 2 - PCV) 1967 Depression Screening 1973 Preventative Health Evaluation 1979 Cervical Cancer Screening (P ap Smear) 1982 Colon Cancer Screening (Colonoscopy) 2006 Breast Cancer Screening (Mammogram) 2011 Shingrix-Zoster Vaccine (1 of 2) 2011 DTap / Tdap / Td (2 - Td or Tdap) 11/08/2019 010 Influenza Vaccine (#1) 2024 RSV Adult > 60+ Yrs or Pregn ant (1 - 1-dose 75+ series) 2036 Hepatitis B Vaccines Aged Out No long er eligible based on patient's age to complete this topic RSV Ped < 20 months Aged Out No longe r eligible based on patient's age to complete this topic Care Teams Quality Assurance Supervisor Chassis Relationship Specialty Start Date End Date Reyna Zaman MD [address] [place] [address] PCP - General Internal Medicine 06/01/19
--- OUTSIDE RECORDS SUMMARY | 2024-12-28 11:02 | XMS_ITS | Patient Health Record ---
Author Organization [facility] Address [address] [place] [address] [address] [place] [address] Care Team Providers Care Audit Spec Name Role Phone Reyna Zaman Primary Care Provider FAVIOLA Silva Unavailable [phone] Allergies No Known Allergies Results Component Value Reference Range Notes Fentanyl, Urine-[id number] Reviewed date:07/04/2024 09:37:21 AM Interpretation: Performing Lab:[facility], [address] [place] [address], [place], Phone - [phone], Director - Demi Notes/Report: Clinical Information:CCU:[id number] RA Fentanyl, Urine Negative Cutoff=2.0 ng/mL Test includes Fentanyl and Norfentanyl . This test was developed and its performance characteristics determined by [facility]. It has not been cleared or approved by the Food and Drug Administration. Reason For Referral No Information Medications Medication SIG (Take, Route, Frequency, Duration) Notes Start Date End Date Status Multivitamin - 1 tablet Orally Once a day Active Enbrel 50 MG/ML 1 ml Subcutaneous Weekly Active Vitamin D3 50 MCG (1999) 1 capsule Or ally Once a day Active Levothyroxine Sodium 175 MCG 1 tablet in the morning on an empty stomach Orally Once a day Active Zoloft 100 MG 1 tablet Orally twic e a day Active busPIRone HCl 5 MG 1 tablet Orally Thre e times a day Active amLODIPine Besylate 10 MG TAKE 1 TABLET BY MOUTH EVERY DAY for 30 Active Suboxone 8-2 MG 1 film under the ton garcia QAM AND 1/2 FILM QPM and allow to dissolve Dispense when due [id number] Sublingual daily for 28 days 12/22/2024 Active ALPRAZolam 0.25 MG 1 tablet Orally Twic e a day Active Symbicort 80-4.5 MCG/ACT 1 puff as neede d Inhalation every 4 hrs Active glipiZIDE-metFORMIN HCl 5-500 MG 1 tablet with a meal Orally Once a day Active Eliquis 5 MG 1 tablet Orally Twic e a day Active Immunizations Vaccine Route Administration Date Status Comme nts Tdap Unknown 11/08/2009 Administered Social History Tobacco Use: Social History Observation Description Date Details (start date - stop date) Current Smoker NA - NA Tobacco Use/Smoking Question Answer Notes Are you a current smoker Problems Problem Type SNOMED Code ICD Code Onset Dates Problem Status W/U Status Risk Notes Problem Hypothyroidism (81672639) Hypothyroidism, unspecified (E03.9) Active confirmed Problem Disorder due to type 2 diabetes mellitus (560572626) Type 2 diabetes mellitus with unspecified complications (E11.8) Active confirmed Problem Chronic alcoholism in remission (745677195) Alcohol dependence, in remission (F10.21) Active confirmed Problem Opioid dependence (88113129) Opioid dependence, uncomplicated (F11.20) Active confirmed Problem Moderate recurrent major depression (45618114) Major depressive disorder, recurrent, moderate (F33.1) Active confirmed Problem Acute non-ST segment elevation myocardial infarction (885868824) Non-ST elevation (NSTEMI) myocardial infarction (I21.4) Active confirmed Problem Cerebral infarction (034121471) Cerebral infarction, unspecified (I63.9) Active confirmed Problem Uncomplicated mild persistent asthma (979331395) Mild persistent asthma, uncomplicated (J45.30) Active confirmed Problem Myopathy due to rheumatoid arthritis (057905163) 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) Active confirmed Problem Drug addiction counseling (02426502) Drug abuse counseling and surveillance of drug abuser (Z71.51) Active confirmed Problem Nicotine dependence (52320424) Personal history of nicotine dependence (Z87.891) Active confirmed Problem Essential hypertension (08084772) Essential (primary) hypertension (I10) Active confirmed Vital Signs Heart Rate 90 /min 12/22/2024 Temperature 97.3 degrees Fahrenheit 12/22/2024 Blood pressure diastolic 78 mm Hg 12/22/2024 Oximetry 94 % 12/22/2024 Height 64 in 12/22/2024 Blood pressure systolic 120 mm Hg 12/22/2024 Weight 167.0 lbs 12/22/2024 BMI 28.66 kg/m2 12/22/2024 Encounters Encounter Location Date Provider Diagnosis [address] [place] [address] 06/29/2024 SALMERON GUL Opioid dependence, uncomplicated F11.20 and Drug abuse counseling and surveillance of drug abuser Z71.[address] [place] [address] 01/20/2024 SALMERON GUL Opioid dependence, uncomplicated F11.20 ; Drug abuse counseling and surveillance of drug abuser Z71.51 ; Cerebral infarction, unspecified I63.9 ; Non-ST elevation (NSTEMI) myocardial infarction I21.4 ; Personal history of COVID-19 Z86.16 and Personal history of nicotine dependence Z87.[address] [place] [address] 02/17/2024 SALMERON GUL Opioid dependence, uncomplicated F11.20 and Drug abuse counseling and surveillance of drug abuser Z71.[address] [place] [address] 03/15/2024 SALMERON GUL Opioid dependence, uncomplicated F11.20 ; Drug abuse counseling and surveillance of drug abuser Z71.51 and Essential (primary) hypertension I10 [address] [address] 04/12/2024 SALMERON GUL Opioid dependence, uncomplicated F11.20 and Drug abuse counseling and surveillance of drug abuser Z71.[address] [address] 05/10/2024 SALMERON GUL Opioid dependence, uncomplicated F11.20 and Drug abuse counseling and surveillance of drug abuser Z71.[address] [address] 06/07/2024 SALMERON GUL Opioid dependence, uncomplicated F11.20 and Drug abuse counseling and surveillance of drug abuser Z71.[address] [address] 07/27/2024 SALMERON GUL Opioid dependence, uncomplicated F11.20 and Drug abuse counseling and surveillance of drug abuser Z71.[address] [place] [address] 08/23/2024 SALMERON GUL Opioid dependence, uncomplicated F11.20 and Drug abuse counseling and surveillance of drug abuser Z71.[address] [place] [address] 09/20/2024 SALMERON GUL Opioid dependence, uncomplicated F11.20 and Drug abuse counseling and surveillance of drug abuser Z71.[address] [place] [address] 10/23/2024 SALMERON GUL Opioid dependence, uncomplicated F11.20 and Drug abuse counseling and surveillance of drug abuser Z71.[address] [place] [address] 11/24/2024 SALMERON GUL Opioid dependence, uncomplicated F11.20 and Drug abuse counseling and surveillance of drug abuser Z71.[address] [place] [address] 12/22/2024 SALMERON GUL Opioid dependence, uncomplicated F11.20 and Drug abuse counseling and surveillance of drug abuser Z71.[address] [place] [address] 01/13/2024 SALMERON GUL [address] [place] [address] 01/19/2024 SALMERON GUL Opioid dependence, uncomplicated F11.[address] [place] [address] 01/26/2024 SALMERON GUL Opioid dependence, uncomplicated F11.20 Assessments Encounter Date Diagnosis (ICD Code) Assessment Notes Treatment Notes Treatment Clinical Notes Section Notes 01/19/2024 Opioid dependence, uncomplicated (ICD-10 - F11.20) 01/26/2024 Opioid dependence, uncomplicated (ICD-10 - F11.20) 02/17/2024 Opioid dependence, uncomplicated (ICD-10 - F11.20) Patient [...] controlled substance prescribing. Therefore following state, Federal, [facility] guidelines for controlled substance testing policies. Patient [...] current regimen Counseling. Patient goes for counseling [employer]ribe services used to formulate this note under HIPAA compliance and under [place] law mandated for scribe services. Patient aware of service. Verbal consent and written consent taken from the patient. Patient understands and verbalizes understanding of the scribes services and all questions answered regarding scribes services. Patient agrees to use of scribes services. 02/17/2024 Drug abuse counseling and surveillance of drug [...] controlled substance prescribing. Therefore following state, Federal, [facility] guidelines for controlled substance testing policies. Patient [...] current regimen Counseling. Patient goes for counseling [employer] services used to formulate this note under HIPAA compliance and under [place] law mandated for scribe services. Patient aware of service. Verbal consent and written consent taken from the patient. Patient understands and verbalizes understanding of the scribes services and all questions answered regarding scribes services. Patient agrees to use of scribes services. 04/12/2024 Opioid dependence, uncomplicated (ICD-10 - F11.20) Patient [...] Blood pressure well controlled on current regimen. [employer]ribe services used to formulate this note under HIPAA compliance and under [place] law mandated for scribe services. Patient aware of service. Verbal consent and written consent taken from the patient. Patient understands and verbalizes understanding of the scribes services and all questions answered regarding scribes services. Patient agrees to use of scribes services. 04/12/2024 Drug abuse counseling and surveillance of drug [...] controlled substance prescribing. Therefore following state, Federal, [facility] guidelines for controlled substance testing policies. Patient [...] Blood pressure well controlled on current regimen. Scribe services used to formulate this note under HIPAA compliance and under [place] law mandated for scribe services. Patient aware of service. Verbal consent and written consent taken from the patient. Patient understands and verbalizes understanding of the scribes services and all questions answered regarding scribes services. Patient agrees to use of scribes services. 05/10/2024 Opioid dependence, uncomplicated (ICD-10 - F11.20) Patient [...] controlled substance prescribing. Therefore following state, Federal, [facility] guidelines for controlled substance testing policies. Patient [...] Blood pressure well controlled on current regimen. [employer]ribe services used to formulate this note under HIPAA compliance and under [place] law mandated for scribe services. Patient aware of service. Verbal consent and written consent taken from the patient. Patient understands and verbalizes understanding of the scribes services and all questions answered regarding scribes services. Patient agrees to use of scribes services. 05/10/2024 Drug abuse counseling and surveillance of drug [...] Blood pressure well controlled on current regimen. Scribe services used to formulate this note under HIPAA compliance and under [place] law mandated for scribe services. Patient aware of service. Verbal consent and written consent taken from the patient. Patient understands and verbalizes understanding of the scribes services and all questions answered regarding scribes services. Patient agrees to use of scribes services. 06/07/2024 Opioid dependence, uncomplicated (ICD-10 - F11.20) Patient [...] controlled substance prescribing. Therefore following state, Federal, [facility] guidelines for controlled substance testing policies. Patient [...] Blood pressure well controlled on current regimen. Scribe services used to formulate this note under HIPAA compliance and under [place] law mandated for scribe services. Patient aware of service. Verbal consent and written consent taken from the patient. Patient understands and verbalizes understanding of the scribes services and all questions answered regarding scribes services. Patient agrees to use of scribes services. 06/07/2024 Drug abuse counseling and surveillance of drug [...] controlled substance prescribing. Therefore following state, Federal, [facility] guidelines for controlled substance testing policies. Patient [...] Blood pressure well controlled on current regimen. Scribe services used to formulate this note under HIPAA compliance and under [place] law mandated for scribe services. Patient aware of service. Verbal consent and written consent taken from the patient. Patient understands and verbalizes understanding of the scribes services and all questions answered regarding scribes services. Patient agrees to use of scribes services. 06/29/2024 Opioid dependence, uncomplicated (ICD-10 - F11.20) Patient [...] controlled substance prescribing. Therefore following state, Federal, [facility] guidelines for controlled substance testing policies. Patient has been assessed based on psychometric risks to, prescription monitoring program, toxicology tests results monitoring and compliance and this patient therefore will be tested on site guidelines. Urine toxicology screen reviewed and it is positive for buprenorphine, benzo which is prescription and marijuanna. Abstinence advised. It is also positive for fentanyl which may be false positive. Liver function tests were reviewed and were within normal limits ORT for narcotic abuse done and she is moderate risk Wrappers were counted and are appropriate. Prescription monitoring program reviewed Controlled substance contract signed No signs of diversion or aberrant behavior Continue current regimen Counseling. Patient goes for counseling Hypertension. Blood pressure well controlled on current regimen. Scribe services used to formulate this note under HIPAA compliance and under [place] law mandated for scribe services. Patient aware of service. Verbal consent and written consent taken from the patient. Patient understands and verbalizes understanding of the scribes services and all questions answered regarding scribes services. Patient agrees to use of scribes services. 06/29/2024 Drug abuse counseling and surveillance of drug [...] which is prescription and marijuanna. Abstinence advised. It is also positive for fentanyl which may be false positive. Liver function tests were reviewed and were within normal limits ORT for narcotic abuse done and she is moderate risk Wrappers were counted and are appropriate. Prescription monitoring program reviewed Controlled substance contract signed No signs of diversion or aberrant behavior Continue current regimen Counseling. Patient goes for counseling Hypertension. Blood pressure well controlled on current regimen. Scribe services used to formulate this note under HIPAA compliance and under [place] law mandated for scribe services. Patient aware of service. Verbal consent and written consent taken from the patient. Patient understands and verbalizes understanding of the scribes services and all questions answered regarding scribes services. Patient agrees to use of scribes services. 07/27/2024 Opioid dependence, uncomplicated (ICD-10 - F11.20) Patient [...] which is prescription and marijuanna. Abstinence advised. It is also positive for fentanyl which may be false positive. Liver function tests were reviewed and were within normal limits ORT for narcotic abuse done and she is moderate risk Wrappers were counted and are appropriate. Prescription monitoring program reviewed Controlled substance contract signed No signs of diversion or aberrant behavior Continue current regimen Counseling. Patient goes for counseling Hypertension. Blood pressure well controlled on current regimen. Scribe services used to formulate this note under HIPAA compliance and under [place] law mandated for scribe services. Patient aware of service. Verbal consent and written consent taken from the patient. Patient understands and verbalizes understanding of the scribes services and all questions answered regarding scribes services. Patient agrees to use of scribes services. 07/27/2024 Drug abuse counseling and surveillance of drug [...] controlled substance prescribing. Therefore following state, Federal, [facility] guidelines for controlled substance testing policies. Patient has been assessed based on psychometric risks to, prescription monitoring program, toxicology tests results monitoring and compliance and this patient therefore will be tested on site guidelines. Urine toxicology screen reviewed and it is positive for buprenorphine, benzo which is prescription and marijuanna. Abstinence advised. It is also positive for fentanyl which may be false positive. Liver function tests were reviewed and were within normal limits ORT for narcotic abuse done and she is moderate risk Wrappers were counted and are appropriate. Prescription monitoring program reviewed Controlled substance contract signed No signs of diversion or aberrant behavior Continue current regimen Counseling. Patient goes for counseling Hypertension. Blood pressure well controlled on current regimen. Scribe services used to formulate this note under HIPAA compliance and under [place] law mandated for scribe services. Patient aware of service. Verbal consent and written consent taken from the patient. Patient understands and verbalizes understanding of the scribes services and all questions answered regarding scribes services. Patient agrees to use of scribes services. 08/23/2024 Opioid dependence, uncomplicated (ICD-10 - F11.20) Patient [...] controlled substance prescribing. Therefore following state, Federal, [facility] guidelines for controlled substance testing policies. Patient has been assessed based on psychometric risks to, prescription monitoring program, toxicology tests results monitoring and compliance and this patient therefore will be tested on site guidelines. Urine toxicology screen reviewed and it is positive for buprenorphine, benzo which is prescription and marijuanna. Abstinence advised. It is also positive for fentanyl which may be false positive. Liver function tests were reviewed and were within normal limits ORT for narcotic abuse done and she is moderate risk Wrappers were counted and are appropriate. Prescription monitoring program reviewed Controlled substance contract signed No signs of diversion or aberrant behavior Continue current regimen Counseling. Patient goes for counseling Hypertension. Blood pressure well controlled on current regimen. Scribe services used to formulate this note under HIPAA compliance and under [place] law mandated for scribe services. Patient aware of service. Verbal consent and written consent taken from the patient. Patient understands and verbalizes understanding of the scribes services and all questions answered regarding scribes services. Patient agrees to use of scribes services. 08/23/2024 Drug abuse counseling and surveillance of drug [...] controlled substance prescribing. Therefore following state, Federal, [facility] guidelines for controlled substance testing policies. Patient has been assessed based on psychometric risks to, prescription monitoring program, toxicology tests results monitoring and compliance and this patient therefore will be tested on site guidelines. Urine toxicology screen reviewed and it is positive for buprenorphine, benzo which is prescription and marijuanna. Abstinence advised. It is also positive for fentanyl which may be false positive. Liver function tests were reviewed and were within normal limits ORT for narcotic abuse done and she is moderate risk Wrappers were counted and are appropriate. Prescription monitoring program reviewed Controlled substance contract signed No signs of diversion or aberrant behavior Continue current regimen Counseling. Patient goes for counseling Hypertension. Blood pressure well controlled on current regimen. Scribe services used to formulate this note under HIPAA compliance and under [place] law mandated for scribe services. Patient aware of service. Verbal consent and written consent taken from the patient. Patient understands and verbalizes understanding of the scribes services and all questions answered regarding scribes services. Patient agrees to use of scribes services. 09/20/2024 Opioid dependence, uncomplicated (ICD-10 - F11.20) Patient [...] controlled substance prescribing. Therefore following state, Federal, [facility] guidelines for controlled substance testing policies. Patient has been assessed based on psychometric risks to, prescription monitoring program, toxicology tests results monitoring and compliance and this patient therefore will be tested on site guidelines. Urine toxicology screen reviewed and it is positive for buprenorphine, benzo which is prescription and marijuanna. Abstinence advised. It is also positive for fentanyl which may be false positive. Liver function tests were reviewed and were within normal limits ORT for narcotic abuse done and she is moderate risk Wrappers were counted and are appropriate. Prescription monitoring program reviewed Controlled substance contract signed No signs of diversion or aberrant behavior Continue current regimen Counseling. Patient goes for counseling Hypertension. Blood pressure well controlled on current regimen. Scribe services used to formulate this note under HIPAA compliance and under [place] law mandated for scribe services. Patient aware of service. Verbal consent and written consent taken from the patient. Patient understands and verbalizes understanding of the scribes services and all questions answered regarding scribes services. Patient agrees to use of scribes services. 09/20/2024 Drug abuse counseling and surveillance of drug [...] controlled substance prescribing. Therefore following state, Federal, [facility] guidelines for controlled substance testing policies. Patient has been assessed based on psychometric risks to, prescription monitoring program, toxicology tests results monitoring and compliance and this patient therefore will be tested on site guidelines. Urine toxicology screen reviewed and it is positive for buprenorphine, benzo which is prescription and marijuanna. Abstinence advised. It is also positive for fentanyl which may be false positive. Liver function tests were reviewed and were within normal limits ORT for narcotic abuse done and she is moderate risk Wrappers were counted and are appropriate. Prescription monitoring program reviewed Controlled substance contract signed No signs of diversion or aberrant behavior Continue current regimen Counseling. Patient goes for counseling Hypertension. Blood pressure well controlled on current regimen. Scribe services used to formulate this note under HIPAA compliance and under [place] law mandated for scribe services. Patient aware of service. Verbal consent and written consent taken from the patient. Patient understands and verbalizes understanding of the scribes services and all questions answered regarding scribes services. Patient agrees to use of scribes services. 10/23/2024 Opioid dependence, uncomplicated (ICD-10 - F11.20) [...] controlled substance prescribing. Therefore following state, Federal, [facility] guidelines for controlled substance testing policies. Patient [...] pressure well controlled on current regimen. 12/22/2024 Opioid dependence, uncomplicated (ICD-10 - F11.20) [...] controlled substance prescribing. Therefore following state, Federal, [facility] guidelines for controlled substance testing policies. Patient [...] controlled substance prescribing. Therefore following state, Federal, [facility] guidelines for controlled substance testing policies. Patient [...] pressure well controlled on current regimen. 11/24/2024 Opioid dependence, uncomplicated (ICD-10 - F11.20) [...] controlled substance prescribing. Therefore following state, Federal, [facility] guidelines for controlled substance testing policies. Patient [...] Blood pressure well controlled on current regimen. 01/20/2024 Opioid dependence, uncomplicated (ICD-10 - F11.20) Patient [...] controlled substance prescribing. Therefore following state, Federal, [facility] guidelines for controlled substance testing policies. Patient has been assessed based on psychometric risks to, prescription monitoring program, toxicology tests results monitoring and compliance and this patient therefore will be tested on site guidelines. Urine toxicology screen reviewed and it is positive for buprenorphine and marijuanna. Abstinence advised. Liver function tests were reviewed and were within normal limits ORT for narcotic abuse done and she is moderate risk Wrappers were counted and are appropriate. Prescription monitoring program reviewed Controlled substance contract signed No signs of diversion or aberrant behavior Continue current regimen Counseling. Patient goes for counseling Nicotine dependence. She is still smoking at this point. Smoking cessation advised. Cerebral Infarction. Transthoracic echocardiogram with bubblestudy showed right to left shunting. Advised to continue Eliquis , Lipitor and ASA. Advised to touchbase with Neurology. NSTEMI. Probably secondary to the acute respiratory failure antibiotics. She was placed on heparin V infusion Per ACS protocol. Cardiology felt likely secondary to stress-induced cardiomyopathy and echocardiogram showed improved EF. Advised to continue Eliquis , ASA and Lipitor. She will follow up with Cardiology. COPD. She is on oxygen 2 L via nasal cannula continuous. She has appointment with pulmonology in the next few days to evaluate. Nicotine dependence. She has stopped smoking Scribe services used to formulate this note under HIPAA compliance and under [place] law mandated for scribe services. Patient aware of service. Verbal consent and written consent taken from the patient. Patient understands and verbalizes understanding of the scribes services and all questions answered regarding scribes services. Patient agrees to use of scribes services. 01/20/2024 Drug abuse counseling and surveillance of drug [...] controlled substance prescribing. Therefore following state, Federal, [facility] guidelines for controlled substance testing policies. Patient has been assessed based on psychometric risks to, prescription monitoring program, toxicology tests results monitoring and compliance and this patient therefore will be tested on site guidelines. Urine toxicology screen reviewed and it is positive for buprenorphine and marijuanna. Abstinence advised. Liver function tests were reviewed and were within normal limits ORT for narcotic abuse done and she is moderate risk Wrappers were counted and are appropriate. Prescription monitoring program reviewed Controlled substance contract signed No signs of diversion or aberrant behavior Continue current regimen Counseling. Patient goes for counseling Nicotine dependence. She is still smoking at this point. Smoking cessation advised. Cerebral Infarction. Transthoracic echocardiogram with bubblestudy showed right to left shunting. Advised to continue Eliquis , Lipitor and ASA. Advised to touchbase with Neurology. NSTEMI. Probably secondary to the acute respiratory failure antibiotics. She was placed on heparin V infusion Per ACS protocol. Cardiology felt likely secondary to stress-induced cardiomyopathy and echocardiogram showed improved EF. Advised to continue Eliquis , ASA and Lipitor. She will follow up with Cardiology. COPD. She is on oxygen 2 L via nasal cannula continuous. She has appointment with pulmonology in the next few days to evaluate. Nicotine dependence. She has stopped smoking Scribe services used to formulate this note under HIPAA compliance and under [place] law mandated for scribe services. Patient aware of service. Verbal consent and written consent taken from the patient. Patient understands and verbalizes understanding of the scribes services and all questions answered regarding scribes services. Patient agrees to use of scribes services. 03/15/2024 Opioid dependence, uncomplicated (ICD-10 - F11.20) Patient [...] controlled substance prescribing. Therefore following state, Federal, [facility] guidelines for controlled substance testing policies. Patient [...] regimen Counseling. Patient goes for counseling Hypertension. Her blood pressure is running high in the office today. Cut back on sodium intake. Advised appropriate hydration, cardio exercises and weight loss. Continue current regimen. She is an appropriate candidate for IRENE/ARB because of history of diabetes/coronary artery disease. She was advised to talk to her primary care physician. She understands and agrees to the plan Scribe services used to formulate this note under HIPAA compliance and under [place] law mandated for scribe services. Patient aware of service. Verbal consent and written consent taken from the patient. Patient understands and verbalizes understanding of the scribes services and all questions answered regarding scribes services. Patient agrees to use of scribes services. 03/15/2024 Drug abuse counseling and surveillance of drug [...] controlled substance prescribing. Therefore following state, Federal, [facility] guidelines for controlled substance testing policies. Patient [...] regimen Counseling. Patient goes for counseling Hypertension. Her blood pressure is running high in the office today. Cut back on sodium intake. Advised appropriate hydration, cardio exercises and weight loss. Continue current regimen. She is an appropriate candidate for IRENE/ARB because of history of diabetes/coronary artery disease. She was advised to talk to her primary care physician. She understands and agrees to the plan Scribe services used to formulate this note under HIPAA compliance and under [place] law mandated for scribe services. Patient aware of service. Verbal consent and written consent taken from the patient. Patient understands and verbalizes understanding of the scribes services and all questions answered regarding scribes services. Patient agrees to use of scribes services. 03/15/2024 Essential (primary) hypertension (ICD-10 - I10) Patient is here today for follow-up on [...] controlled substance prescribing. Therefore following state, Federal, [facility] guidelines for controlled substance testing policies. Patient [...] regimen Counseling. Patient goes for counseling Hypertension. Her blood pressure is running high in the office today. Cut back on sodium intake. Advised appropriate hydration, cardio exercises and weight loss. Continue current regimen. She is an appropriate candidate for IRENE/ARB because of history of diabetes/coronary artery disease. She was advised to talk to her primary care physician. She understands and agrees to the plan Scribe services used to formulate this note under HIPAA compliance and under [place] law mandated for scribe services. Patient aware of service. Verbal consent and written consent taken from the patient. Patient understands and verbalizes understanding of the scribes services and all questions answered regarding scribes services. Patient agrees to use of scribes services. 01/20/2024 Cerebral infarction, unspecified (ICD-10 - I63.9) Patient is here today for follow-up on [...] controlled substance prescribing. Therefore following state, Federal, [facility] guidelines for controlled substance testing policies. Patient has been assessed based on psychometric risks to, prescription monitoring program, toxicology tests results monitoring and compliance and this patient therefore will be tested on site guidelines. Urine toxicology screen reviewed and it is positive for buprenorphine and marijuanna. Abstinence advised. Liver function tests were reviewed and were within normal limits ORT for narcotic abuse done and she is moderate risk Wrappers were counted and are appropriate. Prescription monitoring program reviewed Controlled substance contract signed No signs of diversion or aberrant behavior Continue current regimen Counseling. Patient goes for counseling Nicotine dependence. She is still smoking at this point. Smoking cessation advised. Cerebral Infarction. Transthoracic echocardiogram with bubblestudy showed right to left shunting. Advised to continue Eliquis , Lipitor and ASA. Advised to touchbase with Neurology. NSTEMI. Probably secondary to the acute respiratory failure antibiotics. She was placed on heparin V infusion Per ACS protocol. Cardiology felt likely secondary to stress-induced cardiomyopathy and echocardiogram showed improved EF. Advised to continue Eliquis , ASA and Lipitor. She will follow up with Cardiology. COPD. She is on oxygen 2 L via nasal cannula continuous. She has appointment with pulmonology in the next few days to evaluate. Nicotine dependence. She has stopped smoking Scribe services used to formulate this note under HIPAA compliance and under [place] law mandated for scribe services. Patient aware of service. Verbal consent and written consent taken from the patient. Patient understands and verbalizes understanding of the scribes services and all questions answered regarding scribes services. Patient agrees to use of scribes services. 01/20/2024 Non-ST elevation (NSTEMI) myocardial infarction (ICD-10 - I21.4) Patient is here today for follow-up on [...] controlled substance prescribing. Therefore following state, Federal, [facility] guidelines for controlled substance testing policies. Patient has been assessed based on psychometric risks to, prescription monitoring program, toxicology tests results monitoring and compliance and this patient therefore will be tested on site guidelines. Urine toxicology screen reviewed and it is positive for buprenorphine and marijuanna. Abstinence advised. Liver function tests were reviewed and were within normal limits ORT for narcotic abuse done and she is moderate risk Wrappers were counted and are appropriate. Prescription monitoring program reviewed Controlled substance contract signed No signs of diversion or aberrant behavior Continue current regimen Counseling. Patient goes for counseling Nicotine dependence. She is still smoking at this point. Smoking cessation advised. Cerebral Infarction. Transthoracic echocardiogram with bubblestudy showed right to left shunting. Advised to continue Eliquis , Lipitor and ASA. Advised to touchbase with Neurology. NSTEMI. Probably secondary to the acute respiratory failure antibiotics. She was placed on heparin V infusion Per ACS protocol. Cardiology felt likely secondary to stress-induced cardiomyopathy and echocardiogram showed improved EF. Advised to continue Eliquis , ASA and Lipitor. She will follow up with Cardiology. COPD. She is on oxygen 2 L via nasal cannula continuous. She has appointment with pulmonology in the next few days to evaluate. Nicotine dependence. She has stopped smoking Scribe services used to formulate this note under HIPAA compliance and under [place] law mandated for scribe services. Patient aware of service. Verbal consent and written consent taken from the patient. Patient understands and verbalizes understanding of the scribes services and all questions answered regarding scribes services. Patient agrees to use of scribes services. 01/20/2024 Personal history of COVID-19 (ICD-10 - Z86.16) Patient is here today for follow-up on [...] controlled substance prescribing. Therefore following state, Federal, [facility] guidelines for controlled substance testing policies. Patient has been assessed based on psychometric risks to, prescription monitoring program, toxicology tests results monitoring and compliance and this patient therefore will be tested on site guidelines. Urine toxicology screen reviewed and it is positive for buprenorphine and marijuanna. Abstinence advised. Liver function tests were reviewed and were within normal limits ORT for narcotic abuse done and she is moderate risk Wrappers were counted and are appropriate. Prescription monitoring program reviewed Controlled substance contract signed No signs of diversion or aberrant behavior Continue current regimen Counseling. Patient goes for counseling Nicotine dependence. She is still smoking at this point. Smoking cessation advised. Cerebral Infarction. Transthoracic echocardiogram with bubblestudy showed right to left shunting. Advised to continue Eliquis , Lipitor and ASA. Advised to touchbase with Neurology. NSTEMI. Probably secondary to the acute respiratory failure antibiotics. She was placed on heparin V infusion Per ACS protocol. Cardiology felt likely secondary to stress-induced cardiomyopathy and echocardiogram showed improved EF. Advised to continue Eliquis , ASA and Lipitor. She will follow up with Cardiology. COPD. She is on oxygen 2 L via nasal cannula continuous. She has appointment with pulmonology in the next few days to evaluate. Nicotine dependence. She has stopped smoking Scribe services used to formulate this note under HIPAA compliance and under [place] law mandated for scribe services. Patient aware of service. Verbal consent and written consent taken from the patient. Patient understands and verbalizes understanding of the scribes services and all questions answered regarding scribes services. Patient agrees to use of scribes services. 01/20/2024 Personal history of nicotine dependence (ICD-10 - Z87.891) Patient is here today for follow-up on [...] controlled substance prescribing. Therefore following state, Federal, [facility] guidelines for controlled substance testing policies. Patient has been assessed based on psychometric risks to, prescription monitoring program, toxicology tests results monitoring and compliance and this patient therefore will be tested on site guidelines. Urine toxicology screen reviewed and it is positive for buprenorphine and marijuanna. Abstinence advised. Liver function tests were reviewed and were within normal limits ORT for narcotic abuse done and she is moderate risk Wrappers were counted and are appropriate. Prescription monitoring program reviewed Controlled substance contract signed No signs of diversion or aberrant behavior Continue current regimen Counseling. Patient goes for counseling Nicotine dependence. She is still smoking at this point. Smoking cessation advised. Cerebral Infarction. Transthoracic echocardiogram with bubblestudy showed right to left shunting. Advised to continue Eliquis , Lipitor and ASA. Advised to touchbase with Neurology. NSTEMI. Probably secondary to the acute respiratory failure antibiotics. She was placed on heparin V infusion Per ACS protocol. Cardiology felt likely secondary to stress-induced cardiomyopathy and echocardiogram showed improved EF. Advised to continue Eliquis , ASA and Lipitor. She will follow up with Cardiology. COPD. She is on oxygen 2 L via nasal cannula continuous. She has appointment with pulmonology in the next few days to evaluate. Nicotine dependence. She has stopped smoking Scribe services used to formulate this note under HIPAA compliance and under [place] law mandated for scribe services. Patient aware of service. Verbal consent and written consent taken from the patient. Patient understands and verbalizes understanding of the scribes services and all questions answered regarding scribes services. Patient agrees to use of scribes services. Plan Of Treatment Pending Test Test Name Order Date ALT (SGPT) 07/23/2022 AST (SGOT) 07/23/2022 METHADONE, URINE, SCREEN WITH CONFIRM Future Test Test Name Order Date ALT (SGPT) 07/03/2023 AST (SGOT) 07/03/2023 Next Appt Details Provider Name:FAVIOLA ZULUAGA , 01/18/2025 10:45:00 AM, [address] [place] [address], [id number], Insurance Providers Payer Name Payer Address Payer Phone Subscriber Number Group Number Insured Name Patient Relationship to Insured Coverage Start Date Coverage End Date [facility] [address] [place] [id number] [place] Self - patient is the insured 2 Medical (General) History Medical History History ICD Code Rheumatoid arthritis and she sees Dr. Amadou wilson Depression Acute pancreatitis Alcohol dependence in the past and relap sed June 2023 Prescription drug use and was on OxyCont in. On Suboxone for 7 years Personal history of COVID-19 11/2021 new onset type II diabetes mellitus NSTEMI Oct 2023 was at [facility] secondary to hypoxic failure and demand ischemia CVA with right side weakness with no res idual symptoms COPD Status post Covid 19 with respiratory sy mptoms
== END 2024-12-28 11:00 | disposition home or self-care (01) ==
PROVIDERS: PCP Internal Medicine; Visit Provider Nurse Practitioner Family
DX: I21.4 Non-ST elevation (NSTEMI) myocardial infarction (principal); J43.1 Panlobular emphysema; Z86.73 Personal history of transient ischemic attack (TIA), and cerebral infarction without residual deficits; E78.5 Hyperlipidemia, unspecified
CPT/HCPCS: 99214; G2211

== ENCOUNTER → 2024-12-28 10:06 | Outpatient (BNVA) | payer OTHER, SELFPAY | PROVIDERS: PCP Internal Medicine; Visit Provider Nurse Practitioner Family | DX: I25.2 Old myocardial infarction (principal); J43.1 Panlobular emphysema; E78.5 Hyperlipidemia, unspecified; Z86.73 Personal history of transient ischemic attack (TIA), and cerebral infarction without residual deficits | CPT/HCPCS: 99212 ==

== ENCOUNTER 2025-01-15 13:52 | Outpatient (REF) | payer OTHER, SELFPAY ==
--- OUTSIDE RECORDS SUMMARY | 2025-01-15 15:44 | XMS_ITS | Clinical Summary ---
Author Organization [facility] Address [address] [place] [address] Care Team Providers Care Campus Director Name Role Phone Reyna Zaman MD Primary Care Provider [phone] Surgical History Surgery Date Site/Laterality Comments TUBAL LIGATION PROCEDURE: HISTORICAL TUBAL LIGATION APPENDECTOMY PROCEDURE: HISTORICAL APPENDECTOMY KNEE SURGERY 2011 Left PROCEDURE: HISTORICAL KNEE SURGERY; COMMENT: torn meniscus, Dr. Mast Medical History Medical History Date Comments Depression 02/24/2019 DX:Depression Anxiety 02/24/2019 DX:Anxiety Respiratory failure ([facility]) 06/24/2009 DX :Respiratory failure ([facility]); COMMENT: 01/2019 Oxygen dependent 06/24/2009 DX:Oxygen depen dent Alcohol abuse 06/24/2009 DX:Alcohol abuse Chronic pancreatitis ([facility]) 06/24/2009 D X:Chronic pancreatitis ([facility]) Psoriasis 02/24/2019 DX:Psoriasis Hypothyroidism 02/24/2019 DX:Hypothyroidis m Prediabetes 02/24/2019 DX:Prediabetes Rheumatoid arthritis, adult ([facility]) 02/24/2019 DX:Rheumatoid arthritis, adult ([facility]) Vitamin D deficiency 02/24/2019 DX:Vitamin D deficiency GERD (gastroesophageal reflux disease) 02/24/2019 DX:GERD (gastroesophageal reflux disease) Thoracic aortic aneurysm ([facility]) 02/24/2019 DX:Thoracic aortic aneurysm ([facility]); COMMENT: 01/2019 4 cm History of substance abuse ([facility]) 02/24/2019 DX:History of substance abuse ([facility]); COMMENT: Narcotic addiction 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
--- OUTSIDE RECORDS SUMMARY | 2025-01-15 15:44 | XMS_ITS ---
Author Organization [employer] Address [address] [place] [address] [address] [place] [address] Care Team Providers Care Program/Music Director Name Role Phone AustynReyna Primary Care Provider FAVIOLA Silva Unavailable [phone] Allergies No Known Allergies REASON FOR VISIT [...] and allow to dissolve Dispense when due [id number] Sublingual daily for 28 days 11/24/2024 Active [...] 11/24/2024 Encounters Encounter Location Date Provider Diagnosis [facility] [address] [facility] [address] [place] [address] 11/24/2024 FAVIOLA ZULUAGA Opioid dependence, uncomplicated F11.20 [...] and allow to dissolve Dispense when due [id number] Sublingual daily for 28 days 11/24/2024 Next Appt Details Follow Up: 4 Weeks, Reason: Provider Name:FAVIOLA ZULUAGA , 01/18/2025 10:45:00 AM, [address], [address], Procedure Notes * Category Sub-Category Detail Notes Urine Toxicology Urine Toxicology Cocaine: Negative Morphine: Negative Marijuanna: Negative Benzodiazepines: Positive Oxycodone: Negative Amphetamine: Negative Barbiturates: Negative Buprenorphine: Positive Methadone: Negative MDMA: Negative Proproxyphene: Negative Phencyclidine: Negative Tricyclic Antidepressant: Negative Fentanyl: Negative Alcohol: Negative MET: Negative Progress Notes * SHAKEEL CHONG:1960 (64 yo F)Acc No.[id number]:11/24/2024 Patient:ANTIONETTE ALEXANDER Provider:?FAVIOLA ZULUAGA MD :1960???Age:64 Y???Sex:Female D ate:11/24/2024 Address:[address] [place], [place] [id number] Pcp:Reyna Zaman Subjective: * Chief Complaints: * [...] alcohol?: no?.?Miscellaneous:?Marital status: . 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 * Medications:?TakingbusPIRone HCl 5 MG Tablet [...] and allow to dissolve Dispense when due [id number] Sublingual daily Medication List reviewed and reconciled [...] and allow to dissolve Dispense when due [id number] Sublingual daily Medication List reviewed and reconciled [...] and lower extremities, sensory exam intact.?FEMALE GENITOURINARY:?__.?MALE GENITOURINARY:?__.?PODIATRIC:?Normal.?Super[employer]? .? Assessment: * Assessment: 1.?Opioid dependence, uncomp [...] controlled substance prescribing. Therefore following state, Federal, [facility] guidelines for controlled substance testing policies. Patient [...] * Procedure Codes:?3079F DIAST BP 80-89 MM [id number] SYST BP GE 130 - 139MM [id number] DRUG TEST PRSMV DIR OPT OBS, Modifiers: QW * Follow Up:?4 Weeks * * Sign off status: Completed true * Provider:?FAVIOLA ZULUAGA MD Date:?11/24 Generated for Leslee spear/Roberto/eTransmitting on:?01/15/2025 03:43 PM EDT History and Physical Notes * HPI (History [...] Normal Psychiatry Normal OROPHARYNX Normal SINUSES Normal [employer]
--- OUTSIDE RECORDS SUMMARY | 2025-01-15 15:44 | XMS_ITS ---
Author Organization [facility] Address [address] [place] [address] [address] [place] [address] Care Team Providers Care Panel Installer Name Role Phone AustynReyna Primary Care Provider FAVIOLA Silva Unavailable [phone] Allergies No Known Allergies REASON FOR VISIT [...] and allow to dissolve Dispense when due [id number] Sublingual daily for 28 days 10/23/2024 Active [...] 10/23/2024 Encounters Encounter Location Date Provider Diagnosis [facility] [address] [facility] [address] [place] [address] 10/23/2024 FAVIOLA ZULUAGA Opioid dependence, uncomplicated F11.20 [...] and allow to dissolve Dispense when due [id number] Sublingual daily for 28 days 10/23/2024 Next Appt Details Follow Up: 4 Weeks, Reason: Provider Name:FAVIOLA ZULUAGA , 01/18/2025 10:45:00 AM, [address], [address], Procedure Notes * Category Sub-Category Detail Notes Urine Toxicology Urine Toxicology Cocaine: Negative Morphine: Negative Marijuanna: Positive Benzodiazepines: Positive Oxycodone: Negative Amphetamine: Negative Barbiturates: Negative Buprenorphine: Positive Methadone: Negative MDMA: Negative Proproxyphene: Negative Phencyclidine: Negative Tricyclic Antidepressant: Negative Fentanyl: Negative Alcohol: Negative MET: Negative Progress Notes * SHAKEEL CHONG:1960 (64 yo F)Acc No.[id number]:10/23/2024 Patient:ANTIONETTE ALEXANDER Provider:?FAVIOLA ZULUAGA MD :1960???Age:64 Y???Sex:Female D ate:10/23/2024 Address:[address] [place], [place] [address] Pcp:Reyna Zaman Subjective: * Chief Complaints: * [...] alcohol?: no?.?Miscellaneous:?Marital status: . 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 .? Assessment: * Assessment: 1.?Opioid dependence, uncomp [...] controlled substance prescribing. Therefore following state, Federal, [facility] guidelines for controlled substance testing policies. Patient [...] ?Tricyclic Antidepressant?Negative ?Fentanyl?Negative ?Alcohol?Negative ?MET?Negative? * Procedure Codes:?10190 DRUG TEST PRSMV DIR OPT OBS, Modifiers: QW 3074F SYST BP LT 130 MM [id number] DIAST BP < 80 MM HG * Follow Up:?4 Weeks * * Sign off status: Completed true * Provider:?FAVIOLA ZULUAGA MD Date:?10/23 Generated for Leslee spear/Roberto/eTransmitting on:?01/15/2025 03:44 PM EDT History and Physical Notes * [...] Normal Psychiatry Normal OROPHARYNX Normal SINUSES Normal Sales Team Manager
--- OUTSIDE RECORDS SUMMARY | 2025-01-15 15:44 | XMS_ITS | Patient Health Record ---
Author Organization [employer] [facility] Address [address] [facility] [address] [place] [address] Care Team Providers Care [place] Name Role Phone Reyna Zaman Primary Care Provider FAVIOLA Silva Unavailable [phone] Allergies No Known Allergies Results Component Value Reference Range Notes Fentanyl, [id number] Reviewed date:07/04/2024 09:37:21 AM Interpretation: Performing Lab:[facility], [address] [place] [address], [place], Phone - [phone], Director - Demi Notes/Report: Clinical Information:CCU:[id number] RA Fentanyl, Urine Negative Cutoff=2.0 ng/mL Test includes Fentanyl and Norfentanyl . This test was developed and its performance characteristics determined by [employer]. It has not been cleared or approved [...] and allow to dissolve Dispense when due [id number] Sublingual daily for 28 days 12/22/2024 Active [...] Status W/U Status Risk Notes Problem Hypothyroidism (10085087) Hypothyroidism, unspecified (E03.9) Active confirmed Problem Disorder due to type 2 diabetes mellitus (354991765) Type 2 diabetes mellitus with unspecified complications (E11.8) Active confirmed Problem Chronic alcoholism in remission (521490596) Alcohol dependence, in remission (F10.21) Active confirmed Problem Opioid dependence (40827956) Opioid dependence, uncomplicated (F11.20) Active confirmed Problem Moderate recurrent major depression (74695049) Major depressive disorder, recurrent, moderate (F33.1) Active confirmed Problem Acute non-ST segment elevation myocardial infarction (630116055) Non-ST elevation (NSTEMI) myocardial infarction (I21.4) Active confirmed Problem Cerebral infarction (890247162) Cerebral infarction, unspecified (I63.9) Active confirmed Problem Uncomplicated mild persistent asthma (457392025) Mild persistent asthma, uncomplicated (J45.30) Active confirmed Problem Myopathy due to rheumatoid arthritis (477948135) 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) Active confirmed Problem Drug addiction counseling (16749914) Drug abuse counseling and surveillance of drug abuser (Z71.51) Active confirmed Problem Nicotine dependence (57815768) Personal history of nicotine dependence (Z87.891) Active confirmed Problem Essential hypertension (43539329) Essential (primary) hypertension (I10) Active confirmed Vital Signs Heart Rate 90 /min 12/22/2024 Temperature 97.3 degrees Fahrenheit 12/22/2024 Blood pressure diastolic 78 mm Hg 12/22/2024 Oximetry 94 % 12/22/2024 Height 64 in 12/22/2024 Blood pressure systolic 120 mm Hg 12/22/2024 Weight 167.0 lbs 12/22/2024 BMI 28.66 kg/m2 12/22/2024 Encounters Encounter Location Date Provider Diagnosis [address] [place] [address] 06/29/2024 SALMERON GUL Opioid dependence, uncomplicated F11.20 and Drug abuse counseling and surveillance of drug abuser Z71.[address] [place] [address] 01/20/2024 SALMERON GUL Opioid dependence, uncomplicated F11.20 ; Drug abuse counseling and surveillance of drug abuser Z71.51 ; Cerebral infarction, unspecified I63.9 ; Non-ST elevation (NSTEMI) myocardial infarction I21.4 ; Personal history of COVID-19 Z86.16 and Personal history of nicotine dependence Z87.891 [address] [place] [address] 02/17/2024 SALMERON GUL Opioid dependence, uncomplicated F11.20 and Drug abuse counseling and surveillance of drug abuser Z71.[address] [place] [address] 03/15/2024 SALMERON GUL Opioid dependence, uncomplicated F11.20 ; Drug abuse counseling and surveillance of drug abuser Z71.51 and Essential (primary) hypertension I10 [address] [address] 04/12/2024 SALMERON GUL Opioid dependence, uncomplicated F11.20 and Drug abuse counseling and surveillance of drug abuser Z71.[address] [address] 05/10/2024 SALMERON GUL Opioid dependence, uncomplicated F11.20 and Drug abuse counseling and surveillance of drug abuser Z71.[address] [address] 06/07/2024 SALMERON GUL Opioid dependence, uncomplicated F11.20 and Drug abuse counseling and surveillance of drug abuser Z71.[address] [address] 07/27/2024 SALMERON GUL Opioid dependence, uncomplicated F11.20 and Drug abuse counseling and surveillance of drug abuser Z71.[address] [address] 08/23/2024 SLAMERON GUL Opioid dependence, uncomplicated F11.20 and Drug abuse counseling and surveillance of drug abuser Z71.[address] [address] 09/20/2024 SALMERON GUL Opioid dependence, uncomplicated F11.20 and Drug abuse counseling and surveillance of drug abuser Z71.[address] [address] 10/23/2024 SALMERON GUL Opioid dependence, uncomplicated F11.20 and Drug abuse counseling and surveillance of drug abuser Z71.[address] [address] 11/24/2024 SALMERON GUL Opioid dependence, uncomplicated F11.20 and Drug abuse counseling and surveillance of drug abuser Z71.[address] [address] 12/22/2024 SALMERON GUL Opioid dependence, uncomplicated F11.20 and Drug abuse counseling and surveillance of drug abuser Z71.[address] [address] 01/19/2024 SALMERON GUL Opioid dependence, uncomplicated F11.[address] [address] 01/26/2024 SALMERON GUL Opioid dependence, uncomplicated F11.20 Assessments Encounter Date Diagnosis (ICD Code) Assessment Notes Treatment Notes Treatment Clinical Notes Section Notes 01/19/2024 Opioid dependence, uncomplicated (ICD-10 - F11.20) 01/20/2024 Opioid dependence, uncomplicated (ICD-10 - F11.20) [...] this note under HIPAA compliance and under [place] law mandated for scribe services. Patient aware [...] this note under HIPAA compliance and under [place] law mandated for scribe services. Patient aware [...] this note under HIPAA compliance and under [place] law mandated for scribe services. Patient aware [...] this note under HIPAA compliance and under [place] law mandated for scribe services. Patient aware [...] this note under HIPAA compliance and under [place] law mandated for scribe services. Patient aware [...] this note under HIPAA compliance and under [place] law mandated for scribe services. Patient aware [...] this note under HIPAA compliance and under [place] law mandated for scribe services. Patient aware [...] this note under HIPAA compliance and under [place] law mandated for scribe services. Patient aware [...] this note under HIPAA compliance and under [place] law mandated for scribe services. Patient aware [...] this note under HIPAA compliance and under [place] law mandated for scribe services. Patient aware [...] this note under HIPAA compliance and under [place] law mandated for scribe services. Patient aware [...] this note under HIPAA compliance and under [place] law mandated for scribe services. Patient aware [...] this note under HIPAA compliance and under [place] law mandated for scribe services. Patient aware [...] this note under HIPAA compliance and under [place] law mandated for scribe services. Patient aware [...] this note under HIPAA compliance and under [place] law mandated for scribe services. Patient aware [...] pressure well controlled on current regimen. 01/20/2024 Drug abuse counseling and surveillance of [...] this note under HIPAA compliance and under [place] law mandated for scribe services. Patient aware of service. Verbal consent and written consent taken from the patient. Patient understands and verbalizes understanding of the scribes services and all questions answered regarding scribes services. Patient agrees to use of scribes services. 01/26/2024 Opioid dependence, uncomplicated (ICD-10 - F11.20) [...] this note under HIPAA compliance and under [place] law mandated for scribe services. Patient aware [...] this note under HIPAA compliance and under [place] law mandated for scribe services. Patient aware [...] this note under HIPAA compliance and under [place] law mandated for scribe services. Patient aware [...] this note under HIPAA compliance and under [place] law mandated for scribe services. Patient aware [...] this note under HIPAA compliance and under [place] law mandated for scribe services. Patient aware [...] this note under HIPAA compliance and under [place] law mandated for scribe services. Patient aware [...] this note under HIPAA compliance and under [place] law mandated for scribe services. Patient aware [...] this note under HIPAA compliance and under [place] law mandated for scribe services. Patient aware [...] this note under HIPAA compliance and under [place] law mandated for scribe services. Patient aware [...] Provider Name:FAVIOLA ZULUAGA , 01/18/2025 10:45:00 AM, [address] [place] [address], [address], Insurance Providers Payer Name Payer Address Payer Phone Subscriber Number Group Number Insured Name Patient Relationship to Insured Coverage Start Date Coverage End Date [facility] [address] [id number] [phone] [id number] CAMILLE CHONG Self - patient is the insured 2 [...] diabetes mellitus NSTEMI Oct 2023 was at [facility] secondary to hypoxic failure and demand ischemia CVA with right side weakness with no res idual symptoms COPD Status post Covid 19 with respiratory sy mptoms
--- OUTSIDE RECORDS SUMMARY | 2025-01-15 15:44 | XMS_ITS | Clinical Summary ---
Author Organization [facility] Address [address] [place] [address] Care Team Providers Care Dispensing Audiologist Name Role Phone Reyna Zaman MD Primary Care Provider [phone] Allergies No known active allergies Medications Medication [...] age to complete this topic Care Teams Dispensing Audiologist Relationship Specialty Start Date End Date Reyna Zaman MD [address] [place] [address] PCP - General Internal Medicine 06/01/19
--- OUTSIDE RECORDS SUMMARY | 2025-01-15 15:44 | XMS_ITS ---
Author Organization [facility] Address [address] [place] [address] [address] [place] [address] Care Team Providers Care Computed Tomography Technologist Name Role Phone AustynReyna Primary Care Provider FAVIOLA Silva Unavailable [phone] Allergies No Known Allergies REASON FOR VISIT [...] and allow to dissolve Dispense when due [id number] Sublingual daily for 28 days 12/22/2024 Active [...] 12/22/2024 Encounters Encounter Location Date Provider Diagnosis [facility] [address] [facility] [address] [place] [address] 12/22/2024 FAVIOLA ZULUAGA Opioid dependence, uncomplicated F11.20 [...] 8-2 MG 1 film under the ton gracia QAM AND 1/2 FILM QPM and allow to dissolve Dispense when due [id number] Sublingual daily for 28 days 12/22/2024 Next Appt Details Follow Up: 4 Weeks, Reason: Provider Name:FAVIOLA ZULUAGA , 01/18/2025 10:45:00 AM, [address], [address], Procedure Notes * Category Sub-Category Detail Notes Urine Toxicology Urine Toxicology Cocaine: Negative Morphine: Negative Marijuanna: Positive Benzodiazepines: Positive Oxycodone: Negative Amphetamine: Negative Barbiturates: Negative Buprenorphine: Positive Methadone: Negative MDMA: Negative Proproxyphene: Negative Phencyclidine: Negative Tricyclic Antidepressant: Negative Fentanyl: Negative Alcohol: Negative MET: Negative Progress Notes * SHAKEEL CHONG:1960 (64 yo F)Acc No.[id number]:12/22/2024 Patient:ANTIONETTE ALEXANDER Provider:?FAVIOLA ZULUAGA MD :1960???Age:64 Y???Sex:Female D ate:12/22/2024 Address:[address] [place], [place] [address] Pcp:Reyna Zaman Subjective: * Chief Complaints: * [...] alcohol?: no?.?Miscellaneous:?Marital status: . 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 .? 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
[2025-01-15 16:13] LABS: MANUAL DIFF FLAG NO
[2025-01-15 16:22] LABS: Basophils Percent Auto 0.1 % (0-2); Eosinophils Absolute Auto 0.2 X10*3/uL (0.0-0.4); Eosinophils Percent Auto 2.9 % (0-4); Hematocrit 38.5 % (37.0-47.0); Hemoglobin 12.9 g/dl (12.0-16.0); Imm Gran Abs Auto 0.03 X10*3/uL (0.00-0.03); Imm Gran Pct Auto 0.4 % (0.0-0.4); Lymphocytes Absolute Auto 1.9 X10*3/uL (1.2-4.9); Lymphocytes Percent Auto 26.6 % (20-40); Mean Corpuscular HGB Conc 33.5 g/dl (31.0-35.0); Mean Corpuscular Hemoglobin 28.5 pg (27.0-33.0); Mean Platelet Volume 9.5 fL (9.4-12.3); Monocytes Absolute Auto 0.3 X10*3/uL (0.1-1.2); Monocytes Percent Auto 4.7 % (2-11); Neutrophils Absolute Auto 4.7 x10*3/uL (2.0-8.3); Neutrophils Percent Auto 65.3 % (45-73); Platelet Count 280 X10*3/uL (160-400); Red Blood Count 4.53 X10*6/uL (4.20-5.50); Red Cell Distribution Width 13.6 % (11.0-16.0); White Blood Count 7.2 X10*3/uL (4.8-10.8)
[2025-01-15 16:34] LABS: Creatinine Urine 108.82 mg/dL; Estimated Average Glucose 151 mg/dL; Hemoglobin A1c % 6.9 % (<6.0); Microalbum/Creatinine Ratio Ur 7.3 ug/mg cr (<30)
[2025-01-15 17:19] LABS: Alanine Aminotransferase 29 U/L (0-31); Albumin Level 4.2 g/dL (3.5-5.0); Alkaline Phosphatase 90 U/L (39-117); Anion Gap 15 (12-20); Aspartate Amino Transferase 25 U/L (5-31); Bilirubin Total 0.3 mg/dL (0.0-1.0); Blood Urea Nitrogen 15 mg/dL (9-16); Calcium 9.4 mg/dL (8.4-10.2); Carbon Dioxide 22 mmol/L (22-29); Chloride 104 mmol/L (96-108); Estimated Glomerular Filt Rate > 60; Glucose Random 147 mg/dL (60-115); Potassium 4.2 mmol/L (3.3-5.1); Sodium 137 mmol/L (135-145); Total Protein 8.2 g/dL (6.5-8.0)
[2025-01-15 17:20] LABS: TSH reflex Free T4 3.93 uIU/mL (0.32-4.0)
[2025-01-16 06:44] LABS: LDL Cholesterol Direct 160 mg/dL (<100)
== END 2025-01-15 13:53 | disposition home or self-care (01) ==
LOC: HO.HMGCLDS 13:52
PROVIDERS: PCP Internal Medicine; Visit Provider Internal Medicine
DX: E11.9 Type 2 diabetes mellitus without complications (principal); E03.9 Hypothyroidism, unspecified; L40.9 Psoriasis, unspecified; F33.1 Major depressive disorder, recurrent, moderate; I42.9 Cardiomyopathy, unspecified; Z99.81 Dependence on supplemental oxygen; J43.1 Panlobular emphysema; F41.1 Generalized anxiety disorder; F41.0 Panic disorder [episodic paroxysmal anxiety]; Z86.73 Personal history of transient ischemic attack (TIA), and cerebral infarction without residual deficits
CPT/HCPCS: 36415; 80053; 82043; 82570; 83036; 83721; 84443; 85025

== ENCOUNTER 2025-01-17 12:39 | Outpatient (AMB) | payer OTHER, SELFPAY ==
[2025-01-17 12:45] VITALS: BP 118/76; PULSE 92; O2SAT 97; BMI 27.3
--- NOTE | 2025-01-17 12:45 | A.OFFPC_ITS ---
Vital Signs 3 01/17/25 12:45 Height 5 ft 5 in Weight 164 lb 2 oz BMI 27.3 BP 118/76 Blood Pressure Location Lt brachial Position Sitting Pulse 92 Pulse Source Pulse Oximeter Pulse Oximetry (%) 97 Intake Visit Reasons: 3 months f/up Allergies No Known Allergies Allergy (Verified 01/17/25 12:49) Medication List - Last Reconciled 01/17/25 by Reyna Zaman MD albuterol sulfate 90 mcg/actuation 1 inh inhalation QID PRN alprazolam 0.25 mg PO TID PRN 30 days amlodipine 10 mg PO DAILY apixaban (Eliquis) 5 mg PO BID blood sugar diagnostic (FreeStyle Lite Strips) B.i.d. blood-glucose meter (FreeStyle Lite Meter kit) B.i.d. buprenorphine-naloxone 8-2 mg (Suboxone) 1.5 film sublingual DAILY buspirone 10 mg PO TID etanercept (Enbrel SureClick) mg subcut glipizide-metformin 5-500 mg 1 tab PO ONCE 90 days lancets (BD Ultra-Fine II Lancets) 2 times a day levothyroxine 175 mcg PO DAILY 90 days nystatin 1 appl topical DAILY 30 days sertraline 200 mg (2 x 100 mg) PO DAILY Tobacco use date assessed: 01/17/25 Dental Screening Dental Screen Date: 01/17/25 Did you have a dental visit in the last 12 months?: Yes Did you have a dental problem in the last 6 months where you did not have access to dental care?: No Was dental information given to patient?: Patient has dentist HPI 3 months f/up 2 HPI0 Details History The patient is a 64-year-old female presenting with concerns related to psoriasis management and evaluation of her diabetes and cholesterol status, alongside the evaluation of breast lump left side - Psoriasis: She has managed psoriasis f or 50 years; current treatments with creams are ineffective, indicating severe condition potentially requiring injectables. Patient is established with Dermatology Dr. Hickman - Type 2 Diabetes Mellitus: HbA1c is 6.9 . The patient understands the connection between lifestyle factors and her blood sugar levels. She shows willingness to make lifestyle changes. - Hypercholesterolemia: New information on high cholesterol noted; waiting for medication initiation. - Breast lump: Patient reports a tender mass on the left breast; her mother?s history of breast cancer amplifies her concern. mammogram and ultrasound. Ordered stat - blood pressure is stable patient is on amlodipine 10 mg - anxiety stable with buspirone - continue thyroid medication Medications - Alprazolam - Amlodipine - Eliquis - Naloxone for opioid management, not Burroughs boxone - Buspirone - Glipizide for diabetes - Metformin for diabetes - Levothyroxine - Sertraline Diagnostic results - Labs: Normal CBC with no anemia. - Kidney function: Normal - Electrolytes: Normal - HbA1c: 6.9 Patient Instructions - Start taking prescribed cholesterol me dication at bedtime. - Have a diagnostic mammogram and ultras ound of the left breast - Maintain lifestyle modifications to jesenia trevino blood sugar and cholesterol; engage in regular exercise and dietary improvements. - Engage in follow-up blood tests for ch olesterol management. Review of Systems General: No fever no chills neurological: No headaches no dizziness ear nose throat: No sore throat no hearing difficulty no ear pain cardiovascular: No syncope, no chest pain, no palpitations gastrointestinal: No nausea vomiting or diarrhea endocrine: No polyuria polydipsia no heat intolerance genitourinary: No dysuria skin: No new complaints, extensive psoriatic rash left lower leg Physical Exam general: No acute distress HEENT: No acute findings neck: Supple, tender lymph nodes present respiratory system: Able to talk in full sentences, no audible wheeze no stridor cardiovascular: S1-S2 Breast exam, lump noted upper outer quadrant irregular with enlarged lymph node axillary gastrointestinal: No pain extremities: No new findings ENROLLMENT MANAGEMENT COORDINATOR: Alert awake oriented x3 motor sensory intact skin: Normal turgor, psoriasis noted PFSH Medical History Dupuytren's contracture of both hands Cerebrovascular accident (CVA) Splenic infarct Renal infarct Asthma Alcoholism Smoker Skin cancer of forehead Chronic right shoulder pain GERD (gastroesophageal reflux disease) Osteoarthritis Hypothyroidism Seborrheic dermatitis of scalp Psoriasis Anxiety Depression History of ETOH abuse Surgical History H/O colonoscopy Hx of arthroscopy of left knee History of appendectomy Family History Father Hypercholesteremia Mother Breast cancer Brother No problems noted. Other Mental health disorder Substance use disorder Social History Household Members: None Housing: Apartment Are you a primary ostomy care nurse to a significant other at home: No Do you presently have visiting nurse or other home services: No Alcohol intake: former Patient Tobacco Use Status: Current everyday Tobacco user Tobacco use type: Cigarette Cigarettes Per Day: 2 Years Smoked: 40 years e-Cigarette/Vaping Use: Never Used Second Hand Smoke Exposure: No Substance Use Type: Marijuana service: No Current occupational status: retired Current occupation: rt handed Cognitive needs: No Hearing needs: No Vision needs: No Questionnaire Thrive Questionnaire Date Thrive assessed: 01/17/25 I am a: Patient What is your living situation today?: I have a steady place to live Within the past 12 months, did the food you bought not last and you didn't have the money to get more?: Sometimes True Within the past 12 months, did you worry whether your food would run out before you got money to buy more?: Sometimes True Do you have trouble paying for medicines?: No Do you have trouble getting transportation to medical appointments?: No Do you have trouble paying your heating and electricity bill?: No Do you have trouble taking care of your child, family member or friend?: No Do you have trouble with day-to-day activities such as bathing, preparing meals, shopping, managing finances, etc.?: No Are you currently unemployed and looking for a job?: No Are you interested in more education?: No Please select the resources that you would like help with: Food Currently or been in a relationship where the following occur: No concerns reported THRIVE Score: 2 AUDIT C Alcohol Use Questionnaire (AUDIT-C) 1. How often do you have a drink containing alcohol?: Never 3. How often do you have six or more drinks on one occasion?: Never Total Score: 0 Score Reviewed/Action Taken: Yes JAMES-7 AMB Questionnaire JAMES-7 Date JAMES - 7 assessed: 01/17/25 Feeling nervous, anxious, or on edge: 1 = Several days Not being able to stop or control worryin = Not at all Worrying too much about different things: 1 = Several days Trouble relaxin = Several days Being so restless that it is hard to sit still: 1 = Several days Becoming easily annoyed or irritable: 1 = Several days Feeling afraid as if something awful might happen: 0 = Not at all Total JAMES-7 score (0-4 normal; 5-9 mild; 10-14 moderate; 15-21 severe): 5 Source: Developed by Drs. Mickey Miranda, Laury Meier, Chente Hoyos and colleagues, with an educational kasey from [employer]. JAMES-7 Assessment Billing JAMES-7 Assessment Tool: JAMES-7 Assessment 75511 Physical exam (Primary Care) Vital Signs: Last Vital Signs Pulse 92 01/17/25 12:45 BP 118/76 01/17/25 12:45 Pulse Ox 97 01/17/25 12:45 BMI result Body Mass Index 27.3 Tobacco/Smoking Status: Tobacco use Status Tobacco use date assessed 01/17/25 01/17/25 12:50 Patient Tobacco Use Status Current everyday Tobacco 01/17/25 12:47 Tobacco use type Cigarette 01/17/25 12:47 e-Cigarette/Vaping Use Never Used 01/17/25 12:47 Thrive Assessment: Date of Thrive Assessment Date Thrive assessed 01/17/25 01/17/25 12:50 Currently or been in a relationship where the following occur: No concerns reported Chest Chest/axillae images: 2 1. Site of lump Coding Level of Care Code Est Pt Level 5 (10175) Diagnoses Lump in upper outer quadrant of left breast N63.21 Controlled type 2 diabetes mellitus without complication, without long-term current use of insulin E11.9 Diabetes mellitus complication status: without complication Diabetes mellitus prison insulin use: without prison use Hypothyroidism, unspecified type E03.9 Hypothyroidism type: unspecified Psoriasis L40.9 Depression, major, recurrent, moderate F33.1 Panlobular emphysema J43.1 COPD type: emphysema Emphysema type: panlobular Generalized anxiety disorder with panic attacks F41.1; F41.0 History of stroke Z86.73 Cardiomyopathy, unspecified type I42.9 Cardiomyopathy type: unspecified History of opioid abuse F11.11 Additional Codes JAMES-7 Assessment Billing - JAMES-7 Assessment Tool: JAMES-7 Assessment 71927 ([id number]) Assessment & Plan Assessment & Plan (1) Lump in upper outer quadrant of left breast: Code(s): N63.21 - Unspecified lump in the left breast, upper outer quadrant Category: Medical (2) Diabetes mellitus type 2, controlled: Code(s): E11.9 - Type 2 diabetes mellitus without complications Category: Medical Qualifiers: Diabetes mellitus complication status: without complication Diabetes mellitus prison insulin use: without long term care pharmacist use Qualified Code(s): E11.9 - Type 2 diabetes mellitus without complications (3) Hypothyroidism: Code(s): E03.9 - Hypothyroidism, unspecified Category: Medical Qualifiers: Hypothyroidism type: unspecified Qualified Code(s): E03.9 - Hypothyroidism, unspecified (4) Psoriasis: Code(s): L40.9 - Psoriasis, unspecified Category: Medical (5) Depression, major, recurrent, moderate: Code(s): F33.1 - Major depressive disorder, recurrent, moderate Category: Medical (6) COPD (chronic obstructive pulmonary disease): Code(s): J44.9 - Chronic obstructive pulmonary disease, unspecified Category: Medical Qualifiers: COPD type: emphysema Emphysema type: panlobular Qualified Code(s): J 43.1 - Panlobular emphysema (7) Generalized anxiety disorder with panic attacks: Code(s): F41.1 - Generalized anxiety disorder; F41.0 - Panic disorder [episodic paroxysmal anxiety] Category: Medical (8) History of stroke: Comment: Left occipital Code(s): Z86.73 - Personal history of transient ischemic attack (TIA), and cerebral infarction without residual deficits Category: Medical (9) Cardiomyopathy: Code(s): I42.9 - Cardiomyopathy, unspecified Category: Medical Qualifiers: Cardiomyopathy type: unspecified Qualified Code(s): I42.9 - Cardiomyopathy, unspecified (10) History of opioid abuse: Code(s): F11.11 - Opioid abuse, in remission Category: Medical Plan History The patient is a 64-year-old female presenting with concerns related to psoriasis management and evaluation of her diabetes and cholesterol status, alongside the evaluation of breast lump left side - Psoriasis: She has managed psoriasis for 50 years; current treatments with creams are ineffective, indicating severe condition potentially requiring injectables. Patient is established with Dermatology Dr. Hickman - Type 2 Diabetes Mellitus: HbA1c is 6.9. The patient understands the connection between lifestyle factors and her blood sugar levels. She shows willingness to make lifestyle changes. - Hypercholesterolemia: New information on high cholesterol noted; waiting for medication initiation. - Breast lump: Patient reports a tender mass on the left breast; her mother?s history of breast cancer amplifies her concern. mammogram and ultrasound. Ordered stat - blood pressure is stable patient is on amlodipine 10 mg - anxiety stable with buspirone - continue thyroid medication - psoriatic arthritis Medications - Alprazolam - Amlodipine - Eliquis - Naloxone for opioid management, not Suboxone - Buspirone - Glipizide for diabetes - Metformin for diabetes - Levothyroxine - Sertraline Diagnostic results - Labs: Normal CBC with no anemia. - Kidney function: Normal - Electrolytes: Normal - HbA1c: 6.9 Patient Instructions - Start taking prescribed cholesterol medication at bedtime. - Have a diagnostic mammogram and ultrasound of the left breast - Maintain lifestyle modifications to manage blood sugar and cholesterol; engage in regular exercise and dietary improvements. - Engage in follow-up blood tests for cholesterol management. 41 minutes spent in care of this patient Orders: Orders 2 MM tomosynthesis diagnostic LT Today N63.21 - Unspecified lump in the left breast, upper outer quadrant, Z12.31 - Encounter for screening mammogram for malignant neoplasm of breast MM tomosynthesis screening BI Today N63.21 - Unspecified lump in the left breast, upper outer quadrant, Z12.31 - Encounter for screening mammogram for malignant neoplasm of breast Comprehensive [place]. Panel Fast 3 Months E03.9 - Hypothyroidism, unspecified, E11.9 - Type 2 diabetes mellitus without complications, F11.11 - Opioid abuse, in remission, F33.1 - Major depressive disorder, recurrent, moderate, F41.0 - Panic disorder [episodic paroxysmal anxiety], F41.1 - Generalized anxiety disorder, I42.9 - Cardiomyopathy, unspecified, J43.1 - Panlobular emphysema, L40.9 - Psoriasis, unspecified, Z86.73 - Personal history of transient ischemic attack (TIA), and cerebral infarction without residual deficits Microalbumin, Random (w Creat) 3 Months E03.9 - Hypothyroidism, unspecified, E11.9 - Type 2 diabetes mellitus without complications, F11.11 - Opioid abuse, in remission, F33.1 - Major depressive disorder, recurrent, moderate, F41.0 - Panic disorder [episodic paroxysmal anxiety], F41.1 - Generalized anxiety disorder, I42.9 - Cardiomyopathy, unspecified, J43.1 - Panlobular emphysema, L40.9 - Psoriasis, unspecified, Z86.73 - Personal history of transient ischemic attack (TIA), and cerebral infarction without residual deficits US breast LT complete Today N63.21 - Unspecified lump in the left breast, upper outer quadrant, Z12.31 - Encounter for screening mammogram for malignant neoplasm of breast Hemoglobin A1c 3 Months E03.9 - Hypothyroidism, unspecified, E11.9 - Type 2 diabetes mellitus without complications, F11.11 - Opioid abuse, in remission, F33.1 - Major depressive disorder, recurrent, moderate, F41.0 - Panic disorder [episodic paroxysmal anxiety], F41.1 - Generalized anxiety disorder, I42.9 - Cardiomyopathy, unspecified, J43.1 - Panlobular emphysema, L40.9 - Psoriasis, unspecified, Z86.73 - Personal history of transient ischemic attack (TIA), and cerebral infarction without residual deficits Complete Blood Count Auto Diff 3 Months E03.9 - Hypothyroidism, unspecified, E11.9 - Type 2 diabetes mellitus without complications, F11.11 - Opioid abuse, in remission, F33.1 - Major depressive disorder, recurrent, moderate, F41.0 - Panic disorder [episodic paroxysmal anxiety], F41.1 - Generalized anxiety disorder, I42.9 - Cardiomyopathy, unspecified, J43.1 - Panlobular emphysema, L40.9 - Psoriasis, unspecified, Z86.73 - Personal history of transient ischemic attack (TIA), and cerebral infarction without residual deficits Lipid Panel 3 Months E03.9 - Hypothyroidism, unspecified, E11.9 - Type 2 diabetes mellitus without complications, F11.11 - Opioid abuse, in remission, F33.1 - Major depressive disorder, recurrent, moderate, F41.0 - Panic disorder [episodic paroxysmal anxiety], F41.1 - Generalized anxiety disorder, I42.9 - Cardiomyopathy, unspecified, J43.1 - Panlobular emphysema, L40.9 - Psoriasis, unspecified, Z86.73 - Personal history of transient ischemic attack (TIA), and cerebral infarction without residual deficits TSH reflex Free T4 3 Months E03.9 - Hypothyroidism, unspecified, E11.9 - Type 2 diabetes mellitus without complications, F11.11 - Opioid abuse, in remission, F33.1 - Major depressive disorder, recurrent, moderate, F41.0 - Panic disorder [episodic paroxysmal anxiety], F41.1 - Generalized anxiety disorder, I42.9 - Cardiomyopathy, unspecified, J43.1 - Panlobular emphysema, L40.9 - Psoriasis, unspecified, Z86.73 - Personal history of transient ischemic attack (TIA), and cerebral infarction without residual deficits Medications: New 2 atorvastatin 40 mg PO BEDTIME 90 tabs 0RF cholesterol
--- OUTSIDE RECORDS SUMMARY | 2025-01-17 14:43 | XMS_ITS ---
Author Organization [facility] Address [address] [place] [address] [address] [place] [address] Care Team Providers Care Road Packer Operator Name Role Phone AustynReyna Primary Care Provider FAVIOLA Silva Unavailable [phone] Allergies No Known Allergies REASON FOR VISIT [...] and allow to dissolve Dispense when due [id number] Sublingual daily for 28 days 11/24/2024 Active [...] 11/24/2024 Encounters Encounter Location Date Provider Diagnosis [facility] [address] [facility] [address] [place] [address] 11/24/2024 FAVIOLA ZULUAGA Opioid dependence, uncomplicated F11.20 [...] and allow to dissolve Dispense when due [id number] Sublingual daily for 28 days 11/24/2024 Next Appt Details Follow Up: 4 Weeks, Reason: Provider Name:FAVIOLA ZULUAGA , 01/18/2025 10:45:00 AM, [address], [address], Procedure Notes * Category Sub-Category Detail Notes Urine Toxicology Urine Toxicology Cocaine: Negative Morphine: Negative Marijuanna: Negative Benzodiazepines: Positive Oxycodone: Negative Amphetamine: Negative Barbiturates: Negative Buprenorphine: Positive Methadone: Negative MDMA: Negative Proproxyphene: Negative Phencyclidine: Negative Tricyclic Antidepressant: Negative Fentanyl: Negative Alcohol: Negative MET: Negative Progress Notes * SHAKEEL CHONG:1960 (64 yo F)Acc No.[id number]:11/24/2024 Patient:ANTIONETTE ALEXANDER Provider:?FAVIOLA ZULUAGA MD :1960???Age:64 Y???Sex:Female D ate:11/24/2024 Address:[address] [place], [place] [id number] Pcp:Reyna Zaman Subjective: * Chief Complaints: * [...] alcohol?: no?.?Miscellaneous:?Marital status: . 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 * Medications:?TakingbusPIRone HCl 5 MG Tablet [...] and allow to dissolve Dispense when due [id number] Sublingual daily Medication List reviewed and reconciled [...] and allow to dissolve Dispense when due [id number] Sublingual daily Medication List reviewed and reconciled [...] and lower extremities, sensory exam intact.?FEMALE GENITOURINARY:?__.?MALE GENITOURINARY:?__.?PODIATRIC:?Normal.?Certified Professional Controller? .? Assessment: * Assessment: 1.?Opioid dependence, uncomp [...] controlled substance prescribing. Therefore following state, Federal, [facility] guidelines for controlled substance testing policies. [...] * Procedure Codes:?3079F DIAST BP 80-89 MM [id number] SYST BP GE 130 - 139MM [id number] DRUG TEST PRSMV DIR OPT OBS, Modifiers: QW * Follow Up:?4 Weeks * * Sign off status: Completed true * Provider:?FAVIOLA ZULUAGA MD Date:?11/24 Generated for Leslee spear/Roberto/eTransmitting on:?01/17/2025 02:42 PM EDT History and Physical Notes * [...] Normal Psychiatry Normal OROPHARYNX Normal SINUSES Normal Certified Professional Controller
--- OUTSIDE RECORDS SUMMARY | 2025-01-17 14:43 | XMS_ITS ---
Author Organization [facility] Address [address] [place] [address] [address] [place] [address] Care Team Providers Care Reel Stripper Name Role Phone AustynReyna Primary Care Provider FAVIOLA Silva Unavailable [phone] Allergies No Known Allergies REASON FOR VISIT [...] and allow to dissolve Dispense when due [id number] Sublingual daily for 28 days 10/23/2024 Active [...] 10/23/2024 Encounters Encounter Location Date Provider Diagnosis [facility] [address] [facility] [address] [place] [address] 10/23/2024 FAVIOLA ZULUAGA Opioid dependence, uncomplicated F11.20 [...] and allow to dissolve Dispense when due [id number] Sublingual daily for 28 days 10/23/2024 Next Appt Details Follow Up: 4 Weeks, Reason: Provider Name:FAVIOLA ZULUAGA , 01/18/2025 10:45:00 AM, [address], [address], Procedure Notes * Category Sub-Category Detail Notes Urine Toxicology Urine Toxicology Cocaine: Negative Morphine: Negative Marijuanna: Positive Benzodiazepines: Positive Oxycodone: Negative Amphetamine: Negative Barbiturates: Negative Buprenorphine: Positive Methadone: Negative MDMA: Negative Proproxyphene: Negative Phencyclidine: Negative Tricyclic Antidepressant: Negative Fentanyl: Negative Alcohol: Negative MET: Negative Progress Notes * SHAKEEL CHONG:1960 (64 yo F)Acc No.[id number]:10/23/2024 Patient:ANTIONETTE ALEXANDER Provider:?FAVIOLA ZULUAGA MD :1960???Age:64 Y???Sex:Female D ate:10/23/2024 Address:[address] [place], [place] [id number] Pcp:Reyna Zaman Subjective: * Chief Complaints: * [...] alcohol?: no?.?Miscellaneous:?Marital status: . 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 * Medications:?TakingbusPIRone HCl 5 MG Tablet 1 [...] and allow to dissolve Dispense when due [id number] Sublingual daily amLODIPine Besylate 10 MG Tablet [...] and allow to dissolve Dispense when due [id number] Sublingual daily Taking amLODIPine Besylate 10 MG [...] and lower extremities, sensory exam intact.?FEMALE GENITOURINARY:?__.?MALE GENITOURINARY:?__.?PODIATRIC:?Normal.?Hydro Excavation Operator? .? Assessment: * Assessment: 1.?Opioid dependence, uncomp [...] controlled substance prescribing. Therefore following state, Federal, [facility] guidelines for controlled substance testing policies. [...] ?Tricyclic Antidepressant?Negative ?Fentanyl?Negative ?Alcohol?Negative ?MET?Negative? * Procedure Codes:?19687 DRUG TEST PRSMV DIR OPT OBS, Modifiers: QW 3074F SYST BP LT 130 MM [id number] DIAST BP < 80 MM HG * Follow Up:?4 Weeks * * Sign off status: Completed true * Provider:?FAVIOLA ZULUAGA MD Date:?10/23 Generated for Leslee spear/Roberto/eTransmitting on:?01/17/2025 02:42 PM [...] Normal Psychiatry Normal OROPHARYNX Normal SINUSES Normal Hydro Excavation Operator
--- OUTSIDE RECORDS SUMMARY | 2025-01-17 14:43 | XMS_ITS | Clinical Summary ---
Author Organization [facility] Address [address] [place] [address] Care Team Providers Care Fiberglass Boat Finisher Name Role Phone Reyna Zaman MD Primary Care Provider Allergies No known active allergies Medications Medication [...] age to complete this topic Care Teams Fiberglass Boat Finisher Relationship Specialty Start Date End Date Reyna Zaman MD [address] [place] [address] PCP - General Internal Medicine 06/01/19
--- OUTSIDE RECORDS SUMMARY | 2025-01-17 14:43 | XMS_ITS ---
Author Organization [facility] Address [address] [place] [address] [address] [place] [address] Care Team Providers Care Automatic Driller And Reamer Name Role Phone AustynReyna Primary Care Provider FAVIOLA Silva Unavailable [phone] Allergies No Known Allergies REASON FOR VISIT [...] and allow to dissolve Dispense when due [id number] Sublingual daily for 28 days 12/22/2024 Active [...] 12/22/2024 Encounters Encounter Location Date Provider Diagnosis [facility] [address] [facility] [employer] [address] [place] [address] 12/22/2024 FAVIOLA ZULUAGA Opioid dependence, uncomplicated F11.20 [...] and allow to dissolve Dispense when due [id number] Sublingual daily for 28 days 12/22/2024 Next Appt Details Follow Up: 4 Weeks, Reason: Provider Name:FAVIOLA ZULUAGA , 01/18/2025 10:45:00 AM, [address], [address], Procedure Notes * Category Sub-Category Detail Notes Urine Toxicology Urine Toxicology Cocaine: Negative Morphine: Negative Marijuanna: Positive Benzodiazepines: Positive Oxycodone: Negative Amphetamine: Negative Barbiturates: Negative Buprenorphine: Positive Methadone: Negative MDMA: Negative Proproxyphene: Negative Phencyclidine: Negative Tricyclic Antidepressant: Negative Fentanyl: Negative Alcohol: Negative MET: Negative Progress Notes * SHAKEEL CHONG:1960 (64 yo F)Acc No.[id number]:12/22/2024 Patient:ANTIONETTE ALEXANDER Provider:?FAVIOLA ZULUAGA MD :1960???Age:64 Y???Sex:Female D ate:12/22/2024 Address:[address] [place], [place] [id number] Pcp:Reyna Zaman Subjective: * Chief Complaints: * [...] alcohol?: no?.?Miscellaneous:?Marital status: . 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 * Medications:?TakingSuboxone 8-2 MG Film 1 film under the tongue QAM AND 1/2 FILM QPM and allow to dissolve Dispense when due [id number] Sublingual daily busPIRone HCl 5 MG Tablet [...] and allow to dissolve Dispense when due [id number] Sublingual daily Taking busPIRone HCl 5 MG [...] and lower extremities, sensory exam intact.?FEMALE GENITOURINARY:?__.?MALE GENITOURINARY:?__.?PODIATRIC:?Normal.?It Communications Specialist? .? Assessment: * Assessment: 1.?Opioid dependence, uncomp [...] Procedure Codes:?3078F DIAST BP < 80 MM [id number] SYST BP LT 130 MM [id number] DRUG TEST PRSMV DIR OPT OBS, Modifiers: QW * Follow Up:?4 Weeks * * Sign off status: Completed true * Provider:?FAVIOLA ZULUAGA MD Date:?12/22 Generated for Leslee spear/Roberto/eTrajeevsmceci on:?01/17/2025 02:43 PM EDT History and Physical Notes * [...] Normal Psychiatry Normal OROPHARYNX Normal SINUSES Normal It Communications Specialist
--- OUTSIDE RECORDS SUMMARY | 2025-01-17 14:43 | XMS_ITS | Clinical Summary ---
Author Organization [facility] Address [address] [place] [address] Care Team Providers Care Precision Lens Grinder Name Role Phone Reyna Zaman MD Primary Care Provider [phone] Surgical History Surgery Date Site/Laterality Comments TUBAL LIGATION PROCEDURE: HISTORICAL TUBAL LIGATION APPENDECTOMY PROCEDURE: HISTORICAL APPENDECTOMY KNEE SURGERY 2011 Left PROCEDURE: HISTORICAL KNEE SURGERY; COMMENT: torn meniscus, Dr. Mast Medical History Medical History Date Comments Depression 02/24/2019 DX:Depression Anxiety 02/24/2019 DX:Anxiety Respiratory failure ([facility]) 06/24/2009 DX :Respiratory failure ([facility]); COMMENT: 01/2019 Oxygen dependent 06/24/2009 DX:Oxygen depen dent Alcohol abuse 06/24/2009 DX:Alcohol abuse Chronic pancreatitis ([facility]) 06/24/2009 D X:Chronic pancreatitis ([facility]) Psoriasis 02/24/2019 DX:Psoriasis Hypothyroidism 02/24/2019 DX:Hypothyroidis m Prediabetes 02/24/2019 DX:Prediabetes Rheumatoid arthritis, adult ([facility]) 02/24/2019 DX:Rheumatoid arthritis, adult ([facility]) Vitamin D deficiency 02/24/2019 DX:Vitamin D deficiency GERD (gastroesophageal reflux disease) 02/24/2019 DX:GERD (gastroesophageal reflux disease) Thoracic aortic aneurysm ([facility]) 02/24/2019 DX:Thoracic aortic aneurysm ([facility]); COMMENT: 01/2019 4 cm History of substance abuse ([facility]) 02/24/2019 DX:History of substance abuse ([facility]); COMMENT: Narcotic addiction 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:Left knee DJD COPD (chronic obstructive pu lmonary disease) ([facility]) 02/24/2019 DX:COPD (chronic obstructive pulmonary disease) ([facility]) History of pneumonia 02/24/2019 DX:History of pneumonia; [...] Documents on File Type Date Recorded Patient Acupressurist Expl anation Health Care Decision (hx) 10/29/2023 JOEY DIEHL DIRECTIVE Care Teams Precision Lens Grinder Relationship Specialty Start Date End Date Reyna Zaman MD [address] [place] [id number] PCP - General Internal Medicine 02/10/19
== END 2025-01-17 13:07 | disposition home or self-care (01) ==
LOC: HO.HMCC 12:40
PROVIDERS: PCP Internal Medicine; Visit Provider Internal Medicine
DX: E11.9 Type 2 diabetes mellitus without complications (principal); F33.1 Major depressive disorder, recurrent, moderate; J43.1 Panlobular emphysema; I42.9 Cardiomyopathy, unspecified; F11.11 Opioid abuse, in remission; N63.21 Unspecified lump in the left breast, upper outer quadrant; E03.9 Hypothyroidism, unspecified; L40.9 Psoriasis, unspecified; F41.1 Generalized anxiety disorder; F41.0 Panic disorder [episodic paroxysmal anxiety]; Z86.73 Personal history of transient ischemic attack (TIA), and cerebral infarction without residual deficits

== ENCOUNTER → 2025-01-17 12:39 | Outpatient (BNVA) | payer OTHER, SELFPAY | PROVIDERS: PCP Internal Medicine; Visit Provider Internal Medicine | DX: N63.21 Unspecified lump in the left breast, upper outer quadrant (principal); E11.9 Type 2 diabetes mellitus without complications; E03.9 Hypothyroidism, unspecified; L40.9 Psoriasis, unspecified; F33.1 Major depressive disorder, recurrent, moderate; J43.1 Panlobular emphysema; F41.1 Generalized anxiety disorder; F41.0 Panic disorder [episodic paroxysmal anxiety]; I42.9 Cardiomyopathy, unspecified; F11.11 Opioid abuse, in remission; Z86.73 Personal history of transient ischemic attack (TIA), and cerebral infarction without residual deficits | CPT/HCPCS: 96127; 99212 ==

== ENCOUNTER 2025-02-07 10:14 | Outpatient (REF) | payer OTHER, SELFPAY ==
--- NOTE | ~2025-02-07 | US_ITS ---
EXAMINATION: MM DIAGNOSTIC DIGITAL BREAST TOMOSYNTHESIS, BILATERAL Limited left breast ultrasound. CLINICAL INFORMATION: Left breast palpable lump upper outer quadrant. Family history of breast cancer including patient's mother. COMPARISON: Mammography: Comparison is made with relevant prior exams. TECHNIQUE: Digital breast mammography with tomosynthesis is performed in both the craniocaudal and mediolateral oblique views along with computer-aided detection (CAD). FINDINGS: There are scattered areas of fibroglandular density (ACR BI-RADS breast composition Category b). BB marker in the upper outer quadrant without underlying abnormality. There are no significant masses, abnormal calcifications, or other abnormalities. Targeted color Doppler ultrasound scanning in the area the patient's palpable lump at 1:00 10 cm from nipple demonstrates a hypoechoic oval circumscribed parallel solid mass measuring 32 x 42 x 14 mm which correlates with the palpable lump. Otherwise scanning from 12- 4:00 and in the area the patient's pain demonstrates normal fibroglandular breast tissue. Results are provided to the patient at time of visit by the technologist. US/US breast LT limited mamm only IMPRESSION: Isoechoic oval solid mass measuring up to 42 mm at 1:00 10 cm from the nipple in the area of the palpable lump. Recommend ultrasound-guided core needle biopsy for confirmation at this time. The findings and recommendations were discussed with the patient the procedure will be scheduled. No mammographic or sonographic abnormality to account for the patient's left breast pain. Recommend clinical evaluation and follow-up. ASSESSMENT: BI-RADS BI-RADS 4 - Suspicious finding RECOMMENDATION: Biopsy recommended This patient's information was entered into a reminder system with a target due date for their next mammogram. Electronically signed by: Jeimy Bradford DO 02/07/2025 12:38 PM EDT
--- OUTSIDE RECORDS SUMMARY | 2025-02-07 11:56 | XMS_ITS ---
Author Organization [email or web address] Address [address] [place] [address] [address] [place] [address] Care Team Providers Care Sr. Manager Name Role Phone AustynReyna Primary Care Provider FAVIOLA Silva Unavailable [phone] Allergies No Known Allergies REASON FOR VISIT [...] and allow to dissolve Dispense when due [id number] Sublingual daily for 28 days 11/24/2024 Active [...] 11/24/2024 Encounters Encounter Location Date Provider Diagnosis [facility] [address] [facility] [address] [place] [address] 11/24/2024 FAVIOLA ZULUAGA Opioid dependence, uncomplicated F11.20 [...] and allow to dissolve Dispense when due [id number] Sublingual daily for 28 days 11/24/2024 Next Appt Details Follow Up: 4 Weeks, Reason: Provider Name:Kayleen whitley, 02/15/2025 11:00:00 AM, [address], [address], Procedure Notes * Category Sub-Category Detail Notes Urine Toxicology Urine Toxicology Cocaine: Negative Morphine: Negative Marijuanna: Negative Benzodiazepines: Positive Oxycodone: Negative Amphetamine: Negative Barbiturates: Negative Buprenorphine: Positive Methadone: Negative MDMA: Negative Proproxyphene: Negative Phencyclidine: Negative Tricyclic Antidepressant: Negative Fentanyl: Negative Alcohol: Negative MET: Negative Progress Notes * SHAKEEL CHONG:1960 (64 yo F)Acc No.[id number]:11/24/2024 Patient:ANTIONETTE ALEXANDER Provider:?FAVIOLA ZULUAGA MD :1960???Age:64 Y???Sex:Female D ate:11/24/2024 Address:[address] [place], [place] [address] Pcp:Reyna Zaman Subjective: * Chief Complaints: * [...] alcohol?: no?.?Miscellaneous:?Marital status: . 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 * Medications:?TakingbusPIRone HCl 5 MG Tablet [...] and allow to dissolve Dispense when due [id number] Sublingual daily Medication List reviewed and reconciled [...] and allow to dissolve Dispense when due [id number] Sublingual daily Medication List reviewed and reconciled [...] and lower extremities, sensory exam intact.?FEMALE GENITOURINARY:?__.?MALE GENITOURINARY:?__.?PODIATRIC:?Normal.?Customer Service Sales Consultant? .? Assessment: * Assessment: 1.?Opioid dependence, uncomp [...] controlled substance prescribing. Therefore following state, Federal, [facility] guidelines for controlled substance testing policies. Patient [...] * Procedure Codes:?3079F DIAST BP 80-89 MM [id number] SYST BP GE 130 - 139MM [id number] DRUG TEST PRSMV DIR OPT OBS, Modifiers: QW * Follow Up:?4 Weeks * * Sign off status: Completed true * Provider:?FAVIOLA ZULUAGA MD Date:?11/24 Generated for Leslee spear/Roberto/eTransmitting on:?02/07/2025 11:55 AM EDT History and Physical Notes * HPI [...] Normal Psychiatry Normal OROPHARYNX Normal SINUSES Normal Customer Service Sales Consultant
--- OUTSIDE RECORDS SUMMARY | 2025-02-07 11:56 | XMS_ITS | Clinical Summary ---
Author Organization [facility] Address [address] [place] [address] Care Team Providers Care Precast Concrete Products Installer Name Role Phone Reyna Zaman MD Primary Care Provider [phone] Allergies No known active allergies Medications Medication [...] age to complete this topic Care Teams Precast Concrete Products Installer Relationship Specialty Start Date End Date Reyna Zaman MD [address] [place] [address] PCP - General Internal Medicine 06/01/19
--- OUTSIDE RECORDS SUMMARY | 2025-02-07 11:56 | XMS_ITS | Patient Health Record ---
Author Organization [facility] Address [address] [facility] [address] [place] [address] Care Team Providers Care Psychiatric Social Worker Supervisor Name Role Phone Reyna Zaman Primary Care Provider FAVIOLA Silva Unavailable [phone] Allergies No Known Allergies Results Component Value Reference Range Notes Fentanyl, Urine-[id number] Reviewed date:07/04/2024 09:37:21 AM Interpretation: Performing Lab:[facility], [address] [place] [address], [place], Phone - [phone], Director - Demi Notes/Report: Clinical Information:CCU:[id number] RA Fentanyl, Urine Negative Cutoff=2.0 ng/mL Test includes Fentanyl and Norfentanyl . This test was developed and its performance characteristics determined by [employer]. It has not been cleared or approved by the Food and Drug Administration. Reason For Referral No Information Medications Medication SIG (Take, Route, Frequency, Duration) Notes Start Date End Date Status Eliquis 5 MG 1 tablet Orally Twic e a day Active ALPRAZolam 0.25 MG 1 tablet Orally Twic e a day Active Symbicort 80-4.5 MCG/ACT 1 puff as neede d Inhalation every 4 hrs Active busPIRone HCl 5 MG 1 tablet Orally Thre e times a day Active amLODIPine Besylate 10 MG TAKE 1 TABLET BY MOUTH EVERY DAY for 30 Active Levothyroxine Sodium 175 MCG 1 tablet in the morning on an empty stomach Orally Once a day Active Zoloft 100 MG 1 tablet Orally twic e a day Active Enbrel 50 MG/ML 1 ml Subcutaneous Weekly Active Suboxone 8-2 MG 1 film under the ton garcia QAM AND 1/2 FILM QPM and allow to dissolve Dispense when due [id number] Sublingual daily for 28 days 01/18/2025 Active Vitamin D3 50 MCG (2000 UT) 1 capsule Or ally Once a day Active Multivitamin - 1 tablet Orally Once a day Active glipiZIDE-metFORMIN HCl 5-500 MG 1 tablet with a meal Orally Once a day Active Immunizations Vaccine Route Administration Date Status Comme nts Tdap Unknown 11/08/2009 Administered Social History Tobacco Use: Social History Observation Description Date Details (start date - stop date) Current Smoker NA - NA Tobacco Use/Smoking Question Answer Notes Are you a current smoker Problems Problem Type SNOMED Code ICD Code Onset Dates Problem Status W/U Status Risk Notes Problem Hypothyroidism (51609521) Hypothyroidism, unspecified (E03.9) Active confirmed Problem Disorder due to type 2 diabetes mellitus (543975287) Type 2 diabetes mellitus with unspecified complications (E11.8) Active confirmed Problem Chronic alcoholism in remission (761210851) Alcohol dependence, in remission (F10.21) Active confirmed Problem Opioid dependence (95707887) Opioid dependence, uncomplicated (F11.20) Active confirmed Problem Moderate recurrent major depression (99229382) Major depressive disorder, recurrent, moderate (F33.1) Active confirmed Problem Acute non-ST segment elevation myocardial infarction (080678205) Non-ST elevation (NSTEMI) myocardial infarction (I21.4) Active confirmed Problem Cerebral infarction (477561414) Cerebral infarction, unspecified (I63.9) Active confirmed Problem Uncomplicated mild persistent asthma (821614277) Mild persistent asthma, uncomplicated (J45.30) Active confirmed Problem Myopathy due to rheumatoid arthritis (816915496) 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) Active confirmed Problem Drug addiction counseling (23539015) Drug abuse counseling and surveillance of drug abuser (Z71.51) Active confirmed Problem Nicotine dependence (33410309) Personal history of nicotine dependence (Z87.891) Active confirmed Problem Essential hypertension (46536611) Essential (primary) hypertension (I10) Active confirmed Vital Signs Heart Rate 114 /min 01/18/2025 Temperature 96.8 degrees Fahrenheit 01/18/2025 Blood pressure diastolic 82 mm Hg 01/18/2025 Oximetry 98 % 01/18/2025 Height 64 in 01/18/2025 Blood pressure systolic 140 mm Hg 01/18/2025 Weight 165.2 lbs 01/18/2025 BMI 28.35 kg/m2 01/18/2025 Encounters Encounter Location Date Provider Diagnosis [address] [place] [address] 06/29/2024 SALMERON GUL Opioid dependence, uncomplicated F11.20 and Drug abuse counseling and surveillance of drug abuser Z71.[address] [place] [address] 02/17/2024 SALMERON GUL Opioid dependence, uncomplicated F11.20 and Drug abuse counseling and surveillance of drug abuser Z71.[address] [place] [address] 03/15/2024 SALMERON GUL Opioid dependence, uncomplicated F11.20 ; Drug abuse counseling and surveillance of drug abuser Z71.51 and Essential (primary) hypertension I10 [address] [place] [address] 04/12/2024 SALMERON GUL Opioid dependence, uncomplicated F11.20 and Drug abuse counseling and surveillance of drug abuser Z71.[address] [place] [address] 05/10/2024 SALMERON GUL Opioid dependence, uncomplicated F11.20 and Drug abuse counseling and surveillance of drug abuser Z71.[address] [place] [address] 06/07/2024 SALMERON GUL Opioid dependence, uncomplicated F11.20 and Drug abuse counseling and surveillance of drug abuser Z71.[address] [place] [address] 07/27/2024 SALMERON GUL Opioid dependence, uncomplicated F11.20 and Drug abuse counseling and surveillance of drug abuser Z71.[address] [place] [address] 08/23/2024 SALMERON GUL Opioid dependence, uncomplicated F11.20 and Drug abuse counseling and surveillance of drug abuser Z71.[address] [place] [address] 09/20/2024 SALMERON GUL Opioid dependence, uncomplicated F11.20 and Drug abuse counseling and surveillance of drug abuser Z71.[address] [place] [address] 10/23/2024 SALMERON GUL Opioid dependence, uncomplicated F11.20 and Drug abuse counseling and surveillance of drug abuser Z71.[address] [place] [address] 11/24/2024 SALMERON GUL Opioid dependence, uncomplicated F11.20 and Drug abuse counseling and surveillance of drug abuser Z71.[address] [place] [address] 12/22/2024 SALMERON GUL Opioid dependence, uncomplicated F11.20 and Drug abuse counseling and surveillance of drug abuser Z71.[address] [place] [address] 01/18/2025 SALMERON GUL Opioid dependence, uncomplicated F11.20 and Drug abuse counseling and surveillance of drug abuser Z71.51 Assessments Encounter Date Diagnosis (ICD Code) Assessment Notes Treatment Notes Treatment Clinical Notes Section Notes 04/12/2024 Opioid dependence, uncomplicated (ICD-10 - F11.20) [...] this note under HIPAA compliance and under [place] law mandated for scribe services. Patient aware [...] this note under HIPAA compliance and under [place] law mandated for scribe services. Patient aware [...] controlled substance prescribing. Therefore following state, Federal, [facility] guidelines for controlled substance testing policies. Patient [...] this note under HIPAA compliance and under [place] law mandated for scribe services. Patient aware [...] this note under HIPAA compliance and under [place] law mandated for scribe services. Patient aware [...] this note under HIPAA compliance and under [place] law mandated for scribe services. Patient aware [...] this note under HIPAA compliance and under [place] law mandated for scribe services. Patient aware [...] this note under HIPAA compliance and under [place] law mandated for scribe services. Patient aware [...] controlled substance prescribing. Therefore following state, Federal, [facility] guidelines for controlled substance testing policies. Patient [...] this note under HIPAA compliance and under [place] law mandated for scribe services. Patient aware [...] this note under HIPAA compliance and under [place] law mandated for scribe services. Patient aware [...] controlled substance prescribing. Therefore following state, Federal, [facility] guidelines for controlled substance testing policies. Patient [...] this note under HIPAA compliance and under [place] law mandated for scribe services. Patient aware [...] this note under HIPAA compliance and under [place] law mandated for scribe services. Patient aware [...] controlled substance prescribing. Therefore following state, Federal, [facility] guidelines for controlled substance testing policies. Patient [...] this note under HIPAA compliance and under [place] law mandated for scribe services. Patient aware [...] controlled substance prescribing. Therefore following state, Federal, [facility] guidelines for controlled substance testing policies. Patient [...] this note under HIPAA compliance and under [place] law mandated for scribe services. Patient aware [...] controlled substance prescribing. Therefore following state, Federal, [facility] guidelines for controlled substance testing policies. Patient [...] this note under HIPAA compliance and under [place] law mandated for scribe services. Patient aware [...] controlled substance prescribing. Therefore following state, Federal, [facility] guidelines for controlled substance testing policies. Patient [...] Blood pressure well controlled on current regimen. 01/18/2025 Opioid dependence, uncomplicated (ICD-10 - F11.20) Patient [...] Blood pressure well controlled on current regimen. 01/18/2025 Drug abuse counseling and surveillance of drug [...] Blood pressure well controlled on current regimen. 02/17/2024 Opioid dependence, uncomplicated (ICD-10 - F11.20) [...] this note under HIPAA compliance and under [place] law mandated for scribe services. Patient aware [...] this note under HIPAA compliance and under [place] law mandated for scribe services. Patient aware [...] controlled substance prescribing. Therefore following state, Federal, [facility] guidelines for controlled substance testing policies. Patient [...] this note under HIPAA compliance and under [place] law mandated for scribe services. Patient aware [...] controlled substance prescribing. Therefore following state, Federal, [facility] guidelines for controlled substance testing policies. Patient [...] this note under HIPAA compliance and under [place] law mandated for scribe services. Patient aware [...] this note under HIPAA compliance and under [place] law mandated for scribe services. Patient aware [...] AST (SGOT) 07/03/2023 Next Appt Details Provider Name:Kayleen whitley, 02/15/2025 11:00:00 AM, [address] [place] [address] [place], [address], Insurance Providers Payer Name Payer Address Payer Phone Subscriber Number Group Number Insured Name Patient Relationship to Insured Coverage Start Date Coverage End Date [facility] [address] [place] [id number] CAMILLE CHONG Self - patient is the [...] diabetes mellitus NSTEMI Oct 2023 was at [facility] secondary to hypoxic failure and demand ischemia CVA with right side weakness with no res idual symptoms COPD Status post Covid 19 with respiratory sy mptoms
--- OUTSIDE RECORDS SUMMARY | 2025-02-07 11:56 | XMS_ITS | Clinical Summary ---
Author Organization [facility] Address [address] [place] [address] Care Team Providers Care Extrusion Press Supervisor Name Role Phone Reyna Zaman MD Primary Care Provider Surgical History Surgery Date Site/Laterality Comments TUBAL LIGATION PROCEDURE: HISTORICAL TUBAL LIGATION APPENDECTOMY PROCEDURE: HISTORICAL APPENDECTOMY KNEE SURGERY 2011 Left PROCEDURE: HISTORICAL KNEE SURGERY; COMMENT: torn meniscus, Dr. Mast Medical History Medical History Date Comments Depression 02/24/2019 DX:Depression Anxiety 02/24/2019 DX:Anxiety Respiratory failure 06/24/2009 DX:Respirato ry failure ([facility]); COMMENT: 01/2019 Oxygen dependent 06/24/2009 DX:Oxygen depen dent Alcohol abuse 06/24/2009 DX:Alcohol abuse Chronic pancreatitis ([facility]) 06/24/2009 D X:Chronic pancreatitis ([facility]) Psoriasis 02/24/2019 DX:Psoriasis Hypothyroidism 02/24/2019 DX:Hypothyroidis m Prediabetes 02/24/2019 DX:Prediabetes Rheumatoid arthritis, adult ([facility]) 02/24/2019 DX:Rheumatoid arthritis, adult ([facility]) Vitamin D deficiency 02/24/2019 DX:Vitamin D deficiency GERD (gastroesophageal reflux disease) 02/24/2019 DX:GERD (gastroesophageal reflux disease) Thoracic aortic aneurysm ([facility]) 02/24/2019 DX:Thoracic aortic aneurysm ([facility]); COMMENT: 01/2019 4 cm History of substance abuse 02/24/2019 DX:Hi story of substance abuse ([facility]); COMMENT: Narcotic addiction 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:Left knee DJD COPD (chronic obstructive pu lmonary disease) ([facility]) 02/24/2019 DX:COPD (chronic obstructive pulmonary disease) ([facility]) History of pneumonia 02/24/2019 DX:History of [...] Last Done Comments Breast Cancer Screening 1960 Pneumococcal Vaccine: 50+ Ye ars (1 of 2 - PCV) 1980 Pneumococcal Vaccine: Pediat rics (0 to 5 Years) and At-Risk Patients (6 to 64 Years) (1 of 2 - PCV) 1980 Cervical Cancer Screening: P ap Smear 1982 Zoster Vaccines (1 of 2) 2011 DTaP,Tdap,and Td Vaccines (2 - Td or Tdap) 11/08/2019 11/08/2009 RSV Immunization Adult Patie nts (1 - Risk 60-74 years 1-dose series) 2021 Colorectal Cancer Screening: Colonoscopy 12/07/2023 Depression Screening 12/07/2023 HIV Screening 12/07/2023 Hepatitis C Screening 12/07/2023 Social Influencers of Health Screening 12/07/2023 COVID-19 Vaccine (2023-2 5 season) 2024 Influenza Vaccine (#1) 2024 HIB Vaccines Aged Out No longer eligi ble based on patient's age to complete this topic HPV Vaccines Aged Out No longer eligi ble based on patient's age to complete this topic Hepatitis A Vaccines Aged Out No long er eligible [...] Documents on File Type Date Recorded Patient Link Trainer Teacher Expl anation Health Care Decision (hx) 10/29/2023 JOEY DIEHL DIRECTIVE Care Teams Extrusion Press Supervisor Relationship Specialty Start Date End Date Reyna Zaman MD [address] [place] [id number] PCP - General Internal Medicine 02/10/19
--- OUTSIDE RECORDS SUMMARY | 2025-02-07 11:56 | XMS_ITS ---
Author Organization [facility] Address [address] [place] [address] [address] [place] [address] Care Team Providers Care Workers Compensation Claims Specialist Name Role Phone AustynReyna Primary Care Provider FAVIOLA Silva Unavailable [phone] Allergies No Known Allergies REASON FOR VISIT [...] and allow to dissolve Dispense when due [id number] Sublingual daily for 28 days 12/22/2024 Active [...] 12/22/2024 Encounters Encounter Location Date Provider Diagnosis [facility] 294 [facility] [address] [place] [address] 12/22/2024 FAVIOLA ZULUAGA Opioid dependence, uncomplicated F11.20 [...] and allow to dissolve Dispense when due [id number] Sublingual daily for 28 days 12/22/2024 Next Appt Details Follow Up: 4 Weeks, Reason: Provider Name:Kayleen whitley, 02/15/2025 11:00:00 AM, [address], [address], Procedure Notes * Category Sub-Category Detail Notes Urine Toxicology Urine Toxicology Cocaine: Negative Morphine: Negative Marijuanna: Positive Benzodiazepines: Positive Oxycodone: Negative Amphetamine: Negative Barbiturates: Negative Buprenorphine: Positive Methadone: Negative MDMA: Negative Proproxyphene: Negative Phencyclidine: Negative Tricyclic Antidepressant: Negative Fentanyl: Negative Alcohol: Negative MET: Negative Progress Notes * SHAKEEL CHONG:1960 (64 yo F)Acc No.[id number]:12/22/2024 Patient:ANTIONETTE ALEXANDER Provider:?FAVIOLA ZULUAGA MD :1960???Age:64 Y???Sex:Female D ate:12/22/2024 Address:[address] [place], [place] [id number] Pcp:Reyna Zaman Subjective: * Chief Complaints: * [...] alcohol?: no?.?Miscellaneous:?Marital status: . 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 * Medications:?TakingSuboxone 8-2 MG Film 1 film under the tongue QAM AND 1/2 FILM QPM and allow to dissolve Dispense when due [id number] Sublingual daily busPIRone HCl 5 MG Tablet [...] and allow to dissolve Dispense when due [id number] Sublingual daily Taking busPIRone HCl 5 MG [...] lower extremities, sensory exam intact.?FEMALE GENITOURINARY:?__.?MALE GENITOURINARY:?__.?PODIATRIC:?Normal.?Sales And Production Manager? .? Assessment: * Assessment: 1.?Opioid dependence, [...] Procedure Codes:?3078F DIAST BP < 80 MM [id number] SYST BP LT 130 MM [id number] DRUG TEST PRSMV DIR OPT OBS, Modifiers: QW * Follow Up:?4 Weeks * * Sign off status: Completed true * Provider:?FAVIOLA ZULUAGA MD Date:?12/22 Generated for Leslee spear/Roebrto/eTrajeevsmceci on:?02/07/2025 11:55 AM EDT History and Physical [...] Psychiatry Normal OROPHARYNX Normal SINUSES Normal Sales And Production Manager
--- OUTSIDE RECORDS SUMMARY | 2025-02-07 11:56 | XMS_ITS ---
Author Organization [facility] Address [address] [place] [address] [address] [place] [address] Care Team Providers Care Esl Instructor Name Role Phone AustynReyna Primary Care Provider FAVIOLA Silva Unavailable [phone] Allergies No Known Allergies REASON FOR VISIT 1 month follow up UTOX Medications Medication SIG (Take, Route, Frequency, Duration) Notes Start Date End Date Status ALPRAZolam 0.25 MG 1 tablet Orally Twic [...] and allow to dissolve Dispense when due [id number] Sublingual daily for 28 days 01/18/2025 Active Levothyroxine Sodium 175 MCG 1 tablet in the morning on an empty stomach Orally Once a day Active Zoloft 100 MG 1 tablet Orally twic e a day Active Enbrel 50 MG/ML 1 ml Subcutaneous Weekly Active Vitamin D3 50 MCG (1999 UT) 1 capsule Or ally Once a day Active Multivitamin - 1 tablet Orally Once a day Active Eliquis 5 MG 1 tablet Orally Twic e a day Active glipiZIDE-metFORMIN HCl 5-500 MG 1 tablet with a meal Orally Once a day Active Social History Tobacco Use: Social History Observation Description Date Details (start date - stop date) Current Smoker NA - NA Tobacco Use/Smoking Question Answer Notes Are you a current smoker Vital Signs Temperature 96.8 degrees Fahrenheit 01/19/20 25 Oximetry 98 % 01/18/2025 Heart Rate 114 /min 01/18/2025 Blood pressure systolic 140 mm Hg 01/19/20 25 Blood pressure diastolic 82 mm Hg 025 Weight 165.2 lbs 01/18/2025 BMI 28.35 kg/m2 01/18/2025 Height 64 in 01/18/2025 Encounters Encounter Location Date Provider Diagnosis [facility] 294 [facility] [address] [place] [address] 01/18/2025 FAVIOLA ZULUAGA Opioid dependence, uncomplicated F11.20 and Drug abuse counseling and surveillance of drug abuser Z71.51 Assessments Encounter Date Diagnosis (ICD Code) Assessment Notes Treatment Notes Treatment Clinical Notes Section Notes 01/18/2025 Opioid dependence, uncomplicated (ICD-10 - F11.20) [...] and allow to dissolve Dispense when due [id number] Sublingual daily for 28 days 01/18/2025 Next Appt Details Follow Up: 4 Weeks, Reason: Provider Name:Kayleen whitley, 02/15/2025 11:00:00 AM, [address], [address], Procedure Notes * Category Sub-Category Detail Notes Urine Toxicology Urine Toxicology Cocaine: Negative Morphine: Negative Marijuanna: Positive Benzodiazepines: Positive Oxycodone: Negative Amphetamine: Negative Barbiturates: Negative Buprenorphine: Positive Methadone: Negative MDMA: Negative Proproxyphene: Negative Phencyclidine: Negative Tricyclic Antidepressant: Negative Fentanyl: Negative Alcohol: Negative MET: Negative Progress Notes * SHAKEEL CHONG:1960 (64 yo F)Acc No.[id number]:01/18/2025 Patient:ANTIONETTE ALEXANDER Provider:?FAVIOLA ZULUAGA MD :1960???Age:64 Y???Sex:Female D ate:01/18/2025 Address:[address] [place], [place] [id number] Pcp:Reyna Zaman Subjective: * Chief Complaints: * [...] alcohol?: no?.?Miscellaneous:?Marital status: . 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 * Medications:?TakingbusPIRone HCl 5 MG Tablet [...] and allow to dissolve Dispense when due [id number] Sublingual daily Medication List reviewed and reconciled [...] and allow to dissolve Dispense when due [id number] Sublingual daily Medication List reviewed and reconciled with the patient * Allergies:?N.K.D.A.no[Allerg ies Verified] Objective: * Vitals:?Temp:96.8F, Oxygen s at %:98%, HR:114/min, BP:140/82mm Hg, Wt:165.2lbs, BMI:28.35Index, Ht: 64 in. * [...] and lower extremities, sensory exam intact.?FEMALE GENITOURINARY:?__.?MALE GENITOURINARY:?__.?PODIATRIC:?Normal.?Journeyman Pressman? .? Assessment: * Assessment: 1.?Opioid dependence, uncomp [...] controlled substance prescribing. Therefore following state, Federal, [facility] guidelines for controlled substance testing policies. [...] ?Tricyclic Antidepressant?Negative ?Fentanyl?Negative ?Alcohol?Negative ?MET?Negative? * Procedure Codes:?02326 DRUG TEST PRSMV DIR OPT OBS, Modifiers: QW * Follow Up:?4 Weeks * * Sign off status: Completed true * Provider:?FAVIOLA ZULUAGA MD Date:?01/18 Generated for Leslee spear/Roberto/eTransmitting on:?02/07/2025 11:56 AM EDT History and Physical Notes * [...] Normal Psychiatry Normal OROPHARYNX Normal SINUSES Normal Journeyman Pressman
== END 2025-02-07 10:15 | disposition home or self-care (01) ==
LOC: HO.MAMMO 10:14
PROVIDERS: PCP Internal Medicine; Visit Provider Internal Medicine
DX: N63.21 Unspecified lump in the left breast, upper outer quadrant (principal)
CPT/HCPCS: 76642; 77062; 77066

== ENCOUNTER → 2025-02-07 10:30 | Outpatient (BNV) | payer OTHER, SELFPAY | PROVIDERS: PCP Internal Medicine; Visit Provider Internal Medicine | DX: N63.21 Unspecified lump in the left breast, upper outer quadrant (principal); Z80.3 Family history of malignant neoplasm of breast | CPT/HCPCS: 76642; 77066; G0279 ==

== ENCOUNTER 2025-02-16 08:48 | Outpatient (AMB) | payer OTHER, SELFPAY ==
--- NOTE | 2025-02-16 08:59 | A.OFFVIS_ITS ---
Vital Signs 02/16/25 09:08 Height 5 ft 5 in Weight 167 lb 2 oz BMI 27.8 BP 140/78 H Blood Pressure Location Lt brachial Position Sitting Pulse 86 Intake Visit Reasons: (L) US BX 2:00 mass Intake Note: Patient is seen in office for ultrasound biopsy CONSULT for left breast 2 o'clock mass. Pt c/o: feels a lump on the left breast near the axilla for about 4 months, painful, shooting pain, denies discoloration, redness, denies prior breast breast surgeries or concerns,admits fm hx of breast cancer mother and paternal grandmother Bx sched:02/21/25 Contract Recruiter Required: No Career Portals Teacher: Career Portals Teacher Present Accompanied by: Self / Same As Patient Allergies No Known Allergies Allergy (Verified 02/16/25 09:05) HPI HPI (L) US BX 2:00 mass: Details: 64 year female here for a left breast mass. She says she had felt a lump on the left breast about 3-4 months ago. She mentioned this to her primary care physician. She had undergone diagnostic mammogram and ultrasound and this showed an isoechoic oval solid mass measuring up to 42 mm at the 1 o'clock position. An ultrasound-guided biopsy was recommended by the radiologist. Her menarche was at age of 12. Her 1st was age of 23. She had to pregnancies. She had menopause at age of 51. She says that her mother was diagnosed with breast cancer at the age of 75. A paternal grandmother had breast cancer at an advanced age as well. [facility] Medical History Left breast mass Dupuytren's contracture of both hands Cerebrovascular accident (CVA) Splenic infarct Renal infarct Asthma Alcoholism Smoker Skin cancer of forehead Chronic right shoulder pain GERD (gastroesophageal reflux disease) Osteoarthritis Hypothyroidism Seborrheic dermatitis of scalp Psoriasis Anxiety Depression History of ETOH abuse Surgical History H/O colonoscopy Hx of arthroscopy of left knee History of appendectomy Family History Father Hypercholesteremia Mother Breast cancer Brother No problems noted. Other Mental health disorder Substance use disorder Social History Household Members: None Housing: Apartment Are you a primary home care coordinator to a significant other at home: No Do you presently have visiting nurse or other home services: No Alcohol intake: former Patient Tobacco Use Status: Current everyday Tobacco user Tobacco use type: Cigarette Cigarettes Per Day: 2 Years Smoked: 40 years e-Cigarette/Vaping Use: Never Used Second Hand Smoke Exposure: No Substance Use Type: Marijuana service: No Current occupational status: retired Current occupation: rt handed Cognitive needs: No Hearing needs: No Vision needs: No Female Reproductive History Menstrual Age of Menarche: 12 Age of menopause: 53 Total pregnancies: 2 Number of Living Children: 2 Review of Systems Const Denies chills and Denies fever(s) Card Denies chest pain, Denies dyspnea and Denies dyspnea on exertion Resp Denies cough, Denies dyspnea and Denies dyspnea on exertion GI Denies hematochezia and Denies change in bowel habits Denies hematuria Musc Denies back pain and Denies limited range of motion Neuro Denies focal weakness and Denies convulsions Psych Denies depression and Denies mood swings Physical Exam Vital Signs: Last Vital Signs Pulse 86 02/16/25 09:08 BP 140/78 H 02/16/25 09:08 BMI result Body Mass Index 27.8 Const General: comfortable and no acute distress Orientation/consciousness: patient oriented x3 Neck Neck: Yes no lymphadenopathy Chest Other: Vague mass on the left breast at the tail on the upper outer quadrant, no obvious axillary lymphadenopathy, no masses on the right breast Resp Auscultation: clear to auscultation bilaterally Cardio Rhythm: regular rhythm GI Palpation (GI): Soft to palpation, nontender and no guarding Neuro General: patient oriented x3 Assessment & Plan Assessment & Plan (1) Left breast mass: Code(s): N63.20 - Unspecified lump in the left breast, unspecified quadrant Category: Medical Plan: She has this palpable left breast mass which is also seen on imaging studies as described above. I explained to her the technique of ultrasound-guided biopsy of the left breast mass. I will see her again in the office next week to discuss the path report She seems to understand the plan well. Orders: Orders US breast ndl core biopsy LT 02/21/25 N63.20 - Unspecified lump in the left breast, unspecified quadrant Coding Level of Care Code New Pt Level 3 (11826) Diagnoses Left breast mass N63.20
--- OUTSIDE RECORDS SUMMARY | 2025-02-16 08:59 | XMS_ITS | Clinical Summary ---
Author Organization [facility] Address [address] [place] [address] Care Team Providers Care Residential Case Manager Name Role Phone Reyna Zaman MD Primary Care Provider [phone] Surgical History Surgery Date Site/Laterality Comments TUBAL LIGATION PROCEDURE: HISTORICAL TUBAL LIGATION APPENDECTOMY PROCEDURE: HISTORICAL APPENDECTOMY KNEE SURGERY 2011 Left PROCEDURE: HISTORICAL KNEE SURGERY; COMMENT: torn meniscus, Dr. Mast Medical History Medical History Date Comments Depression 02/24/2019 DX:Depression Anxiety 02/24/2019 DX:Anxiety Respiratory failure ([facility] V24, [facility] V28) 06/24/2009 DX:Respiratory failure ([facility]) ; COMMENT: 01/2019 Oxygen dependent 06/24/2009 DX:Oxygen depen dent Alcohol abuse 06/24/2009 DX:Alcohol abuse Chronic pancreatitis ([facility] V24, [facility] V28) 06/24/2009 DX:Chronic pancreatitis ([facility] ) Psoriasis 02/24/2019 DX:Psoriasis Hypothyroidism 02/24/2019 DX:Hypothyroidis m Prediabetes 02/24/2019 DX:Prediabetes Rheumatoid arthritis, adult ([facility] V24, [facility] V28) 02/24/2019 DX:Rheumatoid arthritis, melodie lt ([facility]) Vitamin D deficiency 02/24/2019 DX:Vitamin D deficiency GERD (gastroesophageal reflux disease) 02/24/2019 DX:GERD (gastroesophageal reflux disease) Thoracic aortic aneurysm ([facility] V24) 9 DX:Thoracic aortic aneurysm ([facility]); COMMENT: 01/2019 4 cm History of substance abuse ( [facility] V24, [facility] V28) 02/24/2019 DX:History of substance abus e ([facility]); COMMENT: Narcotic addiction 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:Left knee DJD COPD (chronic obstructive pu lmonary disease) ([facility] V24, [facility] V28) 02/24/2019 DX:COPD (chronic o bstructive pulmonary disease) ([facility]) History of pneumonia 02/24/2019 DX:History [...] Vaccine (2023-2 5 season) 2024 Influenza Vaccine (Season Ended) 2025 HIB Vaccines Aged Out No longer eligi [...] age to complete this topic Meningococcal B Vaccine Aged Out No l onger eligible based on patient's age to complete this topic RSV Immunization Patients Un dedrick 20 months Aged Out No longer eligible b ased on patient's age to complete this topic Varicella Vaccines Aged Out No longer eligible based on patient's age to complete this topic Advance Directives Documents on File Type Date Recorded Patient Butcher Assistant Expl anation Health Care Decision (hx) 10/29/2023 JOEY DIEHL DIRECTIVE Care Teams Residential Case Manager Relationship Specialty Start Date End Date Reyna Zaman MD [address] [place] [id number] PCP - General Internal Medicine 02/10/19
--- OUTSIDE RECORDS SUMMARY | 2025-02-16 08:59 | XMS_ITS ---
Author Organization [facility] Address [address] [place] [address] [address] [place] [address] Care Team Providers Care Hr Shared Services Consultant Name Role Phone AustynReyna Primary Care Provider FAVIOLA Silva Unavailable [phone] Allergies No Known Allergies REASON FOR VISIT [...] and allow to dissolve Dispense when due [id number] Sublingual daily for 28 days 12/22/2024 Active [...] 12/22/2024 Encounters Encounter Location Date Provider Diagnosis [facility] 294 [facility] [address] [place] [address] 12/22/2024 FAVIOLA ZULUAGA Opioid dependence, uncomplicated F11.20 [...] and allow to dissolve Dispense when due [id number] Sublingual daily for 28 days 12/22/2024 Next Appt Details Follow Up: 4 Weeks, Reason: Provider Name:FAVIOLA ZULUAGA , 03/16/2025 11:00:00 AM, [address], [address], Procedure Notes * Category Sub-Category Detail Notes Urine Toxicology Urine Toxicology Cocaine: Negative Morphine: Negative Marijuanna: Positive Benzodiazepines: Positive Oxycodone: Negative Amphetamine: Negative Barbiturates: Negative Buprenorphine: Positive Methadone: Negative MDMA: Negative Proproxyphene: Negative Phencyclidine: Negative Tricyclic Antidepressant: Negative Fentanyl: Negative Alcohol: Negative MET: Negative Progress Notes * SHAKEEL CHONG:1960 (64 yo F)Acc No.[id number]:12/22/2024 Patient:ANTIONETTE ALEXANDER Provider:?FAVIOLA ZULUAGA MD :1960???Age:64 Y???Sex:Female D ate:12/22/2024 Address:[address] [place], [place] [id number] Pcp:Reyna Zaman Subjective: * Chief Complaints: * [...] alcohol?: no?.?Miscellaneous:?Marital status: . 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 * Medications:?TakingSuboxone 8-2 MG Film 1 film under the tongue QAM AND 1/2 FILM QPM and allow to dissolve Dispense when due [id number] Sublingual daily busPIRone HCl 5 MG Tablet [...] and allow to dissolve Dispense when due [id number] Sublingual daily Taking busPIRone HCl 5 MG [...] and lower extremities, sensory exam intact.?FEMALE GENITOURINARY:?__.?MALE GENITOURINARY:?__.?PODIATRIC:?Normal.?Testing Manager? .? Assessment: * Assessment: 1.?Opioid dependence, [...] Procedure Codes:?3078F DIAST BP < 80 MM [id number] SYST BP LT 130 MM [id number] DRUG TEST PRSMV DIR OPT OBS, Modifiers: QW * Follow Up:?4 Weeks * * Sign off status: Completed true * Provider:?FAVIOLA ZULUAGA MD Date:?12/22 Generated for Leslee spear/Roberto/eTrajeevsmceci on:?02/16/2025 08:59 AM EDT History and Physical Notes * [...] Normal Psychiatry Normal OROPHARYNX Normal SINUSES Normal Testing Manager
--- OUTSIDE RECORDS SUMMARY | 2025-02-16 08:59 | XMS_ITS | Clinical Summary ---
Author Organization [facility] Address [address] [place] [address] Care Team Providers Care Staff Submarine Warfare Officer Name Role Phone Reyna Zaman MD Primary Care Provider [phone] Allergies No known active allergies Medications Medication [...] age to complete this topic Care Teams Staff Submarine Warfare Officer Relationship Specialty Start Date End Date Reyna Zaman MD [address] [place] [address] PCP - General Internal Medicine 06/01/19
--- OUTSIDE RECORDS SUMMARY | 2025-02-16 08:59 | XMS_ITS | Patient Health Record ---
Author Organization [employer] [facility] Address [address] [facility] [address] [place] [address] Care Team Providers Care Cloth Trimmer Hand Name Role Phone Reyna Zaman Primary Care Provider FAVIOLA Silva Unavailable [phone] Kayleen Castillo Unavailable [phone] Allergies No Known Allergies Results Component Value Reference Range Notes Fentanyl, Urine-[id number] Reviewed date:07/04/2024 09:37:21 AM Interpretation: Performing Lab:[facility], [address] [place] [address], [place], Phone - [phone], Director - Demi Notes/Report: Clinical Information:CCU:[id number] RA Fentanyl, Urine Negative Cutoff=2.0 ng/mL Test includes Fentanyl and Norfentanyl . This test was developed and its performance characteristics determined by [employer]. It has not been cleared or approved by the Food and Drug Administration. Reason For Referral No Information Medications Medication SIG (Take, Route, Frequency, Duration) Notes Start Date End Date Status busPIRone HCl 5 MG 1 tablet Orally Thre e times a day Active amLODIPine Besylate 10 MG TAKE 1 TABLET BY MOUTH EVERY DAY for 30 Active Levothyroxine Sodium 175 MCG 1 tablet in the morning on an empty stomach Orally Once a day Active glipiZIDE-metFORMIN HCl 5-500 MG 1 tablet with a meal Orally Once a day Active Suboxone 8-2 MG 1 film under the ton garcia QAM AND 1/2 FILM QPM and allow to dissolve Dispense when due [id number] Sublingual daily for 28 days 02/15/2025 Active Eliquis 5 MG 1 tablet Orally Twic e a day Active ALPRAZolam 0.25 MG 1 tablet Orally Twic e a day Active Symbicort 80-4.5 MCG/ACT 1 puff as neede d Inhalation every 4 hrs Active Zoloft 100 MG 1 tablet Orally twic e a day Active Enbrel 50 MG/ML 1 ml Subcutaneous Weekly Active Vitamin D3 50 MCG (1999) 1 capsule Or ally Once a day Active Multivitamin - 1 tablet Orally Once a day Active Immunizations Vaccine [...] Status W/U Status Risk Notes Problem Hypothyroidism (93669404) Hypothyroidism, unspecified (E03.9) Active confirmed Problem Disorder due to type 2 diabetes mellitus (850254715) Type 2 diabetes mellitus with unspecified complications (E11.8) Active confirmed Problem Chronic alcoholism in remission (076918903) Alcohol dependence, in remission (F10.21) Active confirmed Problem Opioid dependence (32447079) Opioid dependence, uncomplicated (F11.20) Active confirmed Problem Moderate recurrent major depression (66231032) Major depressive disorder, recurrent, moderate (F33.1) Active confirmed Problem Acute non-ST segment elevation myocardial infarction (384064857) Non-ST elevation (NSTEMI) myocardial infarction (I21.4) Active confirmed Problem Cerebral infarction (803393566) Cerebral infarction, unspecified (I63.9) Active confirmed Problem Uncomplicated mild persistent asthma (946936946) Mild persistent asthma, uncomplicated (J45.30) Active confirmed Problem Myopathy due to rheumatoid arthritis (373195593) 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) Active confirmed Problem Drug addiction counseling (37995153) Drug abuse counseling and surveillance of drug abuser (Z71.51) Active confirmed Problem Nicotine dependence (91582631) Personal history of nicotine dependence (Z87.891) Active confirmed Problem Essential hypertension (63024014) Essential (primary) hypertension (I10) Active confirmed Vital Signs Heart Rate 84 /min 02/15/2025 Temperature 98.1 degrees Fahrenheit 02/15/2025 Oximetry 96 % 02/15/2025 Blood pressure diastolic 80 mm Hg 02/15/2025 Height 64 in 02/15/2025 Blood pressure systolic 130 mm Hg 02/15/2025 Weight 165.4 lbs 02/15/2025 BMI 28.39 kg/m2 02/15/2025 Encounters Encounter Location Date Provider Diagnosis [address] [place] [address] 06/29/2024 SALMERON GUL Opioid dependence, uncomplicated F11.20 and Drug abuse counseling and surveillance of drug abuser Z71.[address] [place] [address] 02/17/2024 SALMERON GUL Opioid dependence, uncomplicated F11.20 and Drug abuse counseling and surveillance of drug abuser Z71.[address] [place] [address] 03/15/2024 SALMERON GUL Opioid dependence, uncomplicated F11.20 ; Drug abuse counseling and surveillance of drug abuser Z71.51 and Essential (primary) hypertension I10 [address] [place] [address] 04/12/2024 SALMERON GUL Opioid dependence, uncomplicated F11.20 and Drug abuse counseling and surveillance of drug abuser Z71.[address] [place] [address] 05/10/2024 SALMERON GUL Opioid dependence, uncomplicated F11.20 and Drug abuse counseling and surveillance of drug abuser Z71.[address] [place] [address] 06/07/2024 SALMERON GUL Opioid dependence, uncomplicated F11.20 and Drug abuse counseling and surveillance of drug abuser Z71.[address] [place] [address] 07/27/2024 SALMERON GUL Opioid dependence, uncomplicated F11.20 and Drug abuse counseling and surveillance of drug abuser Z71.[address] [place] [address] 08/23/2024 SALMERON GUL Opioid dependence, uncomplicated F11.20 and Drug abuse counseling and surveillance of drug abuser Z71.[address] [place] [address] 09/20/2024 SALMERON GUL Opioid dependence, uncomplicated F11.20 and Drug abuse counseling and surveillance of drug abuser Z71.[address] [place] [address] 10/23/2024 SALMERON GUL Opioid dependence, uncomplicated F11.20 and Drug abuse counseling and surveillance of drug abuser Z71.[address] [address] 11/24/2024 SALMERON GUL Opioid dependence, uncomplicated F11.20 and Drug abuse counseling and surveillance of drug abuser Z71.[address] [address] 12/22/2024 SALMERON GUL Opioid dependence, uncomplicated F11.20 and Drug abuse counseling and surveillance of drug abuser Z71.[address] [address] 01/18/2025 SALMERON GUL Opioid dependence, uncomplicated F11.20 and Drug abuse counseling and surveillance of drug abuser Z71.[address] [address] 02/15/2025 Ghadeer Mazloum Opioid dependence, uncomplicated F11.20 and Drug abuse [...] this note under HIPAA compliance and under [place] law mandated for scribe services. Patient aware [...] this note under HIPAA compliance and under [place] law mandated for scribe services. Patient aware [...] controlled substance prescribing. Therefore following state, Federal, [facility] guidelines for controlled substance testing policies. Patient [...] this note under HIPAA compliance and under [place] law mandated for scribe services. Patient aware [...] controlled substance prescribing. Therefore following state, Federal, [facility] guidelines for controlled substance testing policies. Patient [...] this note under HIPAA compliance and under [place] law mandated for scribe services. Patient aware [...] controlled substance prescribing. Therefore following state, Federal, [facility] guidelines for controlled substance testing policies. Patient [...] this note under HIPAA compliance and under [place] law mandated for scribe services. Patient aware [...] controlled substance prescribing. Therefore following state, Federal, [facility] guidelines for controlled substance testing policies. Patient [...] this note under HIPAA compliance and under [place] law mandated for scribe services. Patient aware [...] this note under HIPAA compliance and under [place] law mandated for scribe services. Patient aware [...] controlled substance prescribing. Therefore following state, Federal, [facility] guidelines for controlled substance testing policies. Patient [...] this note under HIPAA compliance and under [place] law mandated for scribe services. Patient aware [...] controlled substance prescribing. Therefore following state, Federal, [facility] guidelines for controlled substance testing policies. Patient [...] this note under HIPAA compliance and under [place] law mandated for scribe services. Patient aware [...] controlled substance prescribing. Therefore following state, Federal, [facility] guidelines for controlled substance testing policies. Patient [...] this note under HIPAA compliance and under [place] law mandated for scribe services. Patient aware [...] controlled substance prescribing. Therefore following state, Federal, [facility] guidelines for controlled substance testing policies. Patient [...] this note under HIPAA compliance and under [place] law mandated for scribe services. Patient aware [...] this note under HIPAA compliance and under [place] law mandated for scribe services. Patient aware [...] controlled substance prescribing. Therefore following state, Federal, [facility] guidelines for controlled substance testing policies. Patient [...] this note under HIPAA compliance and under [place] law mandated for scribe services. Patient aware [...] this note under HIPAA compliance and under [place] law mandated for scribe services. Patient aware [...] controlled substance prescribing. Therefore following state, Federal, [facility] guidelines for controlled substance testing policies. Patient [...] controlled substance prescribing. Therefore following state, Federal, [facility] guidelines for controlled substance testing policies. Patient [...] controlled substance prescribing. Therefore following state, Federal, [facility] guidelines for controlled substance testing policies. Patient [...] Blood pressure well controlled on current regimen. 02/15/2025 Opioid dependence, uncomplicated (ICD-10 - F11.20) Patient [...] Blood pressure well controlled on current regimen. I have rendered the services for this patient under direct supervision of Dr. Zuluaga, who did not see the patient but was available upon request 02/15/2025 Drug abuse counseling and surveillance of drug [...] Blood pressure well controlled on current regimen. I have rendered the services for this patient under direct supervision of Dr. Zuluaga, who did not see the patient but was available upon request 02/17/2024 Opioid dependence, uncomplicated (ICD-10 - F11.20) [...] controlled substance prescribing. Therefore following state, Federal, [facility] guidelines for controlled substance testing policies. Patient [...] this note under HIPAA compliance and under [place] law mandated for scribe services. Patient aware [...] this note under HIPAA compliance and under [place] law mandated for scribe services. Patient aware [...] this note under HIPAA compliance and under [place] law mandated for scribe services. Patient aware [...] controlled substance prescribing. Therefore following state, Federal, [facility] guidelines for controlled substance testing policies. Patient [...] this note under HIPAA compliance and under [place] law mandated for scribe services. Patient aware [...] this note under HIPAA compliance and under [place] law mandated for scribe services. Patient aware [...] Next Appt Details Provider Name:FAVIOLA ZULUAGA , 03/16/2025 11:00:00 AM, [address] [place] [address], [place], [address], Insurance Providers Payer Name Payer Address Payer Phone Subscriber Number Group Number Insured Name Patient Relationship to Insured Coverage Start Date Coverage End Date [facility] [address] [place] [id number] CAMILLE CHONG Self - patient is the [...] diabetes mellitus NSTEMI Oct [address] [facility] secondary to hypoxic failure and demand ischemia CVA with right side weakness with no res idual symptoms COPD Status post Covid 19 with respiratory sy mptoms
--- OUTSIDE RECORDS SUMMARY | 2025-02-16 09:00 | XMS_ITS ---
Author Organization [facility] Address [address] [place] [address] [address] [place] [address] Care Team Providers Care Federal Mediation Commissioner Name Role Phone Reyna Zaman Primary Care Provider FAVIOLA Silva Unavailable [phone] Kayleen Castillo Unavailable [phone] Allergies No Known Allergies REASON FOR VISIT 1 month follow up UTOX Medications Medication SIG (Take, Route, Frequency, Duration) Notes Start Date End Date Status glipiZIDE-metFORMIN HCl 5-500 MG 1 tablet with a meal Orally Once a day Active Zoloft 100 MG 1 tablet Orally twic e a day Active Enbrel 50 MG/ML 1 ml Subcutaneous Weekly Active Vitamin D3 50 MCG (1999 [place]) 1 capsule Or ally Once a day Active Multivitamin - 1 tablet Orally Once a day Active busPIRone HCl 5 MG 1 tablet Orally Thre e times a day Active Suboxone 8-2 MG 1 film under the ton garcia QAM AND 1/2 FILM QPM and allow to dissolve Dispense when due [id number] Sublingual daily for 28 days 02/15/2025 Active Eliquis 5 MG 1 tablet Orally Twic e a day Active ALPRAZolam 0.25 MG 1 tablet Orally Twic e a day Active Symbicort 80-4.5 MCG/ACT 1 puff as neede d Inhalation every 4 hrs Active amLODIPine Besylate 10 MG TAKE 1 TABLET BY MOUTH EVERY DAY for 30 Active Levothyroxine Sodium 175 MCG 1 tablet in the morning on an empty stomach Orally Once a day Active Social History Tobacco Use: Social History Observation Description Date Details (start date - stop date) Current Smoker NA - NA Tobacco Use/Smoking Question Answer Notes Are you a current smoker Vital Signs Temperature 98.1 degrees Fahrenheit 02/16/20 25 Oximetry 96 % 02/15/2025 Heart Rate 84 /min 02/15/2025 Blood pressure systolic 130 mm Hg 02/16/20 25 Blood pressure diastolic 80 mm Hg 025 Weight 165.4 lbs 02/15/2025 BMI 28.39 kg/m2 02/15/2025 Height 64 in 02/15/2025 Encounters Encounter Location Date Provider Diagnosis [facility] [address] [facility] [address] [place] [address] 02/15/2025 Kayleen Castillo Opioid dependence, uncomplicated F11.20 and Drug abuse counseling and surveillance of drug abuser Z71.51 Assessments Encounter Date Diagnosis (ICD Code) Assessment Notes Treatment Notes Treatment Clinical Notes Section Notes 02/15/2025 Opioid dependence, uncomplicated (ICD-10 - F11.20) [...] controlled substance prescribing. Therefore following state, Federal, [facility] guidelines for controlled substance testing policies. Patient [...] controlled substance prescribing. Therefore following state, Federal, [facility] guidelines for controlled substance testing policies. Patient [...] the patient but was available upon request Plan Of Treatment Medication Medication Name Sig Start Date Stop Date Notes Suboxone 8-2 MG 1 film under the ton garcia QAM AND 1/2 FILM QPM and allow to dissolve Dispense when due [id number] Sublingual daily for 28 days 02/15/2025 Next Appt Details Follow Up: 4 Weeks-Eliana GUPTA n: Provider Name:FAVIOLA ZULUAGA , 03/16/2025 11:00:00 AM, [address], [address], Procedure Notes * Category Sub-Category Detail Notes Urine Toxicology Urine Toxicology Cocaine: Negative Morphine: Negative Marijuanna: Positive Benzodiazepines: Positive Oxycodone: Negative Amphetamine: Negative Barbiturates: Negative Buprenorphine: Positive Methadone: Negative MDMA: Negative Proproxyphene: Negative Phencyclidine: Negative Tricyclic Antidepressant: Negative Fentanyl: Negative Alcohol: Negative MET: Negative Progress Notes * ANTIONETTE CHONGDOB:1960 (64 yo F)Acc No.[id number]:02/15/2025 Patient:?ANTIONETTE CHONG Appointment Provider:?Kayleen Castillo :1960???Age:64 Y???Sex:Female S upervising Provider:Jovany Brady Date:02/15/2025 Address:[address] [place] [address], [facility] Pcp:Reyna Zaman Subjective: * Chief Complaints: * [...] alcohol?: no?.?Miscellaneous:?Marital status: . 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 * Medications:?TakingSuboxone 8-2 MG Film 1 film under the tongue QAM AND 1/2 FILM QPM and allow to dissolve Dispense when due [id number] Sublingual daily busPIRone HCl 5 MG Tablet [...] and allow to dissolve Dispense when due [id number] Sublingual daily Taking busPIRone HCl 5 MG [...] patient * Allergies:?N.K.D.A.no[Allerg ies Verified] Objective: * Vitals:?Temp:98.1F, Oxygen s at %:96%, HR:84/min, BP:130/80mm Hg, Wt:165.4lbs, BMI:28.39Index, Ht: 64 in. 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 .? Assessment: * Assessment: 1.?Opioid dependence, uncomp [...] the patient but was available upon request Plan: * Treatment: * Procedures:?Urine Toxicology:?Urine Toxicology ?Cocaine?Negative ?Morphine?Negative ?Marijuanna?Positive ?Benzodiazepines?Positive ?Oxycodone?Negative ?Amphetamine?Negative ?Barbiturates?Negative ?Buprenorphine?Positive ?Methadone?Negative ?MDMA?Negative ?Proproxyphene?Negative ?Phencyclidine?Negative ?Tricyclic Antidepressant?Negative ?Fentanyl?Negative ?Alcohol?Negative ?MET?Negative? * Procedure Codes:?12007 DRUG TEST PRSMV DIR OPT OBS, Modifiers: QW * Follow Up:?4 Weeks-WM * Images: Review Notes: Jovany Brady 2025-02-15 15:47:16* Electronically co-signed by Jovany Brady on 02/15/2025 at 03:47 PM EDT Sign off status: Completed true * Appointment Provider:?Kayleen Lindsay te:?02/15/2025 Generated for Leslee spear/Faxing/eTransmitting on:?02/16/2025 09:00 AM EDT History and Physical Notes * [...] Normal Psychiatry Normal OROPHARYNX Normal SINUSES Normal Power Shovel Mechanic
--- OUTSIDE RECORDS SUMMARY | 2025-02-16 09:00 | XMS_ITS ---
Author Organization [facility] Address [address] [place] [address] [address] [place] [address] Care Team Providers Care Carrot Harvester Name Role Phone AustynReyna Primary Care Provider FAVIOLA Silva Unavailable [phone] Allergies No Known Allergies REASON FOR VISIT [...] and allow to dissolve Dispense when due [id number] Sublingual daily for 28 days 01/18/2025 Active [...] 01/18/2025 Encounters Encounter Location Date Provider Diagnosis [facility] [address] [facility] [address] [place] [address] 01/18/2025 FAVIOLA ZULUAGA Opioid dependence, uncomplicated F11.20 [...] and allow to dissolve Dispense when due [id number] Sublingual daily for 28 days 01/18/2025 Next Appt Details Follow Up: 4 Weeks, Reason: Provider Name:FAVIOLA ZULUAGA , 03/16/2025 11:00:00 AM, [address], [address], Procedure Notes * Category Sub-Category Detail Notes Urine Toxicology Urine Toxicology Cocaine: Negative Morphine: Negative Marijuanna: Positive Benzodiazepines: Positive Oxycodone: Negative Amphetamine: Negative Barbiturates: Negative Buprenorphine: Positive Methadone: Negative MDMA: Negative Proproxyphene: Negative Phencyclidine: Negative Tricyclic Antidepressant: Negative Fentanyl: Negative Alcohol: Negative MET: Negative Progress Notes * SHAKEEL CHONG:1960 (64 yo F)Acc No.[id number]:01/18/2025 Patient:ANTIONETTE ALEXANDER Provider:?FAVIOLA ZULUAGA MD :1960???Age:64 Y???Sex:Female D ate:01/18/2025 Address:[address] [place], [place] [address] Pcp:Reyna Zaman Subjective: * Chief Complaints: * [...] alcohol?: no?.?Miscellaneous:?Marital status: . 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 .? Assessment: * Assessment: 1.?Opioid dependence, uncomp [...] controlled substance prescribing. Therefore following state, Federal, [facility] guidelines for controlled substance testing policies. Patient [...] ?Tricyclic Antidepressant?Negative ?Fentanyl?Negative ?Alcohol?Negative ?MET?Negative? * Procedure Codes:?78190 DRUG TEST PRSMV DIR OPT OBS, Modifiers: QW * Follow Up:?4 Weeks * * Sign off status: Completed true * Provider:?FAVIOLA ZULUAGA MD Date:?01/18 Generated for Leslee spear/Roberto/eTransmitting on:?02/16/2025 08:59 AM EDT History and Physical [...] Normal Psychiatry Normal OROPHARYNX Normal SINUSES Normal Railroad Car Truck Builder
[2025-02-16 09:08] VITALS: BP 140/78; PULSE 86; BMI 27.8
== END 2025-02-16 09:18 | disposition home or self-care (01) ==
LOC: HO.HGS 08:49
PROVIDERS: PCP Internal Medicine; Visit Provider Surgery
DX: N63.20 Unspecified lump in the left breast, unspecified quadrant (principal)
CPT/HCPCS: 99203

== ENCOUNTER → 2025-02-16 08:48 | Outpatient (BNVA) | payer OTHER, SELFPAY | PROVIDERS: PCP Internal Medicine; Visit Provider Surgery | DX: N63.21 Unspecified lump in the left breast, upper outer quadrant (principal) | CPT/HCPCS: 99202 ==

== ENCOUNTER 2025-02-21 08:44 | Outpatient (REF) | payer OTHER, SELFPAY ==
--- NOTE | ~2025-02-21 | US_ITS ---
PROCEDURE: ULTRASOUND-GUIDED LEFT BREAST/chest wall BIOPSY CLINICAL INFORMATION: Left chest wall superficial area at 2:00 palpable lump felt by the patient. COMPARISON: [facility] on PACS. TECHNIQUE: The details of the procedure, as well as the risks, benefits, and alternatives to the procedure were explained to the patient in detail and all of her questions were answered, after which, written informed consent was obtained. PROCEDURE: Prior to the procedure, sonography revealed isoechoic oval solid mass at 2:00 left chest. A time-out was performed, the lesion intended for biopsy was targeted and the skin of the left breast was then prepped and draped in the usual sterile fashion. Using sonographic guidance, sterile technique, and 1% lidocaine without epinephrine for local anesthesia, a total of 4 cores were obtained through the targeted area with a 14-gauge biopsy device. At the completion of tissue sampling, a single coil metallic clip was deposited at the biopsy site. An appropriate sample was obtained. The patient tolerated the procedure well and, after assuring adequate hemostasis, was discharged in good condition after reviewing postbiopsy breast care instructions. Final pathology results are pending. US/US breast ndl core biopsy LT IMPRESSION: 1. Uncomplicated sonographically-guided core biopsy of the left breast. The area biopsied was on the chest wall area cannot be views on mammogram. 2. Final pathology results are pending. A separate report with final recommendations will be issued once these results are made available. Electronically signed by: Jeimy Bradford DO 02/22/2025 02:24 PM EDT
--- OUTSIDE RECORDS SUMMARY | 2025-02-21 09:10 | XMS_ITS ---
Author Organization [employer] Address [address] [place] [address] [address] [place] [address] Care Team Providers Care Sugar Trucker Name Role Phone AustynReyna Primary Care Provider FAVIOLA Silva Unavailable [phone] Allergies No Known Allergies REASON FOR VISIT [...] and allow to dissolve Dispense when due [id number] Sublingual daily for 28 days 01/18/2025 Active [...] 01/18/2025 Encounters Encounter Location Date Provider Diagnosis [facility] [address] [facility] [address] [place] [address] 01/18/2025 FAVIOLA ZULUAGA Opioid dependence, uncomplicated F11.20 [...] and allow to dissolve Dispense when due [id number] Sublingual daily for 28 days 01/18/2025 Next Appt Details Follow Up: 4 Weeks, Reason: Provider Name:FAVIOLA ZULUAGA , 03/16/2025 11:00:00 AM, [address], [address], Procedure Notes * Category Sub-Category Detail Notes Urine Toxicology Urine Toxicology Cocaine: Negative Morphine: Negative Marijuanna: Positive Benzodiazepines: Positive Oxycodone: Negative Amphetamine: Negative Barbiturates: Negative Buprenorphine: Positive Methadone: Negative MDMA: Negative Proproxyphene: Negative Phencyclidine: Negative Tricyclic Antidepressant: Negative Fentanyl: Negative Alcohol: Negative MET: Negative Progress Notes * SHAKEEL CHONG:1960 (64 yo F)Acc No.[id number]:01/18/2025 Patient:ANTIONETTE ALEXANDER Provider:?FAVIOLA ZULUAGA MD :1960???Age:64 Y???Sex:Female D ate:01/18/2025 Address:[address] [place], [place] [address] Pcp:Reyna Zaman Subjective: * Chief Complaints: * [...] alcohol?: no?.?Miscellaneous:?Marital status: . 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 * Medications:?TakingbusPIRone HCl 5 MG Tablet [...] and allow to dissolve Dispense when due [id number] Sublingual daily Medication List reviewed and reconciled [...] and allow to dissolve Dispense when due [id number] Sublingual daily Medication List reviewed and reconciled [...] and lower extremities, sensory exam intact.?FEMALE GENITOURINARY:?__.?MALE GENITOURINARY:?__.?PODIATRIC:?Normal.?Consultant Dietitian? .? Assessment: * Assessment: 1.?Opioid dependence, uncomp [...] controlled substance prescribing. Therefore following state, Federal, [facility] guidelines for controlled substance testing [...] ?Tricyclic Antidepressant?Negative ?Fentanyl?Negative ?Alcohol?Negative ?MET?Negative? * Procedure Codes:?72467 DRUG TEST PRSMV DIR OPT OBS, Modifiers: QW * Follow Up:?4 Weeks * * Sign off status: Completed true * Provider:?FAVIOLA ZULUAGA MD Date:?01/18 Generated for Leslee spear/Roberto/eTransmitting on:?02/21/2025 09:10 AM EDT History and Physical Notes * [...] Normal Psychiatry Normal OROPHARYNX Normal SINUSES Normal Consultant Dietitian
--- OUTSIDE RECORDS SUMMARY | 2025-02-21 09:10 | XMS_ITS | Clinical Summary ---
Author Organization [facility] Address [address] [place] [address] Care Team Providers Care Chief Technician Name Role Phone Reyna Zaman MD Primary Care Provider [phone] Surgical History Surgery Date Site/Laterality Comments TUBAL LIGATION PROCEDURE: HISTORICAL TUBAL LIGATION APPENDECTOMY PROCEDURE: HISTORICAL APPENDECTOMY KNEE SURGERY 2011 Left PROCEDURE: HISTORICAL KNEE SURGERY; COMMENT: torn meniscus, Dr. Mast Medical History Medical History Date Comments Depression 02/24/2019 DX:Depression Anxiety 02/24/2019 DX:Anxiety Respiratory failure ([facility] V24, [facility] V28) 06/24/2009 DX:Respiratory failure ([facility]) ; COMMENT: 01/2019 Oxygen dependent 06/24/2009 DX:Oxygen depen dent Alcohol abuse 06/24/2009 DX:Alcohol abuse Chronic pancreatitis ([facility] V24, [facility] V28) 06/24/2009 DX:Chronic pancreatitis ([facility] ) Psoriasis 02/24/2019 DX:Psoriasis Hypothyroidism 02/24/2019 DX:Hypothyroidis m Prediabetes 02/24/2019 DX:Prediabetes Rheumatoid arthritis, adult ([facility] V24, [facility] V28) 02/24/2019 DX:Rheumatoid arthritis, melodie lt ([facility]) Vitamin D deficiency 02/24/2019 DX:Vitamin D deficiency GERD (gastroesophageal reflux disease) 02/24/2019 DX:GERD (gastroesophageal reflux disease) Thoracic aortic aneurysm ([facility] V24) 9 DX:Thoracic aortic aneurysm ([facility]); COMMENT: 01/2019 4 cm History of substance abuse ( [facility] V24, [facility] V28) 02/24/2019 DX:History of substance abus e ([facility]); COMMENT: Narcotic addiction 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:Left knee DJD COPD (chronic obstructive pu lmonary disease) ([facility] V24, [facility] V28) 02/24/2019 DX:COPD (chronic o bstructive pulmonary disease) ([facility]) History of pneumonia 02/24/2019 DX:History of [...] Documents on File Type Date Recorded 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
--- OUTSIDE RECORDS SUMMARY | 2025-02-21 09:10 | XMS_ITS | Clinical Summary ---
Author Organization [facility] Address [address] [place] [address] Care Team Providers Care Client Care Representative Name Role Phone Reyna Zaman MD Primary Care Provider [phone] Allergies No known active allergies Medications Medication [...] age to complete this topic Care Teams Client Care Representative Relationship Specialty Start Date End Date Reyna Zaman MD [address] [place] [address] PCP - General Internal Medicine 06/01/19
--- OUTSIDE RECORDS SUMMARY | 2025-02-21 09:10 | XMS_ITS | Patient Health Record ---
Author Organization [facility] Address [address] [place] [address] Care Team Providers Care Senior Tax Specialist Name Role Phone Reyna Zaman Primary Care Provider FAVIOLA Silva Unavailable [phone] Kayleen Castillo Unavailable [phone] Allergies No Known Allergies Results Component Value Reference Range Notes Fentanyl, Urine-[id number] Reviewed date:07/04/2024 09:37:21 AM Interpretation: Performing Lab:[facility], [address] [place] [address], [place], Phone - [phone], Director - Demi Notes/Report: Clinical Information:CCU:[id number] RA Fentanyl, Urine Negative Cutoff=2.0 ng/mL Test includes Fentanyl and Norfentanyl . This test was developed and its performance characteristics determined by [facility] [employer]. It has not been cleared or approved [...] and allow to dissolve Dispense when due [id number] Sublingual daily for 28 days 02/15/2025 Active [...] Status W/U Status Risk Notes Problem Hypothyroidism (15235959) Hypothyroidism, unspecified (E03.9) Active confirmed Problem Disorder due to type 2 diabetes mellitus (943985117) Type 2 diabetes mellitus with unspecified complications (E11.8) Active confirmed Problem Chronic alcoholism in remission (024827298) Alcohol dependence, in remission (F10.21) Active confirmed Problem Opioid dependence (45803907) Opioid dependence, uncomplicated (F11.20) Active confirmed Problem Moderate recurrent major depression (05435186) Major depressive disorder, recurrent, moderate (F33.1) Active confirmed Problem Acute non-ST segment elevation myocardial infarction (451443154) Non-ST elevation (NSTEMI) myocardial infarction (I21.4) Active confirmed Problem Cerebral infarction (945784117) Cerebral infarction, unspecified (I63.9) Active confirmed Problem Uncomplicated mild persistent asthma (729901135) Mild persistent asthma, uncomplicated (J45.30) Active confirmed Problem Myopathy due to rheumatoid arthritis (428556637) 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) Active confirmed Problem Drug addiction counseling (42916509) Drug abuse counseling and surveillance of drug abuser (Z71.51) Active confirmed Problem Nicotine dependence (73759317) Personal history of nicotine dependence (Z87.891) Active confirmed Problem Essential hypertension (42887174) Essential (primary) hypertension (I10) Active confirmed Vital Signs Heart Rate 84 /min 02/15/2025 Temperature 98.1 degrees Fahrenheit 02/15/2025 Oximetry 96 % 02/15/2025 Blood pressure diastolic 80 mm Hg 02/15/2025 Height 64 in 02/15/2025 Blood pressure systolic 130 mm Hg 02/15/2025 Weight 165.4 lbs 02/15/2025 BMI 28.39 kg/m2 02/15/2025 Encounters Encounter Location Date Provider Diagnosis [address] [place] [address] 06/29/2024 SALMERON GUL Opioid dependence, uncomplicated F11.20 and Drug abuse counseling and surveillance of drug abuser Z71.[address] [place] [address] 03/15/2024 SALMERON GUL Opioid dependence, uncomplicated F11.20 ; Drug abuse counseling and surveillance of drug abuser Z71.51 and Essential (primary) hypertension I10 [address] [place] [address] 04/12/2024 SALMERON GUL Opioid dependence, uncomplicated F11.20 and Drug abuse counseling and surveillance of drug abuser Z71.[address] [place] [address] 05/10/2024 SALMERON GUL Opioid dependence, uncomplicated F11.20 and Drug abuse counseling and surveillance of drug abuser Z71.[address] [place] [address] 06/07/2024 SALMERON GUL Opioid dependence, uncomplicated F11.20 and Drug abuse counseling and surveillance of drug abuser Z71.[address] [place] [address] 07/27/2024 SALMERON GUL Opioid dependence, uncomplicated F11.20 and Drug abuse counseling and surveillance of drug abuser Z71.[address] [place] [address] 08/23/2024 SALMERON GUL Opioid dependence, uncomplicated F11.20 and Drug abuse counseling and surveillance of drug abuser Z71.[address] [place] [address] 09/20/2024 SALMERON GUL Opioid dependence, uncomplicated F11.20 and Drug abuse counseling and surveillance of drug abuser Z71.[address] [place] [address] 10/23/2024 SALMERON GUL Opioid dependence, uncomplicated F11.20 and Drug abuse counseling and surveillance of drug abuser Z71.[address] [place] [address] 11/24/2024 SALMERON GUL Opioid dependence, uncomplicated F11.20 and Drug abuse counseling and surveillance of drug abuser Z71.[address] [place] [address] 12/22/2024 SALMERON GUL Opioid dependence, uncomplicated F11.20 and Drug abuse counseling and surveillance of drug abuser Z71.[address] [place] [address] 01/18/2025 SALMERON GUL Opioid dependence, uncomplicated F11.20 and Drug abuse counseling and surveillance of drug abuser Z71.[address] [place] [address] 02/15/2025 Ghadeer Mazloum Opioid dependence, uncomplicated F11.20 and Drug abuse counseling and surveillance of drug abuser Z71.51 Assessments Encounter Date Diagnosis (ICD Code) Assessment Notes Treatment Notes Treatment Clinical Notes Section Notes 03/15/2024 Opioid dependence, uncomplicated (ICD-10 - F11.20) [...] this note under HIPAA compliance and under [place] law mandated for scribe services. Patient aware [...] controlled substance prescribing. Therefore following state, Federal, [facility] guidelines for controlled substance testing policies. Patient [...] this note under HIPAA compliance and under [place] law mandated for scribe services. Patient aware [...] this note under HIPAA compliance and under [place] law mandated for scribe services. Patient aware [...] this note under HIPAA compliance and under [place] law mandated for scribe services. Patient aware [...] this note under HIPAA compliance and under [place] law mandated for scribe services. Patient aware [...] controlled substance prescribing. Therefore following state, Federal, [facility] guidelines for controlled substance testing policies. Patient [...] this note under HIPAA compliance and under [place] law mandated for scribe services. Patient aware [...] controlled substance prescribing. Therefore following state, Federal, [facility] guidelines for controlled substance testing policies. Patient [...] this note under HIPAA compliance and under [place] law mandated for scribe services. Patient aware [...] controlled substance prescribing. Therefore following state, Federal, [facility] guidelines for controlled substance testing policies. Patient [...] this note under HIPAA compliance and under [place] law mandated for scribe services. Patient aware [...] controlled substance prescribing. Therefore following state, Federal, [facility] guidelines for controlled substance testing policies. Patient [...] this note under HIPAA compliance and under [place] law mandated for scribe services. Patient aware [...] this note under HIPAA compliance and under [place] law mandated for scribe services. Patient aware [...] controlled substance prescribing. Therefore following state, Federal, [facility] guidelines for controlled substance testing policies. Patient [...] this note under HIPAA compliance and under [place] law mandated for scribe services. Patient aware [...] controlled substance prescribing. Therefore following state, Federal, [facility] guidelines for controlled substance testing policies. Patient [...] this note under HIPAA compliance and under [place] law mandated for scribe services. Patient aware [...] this note under HIPAA compliance and under [place] law mandated for scribe services. Patient aware [...] controlled substance prescribing. Therefore following state, Federal, [facility] guidelines for controlled substance testing policies. Patient [...] this note under HIPAA compliance and under [place] law mandated for scribe services. Patient aware [...] controlled substance prescribing. Therefore following state, Federal, [facility] guidelines for controlled substance testing policies. Patient [...] this note under HIPAA compliance and under [place] law mandated for scribe services. Patient aware [...] controlled substance prescribing. Therefore following state, Federal, [facility] guidelines for controlled substance testing policies. Patient [...] this note under HIPAA compliance and under [place] law mandated for scribe services. Patient aware [...] controlled substance prescribing. Therefore following state, Federal, [facility] guidelines for controlled substance testing policies. Patient [...] controlled substance prescribing. Therefore following state, Federal, [facility] guidelines for controlled substance testing policies. Patient [...] controlled substance prescribing. Therefore following state, Federal, [facility] guidelines for controlled substance testing policies. Patient [...] controlled substance prescribing. Therefore following state, Federal, [facility] guidelines for controlled substance testing policies. Patient [...] controlled substance prescribing. Therefore following state, Federal, [facility] guidelines for controlled substance testing policies. Patient [...] controlled substance prescribing. Therefore following state, Federal, [facility] guidelines for controlled substance testing policies. Patient [...] the patient but was available upon request 03/15/2024 Essential (primary) hypertension (ICD-10 - I10) [...] controlled substance prescribing. Therefore following state, Federal, [facility] guidelines for controlled substance testing policies. Patient [...] this note under HIPAA compliance and under [place] law mandated for scribe services. Patient aware [...] Provider Name:FAVIOLA ZULUAGA , 03/16/2025 11:00:00 AM, [address] [place] [address], [phone], Insurance Providers Payer Name Payer Address Payer Phone Subscriber Number Group Number Insured Name Patient Relationship to Insured Coverage Start Date Coverage End Date [facility] [address] [place] [phone] [id number] JACOBONA Self - patient is the insured 2 [...] diabetes mellitus NSTEMI Oct 2023 was at [facility] secondary to hypoxic failure and demand ischemia CVA with right side weakness with no res idual symptoms COPD Status post Covid 19 with respiratory sy mptoms
--- OUTSIDE RECORDS SUMMARY | 2025-02-21 09:10 | XMS_ITS ---
Author Organization [facility] Address [address] [place] [address] [address] [place] [address] Care Team Providers Care Set Up Person Name Role Phone AustynReyna Primary Care Provider FAVIOLA Silva Unavailable [phone] Allergies No Known Allergies REASON FOR VISIT [...] and allow to dissolve Dispense when due [id number] Sublingual daily for 28 days 12/22/2024 Active [...] 12/22/2024 Encounters Encounter Location Date Provider Diagnosis [facility] [address] [facility] [address] [place] [address] 12/22/2024 FAVIOLA ZULUAGA Opioid dependence, uncomplicated F11.20 [...] and allow to dissolve Dispense when due [id number] Sublingual daily for 28 days 12/22/2024 Next Appt Details Follow Up: 4 Weeks, Reason: Provider Name:FAVIOLA ZULUAGA , 03/16/2025 11:00:00 AM, [address], [address], Procedure Notes * Category Sub-Category Detail Notes Urine Toxicology Urine Toxicology Cocaine: Negative Morphine: Negative Marijuanna: Positive Benzodiazepines: Positive Oxycodone: Negative Amphetamine: Negative Barbiturates: Negative Buprenorphine: Positive Methadone: Negative MDMA: Negative Proproxyphene: Negative Phencyclidine: Negative Tricyclic Antidepressant: Negative Fentanyl: Negative Alcohol: Negative MET: Negative Progress Notes * SHAKEEL CHONG:1960 (64 yo F)Acc No.[id number]:12/22/2024 Patient:ANTIONETTE ALEXANDER Provider:?FAVIOLA ZULUAGA MD :1960???Age:64 Y???Sex:Female D ate:12/22/2024 Address:[address] [place], [place] [address] Pcp:Reyna Zaman Subjective: * Chief Complaints: * [...] alcohol?: no?.?Miscellaneous:?Marital status: . 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 * Medications:?TakingSuboxone 8-2 MG Film 1 film under the tongue QAM AND 1/2 FILM QPM and allow to dissolve Dispense when due [id number] Sublingual daily busPIRone HCl 5 MG Tablet [...] and allow to dissolve Dispense when due [id number] Sublingual daily Taking busPIRone HCl 5 MG [...] and lower extremities, sensory exam intact.?FEMALE GENITOURINARY:?__.?MALE GENITOURINARY:?__.?PODIATRIC:?Normal.?Composing Room Supervisor? .? Assessment: * Assessment: 1.?Opioid dependence, uncomp [...] Procedure Codes:?3078F DIAST BP < 80 MM [id number] SYST BP LT 130 MM [id number] DRUG TEST PRSMV DIR OPT OBS, Modifiers: QW * Follow Up:?4 Weeks * * Sign off status: Completed true * Provider:?FAVIOLA ZULUGAA MD Date:?12/22 Generated for Leslee spear/Roberto/eTrajeevsmceci on:?02/21/2025 09:09 AM EDT History and Physical Notes * [...] Normal Psychiatry Normal OROPHARYNX Normal SINUSES Normal Composing Room Supervisor
--- OUTSIDE RECORDS SUMMARY | 2025-02-21 09:11 | XMS_ITS ---
Author Organization [facility] Address [address] [place] [address] [address] [place] [address] Care Team Providers Care Engraver Machine Name Role Phone Reyna Zaman Primary Care Provider FAVIOLA Silva Unavailable [phone] Kayleen Castillo Unavailable [phone] Allergies No Known Allergies REASON FOR VISIT [...] and allow to dissolve Dispense when due [id number] Sublingual daily for 28 days 02/15/2025 Active [...] 02/15/2025 Encounters Encounter Location Date Provider Diagnosis [facility] [address] [facility] [address] [place] [address] 02/15/2025 Kayleen Castillo Opioid dependence, uncomplicated F11.20 [...] controlled substance prescribing. Therefore following state, Federal, [facility] guidelines for controlled substance testing [...] controlled substance prescribing. Therefore following state, Federal, [facility] guidelines for controlled substance testing [...] and allow to dissolve Dispense when due [id number] Sublingual daily for 28 days 02/15/2025 Next Appt Details Follow Up: 4 Weeks-Eliana GUPTA n: Provider Name:FAVIOLA ZULUAGA , 03/16/2025 11:00:00 AM, [address], [address], Procedure Notes * Category Sub-Category Detail Notes Urine Toxicology Urine Toxicology Cocaine: Negative Morphine: Negative Marijuanna: Positive Benzodiazepines: Positive Oxycodone: Negative Amphetamine: Negative Barbiturates: Negative Buprenorphine: Positive Methadone: Negative MDMA: Negative Proproxyphene: Negative Phencyclidine: Negative Tricyclic Antidepressant: Negative Fentanyl: Negative Alcohol: Negative MET: Negative Progress Notes * ANTIONETTE CHONGDOB:1960 (64 yo F)Acc No.[id number]:02/15/2025 Patient:?ANTIONETTE CHONG Appointment Provider:?Kayleen Castillo :1960???Age:64 Y???Sex:Female S upervising Provider:Jovany Brady Date:02/15/2025 Address:[address] [place] [address], [id number] Pcp:Reyna Zaman Subjective: * Chief Complaints: * [...] alcohol?: no?.?Miscellaneous:?Marital status: . 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 * Medications:?TakingSuboxone 8-2 MG Film 1 film under the tongue QAM AND 1/2 FILM QPM and allow to dissolve Dispense when due [id number] Sublingual daily busPIRone HCl 5 MG Tablet [...] and allow to dissolve Dispense when due [id number] Sublingual daily Taking busPIRone HCl 5 MG [...] and lower extremities, sensory exam intact.?FEMALE GENITOURINARY:?__.?MALE GENITOURINARY:?__.?PODIATRIC:?Normal.?Wrapper Stripper? .? Assessment: * Assessment: 1.?Opioid dependence, uncomp [...] ?Tricyclic Antidepressant?Negative ?Fentanyl?Negative ?Alcohol?Negative ?MET?Negative? * Procedure Codes:?24622 DRUG TEST PRSMV DIR OPT OBS, Modifiers: QW * Follow Up:?4 Weeks-WM * Images: Review Notes: Jovany Brady 2025-02-15 15:47:16* Electronically co-signed by Jovany Brady on 02/15/2025 at 03:47 PM EDT Sign off status: Completed true * Appointment Provider:?Kayleen Lindsay te:?02/15/2025 Generated for Leslee spear/Faxing/eTransmitting on:?02/21/2025 09:10 AM EDT History and Physical [...] Normal Psychiatry Normal OROPHARYNX Normal SINUSES Normal Wrapper Stripper
[2025-02-21] MEDS: Sodium Bicarbonate 8.4% 50 MEQ/50 ML VIAL SUBCUT (09:49)
[2025-02-21] MEDS: Lidocaine HCl 1 % 20 ML VIAL 8 ML SUBCUT (09:50)
== END 2025-02-21 08:45 | disposition home or self-care (01) ==
LOC: HO.MAMMO 08:44
PROVIDERS: PCP Internal Medicine; Visit Provider Internal Medicine
DX: N63.21 Unspecified lump in the left breast, upper outer quadrant (principal)
CPT/HCPCS: 19083; 88305; A4648; A6260; J2003

== ENCOUNTER → 2025-02-21 08:46 | Outpatient (BNV) | payer OTHER, SELFPAY | PROVIDERS: PCP Internal Medicine; Visit Provider Internal Medicine | DX: D24.2 Benign neoplasm of left breast (principal) | CPT/HCPCS: 19083 ==

== ENCOUNTER 2025-02-28 14:01 | Outpatient (AMB) | payer OTHER, SELFPAY ==
--- NOTE | 2025-02-28 14:28 | A.OFFVIS_ITS ---
Intake Visit Reasons: s/p (L) US BX 2:00 mass Intake Note: Patient here s/p Lt br US bx 02:00 o'clock mass. Reports bx site healing well. Patient c/o: no concerns. Manager Land Required: No Accompanied by: Self / Same As Patient Allergies No Known Allergies Allergy (Verified 02/28/25 14:29) Medication List - Last Reconciled 02/28/25 by Roge Romero MD albuterol sulfate 90 mcg/actuation 1 inh inhalation QID PRN alprazolam 0.25 mg PO TID PRN 30 days amlodipine 10 mg PO DAILY apixaban (Eliquis) 5 mg PO BID atorvastatin 40 mg PO BEDTIME blood sugar diagnostic (FreeStyle Lite Strips) B.i.d. blood-glucose meter (FreeStyle Lite Meter kit) B.i.d. buprenorphine-naloxone 8-2 mg (Suboxone) 1.5 film sublingual DAILY buspirone 10 mg PO TID etanercept (Enbrel SureClick) mg subcut glipizide-metformin 5-500 mg 1 tab PO ONCE 90 days lancets (BD Ultra-Fine II Lancets) 2 times a day levothyroxine 175 mcg PO DAILY 90 days nystatin 1 appl topical DAILY 30 days sertraline 200 mg (2 x 100 mg) PO DAILY HPI HPI s/p (L) US BX 2:00 mass: Details: She had undergone ultrasound biopsy of left breast mass last 02/21/2025. She is here to discuss the findings She did not have any problems postprocedure. She has no new complaints. [facility] Medical History Left breast mass Dupuytren's contracture of both hands Cerebrovascular accident (CVA) Splenic infarct Renal infarct Asthma Alcoholism Smoker Skin cancer of forehead Chronic right shoulder pain GERD (gastroesophageal reflux disease) Osteoarthritis Hypothyroidism Seborrheic dermatitis of scalp Psoriasis Anxiety Depression History of ETOH abuse Surgical History H/O colonoscopy Hx of arthroscopy of left knee History of appendectomy Family History Father Hypercholesteremia Mother Breast cancer Brother No problems noted. Other Mental health disorder Substance use disorder Social History Household Members: None Housing: Apartment Are you a primary healthcare administration intern to a significant other at home: No Do you presently have visiting nurse or other home services: No Alcohol intake: former Patient Tobacco Use Status: Current everyday Tobacco user Tobacco use type: Cigarette Cigarettes Per Day: 2 Years Smoked: 40 years e-Cigarette/Vaping Use: Never Used Second Hand Smoke Exposure: No Substance Use Type: Marijuana service: No Current occupational status: retired Current occupation: rt handed Cognitive needs: No Hearing needs: No Vision needs: No Female Reproductive History Menstrual Age of Menarche: 12 Review of Systems Const Denies chills and Denies fever(s) Card Denies chest pain Resp Denies cough GI Denies abdominal pain Physical Exam Const General: comfortable and no acute distress Chest Other: No hematoma Resp Effort & Inspection: normal respiratory effort Assessment & Plan Assessment & Plan (1) Left breast mass: Code(s): N63.20 - Unspecified lump in the left breast, unspecified quadrant Category: Medical Plan: Status post ultrasound biopsy. Her path report shows benign findings with fibrovascular and adipose tissue. This seems to be suggestive of a lipoma I told her with a benign findings. I explained to her that she should continue to have regular screening mammograms. She can follow up with me on a p.r.n. basis. Coding Level of Care Code Est Pt Level 2 (01402) Diagnoses Left breast mass N63.20
--- OUTSIDE RECORDS SUMMARY | 2025-02-28 16:52 | XMS_ITS | Clinical Summary ---
Author Organization [facility] Address [address] [place] [address] Care Team Providers Care High School Math Teacher Name Role Phone Reyna Zaman MD Primary Care Provider [phone] Surgical History Surgery Date Site/Laterality Comments TUBAL LIGATION PROCEDURE: HISTORICAL TUBAL LIGATION APPENDECTOMY PROCEDURE: HISTORICAL APPENDECTOMY KNEE SURGERY 2011 Left PROCEDURE: HISTORICAL KNEE SURGERY; COMMENT: torn meniscus, Dr. Mast Medical History Medical History Date Comments Depression 02/24/2019 DX:Depression Anxiety 02/24/2019 DX:Anxiety Respiratory failure ([facility] V24, [facility] V28) 06/24/2009 DX:Respiratory failure ([facility]) ; COMMENT: 01/2019 Oxygen dependent 06/24/2009 DX:Oxygen depen dent Alcohol abuse 06/24/2009 DX:Alcohol abuse Chronic pancreatitis ([facility]/ C V24, [facility] V28) 06/24/2009 DX:Chronic pancreatitis ([facility] ) Psoriasis 02/24/2019 DX:Psoriasis Hypothyroidism 02/24/2019 DX:Hypothyroidis m Prediabetes 02/24/2019 DX:Prediabetes Rheumatoid arthritis, adult ([facility] V24, [facility] V28) 02/24/2019 DX:Rheumatoid arthritis, melodie lt ([facility]) Vitamin D deficiency 02/24/2019 DX:Vitamin D deficiency GERD (gastroesophageal reflux disease) 02/24/2019 DX:GERD (gastroesophageal reflux disease) Thoracic aortic aneurysm ([facility] V24) 9 DX:Thoracic aortic aneurysm ([facility]); COMMENT: 01/2019 4 cm History of substance abuse ( [facility] V24, [facility] V28) 02/24/2019 DX:History of substance abus e ([facility]); COMMENT: Narcotic addiction 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:Left knee DJD COPD (chronic obstructive pu lmonary disease) ([facility] V24, [facility] V28) 02/24/2019 DX:COPD (chronic o bstructive pulmonary disease) ([facility]) History of pneumonia 02/24/2019 DX:History of pneumonia; [...] Documents on File Type Date Recorded Patient Operations Intelligence Superintendent Expl anation Health Care Decision (hx) 10/29/2023 JOEY DIEHL DIRECTIVE Care Teams High School Math Teacher Relationship Specialty Start Date End Date Reyna Zaman MD [address] [place] [id number] PCP - General Internal Medicine 02/10/19
--- OUTSIDE RECORDS SUMMARY | 2025-02-28 16:52 | XMS_ITS | Clinical Summary ---
Author Organization [facility] Address [address] [place] [address] Care Team Providers Care Chief Juvenile Probation Officer Name Role Phone Reyna Zaman MD Primary Care Provider [phone] Allergies No known active allergies Medications Medication [...] age to complete this topic Care Teams Chief Juvenile Probation Officer Relationship Specialty Start Date End Date Reyna Zaman MD [address] [place] [address] PCP - General Internal Medicine 06/01/19
--- OUTSIDE RECORDS SUMMARY | 2025-02-28 16:52 | XMS_ITS | Patient Health Record ---
Author Organization [employer] [facility] Address [address] [place] [address] Care Team Providers Care Project Manager/Design Manager Name Role Phone Reyna Zaman Primary Care Provider FAVIOLA Silva Unavailable [phone] Kayleen Castillo Unavailable [phone] Allergies No Known Allergies Results Component Value Reference Range Notes Fentanyl, Urine-[id number] Reviewed date:07/04/2024 09:37:21 AM Interpretation: Performing Lab:[facility], [address] [place] [address], [place], Phone - [phone], Director - Demi Notes/Report: Clinical Information:CCU:[id number] RA Fentanyl, Urine Negative Cutoff=2.0 ng/mL Test includes Fentanyl and Norfentanyl . This test was developed and its performance characteristics determined by [employer]. It has not been cleared or approved [...] and allow to dissolve Dispense when due [id number] Sublingual daily for 28 days 02/15/2025 Active [...] Status W/U Status Risk Notes Problem Hypothyroidism (30617988) Hypothyroidism, unspecified (E03.9) Active confirmed Problem Disorder due to type 2 diabetes mellitus (377473234) Type 2 diabetes mellitus with unspecified complications (E11.8) Active confirmed Problem Chronic alcoholism in remission (276992197) Alcohol dependence, in remission (F10.21) Active confirmed Problem Opioid dependence (95588698) Opioid dependence, uncomplicated (F11.20) Active confirmed Problem Moderate recurrent major depression (58303035) Major depressive disorder, recurrent, moderate (F33.1) Active confirmed Problem Acute non-ST segment elevation myocardial infarction (818354143) Non-ST elevation (NSTEMI) myocardial infarction (I21.4) Active confirmed Problem Cerebral infarction (948111670) Cerebral infarction, unspecified (I63.9) Active confirmed Problem Uncomplicated mild persistent asthma (587240170) Mild persistent asthma, uncomplicated (J45.30) Active confirmed Problem Myopathy due to rheumatoid arthritis (241820494) 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) Active confirmed Problem Drug addiction counseling (06922191) Drug abuse counseling and surveillance of drug abuser (Z71.51) Active confirmed Problem Nicotine dependence (77067517) Personal history of nicotine dependence (Z87.891) Active confirmed Problem Essential hypertension (03752984) Essential (primary) hypertension (I10) Active confirmed Vital Signs Heart Rate 84 /min 02/15/2025 Temperature 98.1 degrees Fahrenheit 02/15/2025 Blood pressure diastolic 80 mm Hg 02/15/2025 Oximetry 96 % 02/15/2025 Height 64 in 02/15/2025 Blood pressure systolic 130 mm Hg 02/15/2025 Weight 165.4 lbs 02/15/2025 BMI 28.39 kg/m2 02/15/2025 Encounters Encounter Location Date Provider Diagnosis [address] [place] [address] 06/29/2024 SALMERON GUL Opioid dependence, uncomplicated F11.20 and Drug abuse counseling and surveillance of drug abuser Z71.[address] [place] [address] 03/15/2024 SALMERON GUL Opioid dependence, uncomplicated F11.20 ; Drug abuse counseling and surveillance of drug abuser Z71.51 and Essential (primary) hypertension I10 [address] [place] [address] 04/12/2024 SALMERON GUL Opioid dependence, uncomplicated F11.20 and Drug abuse counseling and surveillance of drug abuser Z71.[address] [place] [address] 05/10/2024 SALMERON GUL Opioid dependence, uncomplicated F11.20 and Drug abuse counseling and surveillance of drug abuser Z71.[address] [place] [address] 06/07/2024 SALMERON GUL Opioid dependence, uncomplicated F11.20 and Drug abuse counseling and surveillance of drug abuser Z71.[address] [place] [address] 07/27/2024 SALMERON GUL Opioid dependence, uncomplicated F11.20 and Drug abuse counseling and surveillance of drug abuser Z71.[address] [place] [address] 08/23/2024 SALMERON GUL Opioid dependence, uncomplicated F11.20 and Drug abuse counseling and surveillance of drug abuser Z71.[address] [place] [address] 09/20/2024 SALMERON GUL Opioid dependence, uncomplicated F11.20 and Drug abuse counseling and surveillance of drug abuser Z71.[address] [place] [address] 10/23/2024 SALMERON GUL Opioid dependence, uncomplicated F11.20 and Drug abuse counseling and surveillance of drug abuser Z71.[address] [place] [address] 11/24/2024 SALMERON GUL Opioid dependence, uncomplicated F11.20 and Drug abuse counseling and surveillance of drug abuser Z71.[address] [place] [address] 12/22/2024 SALMERON GUL Opioid dependence, uncomplicated F11.20 and Drug abuse counseling and surveillance of drug abuser Z71.[address] [place] [address] 01/18/2025 SALMERON GUL Opioid dependence, uncomplicated F11.20 and Drug abuse counseling and surveillance of drug abuser Z71.[address] [place] [address] 02/15/2025 Ghadeer Mazloum Opioid dependence, uncomplicated F11.20 [...] this note under HIPAA compliance and under [place] law mandated for scribe services. Patient aware [...] this note under HIPAA compliance and under [place] law mandated for scribe services. Patient aware [...] controlled substance prescribing. Therefore following state, Federal, [facility] guidelines for controlled substance testing policies. [...] this note under HIPAA compliance and under [place] law mandated for scribe services. Patient aware [...] this note under HIPAA compliance and under [place] law mandated for scribe services. Patient aware [...] this note under HIPAA compliance and under [place] law mandated for scribe services. Patient aware [...] this note under HIPAA compliance and under [place] law mandated for scribe services. Patient aware [...] controlled substance prescribing. Therefore following state, Federal, [facility] guidelines for controlled substance testing policies. [...] this note under HIPAA compliance and under [place] law mandated for scribe services. Patient aware [...] controlled substance prescribing. Therefore following state, Federal, [facility] guidelines for controlled substance testing policies. [...] this note under HIPAA compliance and under [place] law mandated for scribe services. Patient aware [...] this note under HIPAA compliance and under [place] law mandated for scribe services. Patient aware [...] this note under HIPAA compliance and under [place] law mandated for scribe services. Patient aware [...] this note under HIPAA compliance and under [place] law mandated for scribe services. Patient aware [...] controlled substance prescribing. Therefore following state, Federal, [facility] guidelines for controlled substance testing policies. [...] this note under HIPAA compliance and under [place] law mandated for scribe services. Patient aware [...] controlled substance prescribing. Therefore following state, Federal, [facility] guidelines for controlled substance testing policies. [...] this note under HIPAA compliance and under [place] law mandated for scribe services. Patient aware [...] controlled substance prescribing. Therefore following state, Federal, [facility] guidelines for controlled substance testing policies. [...] this note under HIPAA compliance and under [place] law mandated for scribe services. Patient aware [...] controlled substance prescribing. Therefore following state, Federal, [facility] guidelines for controlled substance testing policies. [...] controlled substance prescribing. Therefore following state, Federal, [facility] guidelines for controlled substance testing policies. [...] controlled substance prescribing. Therefore following state, Federal, [facility] guidelines for controlled substance testing policies. [...] controlled substance prescribing. Therefore following state, Federal, [facility] guidelines for controlled substance testing policies. [...] controlled substance prescribing. Therefore following state, Federal, [facility] guidelines for controlled substance testing policies. [...] controlled substance prescribing. Therefore following state, Federal, [facility] guidelines for controlled substance testing policies. [...] patient but was available upon request 03/15/2024 Opioid dependence, uncomplicated (ICD-10 - F11.20) [...] controlled substance prescribing. Therefore following state, Federal, [facility] guidelines for controlled substance testing policies. [...] this note under HIPAA compliance and under [place] law mandated for scribe services. Patient aware [...] this note under HIPAA compliance and under [place] law mandated for scribe services. Patient aware of service. Verbal consent and written consent taken from the patient. Patient understands and verbalizes understanding of the scribes services and all questions answered regarding scribes services. Patient agrees to use of scribes services. 12/22/2024 Opioid dependence, uncomplicated (ICD-10 - F11.20) [...] controlled substance prescribing. Therefore following state, Federal, [facility] guidelines for controlled substance testing policies. [...] Blood pressure well controlled on current regimen. 03/15/2024 Essential (primary) hypertension (ICD-10 - I10) [...] controlled substance prescribing. Therefore following state, Federal, [facility] guidelines for controlled substance testing policies. [...] this note under HIPAA compliance and under [place] law mandated for scribe services. Patient aware [...] Provider Name:FAVIOLA ZULUAGA , 03/16/2025 11:00:00 AM, [address] [place] [address], [address], Insurance Providers Payer Name Payer Address Payer Phone Subscriber Number Group Number Insured Name Patient Relationship to Insured Coverage Start Date Coverage End Date [facility] [address] [place] [phone] [id number] [id number] JACOBONA Self - patient is the [...] diabetes mellitus NSTEMI Oct 2023 was at [facility] secondary to hypoxic failure and demand ischemia CVA with right side weakness with no res idual symptoms COPD Status post Covid 19 with respiratory sy mptoms
--- OUTSIDE RECORDS SUMMARY | 2025-02-28 16:52 | XMS_ITS ---
Author Organization [facility] Address [address] [place] [address] [address] [place] [address] Care Team Providers Care Metal Engraver Name Role Phone AustynReyna Primary Care Provider FAVIOLA Silva Unavailable [phone] Allergies No Known Allergies REASON FOR VISIT [...] and allow to dissolve Dispense when due [id number] Sublingual daily for 28 days 12/22/2024 Active [...] 12/22/2024 Encounters Encounter Location Date Provider Diagnosis [facility] [address] [facility] [address] [place] [address] 12/22/2024 FAVIOLA ZULUAGA Opioid dependence, uncomplicated F11.20 [...] and allow to dissolve Dispense when due [id number] Sublingual daily for 28 days 12/22/2024 Next Appt Details Follow Up: 4 Weeks, Reason: Provider Name:FAVIOLA ZULUAGA , 03/16/2025 11:00:00 AM, [address], [address], Procedure Notes * Category Sub-Category Detail Notes Urine Toxicology Urine Toxicology Cocaine: Negative Morphine: Negative Marijuanna: Positive Benzodiazepines: Positive Oxycodone: Negative Amphetamine: Negative Barbiturates: Negative Buprenorphine: Positive Methadone: Negative MDMA: Negative Proproxyphene: Negative Phencyclidine: Negative Tricyclic Antidepressant: Negative Fentanyl: Negative Alcohol: Negative MET: Negative Progress Notes * SHAKEEL CHONG:1960 (64 yo F)Acc No.[id number]:12/22/2024 Patient:ANTIONETTE ALEXANDER Provider:?FAVIOLA ZULUAGA MD :1960???Age:64 Y???Sex:Female D ate:12/22/2024 Address:[address] [place], [place] [address] Pcp:Reyna Zaman Subjective: * Chief Complaints: * [...] alcohol?: no?.?Miscellaneous:?Marital status: . 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 * Medications:?TakingSuboxone 8-2 MG Film 1 film under the tongue QAM AND 1/2 FILM QPM and allow to dissolve Dispense when due [id number] Sublingual daily busPIRone HCl 5 MG Tablet [...] and allow to dissolve Dispense when due [id number] Sublingual daily Taking busPIRone HCl 5 MG [...] and lower extremities, sensory exam intact.?FEMALE GENITOURINARY:?__.?MALE GENITOURINARY:?__.?PODIATRIC:?Normal.?Stereotype Caster? .? Assessment: * Assessment: 1.?Opioid dependence, uncomp [...] Procedure Codes:?3078F DIAST BP < 80 MM [id number] SYST BP LT 130 MM [id number] DRUG TEST PRSMV DIR OPT OBS, Modifiers: QW * Follow Up:?4 Weeks * * Sign off status: Completed true * Provider:?FAVIOLA ZULUAGA MD Date:?12/22 Generated for Leslee spear/Roberto/eTrajeevsmceci on:?02/28/2025 04:51 PM EDT History and Physical Notes * [...] Normal Psychiatry Normal OROPHARYNX Normal SINUSES Normal Stereotype Caster
--- OUTSIDE RECORDS SUMMARY | 2025-02-28 16:52 | XMS_ITS ---
Author Organization [facility] Address [address] [place] [address] [address] [place] [address] Care Team Providers Care Outboard Motor Inspector Name Role Phone AustynReyna Primary Care Provider FAVIOLA Silva Unavailable [phone] Allergies No Known Allergies REASON FOR VISIT [...] and allow to dissolve Dispense when due [id number] Sublingual daily for 28 days 01/18/2025 Active [...] 01/18/2025 Encounters Encounter Location Date Provider Diagnosis [facility] [address] [facility] [address] [place] [address] 01/18/2025 FAVIOLA ZULUAGA Opioid dependence, uncomplicated F11.20 [...] and allow to dissolve Dispense when due [id number] Sublingual daily for 28 days 01/18/2025 Next Appt Details Follow Up: 4 Weeks, Reason: Provider Name:FAVIOLA ZULUAGA , 03/16/2025 11:00:00 AM, [address], [address], Procedure Notes * Category Sub-Category Detail Notes Urine Toxicology Urine Toxicology Cocaine: Negative Morphine: Negative Marijuanna: Positive Benzodiazepines: Positive Oxycodone: Negative Amphetamine: Negative Barbiturates: Negative Buprenorphine: Positive Methadone: Negative MDMA: Negative Proproxyphene: Negative Phencyclidine: Negative Tricyclic Antidepressant: Negative Fentanyl: Negative Alcohol: Negative MET: Negative Progress Notes * SHAKEEL CHONG:1960 (64 yo F)Acc No.[id number]:01/18/2025 Patient:ANTIONETTE ALEXANDER Provider:?FAVIOLA ZULUAGA MD :1960???Age:64 Y???Sex:Female D ate:01/18/2025 Address:[address] [place], [place] [address] Pcp:Reyna Zaman Subjective: * Chief Complaints: * [...] alcohol?: no?.?Miscellaneous:?Marital status: . 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 * Medications:?TakingbusPIRone HCl 5 MG Tablet [...] and allow to dissolve Dispense when due [id number] Sublingual daily Medication List reviewed and reconciled [...] and allow to dissolve Dispense when due [id number] Sublingual daily Medication List reviewed and reconciled [...] and lower extremities, sensory exam intact.?FEMALE GENITOURINARY:?__.?MALE GENITOURINARY:?__.?PODIATRIC:?Normal.?Heel Coverer? .? Assessment: * Assessment: 1.?Opioid dependence, uncomp [...] controlled substance prescribing. Therefore following state, Federal, [facility] guidelines for controlled substance testing policies. [...] ?Tricyclic Antidepressant?Negative ?Fentanyl?Negative ?Alcohol?Negative ?MET?Negative? * Procedure Codes:?91849 DRUG TEST PRSMV DIR OPT OBS, Modifiers: QW * Follow Up:?4 Weeks * * Sign off status: Completed true * Provider:?FAVIOLA ZULUAGA MD Date:?01/18 Generated for Leslee spear/Roberto/eTransmitting on:?02/28/2025 04:51 PM EDT History and Physical [...] Normal Psychiatry Normal OROPHARYNX Normal SINUSES Normal Heel Coverer
--- OUTSIDE RECORDS SUMMARY | 2025-02-28 16:52 | XMS_ITS ---
Author Organization [employer] [facility] Address [address] [place] [address] [address] [place] [address] Care Team Providers Care Cushion Stuffer Name Role Phone Reyna Zaman Primary Care Provider FAVIOLA Silva Unavailable [phone] Kayleen Castillo Unavailable [phone] Allergies No Known Allergies REASON FOR VISIT [...] and allow to dissolve Dispense when due [id number] Sublingual daily for 28 days 02/15/2025 Active [...] 02/15/2025 Encounters Encounter Location Date Provider Diagnosis [facility] [address] [facility] [address] [place] [address] 02/15/2025 Kayleen Castillo Opioid dependence, uncomplicated F11.20 [...] controlled substance prescribing. Therefore following state, Federal, [facility] guidelines for controlled substance testing policies. [...] controlled substance prescribing. Therefore following state, Federal, [facility] guidelines for controlled substance testing policies. [...] and allow to dissolve Dispense when due [id number] Sublingual daily for 28 days 02/15/2025 Next Appt Details Follow Up: 4 Weeks-Eliana GUPTA n: Provider Name:FAVIOLA ZULUAGA , 03/16/2025 11:00:00 AM, [address], [address], Procedure Notes * Category Sub-Category Detail Notes Urine Toxicology Urine Toxicology Cocaine: Negative Morphine: Negative Marijuanna: Positive Benzodiazepines: Positive Oxycodone: Negative Amphetamine: Negative Barbiturates: Negative Buprenorphine: Positive Methadone: Negative MDMA: Negative Proproxyphene: Negative Phencyclidine: Negative Tricyclic Antidepressant: Negative Fentanyl: Negative Alcohol: Negative MET: Negative Progress Notes * ANTIONETTE CHONGDOB:1960 (64 yo F)Acc No.[id number]:02/15/2025 Patient:?ANTIONETTE CHONG Appointment Provider:?Kayleen Castillo :1960???Age:64 Y???Sex:Female S upervising Provider:Jovany Brady Date:02/15/2025 Address:[address] [place] [address], [facility] Pcp:Reyna Zaman Subjective: * Chief Complaints: [...] alcohol?: no?.?Miscellaneous:?Marital status: . 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 * Medications:?TakingSuboxone 8-2 MG Film 1 film under the tongue QAM AND 1/2 FILM QPM and allow to dissolve Dispense when due [id number] Sublingual daily busPIRone HCl 5 MG Tablet [...] and allow to dissolve Dispense when due [id number] Sublingual daily Taking busPIRone HCl 5 MG [...] and lower extremities, sensory exam intact.?FEMALE GENITOURINARY:?__.?MALE GENITOURINARY:?__.?PODIATRIC:?Normal.?Bituminous Distributor Operator? .? Assessment: * Assessment: 1.?Opioid dependence, [...] ?Tricyclic Antidepressant?Negative ?Fentanyl?Negative ?Alcohol?Negative ?MET?Negative? * Procedure Codes:?09398 DRUG TEST PRSMV DIR OPT OBS, Modifiers: QW * Follow Up:?4 Weeks-WM * Images: Review Notes: Jovany Brady 2025-02-15 15:47:16* Electronically co-signed by Jovany Brady on 02/15/2025 at 03:47 PM EDT Sign off status: Completed true * Appointment Provider:?Kayleen Lindsay te:?02/15/2025 Generated for Leslee spear/Faxing/eTransmitting on:?02/28/2025 04:51 PM EDT History and Physical [...] Normal Psychiatry Normal OROPHARYNX Normal SINUSES Normal Bituminous Distributor Operator
== END 2025-02-28 14:54 | disposition home or self-care (01) ==
LOC: HO.HGS 14:03
PROVIDERS: PCP Internal Medicine; Visit Provider Surgery
DX: N63.20 Unspecified lump in the left breast, unspecified quadrant (principal)
CPT/HCPCS: 99212

== ENCOUNTER → 2025-02-28 14:01 | Outpatient (BNVA) | payer OTHER, SELFPAY | PROVIDERS: PCP Internal Medicine; Visit Provider Surgery | DX: N63.21 Unspecified lump in the left breast, upper outer quadrant (principal); Z98.890 Other specified postprocedural states | CPT/HCPCS: 99212 ==

== ENCOUNTER 2025-04-16 11:00 | Outpatient (REF) | payer OTHER, SELFPAY ==
--- OUTSIDE RECORDS SUMMARY | 2025-04-16 12:34 | XMS_ITS ---
Author Organization [employer] [facility] Address [address] [place] [address] [address] [place] [address] Care Team Providers Care Gold Leaf Printer Name Role Phone AustynReyna Primary Care Provider FAVIOLA Silva Unavailable [phone] Kayleen Castillo Unavailable [phone] Allergies No Known Allergies REASON FOR VISIT 1 month follow up UTOX Medications Medication SIG (Take, Route, Frequency, Duration) Notes Start Date End Date Status Zoloft 100 MG 1 tablet Orally twic e a day Active Levothyroxine Sodium 175 MCG 1 tablet in the morning on an empty stomach Orally Once a day Active amLODIPine Besylate 10 MG TAKE 1 TABLET BY MOUTH EVERY DAY for 30 Active Vitamin D3 50 MCG (1999 UT) 1 capsule Orally Once a day for 90 days Active Enbrel 50 MG/ML 1 ml Subcutaneous Weekly Active Suboxone 8-2 MG 1 film under the ton garcia QAM AND 1/2 FILM QPM and allow to dissolve Dispense when due [id number] Sublingual daily for 28 days 04/13/2025 Active ALPRAZolam 0.25 MG 1 tablet Orally Twic e a day Active glipiZIDE-metFORMIN HCl 5-500 MG 1 tablet with a meal Orally Once a day Active Eliquis 5 MG 1 tablet Orally Twic e a day Active Multivitamin - 1 tablet Orally Once a day Active busPIRone HCl 5 MG 1 tablet Orally Thre e times a day Active Symbicort 80-4.5 MCG/ACT 1 puff as neede d Inhalation every 4 hrs Not-Harshil farrell Social History Tobacco Use: Social History Observation Description Date Details (start date - stop date) Current Smoker NA - NA Tobacco Use/Smoking Question Answer Notes Are you a current smoker Vital Signs Temperature 94.7 degrees Fahrenheit 04/13/20 25 Blood pressure systolic 130 mm Hg 04/13/20 25 Blood pressure diastolic 78 mm Hg 025 Heart Rate 84 /min 04/13/2025 Height 64 in 04/13/2025 Weight 170.4 lbs 04/13/2025 BMI 29.25 kg/m2 04/13/2025 Oximetry 90 % 04/13/2025 Encounters Encounter Location Date Provider Diagnosis [facility] [address] [facility] [address] [place] [address] 04/13/2025 Kayleen Castillo Opioid dependence, uncomplicated F11.20 and Drug abuse counseling and surveillance of drug abuser Z71.51 Assessments Encounter Date Diagnosis (ICD Code) Assessment Notes Treatment Notes Treatment Clinical Notes Section Notes 04/13/2025 Opioid dependence, uncomplicated (ICD-10 - F11.20) Patient [...] the patient but was available upon request 04/13/2025 Drug abuse counseling and surveillance of drug [...] controlled substance prescribing. Therefore following state, Federal, [facility] guidelines for controlled substance testing policies. [...] and allow to dissolve Dispense when due [id number] Sublingual daily for 28 days 04/13/2025 Next Appt Details Follow Up: 4 Weeks-Abby cristina son: Provider Name:Kayleen whitley, 05/16/2025 10:15:00 AM, [address] [place] [address], [address], Procedure Notes * Category Sub-Category Detail Notes Urine Toxicology Urine Toxicology Cocaine: Negative Morphine: Negative Marijuanna: Positive Benzodiazepines: Positive Oxycodone: Negative Amphetamine: Negative Barbiturates: Negative Buprenorphine: Positive Methadone: Negative MDMA: Negative Proproxyphene: Negative Phencyclidine: Negative Tricyclic Antidepressant: Negative Fentanyl: Negative Alcohol: Negative MET: Negative Progress Notes * Antionette CHONGDOB:1960 (64 yo F)Acc No.[id number]:04/13/2025 Patient:Antionette ALEXANDER Appointment Provider:?Kayleen Castillo :1960???Age:64 Y???Sex:Female S upervising Provider:FAVIOLA ZULUAGA MD Date:04/13/2025 Address:[address] [place], [place] [id number] Pcp:Reyna Zaman Subjective: * Chief Complaints: * [...] smoke marijuana?: Admits. ?Do you drink alcohol?: no?.? * Medications:?TakingbusPIRone HCl 5 MG Tablet 1 tablet Orally Three times a day ALPRAZolam 0.25 MG Tablet 1 tablet Orally Twice a day Eliquis 5 MG Tablet 1 tablet Orally Twice a day glipiZIDE-metFORMIN HCl 5-500 MG Tablet 1 tablet with a meal Orally Once a day Multivitamin - Tablet 1 tablet Orally Once a day Enbrel 50 MG/ML Solution Prefilled Syringe 1 ml Subcutaneous Weekly Zoloft 100 MG Tablet 1 tablet Orally twice a day Levothyroxine Sodium 175 MCG Tablet 1 tablet in the morning on an empty stomach Orally Once a day Suboxone 8-2 MG Film 1 film under the tongue QAM AND 1/2 FILM QPM and allow to dissolve Dispense when due [id number] Sublingual daily Vitamin D3 50 MCG (1999 UT) Capsule 1 capsule Orally Once a day amLODIPine Besylate 10 MG Tablet TAKE 1 TABLET BY MOUTH EVERY DAY Taking busPIRone HCl 5 MG Tablet 1 tablet Orally Three times a day Taking ALPRAZolam 0.25 MG Tablet 1 tablet Orally Twice a day Taking Eliquis 5 MG Tablet 1 tablet Orally Twice a day Taking glipiZIDE-metFORMIN HCl 5-500 MG Tablet 1 tablet with a meal Orally Once a day Taking Multivitamin - Tablet 1 tablet Orally Once a day Taking Enbrel 50 [...] and allow to dissolve Dispense when due [id number] Sublingual daily Taking Vitamin D3 50 MCG (1999 UT) Capsule 1 capsule Orally Once a day Taking amLODIPine Besylate 10 MG Tablet TAKE 1 TABLET BY MOUTH EVERY DAY Not-TakingSymbicort 80-4.5 MCG/ACT Aerosol 1 puff as needed Inhalation every 4 hrs Not-Taking Symbicort 80-4.5 MCG/ACT Aerosol 1 puff as needed Inhalation every 4 hrs * Allergies:?N.K.D.A.no[Allerg ies Verified] Objective: * Vitals:?Temp:94.7F, Oxygen s at %:90%, HR:84/min, BP:130/78mm Hg, Wt:170.4lbs, BMI:29.25Index, Ht: 64 in. * Examination: ???General Examination: ?GENERAL APPEARANCE:?Well developed, well nourished, in no acute [...] normal upper and lower extremities, sensory exam intact.?Psychiatry?Normal.?FEMALE GENITOURINARY:?__.?MALE GENITOURINARY:?__.?PODIATRIC:?Normal.?Property Clerk? .? Assessment: * Assessment: 1.?Opioid dependence, uncomp [...] controlled substance prescribing. Therefore following state, Federal, [facility] guidelines for controlled substance testing policies. [...] see the patient but was available upon request. Plan: * Treatment: * Procedures:?Urine Toxicology:?Urine Toxicology ?Cocaine?Negative ?Morphine?Negative ?Marijuanna?Positive ?Benzodiazepines?Positive ?Oxycodone?Negative ?Amphetamine?Negative ?Barbiturates?Negative ?Buprenorphine?Positive ?Methadone?Negative ?MDMA?Negative ?Proproxyphene?Negative ?Phencyclidine?Negative ?Tricyclic Antidepressant?Negative ?Fentanyl?Negative ?Alcohol?Negative ?MET?Negative? * Procedure Codes:?94074 DRUG TEST PRSMV DIR OPT OBS, Modifiers: QW 3078F DIAST BP < 80 MM [id number] SYST BP GE 130 - 139MM HG * Follow Up:?4 Weeks-utox * Images: Review Notes: FAVIOLA ZULUAGA 2025-04-13 15:52:48* Electronically co-signed by FAVIOLA ZULUAGA MD on 04/13/2025 at 03:52 PM EDT Sign off status: Completed true * Appointment Provider:?Kayleen Lindsay te:?04/13/2025 Generated for Printi ng/Fabobyg/eTransmitting on:?04/16/2025 12:33 PM EDT History and Physical Notes * [...] Normal Psychiatry Normal OROPHARYNX Normal SINUSES Normal Property Clerk
[2025-04-16 13:16] LABS: MANUAL DIFF FLAG NO
[2025-04-16 13:28] LABS: Basophils Percent Auto 0.3 % (0-2); Eosinophils Absolute Auto 0.2 X10*3/uL (0.0-0.4); Eosinophils Percent Auto 2.2 % (0-4); Hematocrit 37.6 % (37.0-47.0); Hemoglobin 12.3 g/dl (12.0-16.0); Imm Gran Abs Auto 0.03 X10*3/uL (0.00-0.03); Imm Gran Pct Auto 0.4 % (0.0-0.4); Lymphocytes Absolute Auto 1.5 X10*3/uL (1.2-4.9); Lymphocytes Percent Auto 21.9 % (20-40); Mean Corpuscular HGB Conc 32.7 g/dl (31.0-35.0); Mean Corpuscular Hemoglobin 28.7 pg (27.0-33.0); Mean Corpuscular Volume 87.6 fL (80.0-98.0); Mean Platelet Volume 9.5 fL (9.4-12.3); Monocytes Absolute Auto 0.4 X10*3/uL (0.1-1.2); Monocytes Percent Auto 6.1 % (2-11); Neutrophils Absolute Auto 4.6 x10*3/uL (2.0-8.3); Neutrophils Percent Auto 69.1 % (45-73); Platelet Count 259 X10*3/uL (160-400); Red Blood Count 4.29 X10*6/uL (4.20-5.50); Red Cell Distribution Width 14.1 % (11.0-16.0); White Blood Count 6.7 X10*3/uL (4.8-10.8)
[2025-04-16 13:31] LABS: Creatinine Urine 47.91 mg/dL
[2025-04-16 13:44] LABS: Estimated Average Glucose 166 mg/dL; Hemoglobin A1c % 7.4 % (<6.0); Total Hemoglobin (HGBA1C) 3268.2953 umol/L
[2025-04-16 14:05] LABS: Alanine Aminotransferase 37 U/L (0-31); Albumin Level 4.4 g/dL (3.5-5.0); Alkaline Phosphatase 102 U/L (39-117); Anion Gap 14 (12-20); Aspartate Amino Transferase 34 U/L (5-31); Bilirubin Total 0.4 mg/dL (0.0-1.0); Blood Urea Nitrogen 12 mg/dL (9-16); Calcium 9.6 mg/dL (8.4-10.2); Carbon Dioxide 28 mmol/L (22-29); Chloride 101 mmol/L (96-108); Cholesterol 185 mg/dL (<200); Estimated Glomerular Filt Rate > 60; Glucose Fasting 178 mg/dL (60-99); HDL Cholesterol 50 mg/dL (>40); LDL Cholesterol Calculated 92 mg/dL (<100); Potassium 4.1 mmol/L (3.3-5.1); Sodium 139 mmol/L (135-145); Total Protein 7.6 g/dL (6.5-8.0); Triglycerides 217 mg/dL (<150)
[2025-04-16 14:28] LABS: TSH reflex Free T4 2.95 uIU/mL (0.32-4.0)
== END 2025-04-16 11:01 | disposition home or self-care (01) ==
LOC: HO.HMGCLDS 11:00
PROVIDERS: PCP Internal Medicine; Visit Provider Internal Medicine
DX: F41.0 Panic disorder [episodic paroxysmal anxiety] (principal); Z86.73 Personal history of transient ischemic attack (TIA), and cerebral infarction without residual deficits; F11.11 Opioid abuse, in remission; F41.1 Generalized anxiety disorder; J43.1 Panlobular emphysema; I42.9 Cardiomyopathy, unspecified; F33.1 Major depressive disorder, recurrent, moderate; E11.9 Type 2 diabetes mellitus without complications; E03.9 Hypothyroidism, unspecified; L40.9 Psoriasis, unspecified; I10 Essential (primary) hypertension
CPT/HCPCS: 36415; 80053; 80061; 82043; 82570; 83036; 84443; 85025

== ENCOUNTER 2025-04-20 10:11 | Outpatient (AMB) | payer OTHER, SELFPAY ==
--- NOTE | 2025-04-20 10:13 | A.OFFPC_ITS ---
Vital Signs 04/20/25 10:14 Height 5 ft 5 in Weight 167 lb 8 oz BMI 27.9 BP 116/68 Blood Pressure Location Rt brachial Position Sitting Pulse 83 Pulse Source Pulse Oximeter Temp 98.4 F Temp Source Oral Pulse Oximetry (%) 93 Oxygen Delivery Method Room Air Intake Visit Reasons: 3 months f/up/A1C Allergies No Known Allergies Allergy (Verified 04/20/25 10:14) Medication List - Last Reconciled 04/20/25 by Reyna Zaman MD albuterol sulfate 90 mcg/actuation 1 inh inhalation QID PRN alprazolam 0.25 mg PO TID PRN 30 days amlodipine 10 mg PO DAILY apixaban (Eliquis) 5 mg PO BID atorvastatin 40 mg PO BEDTIME blood sugar diagnostic (FreeStyle Lite Strips) B.i.d. blood-glucose meter (FreeStyle Lite Meter kit) B.i.d. buprenorphine-naloxone 8-2 mg (Suboxone) 1.5 film sublingual DAILY buspirone 10 mg PO TID etanercept (Enbrel SureClick) mg subcut glipizide-metformin 5-500 mg 1 tab PO ONCE 90 days lancets (BD Ultra-Fine II Lancets) 2 times a day levothyroxine 175 mcg PO DAILY 90 days nystatin 1 appl topical DAILY 30 days sertraline 200 mg (2 x 100 mg) PO DAILY Tobacco use date assessed: 04/20/25 Dental Screening Dental Screen Date: 04/20/25 Did you have a dental visit in the last 12 months?: No Did you have a dental problem in the last 6 months where you did not have access to dental care?: No Was dental information given to patient?: Patient has dentist HPI 3 months f/up/A1C HPI Details History - The patient is a 64-year-old female pr esenting with breathing difficulties. - History of Chronic Obstructive Pulmona ry Disease (COPD) diagnosed and has been using an as-needed inhaler. - Symptoms include shortness of breath a nd have recently escalated, requiring the use of inhalers more frequently. - Additionally, the patient reports weig ht gain, having reached a weight of 170 lbs and a Body Mass Index (BMI) of 27.9. - A hemoglobin A1c has increased from 6. 9% in January to 7.4% most recently; previous lifestyle changes were minimally discussed, and the patient acknowledges the need for dietary management. - Patient denies recent smoking, ceased since experiencing a stroke a few years ago; smoked a pack every two weeks prior. Medical History: - Chronic Obstructive Pulmonary Disease (COPD) - Diabetes Mellitus - Hypertension - History of stroke - Osteoarthritis - Hyperlipidemia - Hypothyroidism - cardiomyopathy Social History: - Previously smoked a pack every two wee ks, ceased after a stroke several years ago. - Reports significant weight gain attrib uted to decreased physical activity following acquisition of a vehicle. Medications - Alprazolam for unspecified use - Amlodipine for hypertension - Eliquis (Apixaban) for stroke preventi on - Atorvastatin 40mg for hyperlipidemia - Buspirone as needed for anxiety (recen tly discontinued) - Levothyroxine for hypothyroidism - Cimetidine for unspecified use Problem List - Chronic Obstructive Pulmonary Disease (COPD) - Diabetes Mellitus - Hypertension - History of Stroke - Osteoarthritis - Hyperlipidemia - Hypothyroidism - Dupuytren contracture right worse than left - cardiomyopathy/history of [place] - vitamin-D deficiency Diagnostic results - Labs: Complete Blood Count (CBC) eduardo l; electrolytes normal; liver enzymes slightly elevated but stable; thyroid levels normal; cholesterol levels very good. - Blood Glucose: A1c increased from 6.9% to 7.4%. [facility] of Care - Psychiatrist for management of psychia tric concerns. - Protohistorian follow-up scheduled in [facility]. - Arthritis and hand specialist consulta tions previously pursued. Patient Instructions - Use the new inhaler as prescribed: one puff two times a day. Symbicort started - Rinse the mouth after inhaler use. - Continue managing diabetes with a focu s on dietary changes. - Pulmonary function test to be schedule d. - Consider seeking a second opinion rega ing hand condition. Referral placed Review of Systems General: No fever no chills neurological: No headaches no dizziness ear nose throat: No sore throat no hearing difficulty no ear pain cardiovascular: No syncope, no chest pain, no palpitations gastrointestinal: No nausea vomiting or diarrhea endocrine: No polyuria polydipsia no heat intolerance genitourinary: No dysuria skin: No new complaints Physical Exam general: No acute distress HEENT: No acute findings neck: Supple respiratory system: Able to talk in full sentences, no audible wheeze, no stridor, cardiovascular: S1-S2 RRR gastrointestinal: No pain extremities: No new findings severe Dupuytren contracture right hand unable to straighten 4th and 5th digit 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 Other Mental health disorder Substance use disorder Social History Household Members: None Housing: Apartment Are you a primary pet care associate to a significant other at home: No Do you presently have visiting nurse or other home services: No Alcohol intake: former Patient Tobacco Use Status: Current everyday Tobacco user Tobacco use type: Cigarette Cigarettes Per Day: 2 Years Smoked: 40 years e-Cigarette/Vaping Use: Never Used Second Hand Smoke Exposure: No Substance Use Type: Marijuana service: No Current occupational status: retired Current occupation: rt handed Cognitive needs: No Hearing needs: No Vision needs: No Female Reproductive History Menstrual Age of Menarche: 12 Questionnaire PHQ-9 Over the last 2 weeks, how often have you been bothered by any of the following problems? 1. Little interest or pleasure in doing things: not at all 2. Feeling down, depressed, or hopeless: several days 3. Trouble falling or staying asleep, or sleeping too much: several days 4. Feeling tired or having little energy: several days 5. Poor appetite or overeating: several days 6. Feeling bad about yourself - or that you are a failure or have let yourself o r your family down: several days 7. Trouble concentrating on things, such as reading the newspaper or watching television: several days 8. Moving or speaking so slowly that other people could have noticed. Or the opposite - being so fidgety or restless that you have been moving around a lot more than usual: several days 9. Thoughts that you would be better off or of hurting yourself in some way: not at all Total score: 7 Depression Screening Interpretation: Negative Depression Screening Done: Yes 53679 - PHQ-9 Billing: Yes Source: Developed by Drs. Mickey Miranda, Laury Meier, Chente Hoyos and colleagues, with an educational kasey from [employer]. Thrive Questionnaire Date Thrive assessed: 04/20/25 I am a: Patient What is your living situation today?: I have a steady place to live Within the past 12 months, did the food you bought not last and you didn't have the money to get more?: Sometimes True Within the past 12 months, did you worry whether your food would run out before you got money to buy more?: Sometimes True Do you have trouble paying for medicines?: No Do you have trouble getting transportation to medical appointments?: No Do you have trouble paying your heating and electricity bill?: No Do you have trouble taking care of your child, family member or friend?: No Do you have trouble with day-to-day activities such as bathing, preparing meals, shopping, managing finances, etc.?: No Are you currently unemployed and looking for a job?: No Are you interested in more education?: No Please select the resources that you would like help with: Food Currently or been in a relationship where the following occur: No concerns reported THRIVE Score: 2 AUDIT C Alcohol Use Questionnaire (AUDIT-C) 1. How often do you have a drink containing alcohol?: Never 3. How often do you have six or more drinks on one occasion?: Never Total Score: 0 Score Reviewed/Action Taken: Yes JAMES-7 AMB Questionnaire JAMES-7 Date JAMES - 7 assessed: 01/17/25 Source: Developed by Drs. Mickey Miranda, Laury Meier, Chente Hoyos and colleagues, with an educational kasey from [employer]. Physical exam (Primary Care) Vital Signs: Last Vital Signs Temp 98.4 F 04/20/25 10:14 Pulse 83 04/20/25 10:14 BP 116/68 04/20/25 10:14 Pulse Ox 93 04/20/25 10:14 Oxygen Delivery Method Room Air 04/20/25 10:14 BMI result Body Mass Index 27.9 Tobacco/Smoking Status: Tobacco use Status Tobacco use date assessed 04/20/25 04/20/25 10:16 Patient Tobacco Use Status Current everyday Tobacco 04/20/25 10:13 Tobacco use type Cigarette 04/20/25 10:13 e-Cigarette/Vaping Use Never Used 04/20/25 10:13 PHQ-9: PHQ-9 Score PHQ-9: Total score 7 04/20/25 10:41 Depression Screening Interpretation: Negative Thrive Assessment: Date of Thrive Assessment Date Thrive assessed 04/20/25 04/20/25 10:23 Currently or been in a relationship where the following occur: No concerns reported Coding Level of Care Code Est Pt Level 5 (03037) Diagnoses Shortness of breath R06.02 Controlled type 2 diabetes mellitus without complication, without long-term current use of insulin E11.9 Diabetes mellitus complication status: without complication Diabetes mellitus termite inspector insulin use: without termite inspector use Panlobular emphysema J43.1 COPD type: emphysema Emphysema type: panlobular Dupuytren's disease of palm of right hand M72.0 Cardiomyopathy, unspecified type I42.9 Cardiomyopathy type: unspecified Vitamin D deficiency E55.9 Hypothyroidism, unspecified type E03.9 Hypothyroidism type: unspecified Depression, major, recurrent, moderate F33.1 Generalized anxiety disorder with panic attacks F41.1; F41.0 Mixed hyperlipidemia E78.2 Hyperlipidemia type: mixed hyperlipidemia Additional Codes PHQ-9 - 29391 - PHQ-9 Billing: Yes ([id number]) Time Spent (min) 40 Comment Reviewing chart/labs/souc-gq-bokk/coordination of care Assessment & Plan Assessment & Plan (1) Shortness of breath: Code(s): R06.02 - Shortness of breath Category: Medical (2) Diabetes mellitus type 2, controlled: Code(s): E11.9 - Type 2 diabetes mellitus without complications Category: Medical Qualifiers: Diabetes mellitus complication status: without complication Diabetes mellitus chcf insulin use: without termite inspector use Qualified Code(s): E11.9 - Type 2 diabetes mellitus without complications (3) COPD (chronic obstructive pulmonary disease): Code(s): J44.9 - Chronic obstructive pulmonary disease, unspecified Category: Medical Qualifiers: COPD type: emphysema Emphysema type: panlobular Qualified Code(s): J43.1 - Panlobular emphysema (4) Dupuytren's disease of palm of right hand: Code(s): M72.0 - Palmar fascial fibromatosis [Dupuytren] Category: Medical (5) Cardiomyopathy: Code(s): I42.9 - Cardiomyopathy, unspecified Category: Medical Qualifiers: Cardiomyopathy type: unspecified Qualified Code(s): I42.9 - Cardiomyopathy, unspecified (6) Vitamin D deficiency: Code(s): E55.9 - Vitamin D deficiency, unspecified Category: Medical (7) Hypothyroidism: Code(s): E03.9 - Hypothyroidism, unspecified Category: Medical Qualifiers: Hypothyroidism type: unspecified Qualified Code(s): E03.9 - Hypothyroidism, unspecified (8) Depression, major, recurrent, moderate: Code(s): F33.1 - Major depressive disorder, recurrent, moderate Category: Medical (9) Generalized anxiety disorder with panic attacks: Code(s): F41.1 - Generalized anxiety disorder; F41.0 - Panic disorder [episodic paroxysmal anxiety] Category: Medical (10) Hyperlipidemia: Code(s): E78.5 - Hyperlipidemia, unspecified Category: Medical Qualifiers: Hyperlipidemia type: mixed hyperlipidemia Qualified Code(s): E78.2 - Mixed hyperlipidemia Plan History - The patient is a 64-year-old female presenting with breathing difficulties. - History of Chronic Obstructive Pulmonary Disease (COPD) diagnosed and has been using an as-needed inhaler. - Symptoms include shortness of breath and have recently escalated, requiring the use of inhalers more frequently. - Additionally, the patient reports weight gain, having reached a weight of 170 lbs and a Body Mass Index (BMI) of 27.9. - A hemoglobin A1c has increased from 6.9% in January to 7.4% most recently; previous lifestyle changes were minimally discussed, and the patient acknowledges the need for dietary management. - Patient denies recent smoking, ceased since experiencing a stroke a few years ago; smoked a pack every two weeks prior. Medical History: - Chronic Obstructive Pulmonary Disease (COPD) - Diabetes Mellitus - Hypertension - History of stroke - Osteoarthritis - Hyperlipidemia - Hypothyroidism - cardiomyopathy Social History: - Previously smoked a pack every two weeks, ceased after a stroke several years ago. - Reports significant weight gain attributed to decreased physical activity following acquisition of a vehicle. Medications - Alprazolam for unspecified use - Amlodipine for hypertension - Eliquis (Apixaban) for stroke prevention - Atorvastatin 40mg for hyperlipidemia - Buspirone as needed for anxiety (recently discontinued) - Levothyroxine for hypothyroidism - Cimetidine for unspecified use Problem List - Chronic Obstructive Pulmonary Disease (COPD) - Diabetes Mellitus - Hypertension - History of Stroke - Osteoarthritis - Hyperlipidemia - Hypothyroidism - Dupuytren contracture right worse than left - cardiomyopathy/history of [place] - vitamin-D deficiency Diagnostic results - Labs: Complete Blood Count (CBC) normal; electrolytes normal; liver enzymes slightly elevated but stable; thyroid levels normal; cholesterol levels very good. - Blood Glucose: A1c increased from 6.9% to 7.4%. [facility] of Care - Psychiatrist for management of psychiatric concerns. - Protohistorian follow-up scheduled in December. - Arthritis and hand specialist consultations previously pursued. Patient Instructions - Use the new inhaler as prescribed: one puff two times a day. Symbicort started - Rinse the mouth after inhaler use. - Continue managing diabetes with a focus on dietary changes. - Pulmonary function test to be scheduled. - Consider seeking a second opinion regarding hand condition. Referral placed Orders: Orders PFT pulmonary function test Today J43.1 - Panlobular emphysema Microalbumin, Random (w Creat) 3 Months E03.9 - Hypothyroidism, unspecified, E11.9 - Type 2 diabetes mellitus without complications, E55.9 - Vitamin D deficiency, unspecified, E78.5 - Hyperlipidemia, unspecified, F33.1 - Major depressive disorder, recurrent, moderate, F41.0 - Panic disorder [episodic paroxysmal anxiety], F41.1 - Generalized anxiety disorder, I42.9 - Cardiomyopathy, unspecified, J43.1 - Panlobular emphysema, M72.0 - Palmar fascial fibromatosis [Dupuytren] Vitamin D 25-OH (D2 and D3) 3 Months E03.9 - Hypothyroidism, unspecified, E11.9 - Type 2 diabetes mellitus without complications, E55.9 - Vitamin D deficiency, unspecified, E78.5 - Hyperlipidemia, unspecified, F33.1 - Major depressive disorder, recurrent, moderate, F41.0 - Panic disorder [episodic paroxysmal anxiety], F41.1 - Generalized anxiety disorder, I42.9 - Cardiomyopathy, unspecified, J43.1 - Panlobular emphysema, M72.0 - Palmar fascial fibromatosis [Dupuytren] Hemoglobin A1c 3 Months E03.9 - Hypothyroidism, unspecified, E11.9 - Type 2 diabetes mellitus without complications, E55.9 - Vitamin D deficiency, unspecified, E78.5 - Hyperlipidemia, unspecified, F33.1 - Major depressive disorder, recurrent, moderate, F41.0 - Panic disorder [episodic paroxysmal anxiety], F41.1 - Generalized anxiety disorder, I42.9 - Cardiomyopathy, unspecified, J43.1 - Panlobular emphysema, M72.0 - Palmar fascial fibromatosis [Dupuytren] Comprehensive Met. Panel 3 Months E03.9 - Hypothyroidism, unspecified, E11.9 - Type 2 diabetes mellitus without complications, E55.9 - Vitamin D deficiency, unspecified, E78.5 - Hyperlipidemia, unspecified, F33.1 - Major depressive disorder, recurrent, moderate, F41.0 - Panic disorder [episodic paroxysmal anxiety], F41.1 - Generalized anxiety disorder, I42.9 - Cardiomyopathy, unspecified, J43.1 - Panlobular emphysema, M72.0 - Palmar fascial fibromatosis [Dupuytren] TSH reflex Free T4 3 Months E03.9 - Hypothyroidism, unspecified, E11.9 - Type 2 diabetes mellitus without complications, E55.9 - Vitamin D deficiency, unspecified, E78.5 - Hyperlipidemia, unspecified, F33.1 - Major depressive disorder, recurrent, moderate, F41.0 - Panic disorder [episodic paroxysmal anxiety], F41.1 - Generalized anxiety disorder, I42.9 - Cardiomyopathy, unspecified, J43.1 - Panlobular emphysema, M72.0 - Palmar fascial fibromatosis [Dupuytren] Referrals Hand Surgery Referral M72.0 - Palmar fascial fibromatosis [Dupuytren] Medications: New budesonide-formoterol 160-4.5 mcg/actuation (Symbicort) 1 inh inhalation BID 10.2 grams 2RF
[2025-04-20 10:14] VITALS: BP 116/68; PULSE 83; TEMP 36.9; O2SAT 93; BMI 27.9
--- OUTSIDE RECORDS SUMMARY | 2025-04-20 11:03 | XMS_ITS | Clinical Summary ---
Author Organization [employer] [facility] Address [address] [place] [address] Care Team Providers Care Hydraulic Specialist Name Role Phone Reyna Zaman MD Primary Care Provider [phone] Surgical History Surgery Date Site/Laterality Comments TUBAL LIGATION PROCEDURE: HISTORICAL TUBAL LIGATION APPENDECTOMY PROCEDURE: HISTORICAL APPENDECTOMY KNEE SURGERY 2011 Left PROCEDURE: HISTORICAL KNEE SURGERY; COMMENT: torn meniscus, Dr. Mast Medical History Medical History Date Comments Depression 02/24/2019 DX:Depression Anxiety 02/24/2019 DX:Anxiety Respiratory failure ([facility] V24, [facility] V28) 06/24/2009 DX:Respiratory failure ([facility]) ; COMMENT: 01/2019 Oxygen dependent 06/24/2009 DX:Oxygen depen dent Alcohol abuse 06/24/2009 DX:Alcohol abuse Chronic pancreatitis ([facility]/ C V24, [facility] V28) 06/24/2009 DX:Chronic pancreatitis ([facility] ) Psoriasis 02/24/2019 DX:Psoriasis Hypothyroidism 02/24/2019 DX:Hypothyroidis m Prediabetes 02/24/2019 DX:Prediabetes Rheumatoid arthritis, adult ([facility] V24, [facility] V28) 02/24/2019 DX:Rheumatoid arthritis, melodie lt ([facility]) Vitamin D deficiency 02/24/2019 DX:Vitamin D deficiency GERD (gastroesophageal reflux disease) 02/24/2019 DX:GERD (gastroesophageal reflux disease) Thoracic aortic aneurysm ([facility] V24) 9 DX:Thoracic aortic aneurysm ([facility]); COMMENT: 01/2019 4 cm History of substance abuse ( [facility] V24, [facility] V28) 02/24/2019 DX:History of substance abus e ([facility]); COMMENT: Narcotic addiction 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:Left knee DJD COPD (chronic obstructive pu lmonary disease) ([facility] V24, [facility] V28) 02/24/2019 DX:COPD (chronic o bstructive pulmonary disease) ([facility]) History of pneumonia 02/24/2019 DX:History [...] - 2023-2 5 season) 2024 Influenza Vaccine (Season Ended) [...] Documents on File Type Date Recorded Patient Defensive Secondary Coach Expl anation Health Care Decision (hx) 10/29/2023 JOEY DIEHL DIRECTIVE Care Teams Hydraulic Specialist Relationship Specialty Start Date End Date Reyna Zaman MD [address] [place] [id number] PCP - General Internal Medicine 02/10/19
== END 2025-04-20 10:40 | disposition home or self-care (01) ==
LOC: HO.HMCC 10:12
PROVIDERS: PCP Internal Medicine; Visit Provider Internal Medicine
DX: E11.9 Type 2 diabetes mellitus without complications (principal); J43.1 Panlobular emphysema; I42.9 Cardiomyopathy, unspecified; F33.1 Major depressive disorder, recurrent, moderate; R06.02 Shortness of breath; M72.0 Palmar fascial fibromatosis [Dupuytren]; E55.9 Vitamin D deficiency, unspecified; E03.9 Hypothyroidism, unspecified; F41.1 Generalized anxiety disorder; F41.0 Panic disorder [episodic paroxysmal anxiety]; E78.2 Mixed hyperlipidemia

== ENCOUNTER → 2025-04-20 10:11 | Outpatient (BNVA) | payer OTHER, SELFPAY | PROVIDERS: PCP Internal Medicine; Visit Provider Internal Medicine | DX: R06.02 Shortness of breath (principal); J44.9 Chronic obstructive pulmonary disease, unspecified; E11.9 Type 2 diabetes mellitus without complications; J43.1 Panlobular emphysema; M72.0 Palmar fascial fibromatosis [Dupuytren]; I42.9 Cardiomyopathy, unspecified; E55.9 Vitamin D deficiency, unspecified; E03.9 Hypothyroidism, unspecified; F33.1 Major depressive disorder, recurrent, moderate; F41.1 Generalized anxiety disorder; F41.0 Panic disorder [episodic paroxysmal anxiety]; E78.2 Mixed hyperlipidemia | CPT/HCPCS: 96127; 99212 ==

== ENCOUNTER 2025-05-17 10:32 | Outpatient (AMB) | payer OTHER, SELFPAY ==
--- OUTSIDE RECORDS SUMMARY | 2025-05-16 06:15 | XMS_ITS ---
Author Organization [facility] Address [address] [place] [address] [address] [place] [address] Care Team Providers Care Hourly Shift Name Role Phone Reyna Zaman Primary Care Provider FAVIOLA Silva Unavailable [phone] Kayleen Castillo Unavailable [phone] Allergies No Known Allergies REASON FOR VISIT 1 month follow up UTOX Medications Medication SIG (Take, Route, Frequency, Duration) Notes Start Date End Date Status Vitamin D3 50 MCG (1999) 1 capsule Orally Once a day; Duration: 90 days Active busPIRone HCl 5 MG 1 tablet Orally Thre e times a day Active amLODIPine Besylate 10 MG TAKE 1 TABLET BY MOUTH EVERY DAY; Duration: 30 Active Symbicort 80-4.5 MCG/ACT 1 puff as neede d Inhalation every 4 hrs Not-Takin g Suboxone 8-2 MG 1 film under the ton garcia QAM AND 1/2 FILM QPM and allow to dissolve Dispense when due [id number] Sublingual daily; Duration: 28 days 05/16/2025 Active Zoloft 100 MG 1 tablet Orally twic e a day Active Enbrel 50 MG/ML 1 ml Subcutaneous Weekly Active Levothyroxine Sodium 175 MCG 1 tablet in the morning on an empty stomach Orally Once a day Active Multivitamin - 1 tablet Orally Once a day Active glipiZIDE-metFORMIN HCl 5-500 MG 1 tablet with a meal Orally Once a day Active ALPRAZolam 0.25 MG 1 tablet Orally Twic e a day Active Eliquis 5 MG 1 tablet Orally Twic e a day Active Social History Tobacco Use: Social History Observation Description Date Details (start date - stop date) Current Smoker NA - NA Sex Assigned At : Social History Observation Description Sex Assigned At Female Tobacco Use/Smoking Question Answer Notes Are you a current smoker Vital Signs Temperature 94.1 degrees Fahrenheit 05/16/20 25 Oximetry 93 % 05/16/2025 Heart Rate 103 /min 05/16/2025 Blood pressure systolic 130 mm Hg 05/16/20 25 Blood pressure diastolic 80 mm Hg 025 Weight 169.9 lbs 05/16/2025 BMI 29.16 kg/m2 05/16/2025 Height 64 in 05/16/2025 Encounters Encounter Location Date Provider Diagnosis [facility] [address] [facility] [address] [place] [address] 05/16/2025 Kayleen Araujoloum Opioid dependence, uncomplicated F11.20 and Drug abuse counseling and surveillance of drug abuser Z71.51 Assessments Encounter Date Diagnosis (ICD Code) Assessment Notes Treatment Notes Treatment Clinical Notes Section Notes 05/16/2025 Opioid dependence, uncomplicated (ICD-10 - F11.20) Patient [...] controlled substance prescribing. Therefore following state, Federal, [facility] guidelines for controlled substance testing policies. [...] the patient but was available upon request 05/16/2025 Drug abuse counseling and surveillance of drug [...] controlled substance prescribing. Therefore following state, Federal, [facility] guidelines for controlled substance testing policies. [...] and allow to dissolve Dispense when due [id number] Sublingual daily; Duration: 28 days 05/16/2025 Next Appt Details Follow Up: 4 Weeks-Abby cristina son: Provider Name:FAVIOLA ZULUAGA , 06/14/2025 10:45:00 AM, [address] [place] [address], [place], [address], Procedure Notes * Category Sub-Category Detail Notes Urine Toxicology Urine Toxicology Cocaine: Negative Morphine: Negative Marijuanna: Positive Benzodiazepines: Positive Oxycodone: Negative Amphetamine: Negative Barbiturates: Negative Buprenorphine: Positive Methadone: Negative MDMA: Negative Proproxyphene: Negative Phencyclidine: Negative Tricyclic Antidepressant: Negative MET: Negative Progress Notes * Antionette CHONGDOB:1960 (64 yo F)Acc No.[id number]:05/16/2025 Patient: Antionette CARDONA Appointment Provider: Bobby Castillo :1960 A ge:64 Y S ex:Female Supervising Provider:FAVIOLA ZULUAGA MD Date:05/16/2025 Address:[address] [place], [place] [address] Pcp:Reyna Zaman Subjective: * Chief Complaints: * 1 month follow up UTOX * HPI: A ddiction/Drug Abuse: Antionette is a 64-year-old lady with history of rheumatoid arthritis, psoriasis, depression, pancreatitis, AUD here today for her monthly suboxone MAT. She consumes edibles. She is still currently on Suboxone 8/2 mg 1.5 films daily. She has stopped smoking at this point. She denies any other active issues or concerns. * ROS: G eneral/Constitutional: Overall health G ood. C hange in appetite d enies.?Chills d enies. F ever d enies. N ight sweats d enies. S leep disturbance d enies. W eight gain d enies. W eight loss d enies. N eurologic: Difficulty speaking d enies. D izziness d enies.?Gait abnormality d enies. H eadache d enies. L oss of strength d enies. M bushra loss d enies. S eizures d enies. T ingling/Numbness d enies . O phthalmologic: Blurred vision d enies. D ischarge d enies. D ry eye d enies. R ed eye d enies. E NT: Change in Voice D enies. C old Symptoms D enies.?Cough D enies. D izziness D enies. N brionna Congestion D enies. O talgia?Denies. p ostnasal drip D enies. B locked ear d enies. N osebleed d enies. S noring d enies. C ardiovascular: Diaphoresis D enies. P edal Edema D enies. P ND (Paroxsymal nocturnal dyspnea) D enies. C hest pain d enies. D ifficulty laying flat d enies. D yspnea on exertion d enies. H eart murmur d enies. O rthopnea?denies. R espiratory: Snoring d enies. A sthma d enies. C ough d enies. S hortness of breath with exertion d enies. S putum production d enies. W heezing d enies. G astrointestinal: Change in bowel habits d enies. C onstipation d enies. D ecreased appetite d enies. D iarrhea d enies. H eartburn d enies. N ausea d enies. V omiting d enies. M usculoskeletal: tingling/numbness D enies. m yalgias D enies. J oint Swelling D enies. e xtremeties n ormal. A rthritis d enies. B ack problems d enies. C arpal tunnel d enies. J oint stiffness d enies. M uscle aches d enies. E ndocrine: Bowel Changes D enies. B reast Discharge D enies.?poor libido D enies. C old intolerance d enies. E xcessive sweating d enies.?Excessive thirst d enies. F requent urination d enies. T hyroid problems d enies. S kin: Bruising D enies. E czema d enies. H air changes d enies. R hal d enies. S kin lesion(s) d enies. P sychiatric: Anxiety d enies. D epressed mood d enies. D ifficulty sleeping d enies. N ervous breakdown d enies. S ubstance abuse d enies.? U rology: abnormal menstrual bleeding d enies. b lood in urine?denies. b urning on urination d enies. d ifficulty urinating d enies. d ischarge d enies. d ysuria d enies. * Medical History: * Surgical History: * Hospitalization/Major Diagno stic Procedure: * Family History: F ather: 94 yrs, diagnosed with Heart Disease. M other: 89 yrs, diagnosed with Cancer. Brother was alcoholic and committed suicide. * Social History: T obacco Use: T obacco Use/Smoking A re you a c urrent smoker D rugs/Alcohol: C affeine I ntake: 1 -2 cups per day Do you smoke marijuana?: Admits. Do you drink alcohol?: no . M iscellaneous: M arital status: . 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 * Medications: T akingbusPIRone HCl 5 MG Tablet 1 tablet Orally [...] an empty stomach Orally Once a day Vitamin D3 50 MCG (1999 UT) Capsule 1 capsule Orally Once a day amLODIPine Besylate 10 MG Tablet TAKE 1 TABLET BY MOUTH EVERY DAY Suboxone 8-2 MG Film 1 film under the tongue QAM AND 1/2 FILM QPM and allow to dissolve Dispense when due [id number] Sublingual daily Taking busPIRone HCl 5 MG [...] empty stomach Orally Once a day Taking Vitamin D3 50 MCG (1999 UT) Capsule 1 capsule Orally Once a day Taking amLODIPine Besylate 10 MG Tablet TAKE 1 TABLET BY MOUTH EVERY DAY Taking Suboxone 8-2 MG Film 1 film under the tongue QAM AND 1/2 FILM QPM and allow to dissolve Dispense when due [id number] Sublingual daily Not-TakingSymbicort 80-4.5 MCG/ACT Aerosol 1 puff as needed Inhalation every 4 hrs Not-Taking Symbicort 80- 4.5 MCG/ACT Aerosol 1 puff as needed Inhalation every 4 hrs * Allergies: N .K.D.A.no[Allergies Verified] Objective: * Vitals: T emp:94.1F, Oxygen sat %:93%, HR:103/min, BP:130/80mm Hg, Wt:169.9lbs, BMI:29.16Index, Ht: 64 in. * Examination: G eneral Examination: GENERAL APPEARANCE: W ell developed, well nourished, in no acute distress. MUSCULOSKELETAL: N ormal. HEAD: N ormocephalic, atraumatic. EYES: P upils equal, round, reactive to light and accommodation, sclera non-icteric. EARS: N ormal. ORAL CAVITY: N ormal. THROAT: C lear. OROPHARYNX N ormal. SINUSES N ormal. NECK/THYROID: N jeremiah supple, full range of motion, no cervical lymphadenopathy. SKIN: W arm and dry, no suspicious lesions. HEART: S 1, S2 normal regular rate and rhythm no murmurs, rubs, gallops . LUNGS: c lear anteriorly and posteriorly no wheezes, rales, rhonchi good air movement . BREASTS: _ _. ABDOMEN: S oft, nontender, nondistended, bowel sounds present, normal. EXTREMITIES: N ormal. PERIPHERAL PULSES: N ormal. NEUROLOGIC: N onfocal, appropriate m otor strength normal upper and lower extremities, sensory exam intact. Psychiatry N ormal. FEMALE GENITOURINARY: _ _. MALE GENITOURINARY: _ _. PODIATRIC: N ormal. Roller Picker _ ____. Assessment: * Assessment: 1. O pioid dependence, uncomplicated - F11.20 (Primary) 2 . D rug abuse counseling and surveillance of drug abuser - Z71.51 Patient is here today for fo llow-up [...] available upon request. Plan: * Treatment: * Procedures: U rine Toxicology: Urine Toxicology C ocaine N egative M orphine N egative M arijuanna P ositive B enzodiazepines P ositive O xycodone N egative A mphetamine N egative B arbiturates N egative B uprenorphine P ositive M ethadone N egative M DMA N egative P roproxyphene N egative P hencyclidine N egative T ricyclic Antidepressant N egative M ET N egative * Procedure Codes: 8 0305 DRUG TEST PRSMV DIR OPT OBS, Modifiers: QW * Follow Up: 4 Weeks-utox * Images: Review Notes: FAVIOLA ZULUAGA 2025-05-16 17:32:26* Electronically co-signed by FAVIOLA ZULUAGA MD on 05/16/2025 at 05:32 PM EDT Sign off status: Completed true * Appointment Provider: Bobby Castillo Date: 05/16/2025 Generated for Leslee spear/Roberto/eTransmceci on: 05/17/2025 08:33 AM EDT History and Physical Notes * [...] Normal Psychiatry Normal OROPHARYNX Normal SINUSES Normal Roller Picker
--- OUTSIDE RECORDS SUMMARY | 2025-05-17 08:33 | XMS_ITS | Clinical Summary ---
Author Organization [facility] Address [address] [place] [address] Care Team Providers Care Genetic Engineer Name Role Phone Reyna Zaman MD Primary Care Provider [phone] Surgical History Surgery Date Site/Laterality Comments TUBAL LIGATION PROCEDURE: HISTORICAL TUBAL LIGATION APPENDECTOMY PROCEDURE: HISTORICAL APPENDECTOMY KNEE SURGERY 2011 Left PROCEDURE: HISTORICAL KNEE SURGERY; COMMENT: torn meniscus, Dr. Mast Medical History Medical History Date Comments Depression 02/24/2019 DX:Depression Anxiety 02/24/2019 DX:Anxiety Respiratory failure ([facility] V24, [facility] V28) 06/24/2009 DX:Respiratory failure ([facility]) ; COMMENT: 01/2019 Oxygen dependent 06/24/2009 DX:Oxygen depen dent Alcohol abuse 06/24/2009 DX:Alcohol abuse Chronic pancreatitis ([facility] V24, [facility] V28) 06/24/2009 DX:Chronic pancreatitis ([facility] ) Psoriasis 02/24/2019 DX:Psoriasis Hypothyroidism 02/24/2019 DX:Hypothyroidis m Prediabetes 02/24/2019 DX:Prediabetes Rheumatoid arthritis, adult ([facility] V24, [facility] V28) 02/24/2019 DX:Rheumatoid arthritis, melodie lt ([facility]) Vitamin D deficiency 02/24/2019 DX:Vitamin D deficiency GERD (gastroesophageal reflux disease) 02/24/2019 DX:GERD (gastroesophageal reflux disease) Thoracic aortic aneurysm ([facility] V24) 9 DX:Thoracic aortic aneurysm ([facility]); COMMENT: 01/2019 4 cm History of substance abuse ( [facility] V24, [facility] V28) 02/24/2019 DX:History of substance abus e ([facility]); COMMENT: Narcotic addiction 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:Left knee DJD COPD (chronic obstructive pu lmonary disease) ([facility] V24, [facility] V28) 02/24/2019 DX:COPD (chronic o bstructive pulmonary disease) ([facility]) History of pneumonia 02/24/2019 DX:History of pneumonia; [...] ars (1 of 2 - PCV) 1980 Cervical [...] 2023-2 5 season) 2024 Influenza Vaccine (#1) 2025 HIB Vaccines Aged Out No longer [...] Documents on File Type Date Recorded Patient Product Development Intern Expl anation Health Care Decision (hx) 10/29/2023 JOEY DIEHL DIRECTIVE Care Teams Genetic Engineer Relationship Specialty Start Date End Date Reyna Zaman MD [address] [place] [address] PCP - General Internal Medicine 02/10/19
--- OUTSIDE RECORDS SUMMARY | 2025-05-17 08:33 | XMS_ITS | Patient Health Record ---
Author Organization [facility] Address [address] [place] [address] Care Team Providers Care Shank Burnisher Name Role Phone Austyn DOMINGO, Asma Primary Care Provider Mickey Taylor Unavailable [phone] Reason For Referral No Information Medications Medication SIG (Take, Route, Frequency, Duration) Notes Start Date End Date Status Fenofibrate 150 MG 1 tablet Orally Once a day Active Multi Vitamin Daily Active Methotrexate Active Levothyroxine Sodium 150 MCG 1 capsule O rally Once a day Active Folic Acid 1 MG 1 tablet Orally Once a day Active Suboxone Active Sertraline HCl 100 MG 1 tablet Orally On ce a day Active Prednisone Active Problems Problem Type SNOMED Code ICD Code Onset Dates Problem Status W/U Status Risk Notes Problem [id number] Encounter for screening for malignant neoplasm of colon (Z12.11) Active confirmed Problem Screening for malignant neoplasm of rectum (660486265) Encounter for screening for malignant neoplasm of rectum (Z12.12) Active confirmed Problem [id number] Gastroenteritis (K52.9) Active confirmed Plan Of Treatment Future Test Test Name Order Date COLONOSCOPY 02/21/2016 Insurance Providers Payer Name Payer Address Payer Phone Subscriber Number Group Number Insured Name Patient Relationship to Insured Coverage Start Date Coverage End Date MEDICARE OF [place] [address] [place] [id number] [phone] [id number] CAMILLE CHONG Self - patient is the insured [place] [facility] [place] [facility] [address] [place] [address] [id number] CAMILLE CHONG Self - patient is the insured Medical (General) History Medical History History ICD Code Denies RI,DM,CVA,Lung disease,renal dise ase Rheumatoid arthritis since 2014--sees Dr Tanner Lantigua Depression Hypothyroidism Hyperlipidemia Opiate addiction--pills--on Suboxone--de nies IVDA Surgical History Surgery Date(Month/Year) appendectomy 2009 knee surgery 2011 Ankle Skin cancer on forehead
--- OUTSIDE RECORDS SUMMARY | 2025-05-17 08:33 | XMS_ITS | Clinical Summary ---
Author Organization [facility] Address [address] [place] [address] Care Team Providers Care Hvac/R Service Technician Name Role Phone Reyna Zaman MD Primary Care Provider [phone] Allergies No known active allergies Medications Medication [...] or Tdap) 11/08/2019 010 Influenza Vaccine (#1) 2025 RSV Adult > 60+ Yrs or Pregn ant (1 - 1-dose 75+ series) 2036 Hepatitis B Vaccines Aged Out No long er eligible based on patient's age to complete this topic RSV Ped < 20 months Aged Out No longe r eligible based on patient's age to complete this topic Care Teams Hvac/R Service Technician Relationship Specialty Start Date End Date Reyna Zaman MD [address] [place] [address] PCP - General Internal Medicine 06/01/19
--- NOTE | 2025-05-17 09:23 | A.OFFPC_ITS ---
Intake Visit Reasons: diabetes/yeast infection? Allergies No Known Allergies Allergy (Verified 04/20/25 10:14) Medication List - Last Reconciled 05/17/25 by Reyna Zaman MD albuterol sulfate 90 mcg/actuation 1 inh inhalation QID PRN alprazolam 0.25 mg PO TID PRN 30 days amlodipine 10 mg PO DAILY apixaban (Eliquis) 5 mg PO BID atorvastatin 40 mg PO BEDTIME blood sugar diagnostic (FreeStyle Lite Strips) B.i.d. blood-glucose meter (FreeStyle Lite Meter kit) B.i.d. budesonide-formoterol 160-4.5 mcg/actuation (Symbicort) 1 inh inhalation BID buprenorphine-naloxone 8-2 mg (Suboxone) 1.5 film sublingual DAILY etanercept (Enbrel SureClick) mg subcut fluconazole 150 mg PO Q3D 2 doses glipizide-metformin 5-500 mg 1 tab PO ONCE 90 days lancets (BD Ultra-Fine II Lancets) 2 times a day levothyroxine 175 mcg PO DAILY 90 days nystatin 1 appl topical DAILY 30 days sertraline 200 mg (2 x 100 mg) PO DAILY Tobacco use date assessed: 04/20/25 Dental Screening Dental Screen Date: 04/20/25 HPI diabetes/yeast infection? HPI Details History - The patient is a 64-year-old female pr esenting with elevated blood glucose levels. - Blood glucose levels have been consist ently elevated during fasting in the morning, with measurements in the range of 158-156 mg/dL. - Postprandial blood glucose levels have been noted to be higher, with a reading of 267 mg/dL a couple of hours post-fast this morning. - On previous days, postprandial levels have also exceeded 200 mg/dL, ranging from approximately 220 mg/dL to above. - Patient reported no recent dietary samara nges but previously consumed significant quantities of Glucerna, leading to weight gain, possibly due to its processed n ature and carbohydrate intake. - Acknowledges need for dietary improvem ents, especially in carbohydrate management. - No abrupt changes in other lifestyle h abits were discussed regarding the glucose issue. Medical History: - Diabetes Mellitus, managed with glipiz sandy/metformin. - Yeast infection (current diagnosis). Medications: - Glipizide/metformin 1 tablet in the mo rning for diabetes management. Social History: - Reports cessation of consuming large a sudheer of Glucerna due to weight gain concerns. - Expressed awareness and intent to reba ge diet, specifically carbohydrate intake, to better control blood glucose levels. Problem List - Diabetes Mellitus - Yeast Infection Patient Instructions - increase glipizide/metformin as prescr ibed: one tablet in the morning and an additional half tablet at night. - Monitor and record blood glucose level s regularly. 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 - Make dietary adjustments to reduce car bohydrate intake. - Expect a follow-up call in a couple of weeks to discuss blood glucose levels. Review of Systems - General: No fever no chills - Neurological: No headaches no dizziness - Ear nose throat: No sore throat no hearing difficulty no ear pain - Cardiovascular: No syncope, no chest pain, no palpitations - Gastrointestinal: No nausea vomiting or diarrhea PFSH Medical History Left breast mass Dupuytren's contracture of both hands Cerebrovascular accident (CVA) Splenic infarct Renal infarct Asthma Alcoholism Smoker Skin cancer of forehead Chronic right shoulder pain GERD (gastroesophageal reflux disease) Osteoarthritis Hypothyroidism Seborrheic dermatitis of scalp Psoriasis Anxiety Depression History of ETOH abuse Surgical History H/O colonoscopy Hx of arthroscopy of left knee History of appendectomy Family History Father Hypercholesteremia Mother Breast cancer Brother No problems noted. Other Mental health disorder Substance use disorder Social History Household Members: None Housing: Apartment Are you a primary client care manager to a significant other at home: No Do you presently have visiting nurse or other home services: No Alcohol intake: former Patient Tobacco Use Status: Current everyday Tobacco user Tobacco use type: Cigarette Cigarettes Per Day: 2 Years Smoked: 40 years Packs per year/per ci.00 e-Cigarette/Vaping Use: Never Used Second Hand Smoke Exposure: No Substance Use Type: Marijuana service: No Current occupational status: retired Current occupation: rt handed Cognitive needs: No Hearing needs: No Vision needs: No Female Reproductive History Menstrual Age of Menarche: 12 Questionnaire Thrive Questionnaire Date Thrive assessed: 04/20/25 JAMES-7 AMB Questionnaire JAMES-7 Date JAMES - 7 assessed: 01/17/25 Source: Developed by Drs. Mickey Miranda, Laury Meier, Chente Hoyos and colleagues, with an educational kasey from [employer]. Physical exam (Primary Care) Tobacco/Smoking Status: Tobacco use Status Tobacco use date assessed 04/20/25 05/17/25 09:24 Patient Tobacco Use Status Current everyday Tobacco 05/17/25 09:24 Tobacco use type Cigarette 05/17/25 09:24 e-Cigarette/Vaping Use Never Used 05/17/25 09:24 Thrive Assessment: Date of Thrive Assessment Date Thrive assessed 04/20/25 05/17/25 09:24 Telehealth Telehealth Telehealth Platform: [employer] Location of provider rendering services: practice address Location of patient: address on file Patient Identification confirmed using: Name, : Yes Telehealth method: video (attempted) Patient verbally consented to treatment: Yes Patient verbally consented to billing insurance company: Yes Patient informed of any privacy concerns related to visit: Yes Minutes spent on Phone/Video with Pt.: 13 Coding Level of Care Code Tele Est Pt Level 3 (84661) Diagnoses Diabetes 1.5, managed as type 2 E13.9 Vaginal yeast infection B37.31 Assessment & Plan Assessment & Plan (1) Diabetes 1.5, managed as type 2: Code(s): E13.9 - Other specified diabetes mellitus without complications Category: Medical (2) Vaginal yeast infection: Code(s): B37.31 - Acute candidiasis of vulva and vagina Category: Medical Plan History - The patient is a 64-year-old female presenting with elevated blood glucose levels. - Blood glucose levels have been consistently elevated during fasting in the morning, with measurements in the range of 158-156 mg/dL. - Postprandial blood glucose levels have been noted to be higher, with a reading of 267 mg/dL a couple of hours post-fast this morning. - On previous days, postprandial levels have also exceeded 200 mg/dL, ranging from approximately 220 mg/dL to above. - Patient reported no recent dietary changes but previously consumed significant quantities of Glucerna, leading to weight gain, possibly due to its processed nature and carbohydrate intake. - Acknowledges need for dietary improvements, especially in carbohydrate management. - No abrupt changes in other lifestyle habits were discussed regarding the glucose issue. Medical History: - Diabetes Mellitus, managed with glipizide/metformin. - Yeast infection (current diagnosis). Medications: - Glipizide/metformin 1 tablet in the morning for diabetes management. Social History: - Reports cessation of consuming large amounts of Glucerna due to weight gain concerns. - Expressed awareness and intent to manage diet, specifically carbohydrate intake, to better control blood glucose levels. Problem List - Diabetes Mellitus - Yeast Infection Patient Instructions - increase glipizide/metformin as prescribed: one tablet in the morning and an additional half tablet at night. - Monitor and record blood glucose levels regularly. 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 - Make dietary adjustments to reduce carbohydrate intake. - Expect a follow-up call in a couple of weeks to discuss blood glucose levels. Medications: Refilled fluconazole may repeat second dose 72 hrs after first dose if symptoms persist 150 mg PO Q3D 2 tabs 0RF 2 doses
== END 2025-05-17 10:33 | disposition home or self-care (01) ==
PROVIDERS: PCP Internal Medicine; Visit Provider Internal Medicine
DX: E13.9 Other specified diabetes mellitus without complications (principal); B37.31 Acute candidiasis of vulva and vagina

== ENCOUNTER 2025-07-11 10:44 | Outpatient (REF) | payer OTHER, SELFPAY ==
--- NOTE | 2025-07-11 11:31 | PFT_ITS ---
Flows: FEV1: 87 % of predicted at 2.13 L FVC: 80 % of predicted at 2.53 L FEV1/FVC: 84 % Bronchodilator response: Absent Volumes: Total lung capacity: 64 % of predicted at 3.38 L Residual volume: 47 % of predicted at 0.88 L Slow vital capacity: 74 % of predicted at 2.50 L Expiratory reserve volume: 85 % of predicted at 0.70 L Diffusion capacity: Moderately decreased, corrects to normal after adjustment for alveolar ventilation. Impression: Mild restrictive ventilatory defect with no bronchodilator response. Combination of restrictive ventilatory defect with decreased diffusion capacity suggests underlying pulmonary parenchymal disease. Clinical correlation is advised. MTDD
[2025-07-11 11:35] VITALS: PULSE 100; O2SAT 95
--- OUTSIDE RECORDS SUMMARY | 2025-07-11 12:26 | XMS_ITS | Clinical Summary ---
Author Organization [facility] Address [address] [place] [address] Care Team Providers Care Note Taker Name Role Phone Reyna Zaman MD Primary Care Provider [phone] Allergies No known active allergies Medications Medication [...] Vaccine (1 of 2 - PCV) 1966 Pneumococcal Vaccine (1 of 2 - PCV) [...] age to complete this topic Care Teams Note Taker Relationship Specialty Start Date End Date Reyna Zaman MD [address] [facility] [place] [address] PCP - General Internal Medicine 06/01/19
--- OUTSIDE RECORDS SUMMARY | 2025-07-11 12:26 | XMS_ITS | Clinical Summary ---
Author Organization [facility] Address [address] [place] [address] Care Team Providers Care Compounding Assistant Name Role Phone Reyna Zaman MD Primary Care Provider [phone] Surgical History Surgery Date Site/Laterality Comments TUBAL LIGATION PROCEDURE: HISTORICAL TUBAL LIGATION APPENDECTOMY PROCEDURE: HISTORICAL APPENDECTOMY KNEE SURGERY 2011 Left PROCEDURE: HISTORICAL KNEE SURGERY; COMMENT: torn meniscus, Dr. Mast Medical History Medical History Date Comments Depression 02/24/2019 DX:Depression Anxiety 02/24/2019 DX:Anxiety Respiratory failure ([facility] V24, [facility] V28) 06/24/2009 DX:Respiratory failure ([facility]) ; COMMENT: 01/2019 Oxygen dependent 06/24/2009 DX:Oxygen depen dent Alcohol abuse 06/24/2009 DX:Alcohol abuse Chronic pancreatitis ([facility] V24, [facility] V28) 06/24/2009 DX:Chronic pancreatitis ([facility] ) Psoriasis 02/24/2019 DX:Psoriasis Hypothyroidism 02/24/2019 DX:Hypothyroidis m Prediabetes 02/24/2019 DX:Prediabetes Rheumatoid arthritis, adult ([facility] V24, [facility] V28) 02/24/2019 DX:Rheumatoid arthritis, melodie lt ([facility]) Vitamin D deficiency 02/24/2019 DX:Vitamin D deficiency GERD (gastroesophageal reflux disease) 02/24/2019 DX:GERD (gastroesophageal reflux disease) Thoracic aortic aneurysm ([facility] V24) 9 DX:Thoracic aortic aneurysm ([facility]); COMMENT: 01/2019 4 cm History of substance abuse ( [facility] V24, [facility] V28) 02/24/2019 DX:History of substance abus e ([facility]); COMMENT: Narcotic addiction 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:Left knee DJD COPD (chronic obstructive pu lmonary disease) ([facility] V24, [facility] V28) 02/24/2019 DX:COPD (chronic o bstructive pulmonary disease) ([facility]) History of pneumonia 02/24/2019 DX:History of pneumonia; [...] series) 2021 Colorectal Cancer Screening: Colonoscopy 12/07/2023 HIV Screening 12/07/2023 Hepatitis C Screening 12/07/2023 Social Influencers of Health Screening 12/07/2023 Depression Screening 11/08/2024 COVID-19 Vaccine (1 - 2023-2 5 season) 2025 Influenza Vaccine (#1) 2025 HIB Vaccines Aged [...] Documents on File Type Date Recorded Patient Tool 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
== END 2025-07-11 10:45 | disposition home or self-care (01) ==
LOC: HO.RESP 10:44
PROVIDERS: PCP Internal Medicine; Visit Provider Internal Medicine
DX: J43.1 Panlobular emphysema (principal)
CPT/HCPCS: 94010; 94640; 94727; 94729

== ENCOUNTER → 2025-07-11 11:31 | Outpatient (BNV) | payer OTHER, SELFPAY | PROVIDERS: PCP Internal Medicine; Visit Provider Internal Medicine Pulmonary Disease | DX: J43.1 Panlobular emphysema (principal) | CPT/HCPCS: 94060; 94727; 94729 ==

== ENCOUNTER 2025-07-26 06:32 | Outpatient (AMB) | payer OTHER, SELFPAY ==
--- OUTSIDE RECORDS SUMMARY | 2025-07-26 06:37 | XMS_ITS | Patient Health Record ---
Author Organization [facility] Address [address] [place] [address] [address] [place] [address] Care Team Providers Care Meter And Service Line Inspector Name Role Phone Reyna Zaman Primary Care Provider FAVIOLA Silva Unavailable [phone] Kayleen Castillo Unavailable [phone] Allergies No Known Allergies Reason For Referral No Information Medications Medication SIG (Take, Route, Frequency, Duration) Notes Start Date End Date Status Zoloft 100 MG 1 tablet Orally twic e a day Active Enbrel 50 MG/ML 1 ml Subcutaneous Weekly Active Vitamin D3 50 MCG (1999) 1 capsule Orally Once a day; Duration: 90 days Active Levothyroxine Sodium 175 MCG 1 tablet in the morning on an empty stomach Orally Once a day Active Eliquis 5 MG 1 tablet Orally Twic e a day Active Suboxone 8-2 MG 1 film under the ton garcia QAM AND 1/2 FILM QPM and allow to dissolve Dispense when due [id number] Sublingual daily; Duration: 28 days 07/12/2025 Active ALPRAZolam 0.25 MG 1 tablet Orally Twic e a day Active Multivitamin - 1 tablet Orally Once a day Active glipiZIDE-metFORMIN HCl 5-500 MG 1 tablet with a meal Orally Once a day Active amLODIPine Besylate 10 MG TAKE 1 TABLET BY MOUTH EVERY DAY; Duration: 30 Active busPIRone HCl 5 MG 1 tablet Orally Thre e times a day Active Symbicort 80-4.5 MCG/ACT 1 puff as neede d Inhalation every 4 hrs Not-Harshil farrell Immunizations Vaccine Route Administration Date Status Comme nts Prevnar 20 IM Intramuscular 07/12/2025 Administered Tdap Unknown 11/08/2009 Administered Social History Tobacco Use: Social History Observation Description Date Details (start date - stop date) Current Smoker NA - NA Sex Assigned At : Social History Observation Description Sex Assigned At Female Tobacco Use/Smoking Question Answer Notes Are you a current smoker Problems Problem Type SNOMED Code ICD Code Onset Dates Problem Status W/U Status Risk Notes Problem Hypothyroidism (57615735) Hypothyroidism, unspecified (E03.9) Active confirmed Problem Disorder due to type 2 diabetes mellitus (083797407) Type 2 diabetes mellitus with unspecified complications (E11.8) Active confirmed Problem Chronic alcoholism in remission (859171582) Alcohol dependence, in remission (F10.21) Active confirmed Problem Opioid dependence (58153479) Opioid dependence, uncomplicated (F11.20) Active confirmed Problem Moderate recurrent major depression (80078077) Major depressive disorder, recurrent, moderate (F33.1) Active confirmed Problem Acute non-ST segment elevation myocardial infarction (916898449) Non-ST elevation (NSTEMI) myocardial infarction (I21.4) Active confirmed Problem Cerebral infarction (297915663) Cerebral infarction, unspecified (I63.9) Active confirmed Problem Uncomplicated mild persistent asthma (037826921) Mild persistent asthma, uncomplicated (J45.30) Active confirmed Problem Myopathy due to rheumatoid arthritis (486008419) 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) Active confirmed Problem Drug addiction counseling (24036223) Drug abuse counseling and surveillance of drug abuser (Z71.51) Active confirmed Problem Nicotine dependence (48120286) Personal history of nicotine dependence (Z87.891) Active confirmed Problem Essential hypertension (55538652) Essential (primary) hypertension (I10) Active confirmed Vital Signs Heart Rate 102 /min 07/12/2025 Temperature 97.3 degrees Fahrenheit 07/12/2025 Blood pressure diastolic 80 mm Hg 07/12/2025 Oximetry 92 % 07/12/2025 Height 64 in 07/12/2025 Blood pressure systolic 122 mm Hg 07/12/2025 Weight 166.1 lbs 07/12/2025 BMI 28.51 kg/m2 07/12/2025 Encounters Encounter Location Date Provider Diagnosis [facility] [address] [address] 07/27/2024 FAVIOLA ZULUAGA Opioid dependence, uncomplicated F11.20 and Drug abuse counseling and surveillance of drug abuser Z71.[address] [place] [address] 08/23/2024 SALMERON GUL Opioid dependence, uncomplicated F11.20 and Drug abuse counseling and surveillance of drug abuser Z71.[address] [place] [address] 09/20/2024 ASLMERON GUL Opioid dependence, uncomplicated F11.20 and Drug abuse counseling and surveillance of drug abuser Z71.[address] [place] [address] 10/23/2024 SALMERON GUL Opioid dependence, uncomplicated F11.20 and Drug abuse counseling and surveillance of drug abuser Z71.[address] [place] [address] 11/24/2024 SALMERON GUL Opioid dependence, uncomplicated F11.20 and Drug abuse counseling and surveillance of drug abuser Z71.[address] [place] [address] 12/22/2024 SALMERON GUL Opioid dependence, uncomplicated F11.20 and Drug abuse counseling and surveillance of drug abuser Z71.[address] [address] 01/18/2025 SALMERON GUL Opioid dependence, uncomplicated F11.20 and Drug abuse counseling and surveillance of drug abuser Z71.[address] [place] [address] 02/15/2025 Ghadeer Mazloum Opioid dependence, uncomplicated F11.20 and Drug abuse counseling and surveillance of drug abuser Z71.[address] [address] 03/16/2025 SALMERON GUL Opioid dependence, uncomplicated F11.20 and Drug abuse counseling and surveillance of drug abuser Z71.[address] [place] [address] 04/13/2025 Ghadeer Mazloum Opioid dependence, uncomplicated F11.20 and Drug abuse counseling and surveillance of drug abuser Z71.[address] [place] [address] 05/16/2025 Kayleen Castillo Opioid dependence, uncomplicated F11.20 and Drug abuse counseling and surveillance of drug abuser Z71.[address] [place] [address] 06/14/2025 SALMERON GUL Opioid dependence, uncomplicated F11.20 and Drug abuse counseling and surveillance of drug abuser Z71.[address] [place] [address] 07/12/2025 SALMERON GUL Opioid dependence, uncomplicated F11.20 ; Drug abuse counseling and surveillance of drug abuser Z71.51 and Encounter for immunization Z23 [address] [place] [address] 04/03/2025 SALMERON MARINAL [address] [place] [address] 05/17/[address] [place] [address] 05/21/2025 SALMERON GUL Assessments Encounter Date Diagnosis (ICD Code) Assessment Notes Treatment Notes Treatment Clinical Notes Section Notes 07/27/2024 Opioid dependence, uncomplicated (ICD-10 - F11.20) [...] substance prescribing. Therefore following state, Federal, [facility] guidelines for controlled substance testing policies. [...] substance prescribing. Therefore following state, Federal, [facility] guidelines for controlled substance testing policies. [...] substance prescribing. Therefore following state, Federal, [facility] guidelines for controlled substance testing policies. [...] substance prescribing. Therefore following state, Federal, [facility] guidelines for controlled substance testing policies. [...] substance prescribing. Therefore following state, Federal, [facility] guidelines for controlled substance testing policies. [...] substance prescribing. Therefore following state, Federal, [facility] guidelines for controlled substance testing policies. [...] substance prescribing. Therefore following state, Federal, [facility] guidelines for controlled substance testing policies. [...] substance prescribing. Therefore following state, Federal, [facility] guidelines for controlled substance testing policies. [...] substance prescribing. Therefore following state, Federal, [facility] guidelines for controlled substance testing policies. [...] substance prescribing. Therefore following state, Federal, [facility] guidelines for controlled substance testing policies. [...] the patient but was available upon request 03/16/2025 Opioid dependence, uncomplicated (ICD-10 - F11.20) Patient [...] substance prescribing. Therefore following state, Federal, [facility] guidelines for controlled substance testing policies. [...] the patient but was available upon request 03/16/2025 Drug abuse counseling and surveillance of drug [...] patient but was available upon request 04/13/2025 Opioid dependence, uncomplicated (ICD-10 - F11.20) [...] patient but was available upon request 05/16/2025 Opioid dependence, uncomplicated (ICD-10 - F11.20) [...] substance prescribing. Therefore following state, Federal, [facility] guidelines for controlled substance testing policies. [...] the patient but was available upon request 06/14/2025 Opioid dependence, uncomplicated (ICD-10 - F11.20) Patient [...] Blood pressure well controlled on current regimen. 06/14/2025 Drug abuse counseling and surveillance of drug [...] substance prescribing. Therefore following state, Federal, [facility] guidelines for controlled substance testing policies. [...] Blood pressure well controlled on current regimen. 07/12/2025 Opioid dependence, uncomplicated (ICD-10 - F11.20) Patient [...] Blood pressure well controlled on current regimen. 07/12/2025 Drug abuse counseling and surveillance of drug [...] substance prescribing. Therefore following state, Federal, [facility] guidelines for controlled substance testing policies. [...] Blood pressure well controlled on current regimen. 07/12/2025 Encounter for immunization (ICD-10 - Z23) Patient is here today for follow-up on [...] controlled on current regimen. Plan Of Treatment Pending Test Test Name Order Date ALT (SGPT) 07/23/2022 AST (SGOT) 07/23/2022 METHADONE, URINE, SCREEN WITH CONFIRM Future Test Test Name Order Date ALT (SGPT) 07/03/2023 AST (SGOT) 07/03/2023 Next Appt Details Provider Name:SALMERON A GUL , 08/09/2025 10:45:00 AM, [address] [place] [address], [phone], Insurance Providers Payer Name Payer Address Payer Phone Subscriber Number Group Number Insured Name Patient Relationship to Insured Coverage Start Date Coverage End Date [facility] [address] [place] [id number] Mignon Antionette Self - patient is the insured 2 Medical (General) History Medical History History ICD Code Rheumatoid arthritis and she sees Dr. Amadou wilson Depression See Gerhard Justice [employer] Acute pancreatitis Alcohol dependence in the past and relap sed June 2023 Prescription drug use and was on OxyCont in. On Suboxone for 7 years Personal history of COVID-19 11/2021 new onset type II diabetes mellitus NSTEMI Oct 2023 was at [facility] secondary to hypoxic failure and demand ischemia CVA with right side weakness with no res idual symptoms COPD Status post Covid 19 with respiratory sy mptoms
--- OUTSIDE RECORDS SUMMARY | 2025-07-26 06:37 | XMS_ITS | Clinical Summary ---
Author Organization [facility] Address [address] [place] [address] Care Team Providers Care Food Assembler Commissary Kitchen Name Role Phone Reyna Zaman MD Primary Care Provider [phone] Allergies No known active allergies Medications Medication [...] age to complete this topic Care Teams Food Assembler Commissary Kitchen Relationship Specialty Start Date End Date Reyna Zaman MD [address] [facility] [place] [address] PCP - General Internal Medicine 06/01/19
--- OUTSIDE RECORDS SUMMARY | 2025-07-26 06:37 | XMS_ITS | Clinical Summary ---
Author Organization [employer] [facility] Address [address] [place] [address] Care Team Providers Care Associate Medical Director Name Role Phone Reyna Zaman MD Primary Care Provider [phone] Surgical History Surgery Date Site/Laterality Comments TUBAL LIGATION PROCEDURE: HISTORICAL TUBAL LIGATION APPENDECTOMY PROCEDURE: HISTORICAL APPENDECTOMY KNEE SURGERY 2011 Left PROCEDURE: HISTORICAL KNEE SURGERY; COMMENT: torn meniscus, Dr. Mast Medical History Medical History Date Comments Depression 02/24/2019 DX:Depression Anxiety 02/24/2019 DX:Anxiety Respiratory failure ([facility] V24, [facility] V28) 06/24/2009 DX:Respiratory failure ([facility]) ; COMMENT: 01/2019 Oxygen dependent 06/24/2009 DX:Oxygen depen dent Alcohol abuse 06/24/2009 DX:Alcohol abuse Chronic pancreatitis ([facility] V24, [facility] V28) 06/24/2009 DX:Chronic pancreatitis ([facility] ) Psoriasis 02/24/2019 DX:Psoriasis Hypothyroidism 02/24/2019 DX:Hypothyroidis m Prediabetes 02/24/2019 DX:Prediabetes Rheumatoid arthritis, adult ([facility] V24, [facility] V28) 02/24/2019 DX:Rheumatoid arthritis, melodie lt ([facility]) Vitamin D deficiency 02/24/2019 DX:Vitamin D deficiency GERD (gastroesophageal reflux disease) 02/24/2019 DX:GERD (gastroesophageal reflux disease) Thoracic aortic aneurysm ([facility] V24) 9 DX:Thoracic aortic aneurysm ([facility]); COMMENT: 01/2019 4 cm History of substance abuse ( [facility] V24, [facility] V28) 02/24/2019 DX:History of substance abus e ([facility]); COMMENT: Narcotic addiction 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:Left knee DJD COPD (chronic obstructive pu lmonary disease) ([facility] V24, [facility] V28) 02/24/2019 DX:COPD (chronic o bstructive pulmonary disease) ([facility]) History of pneumonia 02/24/2019 DX:History of [...] Documents on File Type Date Recorded Patient Academic Administrator Expl anation Health Care Decision (hx) 10/29/2023 JOEY DIEHL DIRECTIVE Care Teams Associate Medical Director Relationship Specialty Start Date End Date Reyna Zaman MD [address] [place] [address] PCP - General Internal Medicine 02/10/19
--- OUTSIDE RECORDS SUMMARY | 2025-07-26 06:37 | XMS_ITS | Patient Health Record ---
Author Organization [facility] Address [address] [place] [address] Care Team Providers Care Sustainability Manager Name Role Phone Austyn DOMINGO, Asma Primary Care Provider Mickey Taylor Unavailable [phone] Reason For Referral No Information Medications Medication [...] Problem Status W/U Status Risk Notes Problem [id number] Encounter for screening for malignant neoplasm of colon (Z12.11) Active confirmed Problem Screening for malignant neoplasm of rectum (264980479) Encounter for screening for malignant neoplasm of rectum (Z12.12) Active confirmed Problem 49123573 Gastroenteritis (K52.9) Active confirmed Plan Of Treatment Future Test Test Name Order Date COLONOSCOPY 02/21/2016 Insurance Providers Payer Name Payer Address Payer Phone Subscriber Number Group Number Insured Name Patient Relationship to Insured Coverage Start Date Coverage End Date MEDICARE OF [place] [address] [place] [id number] CAMILLE CHONG Self - patient is the insured MEDICAID OF [facility] [address] [place] [address] [id number] CAMILLE CHONG Self - patient is the insured Medical (General) History Medical History History ICD Code Denies PR,DM,CVA,Lung disease,renal dise ase Rheumatoid arthritis since 2014--sees Dr Tanner Lantigua Depression Hypothyroidism Hyperlipidemia Opiate addiction--pills--on Suboxone--de nies IVDA Surgical History Surgery Date(Month/Year) appendectomy 2009 knee surgery 2011 Ankle Skin cancer on forehead
--- NOTE | 2025-07-26 09:10 | A.OFFPC_ITS ---
Intake Visit Reasons: hyperglycemia/yeast infection Allergies No Known Allergies Allergy (Verified 04/20/25 10:14) Medication List - Last Reconciled 07/26/25 by Reyna Zaman MD albuterol sulfate 90 mcg/actuation 1 inh inhalation QID PRN alprazolam 0.25 mg PO TID PRN 30 days amlodipine 10 mg PO DAILY apixaban (Eliquis) 5 mg PO BID atorvastatin 40 mg PO BEDTIME blood sugar diagnostic (FreeStyle Lite Strips) Check blood sugar twice daily blood-glucose meter (FreeStyle Lite Meter kit) B.i.d. budesonide-formoterol 160-4.5 mcg/actuation (Symbicort) 1 inh inhalation BID buprenorphine-naloxone 8-2 mg (Suboxone) 1.5 film sublingual DAILY etanercept (Enbrel SureClick) mg subcut fluconazole 150 mg PO Q3D 2 doses glipizide-metformin 5-500 mg 1 tab PO BID 90 days lancets Check blood sugar 2 times a day levothyroxine 175 mcg PO DAILY 90 days nystatin 1 appl topical DAILY 30 days sertraline 200 mg (2 x 100 mg) PO DAILY Tobacco use date assessed: 04/20/25 Dental Screening Dental Screen Date: 04/20/25 HPI hyperglycemia/yeast infection HPI Details History of Present Illness The patient is a 65-year-old female presenting with persistent hyperglycemia and recurrent yeast infections. Hyperglycemia: - Persisting for over a month with blood glucose levels ranging from 250 to 300 mg/dL. - Recent improvement noted with a level of 180 mg/dL since increasing the combination glipizide and metformin medication two days ago. - Morning glucose readings are at 180 mg /dL, with some variability noted during the day, but have not recorded below 180 mg/dL. - post-prandially. sugars are around 18 0 as well - No current side effects from the medic ation were reported, though the problem remains unresolved. Recurrent Yeast Infections: - Problem linked to elevated blood gluco se levels rather than medication. - Patient experiences repeated incidence corresponding with uncontrolled diabetes. Problem List - Type 2 Diabetes Mellitus - Recurrent yeast infections Patient Instructions - Take one and a half tablets of the pre scribed medication at night and one in the morning. - Monitor morning blood glucose levels d aily. - If fasting blood sugar remain high abo ve 150, adjust dose to two tablets at night. - Use prescribed medication for yeast in fection as directed. - Expect a follow-up call next week for further assessment. Review of Systems - General: No fever no chills - Neurological: No headaches no dizziness - Ear nose throat: No sore throat no hearing difficulty no ear pain - Cardiovascular: No syncope, no chest pain, no palpitations - Gastrointestinal: No nausea vomiting or diarrhea PFSH Medical History Left breast mass Dupuytren's contracture of both hands Cerebrovascular accident (CVA) Splenic infarct Renal infarct Asthma Alcoholism Smoker Skin cancer of forehead Chronic right shoulder pain GERD (gastroesophageal reflux disease) Osteoarthritis Hypothyroidism Seborrheic dermatitis of scalp Psoriasis Anxiety Depression History of ETOH abuse Surgical History H/O colonoscopy Hx of arthroscopy of left knee History of appendectomy Family History Father Hypercholesteremia Mother Breast cancer Brother No problems noted. Other Mental health disorder Substance use disorder Social History Household Members: None Housing: Apartment Are you a primary manager intensive care unit to a significant other at home: No Do you presently have visiting nurse or other home services: No Alcohol intake: former Patient Tobacco Use Status: Current everyday Tobacco user Tobacco use type: Cigarette Cigarettes Per Day: 2 Years Smoked: 40 years Packs per year/per ci.00 e-Cigarette/Vaping Use: Never Used Second Hand Smoke Exposure: No Substance Use Type: Marijuana service: No Current occupational status: retired Current occupation: rt handed Cognitive needs: No Hearing needs: No Vision needs: No Female Reproductive History Menstrual Age of Menarche: 12 Questionnaire Thrive Questionnaire Date Thrive assessed: 01/16/25 I am a: Patient What is your living situation today?: I have a steady place to live Within the past 12 months, did the food you bought not last and you didn't have the money to get more?: Sometimes True Within the past 12 months, did you worry whether your food would run out before you got money to buy more?: Sometimes True Do you have trouble paying for medicines?: No Do you have trouble getting transportation to medical appointments?: No Do you have trouble paying your heating and electricity bill?: No Do you have trouble taking care of your child, family member or friend?: No Do you have trouble with day-to-day activities such as bathing, preparing meals, shopping, managing finances, etc.?: No Are you currently unemployed and looking for a job?: No Are you interested in more education?: No Please select the resources that you would like help with: Food Currently or been in a relationship where the following occur: No concerns reported THRIVE Score: 2 JAMES-7 AMB Questionnaire JAMES-7 Date JAMES - 7 assessed: 01/17/25 Source: Developed by Drs. Mickey Miranda, Laury Meier, Chente Hoyos and colleagues, with an educational kasey from [employer]. Physical exam (Primary Care) Tobacco/Smoking Status: Tobacco use Status Tobacco use date assessed 04/20/25 07/26/25 09:15 Patient Tobacco Use Status Current everyday Tobacco 07/26/25 09:15 Tobacco use type Cigarette 07/26/25 09:15 e-Cigarette/Vaping Use Never Used 07/26/25 09:15 Thrive Assessment: Date of Thrive Assessment Date Thrive assessed 01/16/25 07/26/25 09:15 Currently or been in a relationship where the following occur: No concerns reported Telehealth Telehealth Telehealth Platform: [facility] Location of provider rendering services: practice address Location of patient: address on file Patient Identification confirmed using: Name, : Yes Telehealth method: video Patient verbally consented to treatment: Yes Patient verbally consented to billing insurance company: Yes Patient informed of any privacy concerns related to visit: Yes Minutes spent on Phone/Video with Pt.: 13 Coding Level of Care Code Tele Est Pt Level 3 (32367) Diagnoses Uncontrolled diabetes mellitus Vaginal yeast infection B37.31 Assessment & Plan Assessment & Plan (1) Uncontrolled diabetes mellitus: Category: Medical (2) Vaginal yeast infection: Code(s): B37.31 - Acute candidiasis of vulva and vagina Category: Medical Plan History of Present Illness The patient is a 65-year-old female presenting with persistent hyperglycemia and recurrent yeast infections. Hyperglycemia: - Persisting for over a month with blood glucose levels ranging from 250 to 300 mg/dL. - Recent improvement noted with a level of 180 mg/dL since increasing the combination glipizide and metformin medication two days ago. - Morning glucose readings are at 180 mg/dL, with some variability noted during the day, but have not recorded below 180 mg/dL. - post-prandially. sugars are around 180 as well - No current side effects from the medication were reported, though the problem remains unresolved. Recurrent Yeast Infections: - Problem linked to elevated blood glucose levels rather than medication. - Patient experiences repeated incidence corresponding with uncontrolled diabetes. Problem List - Type 2 Diabetes Mellitus - Recurrent yeast infections Patient Instructions - Take one and a half tablets of the prescribed medication at night and one in the morning. - Monitor morning blood glucose levels daily. - If fasting blood sugar remain high above 150, adjust dose to two tablets at night. - Use prescribed medication for yeast infection as directed. - Expect a follow-up call next week for further assessment. Medications: Refilled fluconazole may repeat second dose 72 hrs after first dose if symptoms persist 150 mg PO Q3D 2 tabs 0RF 2 doses
== END 2025-07-26 11:10 | disposition home or self-care (01) ==
LOC: HO.HMCC 06:33
PROVIDERS: PCP Internal Medicine; Visit Provider Internal Medicine
DX: B37.31 Acute candidiasis of vulva and vagina (principal)

== ENCOUNTER 2025-08-02 08:55 | Outpatient (AMB) | payer OTHER, SELFPAY ==
--- OUTSIDE RECORDS SUMMARY | 2025-08-02 09:38 | XMS_ITS | Clinical Summary ---
Author Organization [facility] Address [address] [place] [address] Care Team Providers Care Food Preparation Worker Name Role Phone Reyna Zaman MD Primary Care Provider [phone] Surgical History Surgery Date Site/Laterality Comments TUBAL LIGATION PROCEDURE: HISTORICAL TUBAL LIGATION APPENDECTOMY PROCEDURE: HISTORICAL APPENDECTOMY KNEE SURGERY 2011 Left PROCEDURE: HISTORICAL KNEE SURGERY; COMMENT: torn meniscus, Dr. Mast Medical History Medical History Date Comments Depression 02/24/2019 DX:Depression Anxiety 02/24/2019 DX:Anxiety Respiratory failure ([facility] V24, [facility] V28) 06/24/2009 DX:Respiratory failure ([facility]) ; COMMENT: 01/2019 Oxygen dependent 06/24/2009 DX:Oxygen depen dent Alcohol abuse 06/24/2009 DX:Alcohol abuse Chronic pancreatitis ([facility] V24, [facility] V28) 06/24/2009 DX:Chronic pancreatitis ([facility] ) Psoriasis 02/24/2019 DX:Psoriasis Hypothyroidism 02/24/2019 DX:Hypothyroidis m Prediabetes 02/24/2019 DX:Prediabetes Rheumatoid arthritis, adult ([facility] V24, [facility] V28) 02/24/2019 DX:Rheumatoid arthritis, melodie lt ([facility]) Vitamin D deficiency 02/24/2019 DX:Vitamin D deficiency GERD (gastroesophageal reflux disease) 02/24/2019 DX:GERD (gastroesophageal reflux disease) Thoracic aortic aneurysm ([facility] V24) 9 DX:Thoracic aortic aneurysm ([facility]); COMMENT: 01/2019 4 cm History of substance abuse ( [facility] V24, [facility] V28) 02/24/2019 DX:History of substance abus e ([facility]); COMMENT: Narcotic addiction 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:Left knee DJD COPD (chronic obstructive pu lmonary disease) ([facility] V24, [facility] V28) 02/24/2019 DX:COPD (chronic o bstructive pulmonary disease) ([facility]) History of pneumonia 02/24/2019 DX:History [...] Documents on File Type Date Recorded Patient Greenhouse Specialist Expl anation Health Care Decision (hx) 10/29/2023 JOEY DIEHL DIRECTIVE Care Teams Food Preparation Worker Relationship Specialty Start Date End Date Reyna Zaman MD [address] [place] [address] PCP - General Internal Medicine 02/10/19
--- OUTSIDE RECORDS SUMMARY | 2025-08-02 09:38 | XMS_ITS | Clinical Summary ---
Author Organization [facility] Address [address] [place] [address] Care Team Providers Care Nutrition Program Instructor Name Role Phone Reyna Zaman MD Primary Care Provider [phone] Allergies No known active allergies Medications Medication [...] age to complete this topic Care Teams Nutrition Program Instructor Relationship Specialty Start Date End Date Reyna Zaman MD [address] [facility] [place] [address] PCP - General Internal Medicine 06/01/19
--- OUTSIDE RECORDS SUMMARY | 2025-08-02 09:38 | XMS_ITS | Patient Health Record ---
Author Organization [facility] Address [address] [place] [address] Care Team Providers Care Snath Handle Assembler Name Role Phone Austyn DOMINGO, Asma Primary Care Provider Mickey Taylor Unavailable [phone] Reason For Referral No Information Medications Medication [...] Problem Status W/U Status Risk Notes Problem [id number] Encounter for screening for malignant neoplasm of colon (Z12.11) Active confirmed Problem Screening for malignant neoplasm of rectum (464647351) Encounter for screening for malignant neoplasm of rectum (Z12.12) Active confirmed Problem 21257273 Gastroenteritis (K52.9) Active confirmed Plan Of Treatment Future Test Test Name Order Date COLONOSCOPY 02/21/2016 Insurance Providers Payer Name Payer Address Payer Phone Subscriber Number Group Number Insured Name Patient Relationship to Insured Coverage Start Date Coverage End Date MEDICARE OF [place] [address] [place] S[place] [id number] [phone] [id number] CAMILLE CHONG Self - patient is the insured MED[place] OF [employer] [address] [place] [address] [id number] CAMILLE CHONG Self - patient is the insured Medical (General) History Medical History History ICD Code Denies LA,DM,CVA,Lung disease,renal dise ase Rheumatoid arthritis since 2014--sees Dr Tanner Lantigua Depression Hypothyroidism Hyperlipidemia Opiate addiction--pills--on Suboxone--de nies IVDA Surgical History Surgery Date(Month/Year) appendectomy 2009 knee surgery 2011 Ankle Skin cancer on forehead
--- OUTSIDE RECORDS SUMMARY | 2025-08-02 09:38 | XMS_ITS | Patient Health Record ---
Author Organization [facility] Address [address] [place] [address] [address] [place] [address] Care Team Providers Care Network Support Administrator Name Role Phone Reyna Zaman Primary Care Provider FAVIOLA Silva Unavailable [phone] Kayleen Castillo Unavailable [phone] Allergies No Known Allergies Reason For Referral [...] and allow to dissolve Dispense when due [id number] Sublingual daily; Duration: 28 days 07/12/2025 Active [...] Status W/U Status Risk Notes Problem Hypothyroidism (22799858) Hypothyroidism, unspecified (E03.9) Active confirmed Problem Disorder due to type 2 diabetes mellitus (512534133) Type 2 diabetes mellitus with unspecified complications (E11.8) Active confirmed Problem Chronic alcoholism in remission (352500553) Alcohol dependence, in remission (F10.21) Active confirmed Problem Opioid dependence (57571847) Opioid dependence, uncomplicated (F11.20) Active confirmed Problem Moderate recurrent major depression (41914172) Major depressive disorder, recurrent, moderate (F33.1) Active confirmed Problem Acute non-ST segment elevation myocardial infarction (744947597) Non-ST elevation (NSTEMI) myocardial infarction (I21.4) Active confirmed Problem Cerebral infarction (171876047) Cerebral infarction, unspecified (I63.9) Active confirmed Problem Uncomplicated mild persistent asthma (653833071) Mild persistent asthma, uncomplicated (J45.30) Active confirmed Problem Myopathy due to rheumatoid arthritis (374958109) 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) Active confirmed Problem Drug addiction counseling (02970819) Drug abuse counseling and surveillance of drug abuser (Z71.51) Active confirmed Problem Nicotine dependence (52987150) Personal history of nicotine dependence (Z87.891) Active confirmed Problem Essential hypertension (64775931) Essential (primary) hypertension (I10) Active confirmed Vital Signs Heart Rate 102 /min 07/12/2025 Temperature 97.3 degrees Fahrenheit 07/12/2025 Blood pressure diastolic 80 mm Hg 07/12/2025 Oximetry 92 % 07/12/2025 Height 64 in 07/12/2025 Blood pressure systolic 122 mm Hg 07/12/2025 Weight 166.1 lbs 07/12/2025 BMI 28.51 kg/m2 07/12/2025 Encounters Encounter Location Date Provider Diagnosis [facility] [address] [address] 08/23/2024 FAVIOLA ZULUAGA Opioid dependence, uncomplicated F11.20 and Drug abuse counseling and surveillance of drug abuser Z71.[address] [place] [address] 09/20/2024 SALMERON GUL Opioid dependence, uncomplicated F11.20 and Drug abuse counseling and surveillance of drug abuser Z71.[address] [place] [address] 10/23/2024 SALMERON GUL Opioid dependence, uncomplicated F11.20 and Drug abuse counseling and surveillance of drug abuser Z71.[address] [place] [address] 11/24/2024 SALMERON GUL Opioid dependence, uncomplicated F11.20 and Drug abuse counseling and surveillance of drug abuser Z71.[address] [place] [address] 12/22/2024 SALMERON GUL Opioid dependence, uncomplicated F11.20 and Drug abuse counseling and surveillance of drug abuser Z71.[address] [place] [address] 01/18/2025 SALMERON GUL Opioid dependence, uncomplicated F11.20 and Drug abuse counseling and surveillance of drug abuser Z71.[address] [address] 02/15/2025 Ghadeer Mazloum Opioid dependence, uncomplicated F11.20 and Drug abuse counseling and surveillance of drug abuser Z71.[address] [place] [address] 03/16/2025 SALMERON GUL Opioid dependence, uncomplicated F11.20 and Drug abuse counseling and surveillance of drug abuser Z71.[address] [address] 04/13/2025 Ghadeer Mazloum Opioid dependence, uncomplicated F11.20 and Drug abuse counseling and surveillance of drug abuser Z71.[address] [place] [address] 05/16/2025 Ghadeer Mazloum Opioid dependence, uncomplicated F11.20 and Drug abuse counseling and surveillance of drug abuser Z71.51 [facility] [address] [facility] [address] [place] [address] 06/14/2025 SALMERON GUL Opioid dependence, uncomplicated F11.20 and Drug abuse counseling and surveillance of drug abuser Z71.51 [facility] [address] [facility] [address] [place] [address] 07/12/2025 SALMERONNIEVES GRAYL Opioid dependence, uncomplicated F11.20 ; Drug abuse counseling and surveillance of drug abuser Z71.51 and Encounter for immunization Z23 [address] [place] [address] 04/03/2025 FAVIOLA ZULUAGA [address] [place] [address] 05/17/[address] [place] [address] 05/21/2025 FAVIOLA ZULUAGA Assessments Encounter Date Diagnosis (ICD Code) Assessment Notes Treatment Notes Treatment Clinical Notes Section Notes 08/23/2024 Opioid dependence, uncomplicated (ICD-10 - F11.20) [...] controlled substance prescribing. Therefore following state, Federal, [facility] guidelines for controlled substance testing policies. [...] note under HIPAA compliance and under [place] law mandated for scribe services. Patient aware [...] controlled substance prescribing. Therefore following state, Federal, [facility] guidelines for controlled substance testing policies. [...] note under HIPAA compliance and under [place] law mandated for scribe services. Patient aware [...] controlled substance prescribing. Therefore following state, Federal, [facility] guidelines for controlled substance testing policies. [...] note under HIPAA compliance and under [place] law mandated for scribe services. Patient aware [...] note under HIPAA compliance and under [place] law mandated for scribe services. Patient aware [...] controlled substance prescribing. Therefore following state, Federal, [facility] guidelines for controlled substance testing policies. [...] controlled substance prescribing. Therefore following state, Federal, [facility] guidelines for controlled substance testing policies. [...] controlled substance prescribing. Therefore following state, Federal, [facility] guidelines for controlled substance testing policies. [...] controlled substance prescribing. Therefore following state, Federal, [facility] guidelines for controlled substance testing policies. [...] Next Appt Details Provider Name:FAVIOLA ZULUAGA , 08/09/2025 10:45:00 AM, [address] [place] [address], [place], [address], Insurance Providers Payer Name Payer Address Payer Phone Subscriber Number Group Number Insured Name Patient Relationship to Insured Coverage Start Date Coverage End Date [facility] [address] [id number] Antionette Crow Self - patient is the insured 2 Medical (General) History Medical History History ICD Code Rheumatoid arthritis and she sees Dr. Amadou wilson Depression See Gerhard Justice APRN Acute pancreatitis Alcohol dependence in the past and relap sed June 2023 Prescription drug use and was on OxyCont in. On Suboxone for 7 years Personal history of COVID-19 11/2021 new onset type II diabetes mellitus NSTEMI Oct 2023 was at [facility] secondary to hypoxic failure and demand ischemia CVA with right side weakness with no res idual symptoms COPD Status post Covid 19 with respiratory sy mptoms
--- NOTE | 2025-08-02 10:36 | MHC.PC.OV ---
Intake Visit Reasons: 1 week f.up - sugars Allergies No Known Allergies Allergy (Verified 04/20/25 10:14) Medication List - Last Reconciled 08/02/25 by Reyna Zaman MD albuterol sulfate 90 mcg/actuation 1 inh inhalation QID PRN alprazolam 0.25 mg PO TID PRN 30 days amlodipine 10 mg PO DAILY apixaban (Eliquis) 5 mg PO BID atorvastatin 40 mg PO BEDTIME blood sugar diagnostic (FreeStyle Lite Strips) Check blood sugar twice daily blood-glucose meter (FreeStyle Lite Meter kit) B.i.d. budesonide-formoterol 160-4.5 mcg/actuation (Symbicort) 1 inh inhalation BID buprenorphine-naloxone 8-2 mg (Suboxone) 1.5 film sublingual DAILY etanercept (Enbrel SureClick) mg subcut fluconazole 150 mg PO Q3D 2 doses glipizide-metformin 5-500 mg 1 tab PO BID 90 days lancets Check blood sugar 2 times a day levothyroxine 175 mcg PO DAILY 90 days nystatin 1 appl topical DAILY 30 days sertraline 200 mg (2 x 100 mg) PO DAILY Tobacco use date assessed: 04/20/25 Dental Screening Dental Screen Date: 04/20/25 HPI 1 week f.up - sugars HPI Details History of Present Illness The patient is a 65-year-old female presenting with concerns regarding elevated blood glucose levels, ongoing yeast infections, and pre-surgical medication management. Elevated Blood Glucose Levels: - Recent blood sugar readings have been 178 mg/dL as of 07/25; subsequent readings showed 230 mg/dL, 228 mg/dL, 177 mg/dL, 175 mg/dL, 217 mg/dL, 263 mg/dL, and 267 mg/dL. - Despite dietary compliance, the blood glucose levels remain high. - Current medication regimen includes one tablet in the morning and one at night, recently increased to include an additional half tablet at night. - Concerns about high blood glucose impacting surgery plans. Recurrent Yeast Infections: - The patient reports a recurrence of a yeast infection and noted a prescription for fluconazole was received again. - Experiencing frequent urination, being up to seven times a night, which is not an exaggeration according to the patient. Pending Hand Surgery: - Hand surgery planned for torn tendons due to arthritis, with concern regarding whether to proceed given elevated blood glucose levels. - Surgery anticipated to last approximately three and a half hours. - Patient expresses a need to align timing with glucose control improvement. - Awaiting final medical clearance for surgery and has completed a lung test as part of the pre-surgical evaluation. Chronic Obstructive Pulmonary Disease (COPD): - Diagnosed with COPD from a recent lung function test (PFTs). - Difficulties with shortness of breath when climbing stairs while carrying groceries, requiring 10 minutes to recover. - Current rescue inhaler deemed ineffective as the issue is pulmonary rather than asthmatic. Medical History: - Diabetes Mellitus with elevated blood glucose levels - Recurrent yeast infections - Chronic Obstructive Pulmonary Disease (COPD) diagnosed recently Surgical History: - Plan for hand surgery to repair torn tendons from arthritis Medications: - Glipizide Metformin 5-500 mg for blood glucose control, taken one in the morning and one at night, recently increased to one and a half at night. - Fluconazole for yeast infection. Social History: - Resides alone on the third floor. - Noted shortness of breath and difficulty with physical activity such as carrying groceries up three flights of stairs. - Compliance with dietary recommendations, despite blood glucose levels remaining high. Diagnostic Results: - PFTs indicate Chronic Obstructive Pulmonary Disease, not responsive to albuterol inhaler. Problem List - Diabetes Mellitus with elevated blood glucose levels - Recurrent Yeast Infections - Pending hand surgery due to arthritis-related tendon damage - Chronic Obstructive Pulmonary Disease (COPD) Patient Instructions - Increase medication to two tablets in the morning and two at night. - Monitor blood glucose levels closely. - Postpone hand surgery until blood sugars are better controlled. - Contact the office for an appointment in a week to reassess condition. - Use fluconazole if yeast infection symptoms develop. Review of Systems - General: No fever no chills - Neurological: No headaches no dizziness - Ear nose throat: No sore throat no hearing difficulty no ear pain - Cardiovascular: No syncope, no chest pain, no palpitations - Gastrointestinal: No nausea vomiting or diarrhea [facility] Medical History Left breast mass Dupuytren's contracture of both hands Cerebrovascular accident (CVA) Splenic infarct Renal infarct Asthma Alcoholism Smoker Skin cancer of forehead Chronic right shoulder pain GERD (gastroesophageal reflux disease) Osteoarthritis Hypothyroidism Seborrheic dermatitis of scalp Psoriasis Anxiety Depression History of ETOH abuse Surgical History H/O colonoscopy Hx of arthroscopy of left knee History of appendectomy Family History Father Hypercholesteremia Mother Breast cancer Brother No problems noted. Other Mental health disorder Substance use disorder Social History Household Members: None Housing: Apartment Are you a primary healthcare sales representative to a significant other at home: No Do you presently have visiting nurse or other home services: No Alcohol intake: former Patient Tobacco Use Status: Current everyday Tobacco user Tobacco use type: Cigarette Cigarettes Per Day: 2 Years Smoked: 40 years Packs per year/per ci.00 e-Cigarette/Vaping Use: Never Used Second Hand Smoke Exposure: No Substance Use Type: Marijuana service: No Current occupational status: retired Current occupation: rt handed Cognitive needs: No Hearing needs: No Vision needs: No Female Reproductive History Menstrual Age of Menarche: 12 Questionnaire Thrive Questionnaire Date Thrive assessed: 01/16/25 JAMES-7 AMB Questionnaire JAMES-7 Date JAMES - 7 assessed: 01/17/25 Source: Developed by Drs. Mickey Miranda, Laury Meier, Chente Hoyos and colleagues, with an educational kasey from [employer]. Physical exam (Primary Care) Tobacco/Smoking Status: Tobacco use Status Tobacco use date assessed 04/20/25 08/02/25 10:36 Patient Tobacco Use Status Current everyday Tobacco 08/02/25 10:36 Tobacco use type Cigarette 08/02/25 10:36 e-Cigarette/Vaping Use Never Used 08/02/25 10:36 Thrive Assessment: Date of Thrive Assessment Date Thrive assessed 01/16/25 08/02/25 10:36 Telehealth Telehealth Telehealth Platform: [facility] Location of provider rendering services: practice address Location of patient: address on file Patient Identification confirmed using: Name, : Yes Telehealth method: video Patient verbally consented to treatment: Yes Patient verbally consented to billing insurance company: Yes Patient informed of any privacy concerns related to visit: Yes Coding Level of Care Code Tele Est Pt Level 4 (86537) Diagnoses Uncontrolled diabetes mellitus Vaginal yeast infection B37.31 Shortness of breath R06.02 Panlobular emphysema J43.1 COPD type: emphysema Emphysema type: panlobular Dupuytren's disease of palm of right hand M72.0 Time Spent (min) 30 Comment 20 min with patient / 10 min date review, documentation, coordination Assessment & Plan Assessment & Plan (1) Uncontrolled diabetes mellitus: Category: Medical (2) Vaginal yeast infection: Code(s): B37.31 - Acute candidiasis of vulva and vagina Category: Medical (3) Shortness of breath: Code(s): R06.02 - Shortness of breath Category: Medical (4) COPD (chronic obstructive pulmonary disease): Code(s): J44.9 - Chronic obstructive pulmonary disease, unspecified Category: Medical Qualifiers: COPD type: emphysema Emphysema type: panlobular Qualified Code(s): J43.1 - Panlobular emphysema (5) Dupuytren's disease of palm of right hand: Code(s): M72.0 - Palmar fascial fibromatosis [Dupuytren] Category: Medical Plan History of Present Illness The patient is a 65-year-old female presenting with concerns regarding elevated blood glucose levels, ongoing yeast infections, and pre-surgical medication management. Elevated Blood Glucose Levels: - Recent blood sugar readings have been 178 mg/dL as of 07/25; subsequent readings showed 230 mg/dL, 228 mg/dL, 177 mg/dL, 175 mg/dL, 217 mg/dL, 263 mg/dL, and 267 mg/dL. - Despite dietary compliance, the blood glucose levels remain high. - Current medication regimen includes one tablet in the morning and one at night, recently increased to include an additional half tablet at night. - Concerns about high blood glucose impacting surgery plans. Recurrent Yeast Infections: - The patient reports a recurrence of a yeast infection and noted a prescription for fluconazole was received again. - Experiencing frequent urination, being up to seven times a night, which is not an exaggeration according to the patient. Pending Hand Surgery: - Hand surgery planned for torn tendons due to arthritis, with concern regarding whether to proceed given elevated blood glucose levels. - Surgery anticipated to last approximately three and a half hours. - Patient expresses a need to align timing with glucose control improvement. - Awaiting final medical clearance for surgery and has completed a lung test as part of the pre-surgical evaluation. Chronic Obstructive Pulmonary Disease (COPD): - Diagnosed with COPD from a recent lung function test (PFTs). - Difficulties with shortness of breath when climbing stairs while carrying groceries, requiring 10 minutes to recover. - Current rescue inhaler deemed ineffective as the issue is pulmonary rather than asthmatic. Medical History: - Diabetes Mellitus with elevated blood glucose levels - Recurrent yeast infections - Chronic Obstructive Pulmonary Disease (COPD) diagnosed recently Surgical History: - Plan for hand surgery to repair torn tendons from arthritis Medications: - Glipizide Metformin 5-500 mg for blood glucose control, taken one in the morning and one at night, recently increased to one and a half at night. - Fluconazole for yeast infection. Social History: - Resides alone on the third floor. - Noted shortness of breath and difficulty with physical activity such as carrying groceries up three flights of stairs. - Compliance with dietary recommendations, despite blood glucose levels remaining high. Diagnostic Results: - PFTs indicate Chronic Obstructive Pulmonary Disease, not responsive to albuterol inhaler. Problem List - Diabetes Mellitus with elevated blood glucose levels - Recurrent Yeast Infections - Pending hand surgery due to arthritis-related tendon damage - Chronic Obstructive Pulmonary Disease (COPD) Patient Instructions - Increase medication to two tablets in the morning and two at night. - Monitor blood glucose levels closely. - Postpone hand surgery until blood sugars are better controlled. - Contact the office for an appointment in a week to reassess condition. - Use fluconazole if yeast infection symptoms develop. Medications: New tiotropium bromide (Spiriva with HandiHaler) puncture 1 cap using device; one dose = 2 inhalations 1 cap inhalation DAILY 1 units 0RF 30 days
== END 2025-08-02 10:54 | disposition home or self-care (01) ==
LOC: HO.HMCC 08:55
PROVIDERS: PCP Internal Medicine; Visit Provider Internal Medicine
DX: B37.31 Acute candidiasis of vulva and vagina (principal); R06.02 Shortness of breath; J43.1 Panlobular emphysema; M72.0 Palmar fascial fibromatosis [Dupuytren]